=== PATIENT | female | born 1970 | race Caucasian/White ===

== ENCOUNTER 2016-04-18 13:09 | Inpatient (IN) ==
--- NOTE | 2016-04-18 13:27 | Emergency Department Note ---
Disposition Clinical Impression: Psychosis Qualifiers: Psychosis type: unspecified psychosis type Qualified Code(s): F29 - Unspecified psychosis not due to a substance or known physiological condition Disposition: Admitted As Inpatient Condition: Good Referrals: NO,PCP [Primary Care Provider] - Forms: ED Satisfaction Letter Time of Disposition: 14:14 Psych HPI - General Chief Complaint: ED Psychiatric Symptoms Stated Complaint: SI Time Seen by Provider: 04/18/16 13:15 Source: patient, family Mode of arrival: ambulatory Limitations: no limitations Nursing Notes Reviewed: Yes Vital Signs Reviewed: Yes - History of Present Illness HPI Narrative: Patient presents to the emergency department the care of her sister and daughter. She has a history of schizophrenia. Family concerned that she is not taking her Geodon. Patient has been acting bizarrely with hallucinations over the past several weeks progressively since her most recent psychiatric admission. No reports of drug or alcohol use. The patient complains of chronic neck, back, left-sided abdominal pain but otherwise denies symptoms. The family notes the patient has been having labile sleep patterns Pt complaint: altered mental status Onset (ago): week(s) Duration: constant History of similar episodes: Yes Alleged intoxication: No Associated symptoms: Reports: other Traumatic symptoms: denies traumatic injury Treatments prior to arrival: none - Related Data Home Medications Medication Instructions Recorded Confirmed Albuterol Sulfate [Proair 1 - 2 puff IH TID PRN 05/04/15 04/18/16 Respiclick] Fluticasone Propionate Nasal 50 mcg NS DAILY 05/04/15 04/18/16 [Flonase] Lansoprazole [Prevacid] 30 mg PO DAILY 05/04/15 04/18/16 Montelukast [Singulair] 10 mg PO DAILY 05/04/15 04/18/16 Atorvastatin Calcium [Lipitor] 20 mg PO DAILY 01/11/16 04/18/16 Estradiol 0.5 mg PO DAILY 01/11/16 04/18/16 Ranitidine HCl [Acid Special Education Case Manager] 150 mg PO BID 01/11/16 04/18/16 Umeclidinium [place] [Incruse 1 puff IH DAILY 01/11/16 04/18/16 Ellipta] Budesonide/Formoterol 80/4.5 1 puff IH BID 04/18/16 04/18/16 [Symbicort 80/4.5] Hydroxyzine HCl 25 mg PO BID 04/18/16 04/18/16 Loratadine [Allergy Relief] 10 mg PO DAILY 04/18/16 04/18/16 Trazodone HCl 100 mg PO HS 04/18/16 04/18/16 Previous Rx's Medication Instructions Recorded Buspirone HCl [Buspar] 15 mg PO BID #90 tablet 02/11/16 Clotrimazole 1% CRM [Lotrimin 1%] 1 appl TP BID #1 tube 02/11/16 Ziprasidone [Geodon] 80 mg PO BID #60 capsule 02/11/16 Allergies Allergy/AdvReac Type Severity Reaction Status Date / Time citalopram [From Celexa] AdvReac swelling Verified 01/28/16 18:11 lurasidone [From Latuda] AdvReac swelling Verified 01/28/16 18:11 All systems ED: reviewed and negative except as stated. Constitutional: Reports: as per HPI Eyes: Reports: as per HPI ENT ED: Reports: as per HPI Cardiovascular: Reports: as per HPI Respiratory: Reports: as per HPI Gastrointestinal: Reports: abdominal pain Genitourinary: Reports: as per HPI Musculoskeletal: Reports: back pain, neck pain Integumentary: Reports: as per HPI Neurological: Reports: other Psychiatric: Reports: as per HPI, auditory hallucinations Endocrine: Reports: as per HPI Hematological/Lymphatic: Reports: as per HPI Allergic/Immunologic: Reports: as per HPI Past Medical History - Past Medical History Source: patient Medical history: Reports: asthma, GERD Surgical history: Reports: herniorrhaphy, hysterectomy, orthopedic, other, other Psychiatric history: Reports: prior suicide attempt, previous psychiatric hospitalization HOUSEKEEPING LEAD history: Reports: bilateral tubal ligation - Social History Smoking Status: Current every day smoker Smokeless Tobacco Status: No Alcohol use: Reports: none Drug use: Reports: none Physical Exam Patient standing at bedside. Eyes closed. Arousable to verbal stimuli. Appears sleepy - General Limitations: no limitations General appearance: alert, in no apparent distress - Head Head exam: atraumatic - Eye Eye exam: Present: normal appearance, PERRL - ENT ENT exam: normal exam - Neck Neck exam: Present: normal inspection - Chest Chest inspection: Present: normal inspection - Respiratory Respiratory exam: Present: normal lung sounds bilaterally - Cardiovascular Cardiovascular exam: Present: regular rate, normal rhythm - Abdominal Exam Abdominal exam: Present: soft, Non-Tender - Rectal Exam Rectal exam: Present: deferred - Extremities Exam Extremities exam: Present: normal inspection - Back Exam Back exam: Present: normal inspection - Neurological Exam Neurological exam: Present: alert - Psychiatric Psychiatric exam: Present: flat affect - Skin Skin exam: Present: warm, dry, intact Course Course Narrative: Patient presents in the care of her family with concern for psychiatric related issues. She appears in no acute distress. I will attempt to clear this patient medically for behavioral evaluation - Reevaluation(s) Reevaluation #1: 1A contacted. medically cleared Vital Signs Temperature 97.5 F L 04/18/16 13:11 Pulse Rate 86 04/18/16 13:11 Respiratory Rate 16 04/18/16 13:11 Blood Pressure 133/82 04/18/16 13:11 O2 Sat by Pulse Oximetry 97 04/18/16 13:11 Temperature 97.5 F L 04/18/16 13:11 Pulse Rate 86 04/18/16 13:11 Respiratory Rate 16 04/18/16 13:11 Blood Pressure 133/82 04/18/16 13:11 O2 Sat by Pulse Oximetry 97 04/18/16 13:11 Oxygen Delivery Oxygen Delivery Room Air Psych - Lab Data Lab results reviewed: Yes I reviewed the patient's lab results. Result diagrams: 04/18/16 13:29 04/18/16 13:29 Lab Results 04/18/16 04/18/16 04/18/16 Range/Units 13:29 13:29 13:50 WBC 8.0 (4.3-11.1) K/mcL RBC 5.28 H (3.82-4.97) M/mcL Hgb 16.5 H (11.5-15.4) g/dL Hct 46.8 H (35.3-44.9) % MCV 88.6 (83.0-100.0) fL MCH 31.3 (28.0-33.3) pg MCHC 35.3 (31.6-35.5) g/dL RDW 12.2 (11.5-14.5) % Plt Count 349 (140-400) K/mcL MPV 9.1 L (9.4-12.4) fL Immature Gran % 0.3 (0-4) % Seg Neutrophils % 44.1 % Lymphocytes % 43.1 % Monocytes % 10.1 % Eosinophils % 1.3 % Basophils % 1.1 % Neutrophils # 3.5 (1.6-8.9) K/mcL Lymphocytes # 3.4 (0.6-4.6) K/mcL Monocytes # 0.8 (0.0-1.3) K/mcL Eosinophils # 0.1 (0.0-0.6) K/mcL Basophils # 0.1 (0.0-0.2) K/mcL Immature Plt Fraction 2.4 (1.1-6.1) % Sodium 139 (136-145) mEq/L Potassium 4.0 (3.5-4.5) mEq/L Chloride 104 (98-109) mEq/L Carbon Dioxide 24 (19-29) mEq/L BUN 14 (7-20) mg/dL Creatinine 1.04 (0.57-1.11) mg/dL Est GFR ( Amer) > 60 (> 60) Est GFR (Non-Af Amer) 57 L (> 60) BUN/Creatinine Ratio 13 (6-26) Glucose 100 H (70-99) mg/dL Calculated Osmolality 289 (280-300) Calcium 9.8 (8.6-10.8) mg/dL Total Bilirubin 0.5 (0.2-1.2) mg/dL Direct Bilirubin 0.2 (0.0-0.5) mg/dL Indirect Bilirubin 0.3 (0.0-1.2) mg/dL AST 12 (5-34) Units/L ALT 15 (0-55) Units/L Alkaline Phosphatase 78 (38-126) Units/L Serum Total Protein 7.6 (6.0-8.3) g/dL Albumin 4.2 (3.5-5.0) g/dL Globulin 3.4 (2.4-3.5) g/dL Albumin/Globulin Ratio 1.2 (1.1-2.2) Salicylates < 5.0 L (15-30) mg/dL Urine Opiates Screen Negative (Bicgvi=717) ng/mL Acetaminophen < 1.0 L (10-30) mcg/mL Ur Barbiturates Screen Negative (Njiovo=561) ng/mL Ur Phencyclidine Scrn Negative (Cutoff=25) ng/mL Ur Amphetamines Screen Positive H (Yohfew=3154) ng/mL U Benzodiazepines Scrn Negative (Knryji=184) ng/mL Urine Cocaine Screen Negative (Cutoff= 300) ng/mL U Marijuana (THC) Screen Negative (Cutoff = 50) ng/mL Ethyl Alcohol < 10 (0-10) mg/dL Psychiatric Medical Clearance - Medical Clearance Checklist Medical History: No Social History Section defined Current Vitals: Last Vital Signs Temp 97.5 F L 04/18/16 13:11 Pulse 86 04/18/16 13:11 Resp 16 04/18/16 13:11 BP 133/82 04/18/16 13:11 Pulse Ox 97 04/18/16 13:11 Psychiatric Lab Panel: Drug Levels and Toxicity 04/18/16 04/18/16 13:29 13:50 Urine Opiates Screen Negative Acetaminophen < 1.0 L Ur Barbiturates Screen Negative Ur Phencyclidine Scrn Negative Ur Amphetamines Screen Positive H U Benzodiazepines Scrn Negative Urine Cocaine Screen Negative U Marijuana (THC) Screen Negative Ethyl Alcohol < 10 Abnormal Labs: Abnormal lab results RBC 5.28 M/mcL (3.82-4.97) H 04/18/16 13:29 Hgb 16.5 g/dL (11.5-15.4) H 04/18/16 13:29 Hct 46.8 % (35.3-44.9) H 04/18/16 13:29 MPV 9.1 fL (9.4-12.4) L 04/18/16 13:29 Est GFR (Non-Af Amer) 57 (> 60) L 04/18/16 13:29 Glucose 100 mg/dL (70-99) H 04/18/16 13:29 Salicylates < 5.0 mg/dL (15-30) L 04/18/16 13:29 Acetaminophen < 1.0 mcg/mL (10-30) L 04/18/16 13:29 Ur Amphetamines Screen Positive ng/mL (Ifhsor=4834) H 04/18/16 13:50 Statement of Medical Clearance: I have evaluated the patient, reviewed diagnostic information, and certify that the patient's medical condition is sufficiently stable that transfer to the psychiatric unit does not pose a significant risk of deterioration.
[2016-04-18 13:36] LABS: Basophils # 0.1 K/mcL (0.0-0.2); Basophils % 1.1 %; Eosinophils # 0.1 K/mcL (0.0-0.6); Eosinophils % 1.3 %; Hematocrit 46.8 % (35.3-44.9); Hemoglobin 16.5 g/dL (11.5-15.4); Immature Granulocytes % 0.3 % (0-4); Immature Platelets 2.4 % (1.1-6.1); Lymphocytes # 3.4 K/mcL (0.6-4.6); Lymphocytes % 43.1 %; Mean Corpuscular HGB Conc 35.3 g/dL (31.6-35.5); Mean Corpuscular Hemoglobin 31.3 pg (28.0-33.3); Mean Corpuscular Volume 88.6 fL (83.0-100.0); Mean Platelet Volume 9.1 fL (9.4-12.4); Monocytes # 0.8 K/mcL (0.0-1.3); Monocytes % 10.1 %; Neutrophils # 3.5 K/mcL (1.6-8.9); Platelet Count 349 K/mcL (140-400); Red Blood Count 5.28 M/mcL (3.82-4.97); Red Cell Distribution Width 12.2 % (11.5-14.5); Segmented Neutrophils % 44.1 %
[2016-04-18 13:49] LABS: Alanine Aminotransferase 15 Units/L (0-55); Albumin 4.2 g/dL (3.5-5.0); Albumin/Globulin Ratio 1.2 (1.1-2.2); Alkaline Phosphatase 78 Units/L (38-126); Aspartate Amino Transferase 12 Units/L (5-34); BUN/Creatinine Ratio 13 (6-26); Bilirubin,Direct 0.2 mg/dL (0.0-0.5); Bilirubin,Indirect 0.3 mg/dL (0.0-1.2); Bilirubin,Total 0.5 mg/dL (0.2-1.2); Blood Urea Nitrogen 14 mg/dL (7-20); Calcium 9.8 mg/dL (8.6-10.8); Carbon Dioxide 24 mEq/L (19-29); Chloride 104 mEq/L (98-109); Globulin 3.4 g/dL (2.4-3.5); Glucose 100 mg/dL (70-99); Osmolality,Calculated 289 (280-300); Sodium 139 mEq/L (136-145); Total Protein 7.6 g/dL (6.0-8.3); eGFR For African Americans > 60 (> 60); eGFR For Non-African Americans 57 (> 60)
[2016-04-18 13:50] LABS: Acetaminophen < 1.0 mcg/mL (10-30); Ethanol < 10 mg/dL (0-10); Salicylate < 5.0 mg/dL (15-30)
[2016-04-18 14:10] LABS: Amphetamine Screen,Urine Positive ng/mL (Cutoff=1000); Barbiturate Screen,Urine Negative ng/mL (Cutoff=200); Benzodiazepines Screen,Urine Negative ng/mL (Cutoff=200); Cannabinoid Screen,Urine Negative ng/mL (Cutoff = 50); Cocaine Screen,Urine Negative ng/mL (Cutoff= 300); Opiate Screen,Urine Negative ng/mL (Cutoff=300); Phencyclidine Screen,Urine Negative ng/mL (Cutoff=25)
[2016-04-18] MEDS ORDERED: MOM Conc 10 ML UD.LIQ PO PRN (16:33)
[2016-04-18] MEDS ORDERED: Haloperidol Lactate 5 MG/ML VIAL IM PRN (16:33)
[2016-04-18] MEDS ORDERED: *HR* LORazepam 1 MG TABLET PO PRN (16:33)
[2016-04-18] MEDS ORDERED: *HR* LORazepam 2 MG/ML VIAL IM PRN (16:33)
[2016-04-18] MEDS: Acetaminophen 325 MG TABLET PO PRN (17:19)
[2016-04-18] MEDS: Nicotine 21 MG PATCH.TD24 TD SCH (17:19)
[2016-04-18] MEDS: Famotidine 20 MG TABLET PO SCH (20:15)
[2016-04-18] MEDS: traZODone 50 MG TABLET PO SCH (20:15)
[2016-04-18] MEDS: Clotrimazole 1% CRM 15 GM TUBE TP SCH (20:15)
[2016-04-18] MEDS: hydrOXYzine pamoate 25 MG CAPSULE PO SCH (20:15)
[2016-04-18] MEDS: Ziprasidone 80 MG CAPSULE PO SCH (20:15)
[2016-04-18] MEDS: Budesonide/Formoterol 80/4.5 MDI IH SCH (21:04)
[2016-04-19] MEDS: Acetaminophen 325 MG TABLET PO PRN (03:22)
[2016-04-19] MEDS: Mag Hydrox/Al Hydrox/Simeth 30 ML UDC PO PRN (05:42)
[2016-04-19] MEDS: INCRUSE ELLIPTA IH SCH (08:29)
[2016-04-19] MEDS: Nicotine 21 MG PATCH.TD24 TD SCH (08:29)
[2016-04-19] MEDS: Loratadine 10 MG TABLET PO SCH (08:30)
[2016-04-19] MEDS: hydrOXYzine pamoate 25 MG CAPSULE PO SCH ×2 (08:31→20:06)
[2016-04-19] MEDS: Ziprasidone 80 MG CAPSULE PO SCH ×2 (08:31→20:06)
[2016-04-19] MEDS: Famotidine 20 MG TABLET PO SCH ×2 (08:31→20:06)
[2016-04-19] MEDS: Fluticasone Propionate Nasal 50 MCG/SPRAY BOTTLE NS SCH (08:32)
[2016-04-19] MEDS: Budesonide/Formoterol 80/4.5 MDI IH SCH ×2 (08:32→17:00)
[2016-04-19] MEDS: Clotrimazole 1% CRM 15 GM TUBE TP SCH ×2 (08:33→20:08)
[2016-04-19] MEDS: Ibuprofen 400 MG TABLET PO PRN ×2 (10:04→17:00)
[2016-04-19] MEDS: traZODone 50 MG TABLET PO SCH (20:06)
--- NOTE | 2016-04-19 21:20 | Psychiatry History & Physical ---
Date of Encounter: 04/19/16 Time of Encounter: 15:10 History of Present Illness Patient Stated Chief Complaint: "I'm feeling better." Medicare Admission Attestation: For traditional Medicare patients the provided hospital inpatient services are reasonable and necessary and in the case of services not specified as inpatient -only under 42 CFR 419.22 (n), that they are appropriately provided as inpatient services in accordance 42 CFR 412.3. For Critical Access Hospital the patient may reasonably be expected to be discharged or transferred to a hospital within 96 hours after admission to the Critical Access Hospital. Admitted From: Emergency Dept Plans for Post Hospital Care: Home History of Present Illness: Ms. Anand is a 46 year old female who was admitted after being dropped off at the emergency room by her daughter stating that she was having delusional thoughts and was suicidal. The patient tells me, "I was having hallucinations and hearing voices". When I asked her what the voices were saying, she said "just stupid stuff". She denies command hallucinations to kill herself. She stated she was feeling suicidal prior to admission and that she did have a plan that she was going to overdose on her medications. She stated the voices were painful to hear saying mean things to her. She stated she was most upset by the fact that she was having visual hallucinations of her . She confides in me that she was not taking her Geodon for the last week prior to admission. She states that her daughter, who usually helps her with her medications, was out of town, and she had no one to help her. She explained to me that she had not slept, prior to last night, for 2 or 3 days. She was having bad problems with depression; feeling lonely, helpless and hopeless. She tells me today, after having 2 doses of her medication in the past 24 hours , "the voices are softer now". She tells me that she is no longer feeling suicidal having taken the medication and stated "now I am not going to do that" (overdose on her medications as a suicide plan). She denies any impulsivity, elevated mood, gambling or increased sexual desire or acting out sexually. She denies any mind reading, no paranoia that any federal government agencies or other people were out to get her. She denies any side effects of her medication and states that she feels better and will continue to take it. Note: She was positive for Amphetamine on her UDS. When I asked her about this , she had no idea how this occurred and was concerned that someone may have given it to her by mistake or tried to drug her. She was visibly upset by that information. Past Med Surg Social Fam HX - Past Medical History Medical history: asthma, GERD, other (Chronic low back, cervical and knee joint pain.) - Past Psychiatric History Psychiatric history: Reports: prior suicide attempt, previous psychiatric hospitalization, other (Schizoaffective D/O) Family psychiatric history: Unknown Family History of Suicide: Unknown - Past Surgical History Surgical History: herniorrhaphy, hysterectomy, orthopedic, other, other - Social History Smoking Status: Current every day smoker Smokeless Tobacco Status: No Alcohol use: none Drug use: none Occupational status: disabled Current living situation: Home, With Family (Lives with both her 23 y/o and 29 y /o daughters and their boyfriends) Activity Level: Independent ambulation Recent Out of Country Travel Within the Last 8 Weeks: No Exposure or Possible Exposure to Illness During Travel: No Medications & Allergies Albuterol Sulfate [Proair Respiclick] 1 - 2 puff IH TID PRN 05/04/15 [History] Fluticasone Propionate Nasal [Flonase] 50 mcg NS DAILY 05/04/15 [History] Lansoprazole [Prevacid] 30 mg PO DAILY 05/04/15 [History] Montelukast [Singulair] 10 mg PO DAILY 05/04/15 [History] Atorvastatin Calcium [Lipitor] 20 mg PO DAILY 01/11/16 [History] Estradiol 0.5 mg PO DAILY 01/11/16 [History] Ranitidine HCl [Acid Continuous Improvement Facilitator] 150 mg PO BID 01/11/16 [History] Umeclidinium [place] [Incruse Ellipta] 1 puff IH DAILY 01/11/16 [History] Buspirone HCl [Buspar] 15 mg PO BID #90 tablet 02/11/16 [Rx] Clotrimazole 1% CRM [Lotrimin 1%] 1 appl TP BID #1 tube 02/11/16 [Rx] Ziprasidone [Geodon] 80 mg PO BID #60 capsule 02/11/16 [Rx] Budesonide/Formoterol 80/4.5 [Symbicort 80/4.5] 1 puff IH BID 04/18/16 [History ] Hydroxyzine HCl 25 mg PO BID 04/18/16 [History] Loratadine [Allergy Relief] 10 mg PO DAILY 04/18/16 [History] Trazodone HCl 100 mg PO HS 04/18/16 [History] Allergies citalopram [From Celexa] Adverse Reaction (Verified 01/28/16 18:11) swelling lurasidone [From Latuda] Adverse Reaction (Verified 01/28/16 18:11) swelling Review of Systems Respiratory: Reports: wheezes Musculoskeletal: Reports: back pain, joint pain Psychiatric: Reports: depression, abnormal sleep pattern, suicidal ideation, auditory hallucinations, visual hallucinations, memory loss, difficulty concentrating, hopelessness Mental Status Exam Patient orientation: Yes Person, Yes Time, Yes Place, Yes Circumstance Level of alertness: Follows commands Patient appearance: Unkempt (mildly) Behavior: anxious, tearful (mildy tearful when talking about her and the visual hallucintaions) Psychomotor activity: Normal Eye contact: Maintains Eye Contact Mood description: Depressed Affect description: flat, anxious Speech pattern: Normal rate, Normal rhythm, Normal tone Speech volume: Normal Thought process: Linear, Goal Oriented Thought content: Yes Intact Perceptual disturbances: Yes Auditory hallucinations Attention span: Capable of Focused Attention Memory description: Immediate Intact, Recent Impaired, Remote Intact Patient reliability: Questionable Historian Intelligence estimate: Average Judgment: Limited Insight: Partial Results - Vital Signs Vital signs: Temp Pulse Resp BP Pulse Ox 98.6 F 76 16 118/74 97 04/19/16 20:50 04/19/16 20:50 04/19/16 20:50 04/19/16 20:50 04/18/16 13:11 - Labs Labs: Laboratory Last Values WBC 8.0 K/mcL (4.3-11.1) 04/18/16 13:29 RBC 5.28 M/mcL (3.82-4.97) H 04/18/16 13:29 Hgb 16.5 g/dL (11.5-15.4) H 04/18/16 13:29 Hct 46.8 % (35.3-44.9) H 04/18/16 13:29 MCV 88.6 fL (83.0-100.0) 04/18/16 13:29 MCH 31.3 pg (28.0-33.3) 04/18/16 13: MCHC 35.3 g/dL (31.6-35.5) 04/18/16 13: RDW 12.2 % (11.5-14.5) 04/18/16 13: Plt Count 349 K/mcL (140-400) 04/18/16 13: MPV 9.1 fL (9.4-12.4) L 04/18/16 13: Immature Gran % 0.3 % (0-4) 04/18/16 13: Seg Neutrophils % 44.1 % 04/18/16 13: Lymphocytes % 43.1 % 04/18/16 13: Monocytes % 10.1 % 04/18/16 13: Eosinophils % 1.3 % 04/18/16 13: Basophils % 1.1 % 04/18/16 13: Neutrophils # 3.5 K/mcL (1.6-8.9) 04/18/16 13: Lymphocytes # 3.4 K/mcL (0.6-4.6) 04/18/16 13: Monocytes # 0.8 K/mcL (0.0-1.3) 04/18/16 13: Eosinophils # 0.1 K/mcL (0.0-0.6) 04/18/16 13: Basophils # 0.1 K/mcL (0.0-0.2) 04/18/16 13: Immature Plt Fraction 2.4 % (1.1-6.1) 04/18/16 13:29 Sodium 139 mEq/L (136-145) 04/18/16 13:29 Potassium 4.0 mEq/L (3.5-4.5) 04/18/16 13: Chloride 104 mEq/L (98-109) 04/18/16 13: Carbon Dioxide 24 mEq/L (19-29) 04/18/16 13:29 BUN 14 mg/dL (7-20) 04/18/16 13:29 Creatinine 1.04 mg/dL (0.57-1.11) 04/18/16 13:29 Est GFR ( Amer) > 60 (> 60) 04/18/16 13:29 Est GFR (Non-Af Amer) 57 (> 60) L 04/18/16 13:29 BUN/Creatinine Ratio 13 (6-26) 04/18/16 13:29 Glucose 100 mg/dL (70-99) H 04/18/16 13:29 Calculated Osmolality 289 (280-300) 04/18/16 13:29 Calcium 9.8 mg/dL (8.6-10.8) 04/18/16 13:29 Total Bilirubin 0.5 mg/dL (0.2-1.2) 04/18/16 13:29 Direct Bilirubin 0.2 mg/dL (0.0-0.5) 04/18/16 13:29 Indirect Bilirubin 0.3 mg/dL (0.0-1.2) 04/18/16 13:29 AST 12 Units/L (5-34) 04/18/16 13:29 ALT 15 Units/L (0-55) 04/18/16 13:29 Alkaline Phosphatase 78 Units/L (38-126) 04/18/16 13:29 Serum Total Protein 7.6 g/dL (6.0-8.3) 04/18/16 13:29 Albumin 4.2 g/dL (3.5-5.0) 04/18/16 13:29 Globulin 3.4 g/dL (2.4-3.5) 04/18/16 13:29 Albumin/Globulin Ratio 1.2 (1.1-2.2) 04/18/16 13:29 Salicylates < 5.0 mg/dL (15-30) L 04/18/16 13:29 Urine Opiates Screen Negative ng/mL (Ihvujc=293) 04/18/16 13:50 Acetaminophen < 1.0 mcg/mL (10-30) L 04/18/16 13:29 Ur Barbiturates Screen Negative ng/mL (Atlmbg=070) 04/18/16 13:50 Ur Phencyclidine Scrn Negative ng/mL (Cutoff=25) 04/18/16 13:50 Ur Amphetamines Screen Positive ng/mL (Zbrcmh=9693) H 04/18/16 13:50 U Benzodiazepines Scrn Negative ng/mL (Dzfogb=373) 04/18/16 13:50 Urine Cocaine Screen Negative ng/mL (Cutoff= 300) 04/18/16 13:50 U Marijuana (THC) Screen Negative ng/mL (Cutoff = 50) 04/18/16 13:50 Ethyl Alcohol < 10 mg/dL (0-10) 04/18/16 13:29 Assessment and Plan (1) Schizoaffective disorder, bipolar type Current visit: Yes Status: Acute Plan: Admit inpatient for safety and stabilization, Close observation, Suicide Precautions per unit protocol, Encourage participation in unit milieu, Group Therapy, Monitor sleep, Family/Supportive other meeting Risks, benefits, side effects, alternatives discussed w/pt: Yes (Patient was restarted on her routine meds) Patient agreeable to treatment: Yes Plans for Post Hospital Care: Home Estimated Length of Stay (Days): 10
[2016-04-20] MEDS: Loratadine 10 MG TABLET PO SCH (08:38)
[2016-04-20] MEDS: Clotrimazole 1% CRM 15 GM TUBE TP SCH ×2 (08:38→20:45)
[2016-04-20] MEDS: Fluticasone Propionate Nasal 50 MCG/SPRAY BOTTLE NS SCH (08:38)
[2016-04-20] MEDS: hydrOXYzine pamoate 25 MG CAPSULE PO SCH ×2 (08:40→20:39)
[2016-04-20] MEDS: Famotidine 20 MG TABLET PO SCH ×2 (08:40→20:39)
[2016-04-20] MEDS: Nicotine 21 MG PATCH.TD24 TD SCH (08:40)
[2016-04-20] MEDS: Ziprasidone 80 MG CAPSULE PO SCH ×2 (08:40→20:39)
[2016-04-20] MEDS: INCRUSE ELLIPTA IH SCH (08:41)
[2016-04-20] MEDS: Budesonide/Formoterol 80/4.5 MDI IH SCH ×2 (08:43→20:45)
--- NOTE | 2016-04-20 11:33 | Psychiatry Progress Note ---
Date of Encounter: 04/20/16 Time of Encounter: 10:45 Subjective Interval history: Patient states that it she slept the previous night and that she is feeling better. She denies any auditory or visual hallucinations, she denies any suicidal or homicidal ideation, she denies any side effects of medications. She still unsure of how she had methamphetamine in our system. She is eating all her meals and cooperative on the unit. She states that she feels a little bit irritable currently which may be due to the fact that she cannot smoke cigarettes. She still at times appears visibly anxious, but tells me she wants to get stabilized to go home. We had a discussion about her potentially going to live with her sister upon discharge and not going back to the house where she lived with her daughters at this time, secondary to needing support and help with her medications. She stated that she was open to this. She denies any mind reading or any paranoia of the agencies are after her that anybody else 's after her. Review of Systems Psychiatric: Reports: depression, abnormal sleep pattern, memory loss, difficulty concentrating, hopelessness Objective: Exam Patient orientation: Yes Person, Yes Time, Yes Place, Yes Circumstance Level of alertness: Follows commands Patient appearance: Unkempt (mildly) Behavior: anxious Psychomotor activity: Normal Eye contact: Maintains Eye Contact Mood description: Depressed, Anxious Affect description: flat, anxious Speech pattern: Normal tone, Slowed, Delayed Speech volume: Normal Thought process: Linear, Goal Oriented, Thought Blocking (questionable. She still puases at times during conversation) Thought content: Yes Intact Judgment: Limited Insight: Partial Results - Vital Signs Vital Signs: Temp Pulse Resp BP Pulse Ox 98.4 F 67 16 118/77 97 04/20/16 08:36 04/20/16 08:36 04/20/16 08:36 04/20/16 08:36 04/18/16 13:11 Assessment and Plan (1) Schizoaffective disorder, bipolar type Current visit: Yes Status: Acute Risks, benefits, side effects, alternatives discussed w/pt: Yes (Patient was restarted on her routine meds) Patient agreeable to treatment: Yes Consult Discharge Plan - Plan Referrals: [facility] [Outside] - 04/30/16 3:00 pm (The above appointment is with Dr. Beard.)
[2016-04-20] MEDS: Ibuprofen 400 MG TABLET PO PRN ×2 (13:26→20:40)
[2016-04-20] MEDS: Mag Hydrox/Al Hydrox/Simeth 30 ML UDC PO PRN (17:12)
[2016-04-20] MEDS: traZODone 50 MG TABLET PO SCH (20:39)
[2016-04-21] MEDS: Ibuprofen 400 MG TABLET PO PRN ×3 (05:20→20:42)
[2016-04-21] MEDS: Nicotine 21 MG PATCH.TD24 TD SCH (08:57)
[2016-04-21] MEDS: Budesonide/Formoterol 80/4.5 MDI IH SCH ×2 (08:58→20:42)
[2016-04-21] MEDS: Clotrimazole 1% CRM 15 GM TUBE TP SCH ×2 (08:58→20:45)
[2016-04-21] MEDS: Famotidine 20 MG TABLET PO SCH ×2 (08:58→20:42)
[2016-04-21] MEDS: hydrOXYzine pamoate 25 MG CAPSULE PO SCH ×2 (08:58→20:42)
[2016-04-21] MEDS: Fluticasone Propionate Nasal 50 MCG/SPRAY BOTTLE NS SCH (08:58)
[2016-04-21] MEDS: Loratadine 10 MG TABLET PO SCH (08:59)
[2016-04-21] MEDS: Ziprasidone 80 MG CAPSULE PO SCH ×2 (08:59→20:42)
[2016-04-21] MEDS: INCRUSE ELLIPTA IH SCH (09:03)
--- NOTE | 2016-04-21 13:20 | Psychiatry Progress Note ---
Date of Encounter: 04/21/16 Time of Encounter: 12:00 Subjective Interval history: Patient tells me "I hope I am going home today". She denies being suicidal or homicidal, she denies auditory or visual hallucinations. She is nervous and anxious, questionably from not being able to smoke on the unit. I question if this might be the driving force for her desire to be discharged. She has not spoken to her daughters yet with who she lives with regarding how she may have possibly gotten methamphetamine in her system. Her sister has called and spoke with the social worker delinquency prevention. She stated last time she was discharged that she did not feel she was that stable yet are medications. That when she got home, she verbalized to her about wanting to hurt somebody and was still agitated and angry. Patient is still slightly distracted today. Not verbalizing any obvious psychotic thoughts, but still elevated in mood and anxious. I explained to her that her discharge plans are not finalized yet she needs to speak with her daughters and sister in regards to housing, which we had talked about previously. She said she would do this. She is aware that the social worker delinquency prevention in the unit would work with her discharge plans. Review of Systems Psychiatric: Reports: depression, anxiety, difficulty concentrating Objective: Exam Patient orientation: Yes Person, Yes Time, Yes Place, Yes Circumstance Level of alertness: Follows commands Patient appearance: Unkempt (improved today) Behavior: anxious Psychomotor activity: Normal Eye contact: Maintains Eye Contact Mood description: Anxious, Irritable Affect description: anxious Speech pattern: Normal rate, Normal rhythm, Normal tone Speech volume: Normal Thought process: Linear, Goal Oriented Thought content: Yes Intact Judgment: Limited Insight: Partial Results - Vital Signs Vital Signs: Temp Pulse Resp BP Pulse Ox 98.6 F 71 18 108/73 97 04/21/16 08:18 04/21/16 08:18 04/21/16 08:18 04/21/16 08:18 04/18/16 13:11 Assessment and Plan (1) Schizoaffective disorder, bipolar type Current visit: Yes Status: Acute Plan: Continue hospitalization, Close observation, Encourage participation in unit milieu, Group Therapy, Monitor sleep, Monitor appetite Risks, benefits, side effects, alternatives discussed w/pt: Yes Patient agreeable to treatment : Yes Consult Discharge Plan - Plan Referrals: [facility] [Outside] - 04/30/16 3:00 pm (The above appointment is with Dr. Beard.)
[2016-04-21] MEDS: traZODone 50 MG TABLET PO SCH (20:42)
[2016-04-22] MEDS: Ibuprofen 400 MG TABLET PO PRN ×3 (07:42→21:54)
[2016-04-22] MEDS: Fluticasone Propionate Nasal 50 MCG/SPRAY BOTTLE NS SCH (08:28)
[2016-04-22] MEDS: Ziprasidone 80 MG CAPSULE PO SCH ×2 (08:29→20:38)
[2016-04-22] MEDS: Famotidine 20 MG TABLET PO SCH ×2 (08:29→20:38)
[2016-04-22] MEDS: hydrOXYzine pamoate 25 MG CAPSULE PO SCH ×2 (08:29→20:38)
[2016-04-22] MEDS: Loratadine 10 MG TABLET PO SCH (08:29)
[2016-04-22] MEDS: Nicotine 21 MG PATCH.TD24 TD SCH (08:30)
[2016-04-22] MEDS: Clotrimazole 1% CRM 15 GM TUBE TP SCH ×2 (08:30→20:42)
[2016-04-22] MEDS: Budesonide/Formoterol 80/4.5 MDI IH SCH ×2 (08:30→20:40)
[2016-04-22] MEDS: INCRUSE ELLIPTA IH SCH (08:34)
--- NOTE | 2016-04-22 15:44 | Psychiatry Progress Note ---
Date of Encounter: 04/22/16 Time of Encounter: 15:30 Subjective Interval history: Patient states to me "I do not want to be sleeping all day on these medications ". I asked her what she was talking about specifically. She reported that she was sleeping al ot since taking this new medications, Benadryl. She an allergic reaction to her sensitive skin to do soap. Was given Benadryl as a PRN. I explained to her that the Benadryl was only PRN for her itchy skin and she replied that she understood. I explained to her that she would not have to be taken that as one of her routine medications. She states that she feels like she is greatly improved "I can concentrate on listening to the radio, even singing a little bit. Today I felt like him totally back". She denies any suicidal/homicidal ideation, she denies any auditory/visual hallucinations. She has spoken to her daughter. She might have been given some Ritalin from her daughter's boyfriend by mistake. "He takes it." She was very ambiguous about the whole situation which may explain why her UDS came up positive for Amphetamine. She also has contacted her sister and things are getting ready for her to be discharged tomorrow to go to her sister's home. Review of Systems Psychiatric: Reports: depression Objective: Exam Patient orientation: Yes Person, Yes Time, Yes Place, Yes Circumstance Level of alertness: Alert, Follows commands Patient appearance: Appropriate, Well Groomed Behavior: calm, cooperative Psychomotor activity: Normal Eye contact: Maintains Eye Contact Mood description: Euthymic/stable Affect description: congruent with mood Speech pattern: Normal rate, Normal rhythm, Normal tone Speech volume: Normal Thought process: Linear, Goal Oriented Thought content: Yes Intact Judgment: Fair Insight: Partial Results - Vital Signs Vital Signs: Temp Pulse Resp BP Pulse Ox 98.9 F 72 16 108/72 97 04/22/16 08:43 04/22/16 08:43 04/22/16 08:43 04/22/16 08:43 04/18/16 13:11 Assessment and Plan (1) Schizoaffective disorder, bipolar type Current visit: Yes Status: Acute Plan: Continue hospitalization, Close observation, Encourage participation in unit milieu, Monitor sleep Risks, benefits, side effects, alternatives discussed w/pt: Yes (Patient was restarted on her routine meds) Patient agreeable to treatment: Yes Consult Discharge Plan - Plan Referrals: [facility] [Outside] - 04/30/16 3:00 pm (The above appointment is with Dr. Beard.)
[2016-04-22] MEDS: traZODone 50 MG TABLET PO SCH (20:39)
[2016-04-23] MEDS: Nicotine 21 MG PATCH.TD24 TD SCH (08:12)
[2016-04-23] MEDS: Ziprasidone 80 MG CAPSULE PO SCH (08:12)
[2016-04-23] MEDS: Ibuprofen 400 MG TABLET PO PRN (08:13)
[2016-04-23] MEDS: Loratadine 10 MG TABLET PO SCH (08:13)
[2016-04-23] MEDS: hydrOXYzine pamoate 25 MG CAPSULE PO SCH (08:13)
[2016-04-23] MEDS: Fluticasone Propionate Nasal 50 MCG/SPRAY BOTTLE NS SCH (08:13)
[2016-04-23] MEDS: INCRUSE ELLIPTA IH SCH (08:14)
[2016-04-23] MEDS: Clotrimazole 1% CRM 15 GM TUBE TP SCH (08:14)
[2016-04-23] MEDS: Famotidine 20 MG TABLET PO SCH (08:14)
[2016-04-23] MEDS: Budesonide/Formoterol 80/4.5 MDI IH SCH (08:17)
[2016-04-23 08:56] VITALS: BP 115/67
--- NOTE | 2016-04-23 10:30 | Discharge Summary ---
Date of Encounter: 04/23/16 Time of Encounter: 10:15 Diagnosis - Discharge Diagnosis (1) Schizoaffective disorder, bipolar type Status: Acute Medications - Discharge Medications Prescriptions: Buspirone HCl [Buspar] 15 mg PO BID #20 tablet Hydroxyzine HCl 25 mg PO BID #20 tablet TraZODone 100 mg PO HS #10 tablet Ziprasidone [Geodon] 80 mg PO BID #20 capsule Albuterol Sulfate [Proair Respiclick] 1 - 2 puff IH TID PRN 05/04/15 [History] Fluticasone Propionate Nasal [Flonase] 50 mcg NS DAILY 05/04/15 [History] Lansoprazole [Prevacid] 30 mg PO DAILY 05/04/15 [History] Montelukast [Singulair] 10 mg PO DAILY 05/04/15 [History] Atorvastatin Calcium [Lipitor] 20 mg PO DAILY 01/11/16 [History] Estradiol 0.5 mg PO DAILY 01/11/16 [History] Umeclidinium [place] [Incruse Ellipta] 1 puff IH DAILY 01/11/16 [History] Clotrimazole 1% CRM [Lotrimin 1%] 1 appl TP BID #1 tube 02/11/16 [Rx] Budesonide/Formoterol 80/4.5 [Symbicort 80/4.5] 1 puff IH BID 04/18/16 [History ] Loratadine [Allergy Relief] 10 mg PO DAILY 04/18/16 [History] Buspirone HCl [Buspar] 15 mg PO BID #20 tablet 04/23/16 [Rx] Famotidine [Pepcid] 20 mg PO BID tablet 04/23/16 [Rx] Hydroxyzine HCl 25 mg PO BID #20 tablet 04/23/16 [Rx] TraZODone 100 mg PO HS #10 tablet 04/23/16 [Rx] Ziprasidone [Geodon] 80 mg PO BID #20 capsule 04/23/16 [Rx] Allergies citalopram [From Celexa] Adverse Reaction (Verified 01/28/16 18:11) swelling lurasidone [From Latuda] Adverse Reaction (Verified 01/28/16 18:11) swelling Provider Date of admission: 04/18/16 16:03 Primary care physician: PCP NO Discharging clinician: Hugh Olivia Assessment and Plan - Patient/Caregiver Discharge Instructions Activity: resume usual activities as tolerated Diet: regular diet - Follow up Plan Follow up with: [facility] [Outside] - 04/30/16 3:00 pm (The above appointment is with Dr. Beard.) [facility] (Your case assistant, Adeline, will call you directly to set up your next home visit.) Functional capacity at discharge: independent ambulation Overall status at discharge: Stable Disposition: Home, Self-Care Hospital Course Hospital course: Ms. Anand is a 46 year old female who tells me today "I am feeling good and ready to get out of here today". She is mostly looking forward to smoking, which is in large part what is driving her to be discharged. She denies any auditory or visual hallucinations, she denies any suicidal or homicidal ideation. She denies any side effects of medications. Her medications were not changed from her outpatient regimen. She was just restarted on them. She had missed doses as her medications are arranged for her by her daughter. But her daughter did not do it for a week and she did not end up taking them properly, causing her admission. She has made arrangements that she will be going to live with her sister. She believes she might live with her sister for a while but eventually move back in with her daughters. She states the trazodone 100 mg PRN tends to help her sleep at night, if she is having difficulty falling asleep. Her anxiety is greatly decreased, her thoughts are much more clear. She states "easier". She is not feeling depressed. She is future oriented and believes everything will be fine when she is discharged. She is going to work with her sister on her medications to try and learn what medication she has, what the pills look like. She still needs assistance in setting up her pillboxes, but is concerned that maybe someone put Ritalin in her pills by mistake and that is how she turned up positive for methamphetamine. She states that she is going to be more engaged in her own care and try to learn more about her pills to be more independent. Time spent discussing smoking cessation with patient: 3 to 10 minutes Does patient wish to continue nicotine replacement upon disc: No - Time Spent with Patient Total time spent providing and/or coordinating discharge services: 25 min Less than 30 minutes Quality - Multiple Antipsychotics Patient discharged on 2 or more antipsychotic medications: No Procedures - Procedures Procedures: Medication Management, Crisis Stabilization, Psychoeducational Therapy Mental Status Exam - Mental Status Exam Patient orientation: Yes Person, Yes Time, Yes Place, Yes Circumstance Level of alertness: Alert, Follows commands Patient appearance: Appropriate, Well Groomed Behavior: calm, cooperative Psychomotor activity: Normal (AIMS=0) Eye contact: Maintains Eye Contact Mood description: Euthymic/stable Affect description: congruent with mood Speech pattern: Normal rate, Normal rhythm, Normal tone Speech Volume: Normal Thought process: Linear, Goal Oriented Thought Content: Yes Intact Judgment: Fair Insight: Partial
[2016-04-23] MEDS ORDERED: FLU VACC QS2016-17 36MOS UP/PF 0.5 ML SYRINGE IM ONE (11:09)
== END 2016-04-23 14:25 | disposition home or self-care (01) | DRG 750 ==
LOC: EMEROO 13:09 → 1ANU 16:03
PROVIDERS: ADMIT Psychiatry & Neurology Psychiatry; ATTEND Psychiatry & Neurology Psychiatry

== ENCOUNTER 2016-09-26 19:39 | Inpatient (IN) ==
[2016-09-26] MEDS ORDERED: *HR* LORazepam 2 MG/ML VIAL IM PRN (20:59)
[2016-09-26] MEDS ORDERED: Haloperidol Lactate 5 MG/ML VIAL IM PRN (20:59)
[2016-09-26] MEDS ORDERED: MOM Conc 10 ML UD.LIQ PO PRN (20:59)
[2016-09-26] MEDS ORDERED: OLANZapine 10 MG TAB.RAPDIS PO ONE (21:08)
[2016-09-27] MEDS: Nicotine 21 MG PATCH.TD24 TD SCH (08:19)
--- NOTE | 2016-09-27 11:24 | Psychiatry History & Physical ---
Date of Encounter: 09/27/16 Time of Encounter: 10:45 History of Present Illness Patient Stated Chief Complaint: "I am so confused." Medicare Admission Attestation: For traditional Medicare patients the provided hospital inpatient services are reasonable and necessary and in the case of services not specified as inpatient -only under 42 CFR 419.22 (n), that they are appropriately provided as inpatient services in accordance 42 CFR 412.3. For Critical Access Hospital the patient may reasonably be expected to be discharged or transferred to a hospital within 96 hours after admission to the Critical Access Hospital. Admitted From: Direct Admit History of Present Illness: Ms. Anand is a 46 year old female with a history of vague psychiatric symptoms. Diagnosis of schizophrenia, personality disorder, anxiety symptoms. She presented to the hospital with increasing depression and auditory hallucinations. Patient reports that she has had a lot of increased stress and she has been off all of her psych meds because her sister threw them away. " She said I did not need those meds." Patient has had no significant psychiatric follow-up since her admission here in January 2016. She states that she has difficulty sleeping, both falling asleep and staying asleep. Patient refuses to leave her bed for the interview and answers flailing around on the bed and whipping her head back and forth and only intermittently answering questions. These movements do not appear to be uncontrollable. Patient refuses to make eye contact with this provider and refused to speak until after questions were asked multiple times. Patient states she hears 3-4 voices but cannot say what the voices say. She does report depressed mood and suicidal ideations without plan. She reports decreased sleep but mainly because she is having difficulty falling asleep and she has not been taking medications. Past Med Surg Social Fam HX - Past Medical History Medical history: asthma, GERD, other - Past Psychiatric History Psychiatric history: Reports: anxiety, prior suicide attempt, schizophrenia, previous psychiatric hospitalization Past psychiatric history details: Patient has past history of multiple psychiatric hospitalizations and previous suicide attempts the patient will not go into any details about this. Family psychiatric history: Yes Family Psychiatric History Details: Patient reports her daughter has bipolar disorder. Family History of Suicide: None - Past Surgical History Surgical History: herniorrhaphy, hysterectomy, orthopedic, other, other - Social History Smoking Status: Current every day smoker Smokeless Tobacco Status: No Alcohol use: none Drug use: none Current living situation: With Family Activity Level: Independent ambulation Medications & Allergies Budesonide/Formoterol 80/4.5 [Symbicort 80/4.5] 1 puff IH BID 04/18/16 [History ] hydrOXYzine HCl [Hydroxyzine HCl] 25 mg PO BID #20 tablet 04/23/16 [Rx] Buspirone HCl [Buspar] 15 mg PO TID 04/27/16 [History] Ranitidine HCl [Acid Design Technology Professor] 150 mg PO BID 04/27/16 [History] traZODone [TraZODone] 100 mg PO HS 04/27/16 [History] Atorvastatin Calcium [Lipitor] 20 mg PO DAILY 05/26/16 [History] Albuterol Sulfate [Proair Hfa] 2 aerosol PO Q46H 09/26/16 [History] Amitriptyline [Elavil] 10 mg PO BID 09/26/16 [History] Benztropine [Cogentin] 0.5 mg PO BID 09/26/16 [History] Estradiol [Estradiol] 0.5 mg PO DAILY 09/26/16 [History] Lansoprazole [Prevacid] 30 mg PO DAILY 09/26/16 [History] Loratadine [Claritin] 10 mg PO DAILY 09/26/16 [History] Montelukast [Singulair] 10 mg PO DAILY 09/26/16 [History] risperiDONE [RisperDAL] 1 mg PO BID 09/26/16 [History] Allergies citalopram [From Celexa] Adverse Reaction (Verified 04/27/16 19:48) swelling lurasidone [From Latuda] Adverse Reaction (Verified 04/27/16 19:48) swelling Review of Systems Constitutional: Denies: fever, chills, weakness, weight change Eyes: Denies: eye pain, vision change Ears, Nose, Throat: Denies: ear pain, throat pain, dental pain, hearing loss, congestion Cardiovascular: Denies: chest pain, palpitations, dyspnea on exertion Respiratory: Denies: cough, dyspnea, wheezes Gastrointestinal: Denies: abdominal pain, nausea, vomiting, diarrhea, constipation Genitourinary male: Denies: urgency, dysuria, frequency, genital lesions Genitourinary female: Denies: urgency, dysuria, frequency, abnormal menses, dyspareunia Musculoskeletal: Reports: joint pain, myalgia Integumentary: Denies: rash, lesions, pruritus Neurological: Denies: headache, weakness, numbness, memory loss Psychiatric: Reports: depression, abnormal sleep pattern, suicidal ideation, auditory hallucinations, visual hallucinations, hopelessness, irritability, mood swings, panic attacks Endocrine: Denies: fatigue, heat or cold intolerance Hematologic/Lymphatic: Denies: easy bruising, lymphadenopathy Allergic/Immunologic: Denies: urticaria, itchy eyes Mental Status Exam Patient orientation: Yes Person, No Time, No Place, Yes Circumstance Level of alertness: Alert Patient appearance: Disheveled Behavior: agitated, restless, uncooperative, distractible, dramatic Psychomotor activity: Agitated Eye contact: Avoids Eye Contact Mood description: Depressed, Anxious Affect description: labile Speech pattern: Normal rate, Normal rhythm, Normal tone Speech volume: Normal Thought process: Circumstantial Thought content: Yes Suicidal ideation Perceptual disturbances: No Reacting to internal stimuli, Yes Auditory hallucinations Attention span: Capable of Focused Attention Memory description: Grossly Intact Patient reliability: Questionable Historian Intelligence estimate: Average Judgment: Limited Insight: Minimal Exam - HEENT Head exam IM: Present: atraumatic - Neurological Neurological exam IM: Present: CN II-XII intact Results - Vital Signs Vital signs: Temp Pulse Resp BP 98.4 F 88 16 118/84 09/27/16 08:47 09/27/16 08:47 09/27/16 08:47 09/27/16 08:47 Assessment and Plan (1) Psychosis Current visit: No Status: Acute Plan: Admit inpatient for safety and stabilization, Close observation, Suicide Precautions per unit protocol, Encourage participation in unit milieu, Group Therapy, Monitor sleep, Monitor appetite Additional Plan: Patient is reporting bothersome psychotic symptoms although she does not appear to be responding to internal stimuli. We will review previous discharge summary and likely restart some of these medications as patient has not been taking them as prescribed. Monitor for side effects. Risks, benefits, side effects, alternatives discussed w/pt: Yes Patient agreeable to treatment: Yes Plans for Post Hospital Care: Home Estimated Length of Stay (Days): 3 Qualifiers: Psychosis type: schizophrenia Schizophrenia type: unspecified Qualified Code(s): F20.9 - Schizophrenia, unspecified (2) Depression Current visit: Yes Status: Acute Plan: Admit inpatient for safety and stabilization, Close observation, Suicide Precautions per unit protocol, Encourage participation in unit milieu, Group Therapy, Monitor sleep, Monitor appetite Additional Plan: We will restart mood stabilizer person consider antidepressant as needed for patient's mood symptoms. Risks, benefits, side effects, alternatives discussed w/pt: Yes Patient agreeable to treatment: Yes Plans for Post Hospital Care: Home Qualifiers: Depression Type: unspecified Qualified Code(s): F32.9 - Major depressive disorder, single episode, unspecified (3) Personality disorder Current visit: Yes Status: Acute Plan: Admit inpatient for safety and stabilization, Close observation, Suicide Precautions per unit protocol, Encourage participation in unit milieu, Group Therapy, Monitor sleep, Monitor appetite Additional Plan: Patient has long-standing relationship issues and difficulty coping. Encourage participation in therapeutic milieu. Encourage outpatient follow-up when patient is stable. Risks, benefits, side effects, alternatives discussed w/pt: Yes Patient agreeable to treatment: Yes
[2016-09-27] MEDS ORDERED: Ziprasidone 20 MG CAPSULE PO ONE (12:09)
[2016-09-27] MEDS: *HR* LORazepam 1 MG TABLET PO PRN (18:23)
[2016-09-27] MEDS: Ziprasidone 20 MG CAPSULE PO SCH (20:20)
[2016-09-27] MEDS: hydrOXYzine pamoate 25 MG CAPSULE PO PRN (20:20)
[2016-09-27] MEDS: traZODone 50 MG TABLET PO PRN (20:20)
[2016-09-28] MEDS: Ziprasidone 20 MG CAPSULE PO SCH ×2 (08:54→20:20)
[2016-09-28] MEDS: Nicotine 21 MG PATCH.TD24 TD SCH (08:54)
--- NOTE | 2016-09-28 11:14 | Psychiatry Progress Note ---
Date of Encounter: 09/28/16 Time of Encounter: 11:20 Subjective Interval history: Patient seen today for follow-up of her psychosis and depression. She continues to report low mood she is still hesitant to talk to this provider but did state "he only gave me 20 mg of Geodon and I am still hearing voices." She lays in bed with a blanket over her head during much of the interview. She continues to endorse vague suicidal ideations. "I am out of my head." Staff reports that patient remains in her room and has been laying in bed. She did have a "episode" while they were attempting to do her vitals but when I asked her to remain still and stop moving around so they could get her blood pressure she was able to control her movements. Patient does not verbalize what the voices are saying. "I am hearing 3 or 4 it is so confusing." Review of Systems Psychiatric: Reports: depression, abnormal sleep pattern, suicidal ideation, auditory hallucinations, visual hallucinations, hopelessness, irritability, mood swings, panic attacks Objective: Exam Patient orientation: Yes Person, Yes Circumstance Level of alertness: Follows commands Patient appearance: Unkempt Behavior: restless, uncooperative, dramatic Psychomotor activity: Slowed Eye contact: No Eye Contact Mood description: Depressed, Anxious Affect description: blunted Speech pattern: Slowed Speech volume: Normal Thought process: Circumstantial Thought content: Yes Suicidal ideation Perceptual disturbances: No Reacting to internal stimuli, Yes Auditory hallucinations Judgment: Limited Insight: Minimal Results - Vital Signs Vital Signs: Temp Pulse Resp BP 97.8 F 87 16 118/83 09/28/16 09:00 09/28/16 09:00 09/28/16 09:00 09/28/16 09:00 Assessment and Plan (1) Psychosis Current visit: No Status: Acute Plan: Continue hospitalization, Close observation, Suicide Precautions per unit protocol, Encourage participation in unit milieu, Group Therapy, Monitor sleep, Monitor appetite Additional Plan: We will increase Geodon. Staff did talk to family and states that patient started to worsen when she was started on amitriptyline for her fibromyalgia. This may be causing more confusion and we will not continue this medicine while she is in the hospital. Continue to monitor and encourage patient to attend groups and verbalizing issues rather than lie in bed. Risks, benefits, side effects, alternatives discussed w/pt: Yes Patient agreeable to treatment: Yes Qualifiers: Psychosis type: schizophrenia Schizophrenia type: unspecified Qualified Code(s): F20.9 - Schizophrenia, unspecified (2) Depression Current visit: Yes Status: Acute Additional Plan: Continue current medications for now. Risks, benefits, side effects, alternatives discussed w/pt: Yes Patient agreeable to treatment: Yes Qualifiers: Depression Type: unspecified Qualified Code(s): F32.9 - Major depressive disorder, single episode, unspecified (3) Personality disorder Current visit: Yes Status: Acute Plan: Continue hospitalization, Close observation, Suicide Precautions per unit protocol, Encourage participation in unit milieu, Group Therapy, Monitor sleep, Monitor appetite Additional Plan: Encouraged participation in unit activities. Encourage positive coping strategies. Encourage appropriate ADLs. Risks, benefits, side effects, alternatives discussed w/pt: Yes Patient agreeable to treatment: Yes Consult Discharge Plan - Plan Referrals: [facility] [Outside] - 10/19/16 1:20 pm (The above appointment is with Dr. Beard, psychiatrist. You have another appointment scheduled with Dr. Beard on 12/26/2016 at 2:20pm as well.)
[2016-09-28] MEDS: Mag Hydrox/Al Hydrox/Simeth 30 ML UDC PO PRN (15:08)
[2016-09-28] MEDS: *HR* LORazepam 1 MG TABLET PO PRN (18:38)
[2016-09-28] MEDS: Famotidine 20 MG TABLET PO SCH (20:19)
[2016-09-28] MEDS: traZODone 50 MG TABLET PO PRN (20:19)
[2016-09-28] MEDS: Ibuprofen 400 MG TABLET PO PRN (20:20)
[2016-09-28] MEDS: Budesonide/Formoterol 80/4.5 MDI IH SCH (21:14)
[2016-09-29] MEDS: Nicotine 21 MG PATCH.TD24 TD SCH (09:14)
[2016-09-29] MEDS: Famotidine 20 MG TABLET PO SCH ×2 (09:15→20:33)
[2016-09-29] MEDS: Ziprasidone 20 MG CAPSULE PO SCH ×2 (09:16→20:32)
[2016-09-29] MEDS: Loratadine 10 MG TABLET PO SCH (09:16)
[2016-09-29] MEDS: Budesonide/Formoterol 80/4.5 MDI IH SCH ×2 (09:18→20:32)
[2016-09-29] MEDS: (Umeclidinium Bromide [Incruse Ellipta] 1 PUFF) IH SCH (09:21)
--- NOTE | 2016-09-29 12:54 | Psychiatry Progress Note ---
Date of Encounter: 09/29/16 Time of Encounter: 12:55 Subjective Interval history: Patient seen and interviewed. History and physical examination reviewed. Patient reporting of not doing well. Endorsing auditory hallucinations depression and irritability mood swings and suicidal ideations. Patient is mostly isolated and withdrawn. She did report that when she was taking Geodon 80 mg twice a day she felt a lot better and her voices were under control and is requesting Geodon to be increased. I encouraged the patient will attend groups and participate in activities. Review of Systems Psychiatric: Reports: depression, abnormal sleep pattern, suicidal ideation, auditory hallucinations, visual hallucinations, hopelessness, irritability, mood swings, panic attacks Objective: Exam Patient orientation: Yes Person, Yes Time, Yes Place Level of alertness: Sedated Patient appearance: Unkempt, Disheveled Behavior: anxious, guarded, withdrawn Psychomotor activity: Normal Eye contact: Minimal Contact Mood description: Depressed, Anxious, Irritable Affect description: flat, dysphoric Speech pattern: Normal rate, Normal rhythm, Normal tone Speech volume: Normal Thought process: Linear, Goal Oriented Thought content: Yes Suicidal ideation Perceptual disturbances: Yes Auditory hallucinations Judgment: Limited Insight: Minimal Results - Vital Signs Vital Signs: Temp Pulse Resp BP 98.1 F 76 18 124/82 09/29/16 09:00 09/29/16 09:00 09/29/16 09:00 09/29/16 09:00 Assessment and Plan (1) Psychosis Current visit: No Status: Acute Plan: Continue hospitalization, Close observation, Suicide Precautions per unit protocol, Encourage participation in unit milieu, Group Therapy, Monitor sleep, Monitor appetite Additional Plan: We will increase Geodon to 80 mg twice a day for her psychosis Risks, benefits, side effects, alternatives discussed w/pt: Yes Patient agreeable to treatment: Yes Qualifiers: Psychosis type: schizophrenia Schizophrenia type: unspecified Qualified Code(s): F20.9 - Schizophrenia, unspecified (2) Personality disorder Current visit: Yes Status: Acute Plan: Continue hospitalization, Close observation, Suicide Precautions per unit protocol, Encourage participation in unit milieu, Group Therapy, Monitor sleep, Monitor appetite Additional Plan: Continue with her current medication Risks, benefits, side effects, alternatives discussed w/pt: Yes Patient agreeable to treatment: Yes Consult Discharge Plan - Plan Referrals: [facility] [Outside] - 10/19/16 1:20 pm (The above appointment is with Dr. Beard, psychiatrist. You have another appointment scheduled with Dr. Beard on 12/26/2016 at 2:20pm as well.)
[2016-09-29] MEDS: traZODone 50 MG TABLET PO PRN (20:33)
[2016-09-30] MEDS: hydrOXYzine pamoate 25 MG CAPSULE PO PRN (05:31)
[2016-09-30] MEDS: Nicotine 21 MG PATCH.TD24 TD SCH (08:05)
[2016-09-30] MEDS: Budesonide/Formoterol 80/4.5 MDI IH SCH ×2 (08:06→20:23)
[2016-09-30] MEDS: Ziprasidone 20 MG CAPSULE PO SCH ×2 (08:06→20:22)
[2016-09-30] MEDS: Loratadine 10 MG TABLET PO SCH (08:07)
[2016-09-30] MEDS: Famotidine 20 MG TABLET PO SCH ×2 (08:07→20:22)
[2016-09-30] MEDS: (Umeclidinium Bromide [Incruse Ellipta] 1 PUFF) IH SCH (08:14)
--- NOTE | 2016-09-30 11:16 | Psychiatry Progress Note ---
Date of Encounter: 09/30/16 Time of Encounter: 10:15 Subjective Interval history: Patient seen and interviewed. Not much difference from yesterday. Continued to endorse auditory hallucinations. Reporting that she feels people are talking and she can hear the voices from the roof and from the mena. She reported poor sleep. Patient is isolated and withdrawn and I had a long conversation with her about spending more time outside her room and she is willing to attend some groups and socializes with peers. Patient is tolerating increase in Geodon fairly well. I reassured the patient and advised her to give the medications a day or so. Patient is requesting an increase in trazodone she reported that she was taking 200 mg which was helping her to sleep better. Review of Systems Psychiatric: Reports: depression, abnormal sleep pattern, suicidal ideation, auditory hallucinations, visual hallucinations, hopelessness, irritability, mood swings, panic attacks Objective: Exam Patient orientation: Yes Person, Yes Time, Yes Place Level of alertness: Alert Patient appearance: Unkempt, Disheveled Behavior: anxious, tearful, fearful Psychomotor activity: Slowed Eye contact: Maintains Eye Contact Mood description: Depressed, Anxious Affect description: tearful, dysphoric Speech pattern: Normal rate, Normal rhythm, Normal tone Speech volume: Normal Thought process: Linear, Goal Oriented Thought content: Yes Suicidal ideation Perceptual disturbances: Yes Auditory hallucinations Judgment: Limited Insight: Minimal Results - Vital Signs Vital Signs: Temp Pulse Resp BP 98.0 F 72 16 130/85 09/30/16 08:26 09/30/16 08:26 09/30/16 08:26 09/30/16 08:26 Assessment and Plan (1) Psychosis Current visit: No Status: Acute Plan: Continue hospitalization, Close observation, Suicide Precautions per unit protocol, Encourage participation in unit milieu, Group Therapy, Monitor sleep, Monitor appetite Additional Plan: Continue with the current regime of medications will increase trazodone 200 mg at bedtime for insomnia. Risks, benefits, side effects, alternatives discussed w/pt: Yes Patient agreeable to treatment: Yes Qualifiers: Psychosis type: schizophrenia Schizophrenia type: unspecified Qualified Code(s): F20.9 - Schizophrenia, unspecified (2) Personality disorder Current visit: Yes Status: Acute Plan: Continue hospitalization, Close observation, Suicide Precautions per unit protocol, Encourage participation in unit milieu, Group Therapy, Monitor sleep, Monitor appetite Additional Plan: Continue with her current medication Risks, benefits, side effects, alternatives discussed w/pt: Yes Patient agreeable to treatment: Yes Consult Discharge Plan - Plan Referrals: [facility] [Outside] - 10/19/16 1:20 pm (The above appointment is with Dr. Beard, psychiatrist. You have another appointment scheduled with Dr. Beard on 12/26/2016 at 2:20pm as well.)
[2016-09-30] MEDS: traZODone 50 MG TABLET PO SCH (20:22)
[2016-10-01] MEDS: *HR* LORazepam 1 MG TABLET PO PRN (04:05)
[2016-10-01] MEDS: Famotidine 20 MG TABLET PO SCH ×2 (08:42→20:37)
[2016-10-01] MEDS: Ziprasidone 20 MG CAPSULE PO SCH (08:43)
[2016-10-01] MEDS: Loratadine 10 MG TABLET PO SCH (08:43)
[2016-10-01] MEDS: Budesonide/Formoterol 80/4.5 MDI IH SCH ×2 (08:45→20:38)
[2016-10-01] MEDS: Nicotine 21 MG PATCH.TD24 TD SCH (08:46)
[2016-10-01] MEDS: (Umeclidinium Bromide [Incruse Ellipta] 1 PUFF) IH SCH (08:56)
--- NOTE | 2016-10-01 12:55 | Psychiatry Progress Note ---
Date of Encounter: 10/01/16 Time of Encounter: 12:51 Subjective Interval history: Client remains psychotic. Responding to internal stimuli while speaking with this machine sign writer. Feels Geodon is not working for her. Staff agree. Prescribed 80mg BID which is an adequate dose provided it is taken with food. Received Haldol prn last night with positive results. Client asking to try it in place of Geodon. Had some benefit with Risperdal in the past which is similar to Haldol but client reports she mismanaged the dose. Staff report client is very paranoid. Jumps whenever anyone enters her room. Fearful of telephones and ipads. Staff report this is the worst they have ever seen her. 72 hour hold up today. Client may sign in but likely safer to probate her given her degree of psychosis. Review of Systems Constitutional: Denies: fever, chills, weakness, weight change Eyes: Denies: eye pain, vision change Ears, Nose, Throat: Denies: ear pain, throat pain, dental pain, hearing loss, congestion Cardiovascular: Denies: chest pain, palpitations, dyspnea on exertion Respiratory: Denies: cough, dyspnea, wheezes Gastrointestinal: Denies: abdominal pain, nausea, vomiting, diarrhea, constipation Musculoskeletal: Denies: joint swelling, joint pain Neurological: Denies: headache, weakness, numbness, memory loss Psychiatric: Reports: depression, abnormal sleep pattern, suicidal ideation, auditory hallucinations, visual hallucinations, hopelessness, irritability, mood swings, panic attacks Objective: Exam Patient orientation: Yes Person, Yes Time, Yes Place Level of alertness: Alert Patient appearance: Appropriate, Well Groomed Behavior: calm, cooperative Psychomotor activity: Slowed Eye contact: Maintains Eye Contact Mood description: Depressed Affect description: congruent with mood Speech pattern: Normal rate, Normal rhythm, Normal tone Speech volume: Soft/Quiet Thought process: Slowed Thinking Thought content: No Suicidal ideation, No Homicidal ideation, Yes Paranoid delusion Perceptual disturbances: Yes Reacting to internal stimuli Judgment: Limited Insight: Minimal Results - Vital Signs Vital Signs: Temp Pulse Resp BP 98.3 F 71 14 122/93 10/01/16 09:00 10/01/16 09:00 10/01/16 09:00 10/01/16 09:00 Assessment and Plan (1) Schizophrenia Current visit: No Status: Acute Plan: Continue hospitalization, Close observation, Suicide Precautions per unit protocol, Encourage participation in unit milieu, Group Therapy, Monitor sleep, Monitor appetite Risks, benefits, side effects, alternatives discussed w/pt: Yes Patient agreeable to treatment: Yes Qualifiers: Schizophrenia type: unspecified Qualified Code(s): F20.9 - Schizophrenia, unspecified Consult Discharge Plan - Plan Referrals: [facility] [Outside] - 10/19/16 1:20 pm (The above appointment is with Dr. Beard, psychiatrist. You have another appointment scheduled with Dr. Beard on 12/26/2016 at 2:20pm as well.)
[2016-10-01] MEDS: hydrOXYzine pamoate 25 MG CAPSULE PO PRN ×3 (14:19→23:15)
[2016-10-01] MEDS: Ibuprofen 400 MG TABLET PO PRN (16:31)
[2016-10-01] MEDS: traZODone 50 MG TABLET PO SCH (20:38)
[2016-10-02] MEDS: Loratadine 10 MG TABLET PO SCH (09:13)
[2016-10-02] MEDS: Famotidine 20 MG TABLET PO SCH ×2 (09:14→21:37)
[2016-10-02] MEDS: Nicotine 21 MG PATCH.TD24 TD SCH (09:17)
[2016-10-02] MEDS: (Umeclidinium Bromide [Incruse Ellipta] 1 PUFF) IH SCH (09:18)
[2016-10-02] MEDS: Budesonide/Formoterol 80/4.5 MDI IH SCH ×2 (09:18→21:54)
[2016-10-02] MEDS: hydrOXYzine pamoate 25 MG CAPSULE PO PRN (12:00)
--- NOTE | 2016-10-02 14:21 | Psychiatry Progress Note ---
Date of Encounter: 10/02/16 Time of Encounter: 14:14 Subjective Interval history: Doing a little better but still hearing command hallucinations. Reports she hears voices at her baseline but that this is extreme. Seems distressed. Last night she was convinced she had a rash from the Haldol. Nursing staff did not see anything on her arms where client endorsed redness. Denied any problems from Haldol to this ticket writer today. Indicated she would be willing to go up on dose. Also indicated she thought she had been on the Haldol Decano[place] shot in the past but had to stop it due to rocking behavior. May have been EPS. Will monitor her for this. Clearly having significant symptoms of psychosis but she is also improving. Started going to groups for the first time yesterday. Staff report she is less irritable. Also able to talk to family members on the phone-previously she was terrified of the phone and other technology. Her conversations are also becoming more relevant. Needs more time but showing promise. Social work attempting to get her linked with home health. Review of Systems Constitutional: Denies: fever, chills, weakness, weight change Eyes: Denies: eye pain, vision change Ears, Nose, Throat: Denies: ear pain, throat pain, dental pain, hearing loss, congestion Cardiovascular: Denies: chest pain, palpitations, dyspnea on exertion Respiratory: Denies: cough, dyspnea, wheezes Gastrointestinal: Denies: abdominal pain, nausea, vomiting, diarrhea, constipation Musculoskeletal: Denies: joint swelling, joint pain Neurological: Denies: headache, weakness, numbness, memory loss Psychiatric: Reports: depression, abnormal sleep pattern, suicidal ideation, auditory hallucinations, visual hallucinations, hopelessness, irritability, mood swings, panic attacks Objective: Exam Patient orientation: Yes Person, Yes Time, Yes Place Level of alertness: Alert Patient appearance: Appropriate, Well Groomed Behavior: calm, cooperative Psychomotor activity: Normal Eye contact: Maintains Eye Contact Mood description: Anxious Affect description: congruent with mood Speech pattern: Normal rate, Normal rhythm, Normal tone Speech volume: Soft/Quiet Thought process: Linear Thought content: No Suicidal ideation, No Homicidal ideation, Yes Paranoid delusion Perceptual disturbances: Yes Reacting to internal stimuli, Yes Auditory hallucinations Judgment: Fair Insight: Partial Results - Vital Signs Vital Signs: Temp Pulse Resp BP 98.1 F 74 14 124/80 10/02/16 09:00 07/11/17 09:00 10/02/16 09:00 10/02/16 09:00 Assessment and Plan (1) Schizophrenia Current visit: No Status: Acute Plan: Continue hospitalization, Close observation, Suicide Precautions per unit protocol, Encourage participation in unit milieu, Group Therapy, Monitor sleep, Monitor appetite Risks, benefits, side effects, alternatives discussed w/pt: Yes Patient agreeable to treatment: Yes Qualifiers: Schizophrenia type: unspecified Qualified Code(s): F20.9 - Schizophrenia, unspecified Consult Discharge Plan - Plan Referrals: [facility] [Outside] - 10/19/16 1:20 pm (The above appointment is with Dr. Beard, psychiatrist. You have another appointment scheduled with Dr. Beard on 12/26/2016 at 2:20pm as well.)
[2016-10-02] MEDS ORDERED: Acetaminophen 325 MG TABLET PO PRN (14:23)
[2016-10-02] MEDS: Mag Hydrox/Al Hydrox/Simeth 30 ML UDC PO PRN (15:03)
[2016-10-02] MEDS: traZODone 50 MG TABLET PO SCH (21:36)
[2016-10-03] MEDS: Loratadine 10 MG TABLET PO SCH (09:49)
[2016-10-03] MEDS: Famotidine 20 MG TABLET PO SCH ×2 (09:50→20:28)
[2016-10-03] MEDS: Budesonide/Formoterol 80/4.5 MDI IH SCH ×2 (09:52→20:27)
[2016-10-03] MEDS: Nicotine 21 MG PATCH.TD24 TD SCH (09:53)
--- NOTE | 2016-10-03 11:58 | Psychiatry Progress Note ---
Date of Encounter: 10/03/16 Time of Encounter: 11:54 Subjective Interval history: Every day she is looking a little better. Still experiencing command AH and intrusive thoughts but client reported today she is noticing some improvement. Denies HI today but would not reveal the content of her thoughts. She would only say that they remain very distressing to her and that on a normal day she would not have them. Does not yet feel safe but recognizes she is getting better. Staff have noticed as well. One staff member indicated client is even starting to initiate some conversations which is a good sign. Staff did report this admission is the most ill they have ever seen client. Review of Systems Constitutional: Denies: fever, chills, weakness, weight change Eyes: Denies: eye pain, vision change Ears, Nose, Throat: Denies: ear pain, throat pain, dental pain, hearing loss, congestion Cardiovascular: Denies: chest pain, palpitations, dyspnea on exertion Respiratory: Denies: cough, dyspnea, wheezes Gastrointestinal: Denies: abdominal pain, nausea, vomiting, diarrhea, constipation Musculoskeletal: Denies: joint swelling, joint pain Neurological: Denies: headache, weakness, numbness, memory loss Psychiatric: Reports: depression, abnormal sleep pattern, suicidal ideation, auditory hallucinations, visual hallucinations, hopelessness, irritability, mood swings, panic attacks Objective: Exam Patient orientation: Yes Person, Yes Time, Yes Place Level of alertness: Alert Patient appearance: Appropriate Behavior: calm, cooperative Psychomotor activity: Slowed Eye contact: Maintains Eye Contact Mood description: Anxious Affect description: congruent with mood Speech pattern: Delayed Speech volume: Soft/Quiet Thought process: Thought Blocking Thought content: No Suicidal ideation, No Homicidal ideation, Yes Paranoid delusion Perceptual disturbances: Yes Reacting to internal stimuli, Yes Auditory hallucinations Judgment: Fair Insight: Partial Results - Vital Signs Vital Signs: Temp Pulse Resp BP 98.7 F 81 18 102/66 10/03/16 09:00 10/03/16 09:00 10/03/16 09:00 10/03/16 09:00 Assessment and Plan (1) Schizophrenia Current visit: No Status: Acute Plan: Continue hospitalization, Close observation, Suicide Precautions per unit protocol, Encourage participation in unit milieu, Group Therapy, Monitor sleep, Monitor appetite Risks, benefits, side effects, alternatives discussed w/pt: Yes Patient agreeable to treatment: Yes Qualifiers: Schizophrenia type: unspecified Qualified Code(s): F20.9 - Schizophrenia, unspecified Consult Discharge Plan - Plan Referrals: [facility] [Outside] - 10/19/16 1:20 pm (The above appointment is with Dr. Beard, psychiatrist. You have another appointment scheduled with Dr. Beard on 12/26/2016 at 2:20pm as well.)
[2016-10-03] MEDS: hydrOXYzine pamoate 25 MG CAPSULE PO PRN (12:01)
[2016-10-03] MEDS: (Umeclidinium Bromide [Incruse Ellipta] 1 PUFF) IH SCH (12:11)
[2016-10-03] MEDS: Mag Hydrox/Al Hydrox/Simeth 30 ML UDC PO PRN (14:12)
[2016-10-03 18:53] LABS: Bilirubin,Urine Negative (Negative); Blood,Urine Small (Negative); Clarity,Urine Clear (Clear); Color,Urine Yellow (Yellow); Glucose,Urine (UA) Normal (Normal); Ketones,Urine Negative (Negative); Leukocyte Esterase,Urine Negative (Negative); Nitrite,Urine Negative (Negative); Protein,Urine Negative (Neg-Trace); Specific Gravity,Urine 1.005 (1.010-1.025); Urobilinogen,Urine Normal (Normal)
[2016-10-03 19:45] LABS: Bacteria,Urine Few per hpf (None-Few); RBC,Urine 0-3 per hpf (0-3)
[2016-10-03 19:46] LABS: Squamous Epithelial Cell,Urine Few per lpf (None-Few)
[2016-10-03] MEDS: traZODone 50 MG TABLET PO SCH (20:27)
[2016-10-04] MEDS: Nicotine 21 MG PATCH.TD24 TD SCH (09:13)
[2016-10-04] MEDS: Famotidine 20 MG TABLET PO SCH ×2 (09:15→21:56)
[2016-10-04] MEDS: (Umeclidinium Bromide [Incruse Ellipta] 1 PUFF) IH SCH (09:15)
[2016-10-04] MEDS: Budesonide/Formoterol 80/4.5 MDI IH SCH ×2 (09:15→22:10)
[2016-10-04] MEDS: Loratadine 10 MG TABLET PO SCH (09:15)
[2016-10-04] MEDS: hydrOXYzine pamoate 25 MG CAPSULE PO PRN (11:28)
--- NOTE | 2016-10-04 14:17 | Psychiatry Progress Note ---
Date of Encounter: 10/04/16 Time of Encounter: 14:12 Subjective Interval history: Looks even better today. The Haldol seems to be working. Client reports she has noticed improvement as well. For the first time today she asked about the possibility of going home. Still hearing voices but they are less distressing. This sheet writer noticed she is no longer flicking her forehead and waving her hand as if to [place] bad thoughts away. That has been a repetitive behavior this admission but seems to be decreasing. Distressing thoughts seem to be less intrusive. She is less visibly anxious. Will return to sister's house at time of discharge. Sister reported yesterday that she did not feel client was back to baseline yet. Will get her opinion again today. May be able to discharge before the weekend. Review of Systems Constitutional: Denies: fever, chills, weakness, weight change Eyes: Denies: eye pain, vision change Ears, Nose, Throat: Denies: ear pain, throat pain, dental pain, hearing loss, congestion Cardiovascular: Denies: chest pain, palpitations, dyspnea on exertion Respiratory: Denies: cough, dyspnea, wheezes Gastrointestinal: Denies: abdominal pain, nausea, vomiting, diarrhea, constipation Musculoskeletal: Denies: joint swelling, joint pain Neurological: Denies: headache, weakness, numbness, memory loss Psychiatric: Reports: depression, abnormal sleep pattern, suicidal ideation, auditory hallucinations, visual hallucinations, hopelessness, irritability, mood swings, panic attacks Objective: Exam Patient orientation: Yes Person, Yes Time, Yes Place Level of alertness: Alert Patient appearance: Appropriate, Well Groomed Behavior: calm, cooperative Psychomotor activity: Slowed Eye contact: Maintains Eye Contact Mood description: Anxious Affect description: congruent with mood Speech pattern: Normal rate, Normal rhythm, Normal tone Speech volume: Soft/Quiet Thought process: Intact Thought content: No Suicidal ideation, No Homicidal ideation Perceptual disturbances: Yes Auditory hallucinations Judgment: Fair Insight: Partial Results - Vital Signs Vital Signs: Temp Pulse Resp BP 97.8 F 63 14 109/65 10/04/16 09:00 10/04/16 09:00 10/04/16 09:00 10/04/16 09:00 - Labs Labs: Laboratory Results - last 24 hr 10/03/16 16:25 Urine Color Yellow Urine Clarity Clear Urine pH 6.0 Ur Specific [place] 1.005 L Urine Protein Negative Urine Glucose (UA) Normal Urine Ketones Negative Urine Blood Small H Urine Nitrite Negative Urine Bilirubin Negative Urine Urobilinogen Normal Ur Leukocyte Esterase Negative Urine Microscopic RBC 0-3 Urine Microscopic WBC Test Not Performed Ur Squamous Epith Cells Few Urine Bacteria Few Hyaline Casts Test Not Performed Ur Culture Indicated? NO Assessment and Plan (1) Schizophrenia Current visit: No Status: Acute Plan: Continue hospitalization, Close observation, Suicide Precautions per unit protocol, Encourage participation in unit milieu, Group Therapy, Monitor sleep, Monitor appetite Risks, benefits, side effects, alternatives discussed w/pt: Yes Patient agreeable to treatment: Yes Qualifiers: Schizophrenia type: unspecified Qualified Code(s): F20.9 - Schizophrenia, unspecified Consult Discharge Plan - Plan Referrals: [facility] [Outside] - 10/19/16 1:20 pm (The above appointment is with Dr. Beard, psychiatrist. You have another appointment scheduled with Dr. Beard on 12/26/2016 at 2:20pm as well.) [facility] [Outside] - 10/12/16 8:45 am (The above appointment is with Jason Grover. When you come to your first appointment, you will have an orientation to the agency and you will meet with a counselor. Please bring the following with you to your first visit to the clinic: 1) proof of household income (two consecutive pay stubs, social security award letter, bank statement, statement letter from [facility], child support statement, IRS 1040 or W2 form, or a statement from the person who financially supports you stating they help provide for your basic needs), 2) proof of residency (drivers license , a piece of mail showing your address, a statement from person you live with verifying you live at their address), 3) your social security card, 4) photo ID , 5) your insurance card (if you have commercial insurance you must call to obtain a prior authorization number before you arrive to your first appointment ) and 6) if you do not have insurance but have applied for Medicaid, please bring verification you have applied. This is the first available appointment. You may contact the office regularly to check for cancellations that may allow you to be seen sooner. )
[2016-10-04] MEDS: traZODone 50 MG TABLET PO SCH (21:55)
[2016-10-05] MEDS: Loratadine 10 MG TABLET PO SCH (09:17)
[2016-10-05] MEDS: Nicotine 21 MG PATCH.TD24 TD SCH (09:19)
[2016-10-05] MEDS: (Umeclidinium Bromide [Incruse Ellipta] 1 PUFF) IH SCH (09:19)
[2016-10-05] MEDS: Famotidine 20 MG TABLET PO SCH (09:19)
[2016-10-05] MEDS: Budesonide/Formoterol 80/4.5 MDI IH SCH (09:21)
--- NOTE | 2016-10-05 09:47 | Discharge Summary ---
Date of Encounter: 10/05/16 Time of Encounter: 09:45 Diagnosis - Discharge Diagnosis (1) Schizophrenia Status: Acute Qualifiers: Schizophrenia type: unspecified Qualified Code(s): F20.9 - Schizophrenia, unspecified Medications - Discharge Medications Prescriptions: Benztropine [Cogentin] 0.5 mg PO QAM #30 tab Benztropine [Cogentin] 1 mg PO HS #30 tab Famotidine [Pepcid] 20 mg PO BID #60 tab Haloperidol [Haldol] 10 mg PO HS #60 tab Haloperidol [Haldol] 5 mg PO QAM #30 tab hydrOXYzine HCl [Hydroxyzine HCl] 25 mg PO TID #180 Budesonide/Formoterol 80/4.5 [Symbicort 80/4.5] 2 puff IH BID 04/18/16 [History ] Buspirone HCl [Buspar] 15 mg PO TID 04/27/16 [History] traZODone [TraZODone] 100 mg PO HS 04/27/16 [History] Atorvastatin Calcium [Lipitor] 20 mg PO HS 05/26/16 [History] Albuterol Sulfate [Proair Hfa] 2 puff PO Q4-6H PRN 09/26/16 [History] Estradiol 0.5 mg PO DAILY 09/26/16 [History] Loratadine [Claritin] 10 mg PO DAILY 09/26/16 [History] Montelukast [Singulair] 10 mg PO DAILY 09/26/16 [History] Umeclidinium [place] [Incruse Ellipta] 1 puff IH DAILY 09/27/16 [History] Benztropine [Cogentin] 0.5 mg PO QAM #30 tab 10/05/16 [Rx] Benztropine [Cogentin] 1 mg PO HS #30 tab 10/05/16 [Rx] Dicyclomine [Bentyl] 20 mg PO Q6H PRN 10/05/16 [Rx] Docusate [Colace] 100 mg PO BID PRN 10/05/16 [Rx] Famotidine [Pepcid] 20 mg PO BID #60 tab 10/05/16 [Rx] Haloperidol [Haldol] 5 mg PO QAM #30 tab 10/05/16 [Rx] Haloperidol [Haldol] 10 mg PO HS #60 tab 10/05/16 [Rx] hydrOXYzine HCl [Hydroxyzine HCl] 25 mg PO TID #180 10/05/16 [Rx] Allergies citalopram [From Celexa] Adverse Reaction (Verified 04/27/16 19:48) swelling lurasidone [From Latuda] Adverse Reaction (Verified 04/27/16 19:48) swelling Results Procedures and tests throughout hospitalization: Completed Lab Orders Category Date Time Status UA w. reflex culture [Urinalysis Reflex Cult & Micro] [ Lab 10/03/16 16:25 Completed URIN] Routine Provider Date of admission: 09/26/16 19:39 Primary care physician: PCP NO Discharging clinician: Olivia Fontana Assessment and Plan - Patient/Caregiver Discharge Instructions Activity: resume usual activities as tolerated Diet: regular diet - Follow up Plan Follow up with: [facility] [Outside] - 10/19/16 1:20 pm (The above appointment is with Dr. Beard, psychiatrist. You have another appointment scheduled with Dr. Beard on 12/26/2016 at 2:20pm as well.) [facility] [Outside] - 10/12/16 8:45 am (The above appointment is with Jason Grover. When you come to your first appointment, you will have an orientation to the agency and you will meet with a counselor. Please bring the following with you to your first visit to the clinic: 1) proof of household income (two consecutive pay stubs, social security award letter, bank statement, statement letter from [facility], child support statement, IRS 1040 or W2 form, or a statement from the person who financially supports you stating they help provide for your basic needs), 2) proof of residency (drivers license , a piece of mail showing your address, a statement from person you live with verifying you live at their address), 3) your social security card, 4) photo ID , 5) your insurance card (if you have commercial insurance you must call to obtain a prior authorization number before you arrive to your first appointment ) and 6) if you do not have insurance but have applied for Medicaid, please bring verification you have applied. This is the first available appointment. You may contact the office regularly to check for cancellations that may allow you to be seen sooner. ) Functional capacity at discharge: independent ambulation Overall status at discharge: Stable Disposition: Home, Self-Care Hospital Course Hospital course: Ms. Anand is a 46 year old female who was admitted secondary to psychosis. She had a somewhat prolonged hospital stay given the severity of her symptoms. She was experiencing command AH and intrusive, distressing thoughts that she was reluctant to share the content of. She was paranoid of telephones and ipads and she was observed to be actively responding to internal stimuli. Her home meds were changed after she showed a positive response to prn Haldol. She was then placed on Haldol and Cogentin and these medications were titrated up for clinical effect. As she improved she started using the phone to call family members. She started attending groups and initiating conversations with staff and peers. At the time of discharge she was denying SI and HI. She was still experiencing AH but reports she hears voices at her baseline. She felt her AH were back to her baseline. She was no longer having intrusive thoughts and she appeared more relaxed. Her sister felt comfortable having her return home and Kira was set up with home health to help her manage her medications. Although Kira was complaining of UTI symptoms during the two days leading up to discharge a UA was negative. She was advised to see her PCP right away if symptoms did not alleviate since an infection could possibly bring on another decompensation. - Time Spent with Patient Total time spent providing and/or coordinating discharge services: Quality - Multiple Antipsychotics Patient discharged on 2 or more antipsychotic medications: No Procedures - Procedures Procedures: Medication Management, Crisis Stabilization, Supportive Therapy, Group Therapy Mental Status Exam - Mental Status Exam Patient orientation: Yes Person, Yes Time, Yes Place Level of alertness: Alert Patient appearance: Appropriate, Well Groomed Behavior: calm, cooperative Psychomotor activity: Normal Eye contact: Maintains Eye Contact Mood description: Euthymic/stable Affect description: congruent with mood Speech pattern: Normal rate, Normal rhythm, Normal tone Speech Volume: Normal Thought process: Goal Oriented Thought Content: No Suicidal ideation, No Homicidal ideation, No Overt delusions Perceptual Disturbances: Yes Auditory hallucinations Judgment: Fair Insight: Partial
[2016-10-05 09:49] VITALS: BP 121/64
--- NOTE | 2016-10-05 10:07 | Physician Discharge Referral ---
Home Health/Hosp Referral Info Transfer to: Home Health ([facility]) Attending Provider: leslie Provider in Charge Post Discharge: PCP ([facility]) - Diagnosis (1) Schizophrenia Priority: Primary Status: Acute - Respiratory Orders None Smoking Cessation: Smoking cessation has been advised. For more information, call the [place] Tobacco Quit Line at 1-150-VTCL-NOW. - Diet/Nutrition Diet/Nutrition Orders: Regular - Activity Activity Orders: Up ad sudeep - Services Needed Following services are medically necessary services: Nursing (Med education and reconciliation) - Transfer Medications Prescriptions: Benztropine [Cogentin] 0.5 mg PO QAM #30 tab Benztropine [Cogentin] 1 mg PO HS #30 tab Famotidine [Pepcid] 20 mg PO BID #60 tab Haloperidol [Haldol] 10 mg PO HS #60 tab Haloperidol [Haldol] 5 mg PO QAM #30 tab hydrOXYzine HCl [Hydroxyzine HCl] 25 mg PO TID #180 Home Medications: Budesonide/Formoterol 80/4.5 [Symbicort 80/4.5] 2 puff IH BID 04/18/16 [History ] Buspirone HCl [Buspar] 15 mg PO TID 04/27/16 [History] traZODone [TraZODone] 100 mg PO HS 04/27/16 [History] Atorvastatin Calcium [Lipitor] 20 mg PO HS 05/26/16 [History] Albuterol Sulfate [Proair Hfa] 2 puff PO Q4-6H PRN 09/26/16 [History] Estradiol 0.5 mg PO DAILY 09/26/16 [History] Loratadine [Claritin] 10 mg PO DAILY 09/26/16 [History] Montelukast [Singulair] 10 mg PO DAILY 09/26/16 [History] Umeclidinium [place] [Incruse Ellipta] 1 puff IH DAILY 09/27/16 [History] Benztropine [Cogentin] 0.5 mg PO QAM #30 tab 10/05/16 [Rx] Benztropine [Cogentin] 1 mg PO HS #30 tab 10/05/16 [Rx] Dicyclomine [Bentyl] 20 mg PO Q6H PRN 10/05/16 [Rx] Docusate [Colace] 100 mg PO BID PRN 10/05/16 [Rx] Famotidine [Pepcid] 20 mg PO BID #60 tab 10/05/16 [Rx] Haloperidol [Haldol] 5 mg PO QAM #30 tab 10/05/16 [Rx] Haloperidol [Haldol] 10 mg PO HS #60 tab 10/05/16 [Rx] hydrOXYzine HCl [Hydroxyzine HCl] 25 mg PO TID #180 10/05/16 [Rx] Allergies/Adverse Reactions: Allergies citalopram [From Celexa] Adverse Reaction (Verified 04/27/16 19:48) swelling lurasidone [From Latuda] Adverse Reaction (Verified 04/27/16 19:48) swelling Certification: Further, I certify that my clinical findings support that this patient is homebound (i.e. absences from home require considerable and taxing effort and are for medical reasons or gnosticism services or infrequently or short duration when for other reasons) because: Homebound Reason: Altered mental status requiring supervision when leaving home Attestation: My signature below is to certify that this patient is under my care and that I, or nurse practitioner, or a physician's metal forger's assistant working with me, has a face-to -face encounter with this patient.
[2016-10-05] MEDS: hydrOXYzine pamoate 25 MG CAPSULE PO PRN (12:10)
== END 2016-10-05 13:15 | disposition home or self-care (01) | DRG 750 ==
LOC: SUATTDRO 19:39 → 1ANU 19:39
PROVIDERS: ADMIT Student in an Organized Health Care Education/Training Program; ATTEND Psychiatry & Neurology Psychiatry

== ENCOUNTER 2017-12-06 14:06 | Observation (INO) ==
[2017-12-06 15:26] LABS: Basophils # 0.1 K/mcL (0.0-0.2); Basophils % 0.4 %; Eosinophils % 0.1 %; Hematocrit 45.1 % (35.3-44.9); Hemoglobin 16.4 g/dL (11.5-15.4); Immature Granulocytes % 0.5 % (0-4); Lymphocytes # 3.7 K/mcL (0.6-4.6); Lymphocytes % 18.5 %; Mean Corpuscular HGB Conc 36.4 g/dL (31.6-35.5); Mean Corpuscular Hemoglobin 30.7 pg (28.0-33.3); Mean Corpuscular Volume 84.5 fL (83.0-100.0); Mean Platelet Volume 9.4 fL (9.4-12.4); Monocytes # 1.7 K/mcL (0.0-1.3); Monocytes % 8.2 %; Neutrophils # 14.6 K/mcL (1.6-8.9); Platelet Count 341 K/mcL (140-400); Red Blood Count 5.34 M/mcL (3.82-4.97); Red Cell Distribution Width 13.3 % (11.5-14.5); Segmented Neutrophils % 72.3 %
--- NOTE | 2017-12-06 15:37 | Emergency Department Note ---
Disposition Clinical Impression: Psychosis Disposition: Admitted As Inpatient Condition: Fair Referrals: Carson Case, LINE SUPERVISOR [Primary Care Provider] - Forms: ED Satisfaction Letter Time of Disposition: 19:41 General Adult HPI - General Chief complaint: ED Psychiatric Symptoms Stated complaint: psych eval Time Seen by Provider: 12/06/17 14:33 Source: patient, family Limitations: no limitations - History of Present Illness Pain Scale: 0 - Related Data Home Medications Medication Instructions Recorded Confirmed Budesonide/Formoterol 80/4.5 2 puff IH BID 04/18/16 09/27/16 [Symbicort 80/4.5] Buspirone HCl [Buspar] 15 mg PO TID 04/27/16 09/27/16 traZODone [TraZODone] 100 mg PO HS 04/27/16 09/27/16 Atorvastatin Calcium [Lipitor] 20 mg PO HS 05/26/16 09/27/16 Albuterol Sulfate [Proair Hfa] 2 puff PO Q4-6H PRN 09/26/16 09/27/16 Estradiol 0.5 mg PO DAILY 09/26/16 09/27/16 Loratadine [Claritin] 10 mg PO DAILY 09/26/16 09/27/16 Montelukast [Singulair] 10 mg PO DAILY 09/26/16 09/27/16 Umeclidinium [place] [Incruse 1 puff IH DAILY 09/27/16 09/27/16 Ellipta] Previous Rx's Medication Instructions Recorded Benztropine [Cogentin] 0.5 mg PO QAM #30 tab 10/05/16 Benztropine [Cogentin] 1 mg PO HS #30 tab 10/05/16 Dicyclomine [Bentyl] 20 mg PO Q6H PRN 10/05/16 Docusate [Colace] 100 mg PO BID PRN 10/05/16 Famotidine [Pepcid] 20 mg PO BID #60 tab 10/05/16 Haloperidol [Haldol] 5 mg PO QAM #30 tab 10/05/16 Haloperidol [Haldol] 10 mg PO HS #60 tab 10/05/16 hydrOXYzine HCl [Hydroxyzine HCl] 25 mg PO TID #180 10/05/16 Allergies Allergy/AdvReac Type Severity Reaction Status Date / Time citalopram [From Celexa] AdvReac swelling Verified 04/27/16 19:48 lurasidone [From Latuda] AdvReac swelling Verified 04/27/16 19:48 Past Medical History - Past Medical History Medical history: Reports: asthma, GERD, other Surgical history: Reports: herniorrhaphy, hysterectomy, orthopedic, other, other Psychiatric history: Reports: anxiety, prior suicide attempt, schizophrenia, previous psychiatric hospitalization 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 ligation - Social History Smoking Status: Current every day smoker Smokeless Tobacco Status: No Alcohol use: Reports: none Drug use: Reports: none Physical Exam - General Limitations: no limitations General appearance: alert, in no apparent distress Course Vital Signs Temperature 99.5 F 12/06/17 14:29 Pulse Rate 125 12/06/17 14:29 Respiratory Rate 22 12/06/17 14:29 Blood Pressure 134/83 12/06/17 14:29 O2 Sat by Pulse Oximetry 96 12/06/17 14:29 Temperature 99.5 F 12/06/17 14:55 Pulse Rate 101 12/06/17 18:56 Respiratory Rate 20 12/06/17 18:56 Blood Pressure 129/62 12/06/17 18:56 O2 Sat by Pulse Oximetry 97 12/06/17 18:56 Oxygen Delivery Oxygen Delivery Room Air Medical Decision Making - Lab Data Result diagrams: 12/06/17 15:01 12/06/17 15:01 Lab Results 12/06/17 12/06/17 12/06/17 Range/Units 15:01 15:01 16:51 WBC 20.1 H (4.3-11.1) K/mcL RBC 5.34 H (3.82-4.97) M/mcL Hgb 16.4 H (11.5-15.4) g/dL Hct 45.1 H (35.3-44.9) % MCV 84.5 (83.0-100.0) fL MCH 30.7 (28.0-33.3) pg MCHC 36.4 H (31.6-35.5) g/dL RDW 13.3 (11.5-14.5) % Plt Count 341 (140-400) K/mcL MPV 9.4 (9.4-12.4) fL Immature Gran % 0.5 (0-4) % Seg Neutrophils % 72.3 % Lymphocytes % 18.5 % Monocytes % 8.2 % Eosinophils % 0.1 % Basophils % 0.4 % Neutrophils # 14.6 H (1.6-8.9) K/mcL Lymphocytes # 3.7 (0.6-4.6) K/mcL Monocytes # 1.7 H (0.0-1.3) K/mcL Eosinophils # 0.0 (0.0-0.6) K/mcL Basophils # 0.1 (0.0-0.2) K/mcL Sodium 135 L (136-145) mEq/L Potassium 3.5 (3.5-5.1) mEq/L Chloride 107 (98-107) mEq/L Carbon Dioxide 20 L (23-29) mEq/L BUN 9 (6-20) mg/dL Creatinine 1.12 (0.60-1.20) mg/dL Est GFR ( Amer) > 60 (> 60) Est GFR (Non-Af Amer) 52 L (> 60) BUN/Creatinine Ratio 8 (6-26) Glucose 116 H (70-105) mg/dL Calculated Osmolality 280 (280-300) Calcium 9.1 (8.6-10.3) mg/dL Creatine Kinase 508 H (30-223) Units/L Urine Color Yellow (Yellow) Urine Clarity Cloudy A (Clear) Urine pH 6.0 (5.0-8.0) pH Units Ur Specific [place] 1.027 H (1.010-1.025) Urine Protein Negative (Neg-Trace) mg/dL Urine Glucose (UA) Normal (Normal) mg/dL Urine Ketones Negative (Negative) mg/dL Urine Blood Small H (Negative) Urine Nitrite Negative (Negative) Urine Bilirubin Negative (Negative) Urine Urobilinogen Normal (Normal) mg/dL Ur Leukocyte Esterase Negative (Negative) Urine Microscopic RBC 5-15 H (0-3) per hpf Urine Microscopic WBC 3-5 H (0-3) per hpf Ur Squamous Epith Cells Many H (None-Few) per lpf Urine Bacteria Moderate H (None-Few) per hpf Hyaline Casts None Seen (None-Few) per lpf Urine Test (Negative) Salicylates < 2.5 L (15.0-30.0) mg/dL Urine Opiates Screen (Mkssxn=729) ng/mL Acetaminophen 10 (10-20) mcg/mL Ur Barbiturates Screen (Rsmuwn=544) ng/mL Ur Phencyclidine Scrn (Cutoff=25) ng/mL Ur Amphetamines Screen (Quzhfl=4121) ng/mL U Benzodiazepines Scrn (Lcafac=465) ng/mL Urine Cocaine Screen (Cutoff= 300) ng/mL U Marijuana (THC) Screen (Cutoff = 50) ng/mL Ur Drug Screen Interp Ethyl Alcohol 10 H (Less than 10) mg/dL 12/06/17 12/06/17 Range/Units 16:51 16:51 WBC (4.3-11.1) K/mcL RBC (3.82-4.97) M/mcL Hgb (11.5-15.4) g/dL Hct (35.3-44.9) % MCV (83.0-100.0) fL MCH (28.0-33.3) pg MCHC (31.6-35.5) g/dL RDW (11.5-14.5) % Plt Count (140-400) K/mcL MPV (9.4-12.4) fL Immature Gran % (0-4) % Seg Neutrophils % % Lymphocytes % % Monocytes % % Eosinophils % % Basophils % % Neutrophils # (1.6-8.9) K/mcL Lymphocytes # (0.6-4.6) K/mcL Monocytes # (0.0-1.3) K/mcL Eosinophils # (0.0-0.6) K/mcL Basophils # (0.0-0.2) K/mcL Sodium (136-145) mEq/L Potassium (3.5-5.1) mEq/L Chloride (98-107) mEq/L Carbon Dioxide (23-29) mEq/L BUN (6-20) mg/dL Creatinine (0.60-1.20) mg/dL Est GFR ( Amer) (> 60) Est GFR (Non-Af Amer) (> 60) BUN/Creatinine Ratio (6-26) Glucose (70-105) mg/dL Calculated Osmolality (280-300) Calcium (8.6-10.3) mg/dL Creatine Kinase (30-223) Units/L Urine Color (Yellow) Urine Clarity (Clear) Urine pH (5.0-8.0) pH Units Ur Specific [place] (1.010-1.025) Urine Protein (Neg-Trace) mg/dL Urine Glucose (UA) (Normal) mg/dL Urine Ketones (Negative) mg/dL Urine Blood (Negative) Urine Nitrite (Negative) Urine Bilirubin (Negative) Urine Urobilinogen (Normal) mg/dL Ur Leukocyte Esterase (Negative) Urine Microscopic RBC (0-3) per hpf Urine Microscopic WBC (0-3) per hpf Ur Squamous Epith Cells (None-Few) per lpf Urine Bacteria (None-Few) per hpf Hyaline Casts (None-Few) per lpf Urine Test Negative (Negative) Salicylates (15.0-30.0) mg/dL Urine Opiates Screen Negative (Cxojge=938) ng/mL Acetaminophen (10-20) mcg/mL Ur Barbiturates Screen Negative (Zpdlom=686) ng/mL Ur Phencyclidine Scrn Negative (Cutoff=25) ng/mL Ur Amphetamines Screen Negative (Gvdteh=3519) ng/mL U Benzodiazepines Scrn Negative (Pbzjvn=380) ng/mL Urine Cocaine Screen Negative (Cutoff= 300) ng/mL U Marijuana (THC) Screen Negative (Cutoff = 50) ng/mL Ur Drug Screen Interp See Below Ethyl Alcohol (Less than 10) mg/dL Attestation Statement - Attestation Attestation: I, Thaddeus Sinha DO, examined this patient [id number] and my medical decision-making was reviewed with Dr. Neida Acevedo, Resident Physician. I agree with the documented findings, disposition and treatment plan as described except to the extent set forth below. Please see my progress notes for details. 47-year-old female with known schizophrenia presents emergency room with an acute psychotic break at this time. She is not having issues being compliant with her medication. She is denying suicidal or homicidal ideation with family is concerned because she appears to be in acute psychosis. Patient has required admission in the past for these issues. Denies any chest pain shortness breath headache vision changes nausea vomiting or diarrhea. Denies any fevers or chills. Patient will have screening evaluation completed at this time. Physical exam is unremarkable. Metoprolol ordered. Psychiatric team will evaluate once the full workup and treatment course have been established. No new medical issues were noted during the initial conversations and evaluation. Physical exam, medical intervention, medical decision-making and disposition in the resident physician's note. 1943 Patient has lab abnormalities including an elevated white blood cell count with no acute infectious etiology noted at this point. The psychiatrist did not feel comfortable accepting him down to their facility for evaluation. Patient will be medically admitted for continued evaluation and psychiatric treatment. Patient will need screening for psychosis on the floor after the admission processes has been completed. Hospitalist was contacted no other recommendations or concerns at this point. Patient will be admitted for continuation of care.
[2017-12-06 15:45] LABS: Acetaminophen 10 mcg/mL (10-20); BUN/Creatinine Ratio 8 (6-26); Blood Urea Nitrogen 9 mg/dL (6-20); Calcium 9.1 mg/dL (8.6-10.3); Carbon Dioxide 20 mEq/L (23-29); Chloride 107 mEq/L (98-107); Ethanol 10 mg/dL (Less than 10); Glucose 116 mg/dL (70-105); Osmolality,Calculated 280 (280-300); Potassium 3.5 mEq/L (3.5-5.1); Salicylate < 2.5 mg/dL (15.0-30.0); Sodium 135 mEq/L (136-145); eGFR For Non-African Americans 52 (> 60)
--- NOTE | 2017-12-06 15:59 | Emergency Department Note ---
Disposition Clinical Impression: Psychosis Qualifiers: Psychosis type: other Qualified Code(s): F28 - Other psychotic disorder not due to a substance or known physiological condition Disposition: Admitted As Inpatient Condition: Fair Referrals: Carson Case CNP [Primary Care Provider] - Forms: ED Satisfaction Letter General Adult HPI - General Chief complaint: ED Psychiatric Symptoms Stated complaint: psych/SI Time Seen by Provider: 12/06/17 14:33 Source: patient, family Mode of arrival: ambulatory Limitations: no limitations Nursing Notes Reviewed: Yes Vital Signs Reviewed: Yes - History of Present Illness HPI Narrative: 47-year-old female with significant past medical history of schizophrenia presenting to the emergency department with chief complaint of manic episode. Daughter at bedside and provides majority of the history. According to the daughter for the past couple days patient has been in a manic episode. Her medications were recently switched her psychiatrist and they were concerned that they were making her symptoms worse. Patient has not eaten or drank anything in the past 2 days. She is dehydrated on exam. Daughter at bedside states there are no new medical concerns or questions. At this time the patient does not provide much medical history. To daughter patient did state that she had suicidal ideation. Denies homicidal ideation. Does disclose auditory and visual hallucinations. Pain Scale: 0 - Related Data Home Medications Medication Instructions Recorded Confirmed Budesonide/Formoterol 80/4.5 2 puff IH BID 04/18/16 09/27/16 [Symbicort 80/4.5] Buspirone HCl [Buspar] 15 mg PO TID 04/27/16 09/27/16 traZODone [TraZODone] 100 mg PO HS 04/27/16 09/27/16 Atorvastatin Calcium [Lipitor] 20 mg PO HS 05/26/16 09/27/16 Albuterol Sulfate [Proair Hfa] 2 puff PO Q4-6H PRN 09/26/16 09/27/16 Estradiol 0.5 mg PO DAILY 09/26/16 09/27/16 Loratadine [Claritin] 10 mg PO DAILY 09/26/16 09/27/16 Montelukast [Singulair] 10 mg PO DAILY 09/26/16 09/27/16 Umeclidinium [place] [Incruse 1 puff IH DAILY 09/27/16 09/27/16 Ellipta] Previous Rx's Medication Instructions Recorded Benztropine [Cogentin] 0.5 mg PO QAM #30 tab 10/05/16 Benztropine [Cogentin] 1 mg PO HS #30 tab 10/05/16 Dicyclomine [Bentyl] 20 mg PO Q6H PRN 10/05/16 Docusate [Colace] 100 mg PO BID PRN 10/05/16 Famotidine [Pepcid] 20 mg PO BID #60 tab 10/05/16 Haloperidol [Haldol] 5 mg PO QAM #30 tab 10/05/16 Haloperidol [Haldol] 10 mg PO HS #60 tab 10/05/16 hydrOXYzine HCl [Hydroxyzine HCl] 25 mg PO TID #180 10/05/16 Allergies Allergy/AdvReac Type Severity Reaction Status Date / Time citalopram [From Celexa] AdvReac swelling Verified 04/27/16 19:48 lurasidone [From Latuda] AdvReac swelling Verified 04/27/16 19:48 Limitations: ROS unobtainable due to patients medical condition Psychiatric: Reports: suicidal thoughts, auditory hallucinations, visual hallucinations Past Medical History - Past Medical History Attestation: Yes The following information was validated with the patient. 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 Absent: scleral icterus, conjunctival injection - ENT ENT exam: mucous membranes dry - Neck Neck exam: Present: normal inspection, full ROM. Absent: tenderness, meningismus - Chest Chest inspection: Present: normal inspection, symmetric chest wall rise. Absent : tenderness, rash - Respiratory Respiratory exam: Present: normal lung sounds bilaterally. Absent: respiratory distress, wheezes - Cardiovascular Cardiovascular exam: Present: normal rhythm, tachycardia, normal heart sounds - Abdominal Exam Abdominal exam: Present: soft, Non-Tender. Absent: distention, guarding, rebound - Extremities Exam Extremities exam: Present: normal inspection, full ROM - Neurological Exam Neurological exam: Present: alert - Psychiatric Psychiatric exam: Present: flat affect, suicidal ideation - Skin Skin exam: Present: warm Course Course Narrative: 47-year-old female presenting for manic episode. On exam patient is dry but otherwise benign physical exam. We will obtain basic medical clearance labs and urine. Patient is alert and hemodynamically stable in the room. Disposition pending laboratory analysis and one a evaluation. Daughter at bedside. [place] slipped obtained. - Reevaluation(s) Reevaluation #1: Patient's laboratory analysis shows hemoconcentration. There is leukocytosis along with elevated hemoglobin and increased specific gravity in her urine. Patient's urine analysis negative for any drug intoxication. Patient remains tachycardic but has lowered to approximately 100 bpm now that she has calmed down. I spoke at length with one a, our psychiatric evaluation unit, and their psychiatrist on-call Dr. Barajas who feels that patient is not medically clear at this time due to her laboratory analysis and vital signs. I excessive the patient is hemodynamically stable and has no overt sign of infection. I also expressed that the patient's family members are not concerned about any new medical concerns or complaints. Family members have stated multiple times that this is how she is when she is manic. Psychiatry requested IV fluid resuscitation and repeat labs 2 hours after IV resuscitation. Patient has already been in the emergency department for approximately 5 hours. At this time we will plan to defer the admission to medicine and so IV resuscitation can be completed for transfer to psychiatric services in the near future. Patient remains hemodynamically stable in the room. I spoke with the hospitalist on-call who would like us to add a chest x-ray. This will be completed and we will admit the patient to medicine service. Vital Signs Temperature 99.5 F 12/06/17 14:29 Pulse Rate 125 12/06/17 14:29 Respiratory Rate 22 12/06/17 14:29 Blood Pressure 134/83 12/06/17 14:29 O2 Sat by Pulse Oximetry 96 12/06/17 14:29 Temperature 99.5 F 12/06/17 14:55 Pulse Rate 101 12/06/17 18:56 Respiratory Rate 20 12/06/17 18:56 Blood Pressure 129/62 12/06/17 18:56 O2 Sat by Pulse Oximetry 97 12/06/17 18:56 Oxygen Delivery Oxygen Delivery Room Air Medical Decision Making - Lab Data Result diagrams: 12/06/17 15:01 12/06/17 15:01 Lab Results 12/06/17 12/06/17 12/06/17 Range/Units 15:01 15:01 16:51 WBC 20.1 H (4.3-11.1) K/mcL RBC 5.34 H (3.82-4.97) M/mcL Hgb 16.4 H (11.5-15.4) g/dL Hct 45.1 H (35.3-44.9) % MCV 84.5 (83.0-100.0) fL MCH 30.7 (28.0-33.3) pg MCHC 36.4 H (31.6-35.5) g/dL RDW 13.3 (11.5-14.5) % Plt Count 341 (140-400) K/mcL MPV 9.4 (9.4-12.4) fL Immature Gran % 0.5 (0-4) % Seg Neutrophils % 72.3 % Lymphocytes % 18.5 % Monocytes % 8.2 % Eosinophils % 0.1 % Basophils % 0.4 % Neutrophils # 14.6 H (1.6-8.9) K/mcL Lymphocytes # 3.7 (0.6-4.6) K/mcL Monocytes # 1.7 H (0.0-1.3) K/mcL Eosinophils # 0.0 (0.0-0.6) K/mcL Basophils # 0.1 (0.0-0.2) K/mcL Sodium 135 L (136-145) mEq/L Potassium 3.5 (3.5-5.1) mEq/L Chloride 107 (98-107) mEq/L Carbon Dioxide 20 L (23-29) mEq/L BUN 9 (6-20) mg/dL Creatinine 1.12 (0.60-1.20) mg/dL Est GFR ( Amer) > 60 (> 60) Est GFR (Non-Af Amer) 52 L (> 60) BUN/Creatinine Ratio 8 (6-26) Glucose 116 H (70-105) mg/dL Calculated Osmolality 280 (280-300) Calcium 9.1 (8.6-10.3) mg/dL Creatine Kinase 508 H (30-223) Units/L Urine Color Yellow (Yellow) Urine Clarity Cloudy A (Clear) Urine pH 6.0 (5.0-8.0) pH Units Ur Specific [place] 1.027 H (1.010-1.025) Urine Protein Negative (Neg-Trace) mg/dL Urine Glucose (UA) Normal (Normal) mg/dL Urine Ketones Negative (Negative) mg/dL Urine Blood Small H (Negative) Urine Nitrite Negative (Negative) Urine Bilirubin Negative (Negative) Urine Urobilinogen Normal (Normal) mg/dL Ur Leukocyte Esterase Negative (Negative) Urine Microscopic RBC 5-15 H (0-3) per hpf Urine Microscopic WBC 3-5 H (0-3) per hpf Ur Squamous Epith Cells Many H (None-Few) per lpf Urine Bacteria Moderate H (None-Few) per hpf Hyaline Casts None Seen (None-Few) per lpf Urine Test (Negative) Salicylates < 2.5 L (15.0-30.0) mg/dL Urine Opiates Screen (Akdamk=269) ng/mL Acetaminophen 10 (10-20) mcg/mL Ur Barbiturates Screen (Iahjsd=397) ng/mL Ur Phencyclidine Scrn (Cutoff=25) ng/mL Ur Amphetamines Screen (Ntmhej=8105) ng/mL U Benzodiazepines Scrn (Uqrohd=284) ng/mL Urine Cocaine Screen (Cutoff= 300) ng/mL U Marijuana (THC) Screen (Cutoff = 50) ng/mL Ur Drug Screen Interp Ethyl Alcohol 10 H (Less than 10) mg/dL 12/06/17 12/06/17 Range/Units 16:51 16:51 WBC (4.3-11.1) K/mcL RBC (3.82-4.97) M/mcL Hgb (11.5-15.4) g/dL Hct (35.3-44.9) % MCV (83.0-100.0) fL MCH (28.0-33.3) pg MCHC (31.6-35.5) g/dL RDW (11.5-14.5) % Plt Count (140-400) K/mcL MPV (9.4-12.4) fL Immature Gran % (0-4) % Seg Neutrophils % % Lymphocytes % % Monocytes % % Eosinophils % % Basophils % % Neutrophils # (1.6-8.9) K/mcL Lymphocytes # (0.6-4.6) K/mcL Monocytes # (0.0-1.3) K/mcL Eosinophils # (0.0-0.6) K/mcL Basophils # (0.0-0.2) K/mcL Sodium (136-145) mEq/L Potassium (3.5-5.1) mEq/L Chloride (98-107) mEq/L Carbon Dioxide (23-29) mEq/L BUN (6-20) mg/dL Creatinine (0.60-1.20) mg/dL Est GFR ( Amer) (> 60) Est GFR (Non-Af Amer) (> 60) BUN/Creatinine Ratio (6-26) Glucose (70-105) mg/dL Calculated Osmolality (280-300) Calcium (8.6-10.3) mg/dL Creatine Kinase (30-223) Units/L Urine Color (Yellow) Urine Clarity (Clear) Urine pH (5.0-8.0) pH Units Ur Specific [place] (1.010-1.025) Urine Protein (Neg-Trace) mg/dL Urine Glucose (UA) (Normal) mg/dL Urine Ketones (Negative) mg/dL Urine Blood (Negative) Urine Nitrite (Negative) Urine Bilirubin (Negative) Urine Urobilinogen (Normal) mg/dL Ur Leukocyte Esterase (Negative) Urine Microscopic RBC (0-3) per hpf Urine Microscopic WBC (0-3) per hpf Ur Squamous Epith Cells (None-Few) per lpf Urine Bacteria (None-Few) per hpf Hyaline Casts (None-Few) per lpf Urine Test Negative (Negative) Salicylates (15.0-30.0) mg/dL Urine Opiates Screen Negative (Gxtnbu=430) ng/mL Acetaminophen (10-20) mcg/mL Ur Barbiturates Screen Negative (Vohdsl=315) ng/mL Ur Phencyclidine Scrn Negative (Cutoff=25) ng/mL Ur Amphetamines Screen Negative (Uyvlgw=8513) ng/mL U Benzodiazepines Scrn Negative (Xuihge=537) ng/mL Urine Cocaine Screen Negative (Cutoff= 300) ng/mL U Marijuana (THC) Screen Negative (Cutoff = 50) ng/mL Ur Drug Screen Interp See Below Ethyl Alcohol (Less than 10) mg/dL Attestation Statement - Attestation Attestation: I, Thaddeus Sinha DO, examined this patient [id number] and my medical decision-making was reviewed with Dr. Neida Acevedo, Resident Physician. I agree with the documented findings, disposition and treatment plan as described except to the extent set forth below. Please see my progress notes for details.
[2017-12-06 17:18] LABS: Bilirubin,Urine Negative (Negative); Blood,Urine Small (Negative); Clarity,Urine Cloudy (Clear); Color,Urine Yellow (Yellow); Glucose,Urine (UA) Normal (Normal); Ketones,Urine Negative (Negative); Leukocyte Esterase,Urine Negative (Negative); Nitrite,Urine Negative (Negative); Protein,Urine Negative (Neg-Trace); Specific Gravity,Urine 1.027 (1.010-1.025); Urobilinogen,Urine Normal (Normal)
[2017-12-06 17:22] LABS: Bacteria,Urine Moderate per hpf (None-Few); Hyaline Casts,Urine None Seen per lpf (None-Few); Squamous Epithelial Cell,Urine Many per lpf (None-Few)
[2017-12-06 17:45] LABS: Amphetamine Screen,Urine Negative ng/mL (Cutoff=1000); Barbiturate Screen,Urine Negative ng/mL (Cutoff=200); Benzodiazepines Screen,Urine Negative ng/mL (Cutoff=200); Cannabinoid Screen,Urine Negative ng/mL (Cutoff = 50); Cocaine Screen,Urine Negative ng/mL (Cutoff= 300); Opiate Screen,Urine Negative ng/mL (Cutoff=300); Phencyclidine Screen,Urine Negative ng/mL (Cutoff=25)
[2017-12-06 18:05] LABS: Creatine Kinase 508 Units/L (30-223)
[2017-12-06] MEDS ORDERED: 0.9 % Sodium Chloride 1,000 ML IVC ONE (19:14)
[2017-12-06] MEDS ORDERED: Naloxone 0.4 MG/ML INJ IVP PRN (21:54)
[2017-12-07] MEDS: 0.9 % Sodium Chloride 1,000 ML IVC SCH ×2 (01:16→09:16)
[2017-12-07 01:36] LABS: Basophils # 0.1 K/mcL (0.0-0.2); Basophils % 0.8 %; Eosinophils # 0.1 K/mcL (0.0-0.6); Eosinophils % 0.9 %; Hematocrit 42.6 % (35.3-44.9); Hemoglobin 15.1 g/dL (11.5-15.4); Immature Granulocytes % 0.4 % (0-4); Lymphocytes # 4.1 K/mcL (0.6-4.6); Lymphocytes % 31.6 %; Mean Corpuscular HGB Conc 35.4 g/dL (31.6-35.5); Mean Corpuscular Hemoglobin 31.1 pg (28.0-33.3); Mean Corpuscular Volume 87.7 fL (83.0-100.0); Mean Platelet Volume 9.8 fL (9.4-12.4); Monocytes # 1.3 K/mcL (0.0-1.3); Neutrophils # 7.3 K/mcL (1.6-8.9); Platelet Count 294 K/mcL (140-400); Red Blood Count 4.86 M/mcL (3.82-4.97); Red Cell Distribution Width 13.4 % (11.5-14.5); Segmented Neutrophils % 56.3 %
[2017-12-07 01:50] LABS: Alanine Aminotransferase 16 Units/L (7-52); Albumin 3.7 g/dL (3.5-5.7); Albumin/Globulin Ratio 1.7 (1.1-2.2); Alkaline Phosphatase 57 Units/L (34-104); Aspartate Amino Transferase 18 Units/L (13-39); BUN/Creatinine Ratio 8 (6-26); Bilirubin,Total 0.3 mg/dL (0.3-1.0); Blood Urea Nitrogen 8 mg/dL (6-20); Calcium 8.1 mg/dL (8.6-10.3); Carbon Dioxide 24 mEq/L (23-29); Chloride 109 mEq/L (98-107); Globulin 2.2 g/dL (2.4-3.5); Glucose 88 mg/dL (70-105); Osmolality,Calculated 282 (280-300); Potassium 3.4 mEq/L (3.5-5.1); Sodium 137 mEq/L (136-145); Total Protein 5.9 g/dL (6.4-8.9); eGFR For Non-African Americans 59 (> 60)
--- NOTE | 2017-12-07 02:45 | Internal Med History&Physical ---
Date of Encounter: 12/10/17 Time of Encounter: 01:00 Internal Medicine - H&P: HPI Chief complaint: AMS History of present illness: Ms. Anand is a 47 year old female with a past medical history of schizophrenia, personality disorder, and asthma who presents to the emergency department with chief complaint of manic episode. Upon my initial assessment, no family members were present and patient was uncooperative and a very poor historian. Much of the history obtained from previous medical records and daughter who was at the bedside in the ED. According to the daughter, for the past couple days patient has been displaying symptoms of acute april. Her medications were recently changed by her psychiatrist and there has been concern that by the family that it may be contributing to her symptoms. Patient reportedly has not had much to eat or drink in the past 2 days. Daughter at bedside states there are no new medical concerns, however , daughter states that patient did express suicidal ideation. Denies homicidal ideation. Has been displaying auditory and visual hallucinations. Patient reportedly appeared to be dry clinically and was found to be mildly tachycardic. This is further supported by her laboratory analysis showing possible hemoconcentration with a leukocytosis, elevated hemoglobin and increased specific gravity in her urine. Psychiatry was consulted and Dr. Barajas felt that patient was not medically clear at this time due to her laboratory analysis and vital signs for direct admission to the psych unit. Psychiatry requested IV fluid resuscitation and repeat labs 2 hours after IV resuscitation. Patient has been afebrile and hemodynamically stable and has no overt sign of infection. During my examination she maintained good eye contact however, inconsistently followed commands. She was noted to occasionally have tonic-clonic like movement of her extremities. Chest x-ray was was performed which was unremarkable. Past Med Surg Social Fam HX - Past Medical History Medical history: asthma, GERD, other Additional medical history: Pt states "I dont remember" when asked about other medical issues Psychiatric history: anxiety, prior suicide attempt, schizophrenia, previous psychiatric hospitalization - Past Surgical History Surgical History: herniorrhaphy, hysterectomy, orthopedic, other, other Additional surgical history: Pt states "I dont know" when asked if she has had any sX other than ones previously listed in chart - Social History Smoking Status: Current every day smoker Smokeless Tobacco Status: No Alcohol use: none Drug use: none Internal Medicine - H&P: Meds Montelukast [Singulair] 10 mg PO HS 12/06/17 [History] Ziprasidone [Geodon] 80 mg PO BID 12/06/17 [History] raNITIdine HCl [Ranitidine HCl] 150 mg PO BID 12/06/17 [History] Albuterol Sulfate [Albuterol Inhaler] 2 puff IH Q6HR PRN 12/07/17 [History] Atorvastatin Calcium [Lipitor] 20 mg PO HS 12/07/17 [History] Estradiol 0.5 mg PO DAILY 12/07/17 [History] Lansoprazole [Prevacid] 30 mg PO DAILY 12/07/17 [History] Loratadine [Claritin] 10 mg PO DAILY 12/07/17 [History] Mometasone/Formoterol [Dulera 100 Mcg/5 Mcg Inhaler] 2 puff IH BID 12/07/17 [ History] Umeclidinium [place] [Incruse Ellipta] 1 puff IH DAILY 12/07/17 [History] clonazePAM [Clonazepam] 0.5 mg PO DAILY 12/07/17 [History] hydroCHLOROthiazide [Hydrochlorothiazide] 12.5 mg PO DAILY 12/07/17 [History] Benztropine [Cogentin] 0.5 mg PO QAM 12/09/17 [History] Benztropine [Cogentin] 1 mg PO HS 12/09/17 [History] Buspirone HCl [Buspar] 15 mg PO TID 12/09/17 [History] Haloperidol 10 mg PO HS 12/09/17 [History] Haloperidol [Haldol] 5 mg PO QAM 12/09/17 [History] Trazodone HCl 100 mg PO HS 12/09/17 [History] hydrOXYzine HCl [Hydroxyzine HCl] 25 mg PO Q8H 12/09/17 [History] 3 Allergy/AdvReac Type Severity Reaction Status Date / Time citalopram [From Celexa] AdvReac swelling Verified 04/27/16 19:48 lurasidone [From Latuda] AdvReac swelling Verified 04/27/16 19:48 All Systems PM: A 10-system review of systems was performed and is negative for pertinent findings except as documented above in the HPI. - Constitutional Constitutional: no chills, no fever(s), no night sweats - EENT Eyes: no change in vision, no discharge, no pain, no photophobia Ears: no ear discharge, no ear pain, no tinnitus Nose, mouth and throat: no dysphagia, no nasal discharge, no neck pain, no sore throat - Cardiovascular Cardiovascular ROS IM: no chest pain, no diaphoresis, no dyspnea, no lightheadedness, no palpitations, no syncope - Respiratory Respiratory: no cough, no dyspnea, no wheezing, no excessive phlegm production - Gastrointestinal Gastrointestinal: no abdominal pain, no diarrhea, no hematemesis, no hematochezia, no melena, no nausea, no vomiting - Genitourinary Genitourinary: no change in urinary stream, no dysuria, no flank pain, no hematuria - Musculoskeletal Musculoskeletal ROS IM: no numbness, no tingling - Integumentary Integumentary IM: no rash, no unusual bruising - Neurological Neurological ROS: no confusion, no convulsions, no focal weakness, no numbness, no tingling, no tremor(s) - Hematologic/Lymphatic Hematologic/Lymphatic: no easy bruising - Constitutional Vitals: Temp Pulse Resp BP Pulse Ox 99.1 F 79 20 124/80 96 12/06/17 23:37 12/06/17 23:37 12/06/17 23:37 12/06/17 23:37 12/06/17 23:37 Exam: General: Alert and oriented but nonverbal. Skin:Normal color, no rash, no lesions. HEENT:EOM, pupils equal, round and reactive. Cardiovascular:Normal S1 & S2, no rubs, murmurs or gallops. No JVD. Pulse regular. Lungs:Normal breath sounds, no wheezes or crackles. Abdomen:Soft, non-tender, no rigidity. Extremities:No deformity, no edema or tenderness, no joint swelling or clubbing ; no muscle rigidity in both the upper and lower extremities. Neurological: Patient maintains good eye contact but remains nonverbal and inconsistently follows commands therefore was unable to fully assess her neurologic status. Pulses:Carotid and radial pulses normal +2. Rest of the physical exam is non contributory Internal Med - H&P Results - Labs CBC & Chem 7: 12/08/17 06:21 12/08/17 06:21 Labs: Short CBC 12/07/17 Range/Units 00:28 WBC 12.9 H (4.3-11.1) K/mcL Hgb 15.1 (11.5-15.4) g/dL Hct 42.6 (35.3-44.9) % Plt Count 294 (140-400) K/mcL Neutrophils # 7.3 (1.6-8.9) K/mcL BMP 12/07/17 00:28 Sodium 137 Potassium 3.4 L Chloride 109 H Carbon Dioxide 24 BUN 8 Creatinine 1.01 Glucose 88 Calcium 8.1 L Liver Function 12/07/17 Range/Units 00:28 Total Bilirubin 0.3 (0.3-1.0) mg/dL AST 18 (13-39) Units/L ALT 16 (7-52) Units/L Alkaline Phosphatase 57 (34-104) Units/L Albumin 3.7 (3.5-5.7) g/dL - Assessment and plan (1) Acute psychosis Status: Acute Assessment and plan: Alteration in mental status with features of acute psychosis evidenced by visual hallucinations per medical records. Patient reportedly had a recent change in her psychiatric medications which may explain her current presentation. No evidence of an infectious process or metabolic derangement. Patient remains afebrile without any evidence of hyperthermia, rigidity or autonomic instability to suggest a NMS or serotonin syndrome. Patient does have a elevated white blood cell count, however, this is in the setting of history of poor by mouth intake and elevated hemoglobin and hematocrit likely reflecting dehydration with hemoconcentration on laboratory findings. (2) Schizophrenia Status: Acute Qualifiers: Schizophrenia type: unspecified Qualified Code(s): F20.9 - Schizophrenia, unspecified - Time Spent With Patient Total time spent is greater than 50% in coordination of care (as documented) at patient's floor/unit and/or counseling patient:
[2017-12-07 05:29] LABS: Basophils # 0.1 K/mcL (0.0-0.2); Basophils % 0.8 %; Eosinophils # 0.1 K/mcL (0.0-0.6); Hematocrit 40.1 % (35.3-44.9); Hemoglobin 14.3 g/dL (11.5-15.4); Immature Granulocytes % 0.5 % (0-4); Lymphocytes # 4.4 K/mcL (0.6-4.6); Lymphocytes % 37.9 %; Mean Corpuscular HGB Conc 35.7 g/dL (31.6-35.5); Mean Corpuscular Hemoglobin 31.2 pg (28.0-33.3); Mean Corpuscular Volume 87.4 fL (83.0-100.0); Mean Platelet Volume 9.9 fL (9.4-12.4); Monocytes # 1.1 K/mcL (0.0-1.3); Monocytes % 9.6 %; Neutrophils # 5.8 K/mcL (1.6-8.9); Platelet Count 277 K/mcL (140-400); Red Blood Count 4.59 M/mcL (3.82-4.97); Red Cell Distribution Width 13.3 % (11.5-14.5); Segmented Neutrophils % 50.2 %
[2017-12-07 05:43] LABS: Alanine Aminotransferase 15 Units/L (7-52); Albumin 3.6 g/dL (3.5-5.7); Albumin/Globulin Ratio 1.7 (1.1-2.2); Alkaline Phosphatase 54 Units/L (34-104); Aspartate Amino Transferase 18 Units/L (13-39); BUN/Creatinine Ratio 7 (6-26); Bilirubin,Total 0.4 mg/dL (0.3-1.0); Blood Urea Nitrogen 7 mg/dL (6-20); Calcium 8.2 mg/dL (8.6-10.3); Carbon Dioxide 23 mEq/L (23-29); Chloride 110 mEq/L (98-107); Globulin 2.1 g/dL (2.4-3.5); Glucose 96 mg/dL (70-105); Osmolality,Calculated 286 (280-300); Potassium 3.5 mEq/L (3.5-5.1); Sodium 139 mEq/L (136-145); Total Protein 5.7 g/dL (6.4-8.9); eGFR For Non-African Americans > 60 (> 60)
--- NOTE | 2017-12-07 11:41 | Event Note ---
Date of Encounter: 12/07/17 Time of Encounter: 11:41 Patient with history of schizophrenia personality disorder who presented to the emergency department with complaint of manic episode. According to records patient had recent adjustments in medications at that time she has not been eating or drinking very much for the past 2 days patient has expressed suicidal ideations and has been displaying auditory and visual hallucinations. She was given IV fluid overnight today patient appears to be anxious voicing concerns are her daughter has been kidnapped. I do notice some tonic-clonic like movements to her extremities. I will resume patient's home medications continue with IV fluids since patient was not taking and any orals at this time. Awaiting psychiatry's recommendations. We will continue to monitor electrolytes and replace as needed
--- NOTE | 2017-12-07 14:09 | Psychiatry Progress Note ---
Date of Encounter: 12/07/17 Time of Encounter: 13:30 Subjective Interval history: Psychiatric consultation note: 47 years old female with history of psychosis and depression presented to the emergency room with her daughter who reported 2 days history of manic symptoms with agitation and hallucinations and not eating or drinking. Patient was admitted to medical service for stabilization and has been receiving IV fluids and encouraged to improve her oral intake. From the records patient reported medication change however apparently medication change was done by pain management not the psychiatrist. Patient also reported suicidal ideation and intention to overdose on medication.. Patient was seen in her room, she was awake but sedated, she was guarded and suspicious, she answer a few questions, she was a poor historian and unable to remember medication names or dates or her doctor's name. She admitted to having suicidal thoughts. But did not specify or plan. Review of Systems Psychiatric: Reports: depression, suicidal ideation, change in appetite, auditory hallucinations, confusion Results - Vital Signs Vital Signs: Temp Pulse Resp BP Pulse Ox 99.1 F 71 16 116/65 92 12/07/17 11:00 12/07/17 11:00 12/07/17 11:00 12/07/17 11:00 12/07/17 11:00 - Labs Labs: Laboratory Results - last 24 hr 12/07/17 12/07/17 12/07/17 00:28 00:28 00:28 WBC 12.9 H RBC 4.86 Hgb 15.1 Hct 42.6 MCV 87.7 MCH 31.1 MCHC 35.4 RDW 13.4 Plt Count 294 MPV 9.8 Immature Gran % 0.4 Seg Neutrophils % 56.3 Lymphocytes % 31.6 Monocytes % 10.0 Eosinophils % 0.9 Basophils % 0.8 Neutrophils # 7.3 Lymphocytes # 4.1 Monocytes # 1.3 Eosinophils # 0.1 Basophils # 0.1 Sodium 137 Potassium 3.4 L Chloride 109 H Carbon Dioxide 24 BUN 8 Creatinine 1.01 Est GFR ( Amer) > 60 Est GFR (Non-Af Amer) 59 L BUN/Creatinine Ratio 8 Glucose 88 Calculated Osmolality 282 Calcium 8.1 L Phosphorus Total Bilirubin 0.3 AST 18 ALT 16 Alkaline Phosphatase 57 Creatine Kinase 457 H Serum Total Protein 5.9 L Albumin 3.7 Globulin 2.2 L Albumin/Globulin Ratio 1.7 12/07/17 12/07/17 12/07/17 00:28 04:03 04:03 WBC 11.6 H RBC 4.59 Hgb 14.3 Hct 40.1 MCV 87.4 MCH 31.2 MCHC 35.7 H RDW 13.3 Plt Count 277 MPV 9.9 Immature Gran % 0.5 Seg Neutrophils % 50.2 Lymphocytes % 37.9 Monocytes % 9.6 Eosinophils % 1.0 Basophils % 0.8 Neutrophils # 5.8 Lymphocytes # 4.4 Monocytes # 1.1 Eosinophils # 0.1 Basophils # 0.1 Sodium 139 Potassium 3.5 Chloride 110 H Carbon Dioxide 23 BUN 7 Creatinine 0.96 Est GFR ( Amer) > 60 Est GFR (Non-Af Amer) > 60 BUN/Creatinine Ratio 7 Glucose 96 Calculated Osmolality 286 Calcium 8.2 L Phosphorus 1.9 L Total Bilirubin 0.4 AST 18 ALT 15 Alkaline Phosphatase 54 Creatine Kinase Serum Total Protein 5.7 L Albumin 3.6 Globulin 2.1 L Albumin/Globulin Ratio 1.7 Assessment and Plan (1) Schizoaffective disorder, bipolar type Current visit: No Status: Acute Additional Plan: 1. Continue medical stabilization 2. When medically stable admits to behavioral health. Thank you for consultation Consult Discharge Plan - Plan Referrals: Carson Case, STATISTICAL CLERK [employer]VERTISING [Primary Care Provider] - Psychiatry Exam - Constitutional Vitals: Temp Pulse Resp BP Pulse Ox 99.1 F 71 16 116/65 92 12/07/17 11:00 12/07/17 11:00 12/07/17 11:00 12/07/17 11:00 12/07/17 11:00 General appearance: age & developmentally appropriate, well-groomed, well- nourished, obese - Musculoskeletal Gait: normal Station: relaxed Strength & Tone: normal for patient - Psychiatric Patient Orientation: Yes Person, Yes Time, Yes Place Level of alertness: Alert, Sedated Behavior: calm, anxious, guarded, suspicious, withdrawn Psychomotor activity: Slowed Eye Contact: Fleeting Contact Mood Description: Depressed, Irritable Affect description: congruent with mood, labile Speech Volume: Normal Speech pattern: normal rate, normal rhythm, normal tone, fluent, spontaneous, limited Language & Vocabulary: consistent with education Thought Process: Linear, Goal Oriented, Thought Blocking, Slowed Thinking Thought Content: Yes Suicidal ideation, No Homicidal ideation, No Overt delusions, Yes Poverty of Content Perceptual Disturbances: Yes Auditory hallucinations, No Visual hallucinations Attention Span Ability: Unable to Focus Memory Description: Grossly Intact Patient Reliability: Not Reliable Historian Fund of knowledge: Yes abstraction ability, Yes aware of current events Intelligence Estimate: Average Judgment: Limited Insight: Partial
[2017-12-07] MEDS: hydrOXYzine pamoate 25 MG CAPSULE PO SCH ×2 (15:22→20:06)
[2017-12-07] MEDS: Budesonide/Formoterol 80/4.5 MDI IH SCH (19:36)
[2017-12-07] MEDS: Ziprasidone 80 MG CAPSULE PO SCH (20:06)
[2017-12-07] MEDS: Famotidine 20 MG TABLET PO SCH (20:06)
[2017-12-07] MEDS ORDERED: traZODone 50 MG TABLET PO SCH (21:00)
[2017-12-08 06:25] VITALS: BP 128/88
[2017-12-08 06:39] LABS: Basophils # 0.1 K/mcL (0.0-0.2); Basophils % 0.9 %; Eosinophils # 0.2 K/mcL (0.0-0.6); Eosinophils % 1.9 %; Hemoglobin 13.9 g/dL (11.5-15.4); Immature Granulocytes % 0.5 % (0-4); Lymphocytes % 44.2 %; Mean Corpuscular HGB Conc 35.6 g/dL (31.6-35.5); Mean Corpuscular Hemoglobin 31.2 pg (28.0-33.3); Mean Corpuscular Volume 87.6 fL (83.0-100.0); Mean Platelet Volume 9.6 fL (9.4-12.4); Monocytes # 0.8 K/mcL (0.0-1.3); Monocytes % 9.2 %; Platelet Count 262 K/mcL (140-400); Red Blood Count 4.45 M/mcL (3.82-4.97); Red Cell Distribution Width 13.6 % (11.5-14.5); Segmented Neutrophils % 43.3 %
[2017-12-08 07:02] LABS: BUN/Creatinine Ratio 8 (6-26); Blood Urea Nitrogen 7 mg/dL (6-20); Calcium 8.3 mg/dL (8.6-10.3); Carbon Dioxide 20 mEq/L (23-29); Chloride 111 mEq/L (98-107); Glucose 152 mg/dL (70-105); Osmolality,Calculated 287 (280-300); Potassium 3.5 mEq/L (3.5-5.1); Sodium 138 mEq/L (136-145); eGFR For Non-African Americans > 60 (> 60)
[2017-12-08] MEDS: Famotidine 20 MG TABLET PO SCH (08:23)
[2017-12-08] MEDS: hydrOXYzine pamoate 25 MG CAPSULE PO SCH (08:24)
[2017-12-08] MEDS: Ziprasidone 80 MG CAPSULE PO SCH (08:24)
[2017-12-08] MEDS ORDERED: (Umeclidinium Bromide [Incruse Ellipta] 1 PUFF) IH SCH (09:00)
[2017-12-08] MEDS ORDERED: clonazePAM 0.5 MG TABLET PO SCH (09:00)
[2017-12-08] MEDS ORDERED: hydroCHLOROthiazide 25 MG TABLET PO SCH (09:00)
--- NOTE | 2017-12-08 09:56 | Discharge Summary ---
- NOTES TO OUTPATIENT PROVIDER Notes to Outpatient Provider: History of psychoses and depression presents emergency room with reported 2 day history of manic symptoms and agitation hallucinations will be transferred to one A for further psychiatric management Orders not resulted at time of discharge: Pending orders 12/09/17 04:00 CBC [Complete Blood Count] [HEME] AM 0400 12/10/17 04:00 CBC [Complete Blood Count] [HEME] AM 0400 Date of Encounter: 12/08/17 Time of Encounter: 09:45 - Discharge Diagnosis (1) Acute psychosis Priority: Primary Status: Acute (2) Schizophrenia Priority: Secondary Status: Acute Qualifiers: Schizophrenia type: unspecified Qualified Code(s): F20.9 - Schizophrenia, unspecified Hospital course: Ms. Anand is a 47 year old female past medical history of psychoses of depression presented to [facility] EGD with daughter after experiencing 2 days of manic behavior-she had not eaten for approximately 2 days she was admitted for medical stabilization received IV fluids patient was encouraged to age and she was able to consume her meals without difficulty at this time. Electrolytes were replaced. Overnight patient was agitated and at times aggressive towards staff. Currently she is calm she is hemodynamically stable and she is ready for discharge to psychiatric unit - Time Spent with Patient Total time spent providing and/or coordinating discharge services: - Discharge Medications Home Medications: Benztropine Mesylate 0.5 mg PO QAM 12/06/17 [History] Benztropine [Cogentin] 1 mg PO HS 12/06/17 [History] Buspirone HCl [Buspar] 15 mg PO TID 12/06/17 [History] Montelukast [Singulair] 10 mg PO HS 12/06/17 [History] Trazodone HCl 100 mg PO HS 12/06/17 [History] Ziprasidone [Geodon] 80 mg PO BID 12/06/17 [History] raNITIdine HCl [Ranitidine HCl] 150 mg PO BID 12/06/17 [History] Albuterol Sulfate [Albuterol Inhaler] 2 puff IH Q6HR PRN 12/07/17 [History] Atorvastatin Calcium [Lipitor] 20 mg PO HS 12/07/17 [History] Estradiol 0.5 mg PO DAILY 12/07/17 [History] Lansoprazole [Prevacid] 30 mg PO DAILY 12/07/17 [History] Loratadine [Claritin] 10 mg PO DAILY 12/07/17 [History] Mometasone/Formoterol [Dulera 100 Mcg/5 Mcg Inhaler] 2 puff IH BID 12/07/17 [ History] Umeclidinium [place] [Incruse Ellipta] 1 puff IH DAILY 12/07/17 [History] clonazePAM [Clonazepam] 0.5 mg PO DAILY 12/07/17 [History] hydrOXYzine HCl [Hydroxyzine HCl] 25 mg PO TID 12/07/17 [History] hydroCHLOROthiazide [Hydrochlorothiazide] 12.5 mg PO DAILY 12/07/17 [History] Allergies/Adverse Reactions: 3 Allergy/AdvReac Type Severity Reaction Status Date / Time citalopram [From Celexa] AdvReac swelling Verified 04/27/16 19:48 lurasidone [From Latuda] AdvReac swelling Verified 04/27/16 19:48 Date of admission: 12/06/17 21:03 Primary care physician: Carson Case CNP Consults: 12/07/17 06:34 Consult to Psychiatry [CONS] Routine Consulting Provider: Psychiatry [place] Reason consult: Psychosis Discharging clinician: Maria Teresa Cbaallero Anticipated date of discharge: 12/08/17 - Constitutional Vitals: Temp Pulse Resp BP Pulse Ox 98.0 F 69 16 128/88 94 12/08/17 06:24 12/08/17 06:24 12/08/17 06:24 12/08/17 06:24 12/08/17 06:24 General appearance: Present: A&O X 1 Exam: see above - Head Head exam: Present: atraumatic, normocephalic - Eye Eye exam: Present: PERRL, conjuntiva pink, sclera anicteric Pupils: Present: PERRL - Neck Neck exam general surgery: Present: supple, trachea midline. Absent: lymphadenopathy - Respiratory Respiratory exam: Present: CTAB. Absent: accessory muscle use, rales, rhonchi, wheezes - Cardiovascular Cardiovascular exam: Present: RRR, +S1, +S2. Absent: diastolic murmur, gallop, rubs, systolic murmur - GI/Abdominal GI/Abdominal exam: Present: normal bowel sounds, soft, no peritoneal signs. Absent: distended, tenderness - Extremities Exam Extremities exam: Present: warm, radial pulses palpable and symmetrical. Absent : calf tenderness, cyanotic, pedal edema - Neurological Exam Neurological exam: Present: CN II-XII intact, oriented X3, no focal deficits. Absent: pronater drift, facial droop, speech deficit - Skin Skin exam: Present: dry, intact - Patient Status Disposition: Transfer Psychiatric Hosp Condition: Fair Functional capacity at discharge: independent ambulation Overall status at discharge: patient is not back to baseline - Discharge Instructions Follow Up With: Carson Case, OPTICAL COATING TECHNICIAN [Primary Care Provider] - - Diet and Activity Activity: increase activity as tolerated Diet: advance to your usual diet
[2017-12-08] MEDS: Budesonide/Formoterol 80/4.5 MDI IH SCH (10:48)
== END 2017-12-08 10:54 ==
LOC: 3BNU 14:06 → EMEROOARM 14:06 → SUATTDRO 21:03 → 3BNU 23:18
PROVIDERS: ADMIT Internal Medicine; ATTEND Internal Medicine

== ENCOUNTER 2017-12-08 10:49 | Inpatient (IN) ==
[2017-12-08] MEDS ORDERED: MOM Conc 10 ML UD.LIQ PO PRN (11:05)
[2017-12-08] MEDS ORDERED: *HR* LORazepam 1 MG TABLET PO PRN (11:05)
[2017-12-08] MEDS ORDERED: *HR* LORazepam 2 MG/ML VIAL IM PRN (11:05)
[2017-12-08] MEDS ORDERED: hydrOXYzine pamoate 25 MG CAPSULE PO PRN (11:05)
[2017-12-08] MEDS ORDERED: traZODone 50 MG TABLET PO PRN (11:05)
[2017-12-08] MEDS ORDERED: Haloperidol Lactate 5 MG/ML VIAL IM PRN (11:05)
[2017-12-08] MEDS: Nicotine 21 MG PATCH.TD24 TD SCH (12:04)
[2017-12-09] MEDS: Nicotine 21 MG PATCH.TD24 TD SCH (11:20)
--- NOTE | 2017-12-09 14:09 | Psychiatry History & Physical ---
Date of Encounter: 12/09/17 Time of Encounter: 14:06 History of Present Illness Patient Stated Chief Complaint: Manic episode, psychosis Medicare Admission Attestation: For traditional Medicare patients the provided hospital inpatient services are reasonable and necessary and in the case of services not specified as inpatient -only under 42 CFR 419.22 (n), that they are appropriately provided as inpatient services in accordance 42 CFR 412.3. For Critical Access Hospital the patient may reasonably be expected to be discharged or transferred to a hospital within 96 hours after admission to the Critical Access Hospital. Admitted From: Intrahospital Transfer (3B) History of Present Illness: Ms. Anand is a 47 year old female admitted to [facility] from the medical service after medical stabilization. Patient has a long history of psychiatric treatment for schizoaffective disorder bipolar type and has been admitted to this unit several times in the past. She presented initially with manic episode including delusion or hallucination paranoia also she was not eating or drinking and dehydrated. Patient was admitted to medical service for stabilization and IV fluids. She was seen in consultation and recommended to be admitted after medical stabilization. Patient was guarded and suspicious, uncooperative with evaluation and assessment avoided eye contact and would not answer questions. Past Med Surg Social Fam HX - Past Medical History Medical history: asthma, GERD, other - Past Psychiatric History Psychiatric history: Reports: bipolar, prior suicide attempt, schizophrenia, previous psychiatric hospitalization Past psychiatric history details: Most recent hospitalization at [place] September 2016 - Past Surgical History Surgical History: herniorrhaphy, hysterectomy, orthopedic, other, other - Social History Smoking Status: Current every day smoker Smokeless Tobacco Status: No Alcohol use: none Drug use: none Medications & Allergies Benztropine Mesylate 0.5 mg PO QAM 12/06/17 [History] Benztropine [Cogentin] 1 mg PO HS 12/06/17 [History] Buspirone HCl [Buspar] 15 mg PO TID 12/06/17 [History] Montelukast [Singulair] 10 mg PO HS 12/06/17 [History] Trazodone HCl 100 mg PO HS 12/06/17 [History] Ziprasidone [Geodon] 80 mg PO BID 12/06/17 [History] raNITIdine HCl [Ranitidine HCl] 150 mg PO BID 12/06/17 [History] Albuterol Sulfate [Albuterol Inhaler] 2 puff IH Q6HR PRN 12/07/17 [History] Atorvastatin Calcium [Lipitor] 20 mg PO HS 12/07/17 [History] Estradiol 0.5 mg PO DAILY 12/07/17 [History] Lansoprazole [Prevacid] 30 mg PO DAILY 12/07/17 [History] Loratadine [Claritin] 10 mg PO DAILY 12/07/17 [History] Mometasone/Formoterol [Dulera 100 Mcg/5 Mcg Inhaler] 2 puff IH BID 12/07/17 [ History] Umeclidinium [place] [Incruse Ellipta] 1 puff IH DAILY 12/07/17 [History] clonazePAM [Clonazepam] 0.5 mg PO DAILY 12/07/17 [History] hydrOXYzine HCl [Hydroxyzine HCl] 25 mg PO TID 12/07/17 [History] hydroCHLOROthiazide [Hydrochlorothiazide] 12.5 mg PO DAILY 12/07/17 [History] 3 Allergy/AdvReac Type Severity Reaction Status Date / Time citalopram [From Celexa] AdvReac swelling Verified 04/27/16 19:48 lurasidone [From Latuda] AdvReac swelling Verified 04/27/16 19:48 Exam - HEENT Head exam IM: Present: atraumatic Eye exam IM: Present: EOMI, normal appearance, PERRL ENT exam IM: Present: normal exam - Neurological Neurological exam: Present: CN II-XII intact - Respiratory Respiratory exam IM: Present: CTAB - GI/Abdominal GI/Abdominal exam IM: Present: normal bowel sounds, soft. Absent: tenderness - Extremities Extremities exam IM: Present: full ROM - Skin Skin exam IM: Present: dry, warm - Constitutional Vitals: Temp Pulse Resp BP 98.6 F 72 18 116/72 12/08/17 20:26 12/08/17 20:26 12/08/17 20:26 12/08/17 20:26 General appearance: age & developmentally appropriate, well-nourished, unkempt, disheveled, bizarre, obese - Musculoskeletal Gait: normal Station: relaxed, posturing Strength & Tone: normal for patient - Psychiatric Patient Orientation: Yes Person, Yes Time, Yes Place Level of alertness: Alert Behavior: calm, uncooperative, guarded, suspicious, fearful Psychomotor activity: Slowed Eye Contact: No Eye Contact Mood Description: Euthymic/stable, Anxious, Other (Covering her face with a towel) Affect description: constricted, dysphoric, other (Fearful) Speech Volume: Normal Speech pattern: non-verbal Language & Vocabulary: aphasia Thought Process: Thought Blocking, Disorganized Thought Content: Yes Suicidal ideation, No Homicidal ideation, No Overt delusions, Yes Paranoid delusion Perceptual Disturbances: Yes Reacting to internal stimuli, No Auditory hallucinations, No Visual hallucinations Attention Span Ability: Capable of Focused Attention Memory Description: Grossly Intact Patient Reliability: Not Reliable Historian Fund of knowledge: Yes abstraction ability, Yes average, Yes aware of current events Intelligence Estimate: Average Judgment: Limited Insight: Partial Assessment and Plan (1) Schizoaffective disorder, bipolar type Current visit: No Status: Acute Plan: Admit inpatient for safety and stabilization, Close observation, Suicide Precautions per unit protocol, Encourage participation in unit milieu, Group Therapy, Monitor sleep, Monitor appetite Additional Plan: We will verify medication and restart. Risks, benefits, side effects, alternatives discussed w/pt: No (Patient is paranoid would not answer questions) Patient agreeable to treatment: No ( Patient paranoid would not answer questions) Estimated Length of Stay (Days): 10
[2017-12-09] MEDS: Loratadine 10 MG TABLET PO SCH (16:30)
[2017-12-09] MEDS: hydroCHLOROthiazide 25 MG TABLET PO SCH (16:31)
[2017-12-09] MEDS: clonazePAM 0.5 MG TABLET PO SCH (16:31)
[2017-12-09] MEDS: hydrOXYzine pamoate 25 MG CAPSULE PO SCH ×2 (16:31→20:45)
[2017-12-09] MEDS: Ziprasidone 80 MG CAPSULE PO SCH ×2 (17:12→20:44)
[2017-12-09] MEDS: (Umeclidinium Bromide [Incruse Ellipta] 1 PUFF) IH SCH (17:25)
[2017-12-09] MEDS: Famotidine 20 MG TABLET PO SCH (20:43)
[2017-12-09] MEDS: traZODone 50 MG TABLET PO SCH (20:45)
[2017-12-09] MEDS: Budesonide/Formoterol 80/4.5 MDI IH SCH (23:22)
[2017-12-10] MEDS: hydroCHLOROthiazide 25 MG TABLET PO SCH (08:37)
[2017-12-10] MEDS: Nicotine 21 MG PATCH.TD24 TD SCH (08:37)
[2017-12-10] MEDS: Ziprasidone 80 MG CAPSULE PO SCH ×2 (08:38→20:37)
[2017-12-10] MEDS: Loratadine 10 MG TABLET PO SCH (08:38)
[2017-12-10] MEDS: hydrOXYzine pamoate 25 MG CAPSULE PO SCH ×3 (08:39→20:37)
[2017-12-10] MEDS: Famotidine 20 MG TABLET PO SCH ×2 (08:39→20:36)
[2017-12-10] MEDS: clonazePAM 0.5 MG TABLET PO SCH (08:39)
[2017-12-10] MEDS: (Umeclidinium Bromide [Incruse Ellipta] 1 PUFF) IH SCH (08:40)
[2017-12-10] MEDS: Budesonide/Formoterol 80/4.5 MDI IH SCH ×2 (09:40→22:25)
--- NOTE | 2017-12-10 15:50 | Psychiatry Progress Note ---
Date of Encounter: 12/10/17 Time of Encounter: 14:00 Subjective Interval history: Patient seen for follow-up. Case discussed with treatment team. Patient was seen in her room with the nursing staff. Staff reports she is self isolating in her room not interacting with peers or staff except to make her needs known. Sleep and appetite are improving and ADLs are improving. Patient is more cooperative she made eye contact she answer a few questions verbally she was not agitated or paranoid. Results - Vital Signs Vital Signs: Temp Pulse Resp BP 99.1 F 85 20 130/82 12/10/17 09:00 12/10/17 09:00 12/10/17 09:00 12/10/17 09:00 Assessment and Plan (1) Schizoaffective disorder, bipolar type Current visit: No Status: Acute Plan: Continue hospitalization, Close observation, Suicide Precautions per unit protocol, Encourage participation in unit milieu, Group Therapy, Monitor sleep, Monitor appetite Risks, benefits, side effects, alternatives discussed w/pt: No (Patient is paranoid would not answer questions) Patient agreeable to treatment: No (Patient paranoid would not answer questions) Consult Discharge Plan - Plan Referrals: [facility] & Psychiatry [Outside] - 01/03/18 1:00 pm (The above appointment is with Dr. Beard for outpatient psychiatric assessment and medication management services. The above appointment reflux first availability. You may contact the office regularly to check for cancellations on mammography to be seen sooner.) Psychiatry Exam - Constitutional Vitals: Temp Pulse Resp BP 99.1 F 85 20 130/82 12/10/17 09:00 12/10/17 09:00 12/10/17 09:00 12/10/17 09:00 General appearance: obese - Musculoskeletal Gait: normal Station: relaxed Strength & Tone: normal for patient - Psychiatric Patient Orientation: Yes Person, Yes Time, Yes Place Level of alertness: Alert, Sedated Behavior: calm, cooperative, suspicious, fearful Psychomotor activity: Slowed Eye Contact: Minimal Contact Mood Description: Euthymic/stable, Depressed, Anxious Affect description: congruent with mood, constricted Speech Volume: Normal Speech pattern: disorganized, non-verbal Language & Vocabulary: consistent with education Thought Process: Thought Blocking, Disorganized, Slowed Thinking Thought Content: No Suicidal ideation, No Homicidal ideation, No Overt delusions Perceptual Disturbances: Yes Reacting to internal stimuli, No Auditory hallucinations, No Visual hallucinations Attention Span Ability: Capable of Focused Attention Memory Description: Grossly Intact Patient Reliability: Reliable Historian Fund of knowledge: Yes abstraction ability, Yes aware of current events Intelligence Estimate: Average Judgment: Limited Insight: Partial
[2017-12-10] MEDS: traZODone 50 MG TABLET PO SCH (20:35)
[2017-12-11] MEDS: (Umeclidinium Bromide [Incruse Ellipta] 1 PUFF) IH SCH (09:00)
[2017-12-11] MEDS: Budesonide/Formoterol 80/4.5 MDI IH SCH ×2 (09:03→21:57)
[2017-12-11] MEDS: clonazePAM 0.5 MG TABLET PO SCH (09:04)
[2017-12-11] MEDS: Loratadine 10 MG TABLET PO SCH (09:04)
[2017-12-11] MEDS: Ziprasidone 80 MG CAPSULE PO SCH ×2 (09:04→21:43)
[2017-12-11] MEDS: Famotidine 20 MG TABLET PO SCH ×2 (09:04→21:43)
[2017-12-11] MEDS: hydrOXYzine pamoate 25 MG CAPSULE PO SCH ×3 (09:04→21:43)
[2017-12-11] MEDS: hydroCHLOROthiazide 25 MG TABLET PO SCH (09:04)
[2017-12-11] MEDS: Nicotine 21 MG PATCH.TD24 TD SCH (12:06)
--- NOTE | 2017-12-11 14:41 | Psychiatry Progress Note ---
Date of Encounter: 12/11/17 Time of Encounter: 14:38 Subjective Interval history: Patient seen for follow-up. Case discussed with treatment team. Staff report patient is medication compliant but she self isolated in her room she does not attend groups. Sleep and appetite are improving. Continued to be apprehensive and not interacting with staff or peers. Seen today she is well dressed and groomed good hygiene, pleasant and friendly. Answered questions appropriately. Long response delay. Seem to be internally stimulated, admitted to hearing voices but she could not identify. I had to repeat the questions. Results - Vital Signs Vital Signs: Temp Pulse Resp BP 98.9 F 105 16 112/70 12/11/17 09:00 12/11/17 09:00 12/11/17 09:00 12/11/17 09:00 Assessment and Plan (1) Schizoaffective disorder, bipolar type Current visit: No Status: Acute Plan: Continue hospitalization, Close observation, Suicide Precautions per unit protocol, Encourage participation in unit milieu, Group Therapy, Monitor sleep, Monitor appetite Risks, benefits, side effects, alternatives discussed w/pt: No (Patient is paranoid would not answer questions) Patient agreeable to treatment: No (Patient paranoid would not answer questions) Consult Discharge Plan - Plan Referrals: [facility] & Psychiatry [Outside] - 01/03/18 1:00 pm (The above appointment is with Dr. Beard for outpatient psychiatric assessment and medication management services. The above appointment reflux first availability. You may contact the office regularly to check for cancellations on mammography to be seen sooner.) Psychiatry Exam - Constitutional Vitals: Temp Pulse Resp BP 98.9 F 105 16 112/70 12/11/17 09:00 12/11/17 09:00 12/11/17 09:00 12/11/17 09:00 General appearance: obese - Musculoskeletal Gait: normal Station: relaxed Strength & Tone: normal for patient - Psychiatric Patient Orientation: Yes Person, Yes Time, Yes Place Level of alertness: Alert Behavior: calm, cooperative, guarded, distractible Psychomotor activity: Normal Eye Contact: Maintains Eye Contact Mood Description: Euthymic/stable, Anxious Affect description: congruent with mood, full range Speech Volume: Normal, Soft/Quiet Speech pattern: normal rate, normal rhythm, normal tone, fluent, spontaneous, clear, slowed, limited Language & Vocabulary: consistent with education Thought Process: Linear, Goal Oriented Thought Content: No Suicidal ideation, No Homicidal ideation, No Overt delusions Perceptual Disturbances: Yes Auditory hallucinations, No Visual hallucinations Attention Span Ability: Unable to Focus Memory Description: Immediate Impaired, Recent Impaired, Remote Impaired Patient Reliability: Not Reliable Historian Fund of knowledge: Yes abstraction ability, Yes aware of current events Intelligence Estimate: Average Judgment: Limited Insight: Partial
[2017-12-11] MEDS: traZODone 50 MG TABLET PO SCH (21:42)
[2017-12-12] MEDS: clonazePAM 0.5 MG TABLET PO SCH (09:04)
[2017-12-12] MEDS: Loratadine 10 MG TABLET PO SCH (09:04)
[2017-12-12] MEDS: hydrOXYzine pamoate 25 MG CAPSULE PO SCH ×3 (09:04→20:38)
[2017-12-12] MEDS: Famotidine 20 MG TABLET PO SCH ×2 (09:04→20:37)
[2017-12-12] MEDS: Ziprasidone 80 MG CAPSULE PO SCH ×2 (09:05→20:38)
[2017-12-12] MEDS: Nicotine 21 MG PATCH.TD24 TD SCH (09:09)
[2017-12-12] MEDS: (Umeclidinium Bromide [Incruse Ellipta] 1 PUFF) IH SCH (09:11)
[2017-12-12] MEDS: hydroCHLOROthiazide 25 MG TABLET PO SCH (09:12)
[2017-12-12] MEDS: Budesonide/Formoterol 80/4.5 MDI IH SCH ×2 (10:44→20:34)
[2017-12-12] MEDS: Tiotropium 18 MCG inhalation IH SCH (10:45)
--- NOTE | 2017-12-12 15:41 | Psychiatry Progress Note ---
Date of Encounter: 12/12/17 Time of Encounter: 15:38 Subjective Interval history: Patient seen for follow-up. Case discussed with nursing staff. She is more alert, cooperative and more expressive. Speech is organized and logical. She continued to report auditory hallucination and voices that command her to do bad things. She would not elaborate. Denies any problem with sleep she is not suicidal but continued to be paranoid. She tell me that she is afraid to use the phone so people can track her. Results - Vital Signs Vital Signs: Temp Pulse Resp BP 98.7 F 107 16 116/81 12/12/17 09:00 12/12/17 09:00 12/12/17 09:00 12/12/17 09:00 Assessment and Plan (1) Schizoaffective disorder, bipolar type Current visit: No Status: Acute Plan: Continue hospitalization, Close observation, Suicide Precautions per unit protocol, Encourage participation in unit milieu, Group Therapy, Monitor sleep, Monitor appetite Risks, benefits, side effects, alternatives discussed w/pt: No (Patient is paranoid would not answer questions) Patient agreeable to treatment: No (Patient paranoid would not answer questions) Consult Discharge Plan - Plan Referrals: [facility] & Psychiatry [Outside] - 01/03/18 1:00 pm (The above appointment is with Dr. Beard for outpatient psychiatric assessment and medication management services. The above appointment reflux first availability. You may contact the office regularly to check for cancellations on mammography to be seen sooner.) Psychiatry Exam - Constitutional Vitals: Temp Pulse Resp BP 98.7 F 107 16 116/81 12/12/17 09:00 12/12/17 09:00 12/12/17 09:00 12/12/17 09:00 General appearance: age & developmentally appropriate, well-groomed, well- nourished, obese - Musculoskeletal Gait: normal Station: relaxed Strength & Tone: normal for patient - Psychiatric Patient Orientation: Yes Person, Yes Time, Yes Place Level of alertness: Alert Behavior: calm, cooperative Psychomotor activity: Slowed Eye Contact: Maintains Eye Contact Mood Description: Euthymic/stable Affect description: congruent with mood, euthymic Speech Volume: Normal, Soft/Quiet Speech pattern: normal rate, normal rhythm, normal tone, fluent, spontaneous, clear, coherent Language & Vocabulary: consistent with education Thought Process: Tangential, Thought Blocking Thought Content: No Suicidal ideation, No Homicidal ideation, No Overt delusions Perceptual Disturbances: Yes Auditory hallucinations, No Visual hallucinations Attention Span Ability: Capable of Focused Attention Memory Description: Grossly Intact Patient Reliability: Reliable Historian Fund of knowledge: Yes abstraction ability, Yes aware of current events Intelligence Estimate: Average Judgment: Limited Insight: Partial
[2017-12-12] MEDS: traZODone 50 MG TABLET PO SCH (20:35)
[2017-12-12] MEDS: Acetaminophen 325 MG TABLET PO PRN (20:36)
[2017-12-13] MEDS: Loratadine 10 MG TABLET PO SCH (09:24)
[2017-12-13] MEDS: Famotidine 20 MG TABLET PO SCH ×2 (09:24→20:26)
[2017-12-13] MEDS: hydrOXYzine pamoate 25 MG CAPSULE PO SCH ×3 (09:25→20:26)
[2017-12-13] MEDS: clonazePAM 0.5 MG TABLET PO SCH (09:25)
[2017-12-13] MEDS: Ziprasidone 80 MG CAPSULE PO SCH ×2 (09:26→20:26)
[2017-12-13] MEDS: hydroCHLOROthiazide 25 MG TABLET PO SCH (09:26)
[2017-12-13] MEDS: Nicotine 21 MG PATCH.TD24 TD SCH (09:31)
[2017-12-13] MEDS: Tiotropium 18 MCG inhalation IH SCH (09:39)
[2017-12-13] MEDS: (Umeclidinium Bromide [Incruse Ellipta] 1 PUFF) IH SCH (09:39)
[2017-12-13] MEDS: Budesonide/Formoterol 80/4.5 MDI IH SCH ×2 (09:39→20:26)
--- NOTE | 2017-12-13 14:23 | Psychiatry Progress Note ---
Date of Encounter: 12/13/17 Time of Encounter: 14:21 Subjective Interval history: Patient seen for follow-up. Case discussed with treatment team. Staff report patient continued to be self isolating in her room and refusing to speak to nursing staff or answer questions. She reports to me that she is hearing voices constantly and once some help with it. She is willing to take Haldol and Cogentin and nursing staff will give her the medication. Otherwise she is cooperative more interactive and attentive but still internally stimulated. Results - Vital Signs Vital Signs: Temp Pulse Resp BP 98.1 F 87 18 141/85 12/13/17 09:00 12/13/17 09:00 12/13/17 09:00 12/13/17 09:00 Assessment and Plan (1) Schizoaffective disorder, bipolar type Current visit: No Status: Acute Plan: Continue hospitalization, Close observation, Suicide Precautions per unit protocol, Encourage participation in unit milieu, Group Therapy, Monitor sleep, Monitor appetite Risks, benefits, side effects, alternatives discussed w/pt: No (Patient is paranoid would not answer questions) Patient agreeable to treatment: No (Patient paranoid would not answer questions) Consult Discharge Plan - Plan Referrals: [facility] & Psychiatry [Outside] - 01/03/18 1:00 pm (The above appointment is with Dr. Beard for outpatient psychiatric assessment and medication management services. The above appointment reflux first availability. You may contact the office regularly to check for cancellations on mammography to be seen sooner.) Psychiatry Exam - Constitutional Vitals: Temp Pulse Resp BP 98.1 F 87 18 141/85 12/13/17 09:00 12/13/17 09:00 12/13/17 09:00 12/13/17 09:00 General appearance: age & developmentally appropriate, well-nourished, unkempt, obese - Musculoskeletal Gait: normal Station: relaxed Strength & Tone: normal for patient - Psychiatric Patient Orientation: Yes Person, Yes Time, Yes Place Level of alertness: Alert Behavior: calm, cooperative, suspicious, distractible Psychomotor activity: Normal Eye Contact: Fleeting Contact Mood Description: Euthymic/stable, Anxious Affect description: congruent with mood, flat Speech Volume: Normal, Soft/Quiet Speech pattern: normal rate, normal rhythm, normal tone, fluent, disorganized, impoverished Language & Vocabulary: consistent with education Thought Process: Thought Blocking, Disorganized, Perseveration Thought Content: No Suicidal ideation, No Homicidal ideation, No Overt delusions Perceptual Disturbances: Yes Auditory hallucinations, No Visual hallucinations Attention Span Ability: Unable to Focus Memory Description: Grossly Intact Patient Reliability: Reliable Historian Fund of knowledge: Yes abstraction ability, Yes aware of current events Intelligence Estimate: Average Judgment: Limited Insight: Partial
[2017-12-13] MEDS: Acetaminophen 325 MG TABLET PO PRN (15:37)
[2017-12-13] MEDS: traZODone 50 MG TABLET PO SCH (20:27)
--- NOTE | 2017-12-14 09:11 | Psychiatry Progress Note ---
Date of Encounter: 12/14/17 Time of Encounter: 09:07 Subjective Interval history: Client irritable today. States she needs to be in a "assisted facility where I won't be a danger to anyone or myself." Endorses suicidal thoughts. No eating or drinking at home and treated for dehydration when first admitted. Endorses AH and appears to be attending to IS. Per staff she spends most of her time in her room. Interacts little but able to get needs met. Asks for prns when she needs them. Will need support in the community. Not currently prescribed an antidepressant but client states she would like one. Will start Zoloft today. Review of Systems Constitutional: Denies: fever, chills, weakness, weight change Eyes: Denies: eye pain, vision change Ears, Nose, Throat: Denies: ear pain, throat pain, dental pain, hearing loss, congestion Cardiovascular: Denies: chest pain, palpitations, dyspnea on exertion Respiratory: Denies: cough, dyspnea, wheezes Gastrointestinal: Denies: abdominal pain, nausea, vomiting, diarrhea, constipation Musculoskeletal: Denies: joint swelling, joint pain Neurological: Denies: headache, weakness, numbness, memory loss Results - Vital Signs Vital Signs: Temp Pulse Resp BP 97.6 F 84 14 115/87 12/13/17 21:00 12/13/17 21:12/13/17 21:00 12/13/17 21:00 Assessment and Plan (1) Schizophrenia Current visit: No Status: Acute Plan: Continue hospitalization, Close observation, Suicide Precautions per unit protocol, Encourage participation in unit milieu, Group Therapy, Monitor sleep, Monitor appetite Risks, benefits, side effects, alternatives discussed w/pt: Yes Patient agreeable to treatment: Yes Qualifiers: Schizophrenia type: unspecified Qualified Code(s): F20.9 - Schizophrenia, unspecified Consult Discharge Plan - Plan Referrals: [facility] & Psychiatry [Outside] - 01/03/18 1:00 pm (The above appointment is with Dr. Beard for outpatient psychiatric assessment and medication management services. The above appointment reflux first availability. You may contact the office regularly to check for cancellations on mammography to be seen sooner.) Psychiatry Exam - Constitutional Vitals: Temp Pulse Resp BP 97.6 F 84 14 115/87 12/13/17 21:00 12/13/17 21:00 12/13/17 21:00 12/13/17 21:00 General appearance: age & developmentally appropriate - Musculoskeletal Gait: normal Station: relaxed Strength & Tone: normal for patient - Psychiatric Patient Orientation: Yes Person, Yes Time, Yes Place Level of alertness: Alert Behavior: restless Psychomotor activity: Normal Eye Contact: Minimal Contact Mood Description: Depressed, Irritable Affect description: congruent with mood Speech Volume: Normal Speech pattern: normal rate, normal rhythm, normal tone, fluent, spontaneous Language & Vocabulary: consistent with education Thought Process: Linear Thought Content: Yes Suicidal ideation, No Homicidal ideation, No Overt delusions Perceptual Disturbances: Yes Reacting to internal stimuli, Yes Auditory hallucinations Attention Span Ability: Capable of Focused Attention Memory Description: Grossly Intact Patient Reliability: Reliable Historian Fund of knowledge: Yes abstraction ability, Yes aware of current events Intelligence Estimate: Average Judgment: Fair Insight: Partial
[2017-12-14] MEDS: hydrOXYzine pamoate 25 MG CAPSULE PO SCH ×3 (09:39→19:58)
[2017-12-14] MEDS: Loratadine 10 MG TABLET PO SCH (09:39)
[2017-12-14] MEDS: Ziprasidone 80 MG CAPSULE PO SCH ×2 (09:39→19:58)
[2017-12-14] MEDS: hydroCHLOROthiazide 25 MG TABLET PO SCH (09:40)
[2017-12-14] MEDS: Famotidine 20 MG TABLET PO SCH ×2 (09:41→19:58)
[2017-12-14] MEDS: clonazePAM 0.5 MG TABLET PO SCH (09:41)
[2017-12-14] MEDS: Nicotine 21 MG PATCH.TD24 TD SCH (09:43)
[2017-12-14] MEDS: (Umeclidinium Bromide [Incruse Ellipta] 1 PUFF) IH SCH (09:45)
[2017-12-14] MEDS: Tiotropium 18 MCG inhalation IH SCH (10:32)
[2017-12-14] MEDS: Budesonide/Formoterol 80/4.5 MDI IH SCH ×2 (10:32→22:22)
[2017-12-14] MEDS: traZODone 50 MG TABLET PO SCH (19:58)
[2017-12-14] MEDS: Acetaminophen 325 MG TABLET PO PRN (19:58)
[2017-12-14] MEDS: Mag Hydrox/Al Hydrox/Simeth 30 ML UDC PO PRN (19:59)
[2017-12-15] MEDS: Mag Hydrox/Al Hydrox/Simeth 30 ML UDC PO PRN (06:56)
[2017-12-15] MEDS: Acetaminophen 325 MG TABLET PO PRN ×2 (06:56→20:37)
--- NOTE | 2017-12-15 08:19 | Psychiatry Progress Note ---
Date of Encounter: 12/15/17 Time of Encounter: 08:17 Subjective Interval history: Client continues to endorse SI with depressed mood. "I want to kill myself." However, she reports her AH are improving. Had first dose of Zoloft with no side effects. Will give it time to work. Continues to have a very odd presentation. 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 She covered her mouth with her hands and spoke the entire time with her hands covering her mouth so her voice was mumbled. Review of Systems Constitutional: Denies: fever, chills, weakness, weight change Eyes: Denies: eye pain, vision change Ears, Nose, Throat: Denies: ear pain, throat pain, dental pain, hearing loss, congestion Cardiovascular: Denies: chest pain, palpitations, dyspnea on exertion Respiratory: Denies: cough, dyspnea, wheezes Gastrointestinal: Denies: abdominal pain, nausea, vomiting, diarrhea, constipation Musculoskeletal: Denies: joint swelling, joint pain Neurological: Denies: headache, weakness, numbness, memory loss Results - Vital Signs Vital Signs: Temp Pulse Resp BP 98.7 F 101 16 141/86 12/14/17 19:29 12/14/17 19:29 12/14/17 19:29 12/14/17 19:29 Assessment and Plan (1) Schizophrenia Current visit: No Status: Acute Plan: Continue hospitalization, Close observation, Suicide Precautions per unit protocol, Encourage participation in unit milieu, Group Therapy, Monitor sleep, Monitor appetite Risks, benefits, side effects, alternatives discussed w/pt: Yes Patient agreeable to treatment: Yes Qualifiers: Schizophrenia type: unspecified Qualified Code(s): F20.9 - Schizophrenia, unspecified Consult Discharge Plan - Plan Referrals: [facility] & Psychiatry [Outside] - 01/03/18 1:00 pm (The above appointment is with Dr. Beard for outpatient psychiatric assessment and medication management services. The above appointment reflux first availability. You may contact the office regularly to check for cancellations on mammography to be seen sooner.) Psychiatry Exam - Constitutional Vitals: Temp Pulse Resp BP 98.7 F 101 16 141/86 12/14/17 19:29 12/14/17 19:29 12/14/17 19:29 12/14/17 19:29 General appearance: age & developmentally appropriate - Musculoskeletal Gait: normal Station: relaxed Strength & Tone: normal for patient - Psychiatric Patient Orientation: Yes Person, Yes Time, Yes Place Level of alertness: Alert Behavior: calm Psychomotor activity: Normal Eye Contact: Minimal Contact Mood Description: Depressed, Irritable Affect description: congruent with mood Speech Volume: Normal Speech pattern: normal rate, normal rhythm, normal tone, fluent, spontaneous Language & Vocabulary: consistent with education Thought Process: Linear Thought Content: Yes Suicidal ideation, No Homicidal ideation, No Overt delusions Perceptual Disturbances: Yes Auditory hallucinations, No Visual hallucinations Attention Span Ability: Capable of Focused Attention Memory Description: Grossly Intact Patient Reliability: Reliable Historian Fund of knowledge: Yes abstraction ability, Yes aware of current events Intelligence Estimate: Average Judgment: Limited Insight: Partial
[2017-12-15] MEDS: hydrOXYzine pamoate 25 MG CAPSULE PO SCH ×3 (08:46→20:34)
[2017-12-15] MEDS: Ziprasidone 80 MG CAPSULE PO SCH ×2 (08:47→20:31)
[2017-12-15] MEDS: Famotidine 20 MG TABLET PO SCH ×2 (08:47→20:34)
[2017-12-15] MEDS: Loratadine 10 MG TABLET PO SCH (08:47)
[2017-12-15] MEDS: clonazePAM 0.5 MG TABLET PO SCH (08:47)
[2017-12-15] MEDS: hydroCHLOROthiazide 25 MG TABLET PO SCH (08:49)
[2017-12-15] MEDS: Nicotine 21 MG PATCH.TD24 TD SCH (08:51)
[2017-12-15] MEDS: (Umeclidinium Bromide [Incruse Ellipta] 1 PUFF) IH SCH (08:53)
[2017-12-15] MEDS: Tiotropium 18 MCG inhalation IH SCH (11:35)
[2017-12-15] MEDS: Budesonide/Formoterol 80/4.5 MDI IH SCH (11:35)
[2017-12-15] MEDS: traZODone 50 MG TABLET PO SCH (20:33)
[2017-12-16] MEDS: Budesonide/Formoterol 80/4.5 MDI IH SCH ×2 (00:13→09:27)
[2017-12-16] MEDS: Ziprasidone 80 MG CAPSULE PO SCH ×2 (09:13→20:52)
[2017-12-16] MEDS: clonazePAM 0.5 MG TABLET PO SCH (09:13)
[2017-12-16] MEDS: Famotidine 20 MG TABLET PO SCH ×2 (09:13→20:52)
[2017-12-16] MEDS: hydroCHLOROthiazide 25 MG TABLET PO SCH (09:13)
[2017-12-16] MEDS: Loratadine 10 MG TABLET PO SCH (09:14)
[2017-12-16] MEDS: hydrOXYzine pamoate 25 MG CAPSULE PO SCH ×3 (09:14→20:52)
[2017-12-16] MEDS: Nicotine 21 MG PATCH.TD24 TD SCH (09:15)
[2017-12-16] MEDS: (Umeclidinium Bromide [Incruse Ellipta] 1 PUFF) IH SCH (09:25)
[2017-12-16] MEDS: Tiotropium 18 MCG inhalation IH SCH (09:34)
--- NOTE | 2017-12-16 12:42 | Psychiatry Progress Note ---
Date of Encounter: 12/16/17 Time of Encounter: 12:05 Subjective Interval history: Patient seen today , case d/w treatment team , chart reviewed , she has been psychotic and depress. she is on geodon 80 mg bid and sertraline was started on 12/15/17 50 mg , she has tolerated medication and denies side effects. she was transferred from medical floor . STATES I DONOT KNOW HOW I AM FEELING, she has been eating now and her sleep is better. I see black gobs , hearing voices , states i can not make out right now as they are muffled but they are here now, poor eye contact and internally preoccupied. remains suicidal , i still want to hurt my self by drinking toilet bowl high pressure cleaner and gasoline because i want to lay down next to my . she admits being depress and talking with her eyes closed. she is isolative and not attending groups , i do not like them , i dont want to talk to any one . she at present remains psychotic even with 120 mg of geodon and antidepressant added . will add depakote 250 mg bid for moods and not much improvement with antipsychotics alone. contine stabilization. Review of Systems Psychiatric: Reports: depression, suicidal ideation, auditory hallucinations, visual hallucinations, difficulty concentrating, hopelessness Results - Vital Signs Vital Signs: Temp Pulse Resp BP 97.3 F L 88 18 144/96 12/15/17 20:57 12/15/17 20:57 12/15/17 20:57 12/15/17 20:57 Assessment and Plan (1) Schizoaffective disorder, depressive type Current visit: Yes Status: Acute Plan: Continue hospitalization, Close observation, Suicide Precautions per unit protocol, Encourage participation in unit milieu, Group Therapy, Monitor sleep, Monitor appetite, Secure weapons, Family/Supportive other meeting Additional Plan: continue medications and stabilization , patient is danger to self at present. Risks, benefits, side effects, alternatives discussed w/pt: Yes Patient agreeable to treatment: Yes Consult Discharge Plan - Plan Referrals: [place] [facility] & Psychiatry [Outside] - 01/03/18 1:00 pm (The above appointment is with Dr. Beard for outpatient psychiatric assessment and medication management services. The above appointment reflux first availability. You may contact the office regularly to check for cancellations on mammography to be seen sooner.) Psychiatry Exam - Constitutional Vitals: Temp Pulse Resp BP 97.3 F L 88 18 144/96 12/15/17 20:57 12/15/17 20:57 12/15/17 20:57 12/15/17 20:57 General appearance: age & developmentally appropriate, well-groomed, well- nourished - Musculoskeletal Gait: slow Station: stooped Strength & Tone: normal for patient - Psychiatric Patient Orientation: Yes Person, Yes Time, Yes Place Level of alertness: Alert Behavior: uncooperative, guarded Psychomotor activity: Slowed Eye Contact: No Eye Contact Mood Description: Depressed Affect description: constricted Speech Volume: Soft/Quiet Speech pattern: slowed Language & Vocabulary: consistent with education Thought Process: Slowed Thinking Thought Content: Yes Suicidal ideation, Yes Preoccupation, Yes Paranoid delusion Perceptual Disturbances: Yes Auditory hallucinations, Yes Visual hallucinations Attention Span Ability: Unable to Sustain Attention Memory Description: Grossly Intact Patient Reliability: Reliable Historian Fund of knowledge: Yes average Intelligence Estimate: Average Judgment: Poor Insight: Minimal
[2017-12-16] MEDS: traZODone 50 MG TABLET PO SCH (20:52)
[2017-12-16] MEDS: Divalproex (12 HR) 250 MG TABLET PO SCH (20:52)
[2017-12-17] MEDS: Budesonide/Formoterol 80/4.5 MDI IH SCH ×3 (01:03→21:01)
[2017-12-17] MEDS: Ziprasidone 80 MG CAPSULE PO SCH (08:58)
[2017-12-17] MEDS: hydrOXYzine pamoate 25 MG CAPSULE PO SCH ×3 (08:58→20:56)
[2017-12-17] MEDS: Loratadine 10 MG TABLET PO SCH (08:59)
[2017-12-17] MEDS: Divalproex (12 HR) 250 MG TABLET PO SCH ×2 (08:59→20:56)
[2017-12-17] MEDS: Acetaminophen 325 MG TABLET PO PRN ×2 (09:00→20:55)
[2017-12-17] MEDS: clonazePAM 0.5 MG TABLET PO SCH (09:00)
[2017-12-17] MEDS: hydroCHLOROthiazide 25 MG TABLET PO SCH (09:00)
[2017-12-17] MEDS: Famotidine 20 MG TABLET PO SCH ×2 (09:02→20:55)
[2017-12-17] MEDS: Nicotine 21 MG PATCH.TD24 TD SCH (09:02)
[2017-12-17] MEDS: (Umeclidinium Bromide [Incruse Ellipta] 1 PUFF) IH SCH (09:10)
[2017-12-17] MEDS: Tiotropium 18 MCG inhalation IH SCH (09:10)
--- NOTE | 2017-12-17 12:07 | Psychiatry Progress Note ---
Date of Encounter: 12/17/17 Time of Encounter: 11:09 Subjective Interval history: Patient seen today , case d/w team remains psychotic and suicidal. I do not know how i am doing , paulette is rocking , at time will put her hand on her mouth , stating phone freaks me out , does not know why. slept good, appetite is better, still in her room and isolative , no eye contact and internally preoccupied ,remains paranoid and having aud./visual granados , she is suicidal and has plan. she is denying any side effects , she is not responding well to geodon , she has been in past on risperdal , haldol , abilify . will start invega and slowly taper geodon.as it can be given in injection secondary to her non compliance. she agrees with the plan. she has probate hearing today. Review of Systems Psychiatric: Reports: depression, suicidal ideation, auditory hallucinations, visual hallucinations, difficulty concentrating, hopelessness Results - Vital Signs Vital Signs: Temp Pulse Resp BP 97.7 F 75 16 122/77 12/17/17 09:00 12/17/17 09:00 12/17/17 09:00 12/17/17 09:00 Assessment and Plan (1) Schizoaffective disorder, depressive type Current visit: Yes Status: Acute Risks, benefits, side effects, alternatives discussed w/pt: Yes Patient agreeable to treatment: Yes Consult Discharge Plan - Plan Referrals: [facility] & Psychiatry [Outside] - 01/03/18 1:00 pm (The above appointment is with Dr. Beard for outpatient psychiatric assessment and medication management services. The above appointment reflux first availability. You may contact the office regularly to check for cancellations on mammography to be seen sooner.) Psychiatry Exam - Constitutional Vitals: Temp Pulse Resp BP 97.7 F 75 16 122/77 12/17/17 09:00 12/17/17 09:00 12/17/17 09:00 12/17/17 09:00 General appearance: obese - Musculoskeletal Gait: normal Station: other Strength & Tone: normal for patient - Psychiatric Patient Orientation: Yes Person, Yes Time, Yes Place Level of alertness: Alert Behavior: guarded Psychomotor activity: Slowed Eye Contact: Avoids Eye Contact Mood Description: Depressed, Irritable Affect description: constricted Speech Volume: Soft/Quiet Speech pattern: slowed Thought Process: Slowed Thinking Thought Content: Yes Suicidal ideation, Yes Paranoid delusion Perceptual Disturbances: Yes Auditory hallucinations, Yes Visual hallucinations Attention Span Ability: Unable to Sustain Attention Patient Reliability: Reliable Historian Fund of knowledge: Yes average Intelligence Estimate: Average Judgment: Poor Insight: Partial
[2017-12-17] MEDS: traZODone 50 MG TABLET PO SCH (20:55)
[2017-12-17] MEDS: Ziprasidone 20 MG CAPSULE PO SCH (20:55)
[2017-12-18] MEDS: Famotidine 20 MG TABLET PO SCH ×2 (08:31→20:39)
[2017-12-18] MEDS: hydrOXYzine pamoate 25 MG CAPSULE PO SCH ×3 (08:31→20:40)
[2017-12-18] MEDS: clonazePAM 0.5 MG TABLET PO SCH ×2 (08:31→20:39)
[2017-12-18] MEDS: Divalproex (12 HR) 250 MG TABLET PO SCH ×2 (08:31→20:39)
[2017-12-18] MEDS: Loratadine 10 MG TABLET PO SCH (08:32)
[2017-12-18] MEDS: Ziprasidone 20 MG CAPSULE PO SCH (08:32)
[2017-12-18] MEDS: hydroCHLOROthiazide 25 MG TABLET PO SCH (08:32)
[2017-12-18] MEDS: Nicotine 21 MG PATCH.TD24 TD SCH (08:34)
[2017-12-18] MEDS: (Umeclidinium Bromide [Incruse Ellipta] 1 PUFF) IH SCH (08:35)
[2017-12-18] MEDS: Tiotropium 18 MCG inhalation IH SCH ×2 (10:28→20:48)
[2017-12-18] MEDS: Budesonide/Formoterol 80/4.5 MDI IH SCH ×2 (10:29→23:07)
--- NOTE | 2017-12-18 12:39 | Psychiatry Progress Note ---
Date of Encounter: 12/18/17 Time of Encounter: 12:10 Subjective Interval history: Patient seen today case d./w treatment team , remains isolative and depress. She had probate hearing yesterday , she states today i am not good, i just donot want to talk to anyone i am fearful of people, paranoid about people will harm , has been hearing voices they keep repeating graham, and i donot understand sometimes what they are saying , visual hallucination seeing black gobs. no family has visited her. she is still depress and suicidal with plan to suffocate herself with the trash bag in the room. she is still not showing improvement. medication changes in progress decreasing geodon and tapering up invega, also mood stabilizer added. denies side effects at present . eating ok , sleep off and on. Review of Systems Psychiatric: Reports: depression, suicidal ideation, auditory hallucinations, visual hallucinations, difficulty concentrating, hopelessness Results - Vital Signs Vital Signs: Temp Pulse Resp BP 97.8 F 84 16 107/77 12/18/17 09:00 12/18/17 09:00 12/18/17 09:00 12/18/17 09:00 Assessment and Plan (1) Schizoaffective disorder, depressive type Current visit: Yes Status: Acute Risks, benefits, side effects, alternatives discussed w/pt: Yes Patient agreeable to treatment: Yes Consult Discharge Plan - Plan Referrals: [facility] [Outside] - 01/03/18 1:00 pm (The above appointment is with Dr. Beard for outpatient psychiatric assessment and medication management services. The above appointment reflux first availability. You may contact the office regularly to check for cancellations on mammography to be seen sooner.) Psychiatry Exam - Constitutional Vitals: Temp Pulse Resp BP 97.8 F 84 16 107/77 12/18/17 09:00 12/18/17 09:00 12/18/17 09:00 12/18/17 09:00 General appearance: age & developmentally appropriate - Musculoskeletal Gait: slow Station: stooped Strength & Tone: normal for patient - Psychiatric Patient Orientation: Yes Person, Yes Time, Yes Place Level of alertness: Alert Behavior: guarded, withdrawn Psychomotor activity: Slowed Eye Contact: No Eye Contact Mood Description: Depressed, Anxious Affect description: congruent with mood, dysphoric Speech Volume: Soft/Quiet Speech pattern: slowed Language & Vocabulary: consistent with education Thought Process: Slowed Thinking Thought Content: Yes Suicidal ideation, Yes Paranoid delusion Perceptual Disturbances: Yes Reacting to internal stimuli, Yes Auditory hallucinations, Yes Visual hallucinations Attention Span Ability: Unable to Sustain Attention Memory Description: Grossly Intact Patient Reliability: Reliable Historian Fund of knowledge: Yes average Intelligence Estimate: Average Judgment: Poor Insight: Minimal
[2017-12-18] MEDS: traZODone 50 MG TABLET PO SCH (20:39)
[2017-12-18] MEDS ORDERED: Ziprasidone 20 MG CAPSULE PO SCH (21:00)
[2017-12-19] MEDS: Nicotine 21 MG PATCH.TD24 TD SCH (08:29)
[2017-12-19] MEDS: Loratadine 10 MG TABLET PO SCH (08:30)
[2017-12-19] MEDS: hydrOXYzine pamoate 25 MG CAPSULE PO SCH ×3 (08:30→21:00)
[2017-12-19] MEDS: Famotidine 20 MG TABLET PO SCH ×2 (08:30→21:06)
[2017-12-19] MEDS: hydroCHLOROthiazide 25 MG TABLET PO SCH (08:31)
[2017-12-19] MEDS: Divalproex (12 HR) 250 MG TABLET PO SCH ×2 (08:31→21:04)
[2017-12-19] MEDS: clonazePAM 0.5 MG TABLET PO SCH ×2 (08:32→21:04)
[2017-12-19] MEDS: (Umeclidinium Bromide [Incruse Ellipta] 1 PUFF) IH SCH (08:33)
[2017-12-19] MEDS: Budesonide/Formoterol 80/4.5 MDI IH SCH ×2 (09:17→23:16)
[2017-12-19] MEDS: Tiotropium 18 MCG inhalation IH SCH (09:17)
--- NOTE | 2017-12-19 10:49 | Psychiatry Progress Note ---
Date of Encounter: 12/19/17 Time of Encounter: 10:19 Subjective Interval history: Patient seen today , case d/w treatment team slow improvement like little more verbal , some eye contact and only comes out of room to eat and get medication. she remains unkempt , sad , blunt affect and increase latency of speech. she remains internally preoccupied and keeps hand on her mouth and closed her nose in session , states i do not want any one to hear me on phone . she feels phone is tapped and bugged . my security alarm is bugged and my pillow talks, i can hear my fan talking at home hear i am hearing voices i honestly donot know what they are talking about. suicidal thoughts are not as bad but then said i just want to drink one cup of toilet lowl room cleaner. will dc garima increase invega , continue depakote and continue monitoring. she mentioned she has vomitted after breakfast , has nausea, will not increase depakote and will monitor her n/v will give prn medicine for n/v. Review of Systems Psychiatric: Reports: depression, suicidal ideation, auditory hallucinations, visual hallucinations, difficulty concentrating, hopelessness Results - Vital Signs Vital Signs: Temp Pulse Resp BP 98.8 F 82 16 131/83 12/19/17 08:49 12/19/17 08:49 12/19/17 08:49 12/19/17 08:49 Assessment and Plan (1) Schizoaffective disorder, depressive type Current visit: Yes Status: Acute Risks, benefits, side effects, alternatives discussed w/pt: Yes Patient agreeable to treatment: Yes Consult Discharge Plan - Plan Referrals: [facility] [Outside] - 01/03/18 1:00 pm (The above appointment is with Dr. Beard for outpatient psychiatric assessment and medication management services. The above appointment reflux first availability. You may contact the office regularly to check for cancellations on mammography to be seen sooner.) Psychiatry Exam - Constitutional Vitals: Temp Pulse Resp BP 98.8 F 82 16 131/83 12/19/17 08:49 12/19/17 08:49 12/19/17 08:49 12/19/17 08:49 General appearance: age & developmentally appropriate - Musculoskeletal Gait: slow Station: stooped Strength & Tone: normal for patient - Psychiatric Patient Orientation: Yes Person, Yes Time, Yes Place Level of alertness: Alert Behavior: guarded, withdrawn Psychomotor activity: Slowed Eye Contact: Minimal Contact Mood Description: Depressed Affect description: blunted Speech Volume: Soft/Quiet Speech pattern: slowed Language & Vocabulary: consistent with education Thought Process: Slowed Thinking Thought Content: Yes Suicidal ideation, Yes Overt delusions, Yes Preoccupation, Yes Paranoid delusion Perceptual Disturbances: Yes Auditory hallucinations Attention Span Ability: Unable to Sustain Attention Memory Description: Grossly Intact Patient Reliability: Reliable Historian Fund of knowledge: Yes average Intelligence Estimate: Average Judgment: Poor Insight: Minimal
[2017-12-19] MEDS ORDERED: Ondansetron ODT 4 MG TAB.RAPDIS SL ONE (11:10)
[2017-12-19 12:29] LABS: Hematocrit 40.3 % (35.3-44.9); Mean Corpuscular HGB Conc 34.7 g/dL (31.6-35.5); Mean Corpuscular Hemoglobin 30.7 pg (28.0-33.3); Mean Corpuscular Volume 88.4 fL (83.0-100.0); Mean Platelet Volume 9.6 fL (9.4-12.4); Platelet Count 296 K/mcL (140-400); Red Blood Count 4.56 M/mcL (3.82-4.97); Red Cell Distribution Width 12.7 % (11.5-14.5)
[2017-12-19] MEDS: Mag Hydrox/Al Hydrox/Simeth 30 ML UDC PO PRN (16:04)
[2017-12-19] MEDS: traZODone 50 MG TABLET PO SCH (21:04)
[2017-12-20] MEDS: Nicotine 21 MG PATCH.TD24 TD SCH (08:51)
[2017-12-20] MEDS: hydroCHLOROthiazide 25 MG TABLET PO SCH (08:52)
[2017-12-20] MEDS: Divalproex (12 HR) 250 MG TABLET PO SCH (08:52)
[2017-12-20] MEDS: Famotidine 20 MG TABLET PO SCH ×2 (08:52→20:45)
[2017-12-20] MEDS: clonazePAM 0.5 MG TABLET PO SCH ×2 (08:53→20:45)
[2017-12-20] MEDS: hydrOXYzine pamoate 25 MG CAPSULE PO SCH ×3 (08:53→20:45)
[2017-12-20] MEDS: Loratadine 10 MG TABLET PO SCH (08:54)
[2017-12-20] MEDS: Tiotropium 18 MCG inhalation IH SCH (08:55)
[2017-12-20] MEDS: (Umeclidinium Bromide [Incruse Ellipta] 1 PUFF) IH SCH (08:55)
[2017-12-20] MEDS: Budesonide/Formoterol 80/4.5 MDI IH SCH ×2 (08:56→21:25)
--- NOTE | 2017-12-20 11:08 | Psychiatry Progress Note ---
Date of Encounter: 12/20/17 Time of Encounter: 10:35 Subjective Interval history: Patient seen today , case d/w treatment team , she is still significantly depress, suicidal and isolative. yesterday came out and took shower and combed her hair , which has been unkempt. she is slowly improving but still suicidal , dysphoric , anhedonia, paranoid and feels bugged and will be harmed , wants toilet bowl boiler cleaner to drink and . she had her room checked for safety as stated will get trash bag and suffocate. Patient is danger to self and psychotic. meds increased nausea better after zofran . she is tara invega so we can give injectable for comliance and zolft increased to 150 mg will start wellbutrin 150 mg depakote now 1000mg . continue inpatient for safety. Review of Systems Psychiatric: Reports: depression, suicidal ideation, auditory hallucinations, visual hallucinations, difficulty concentrating, hopelessness Results - Vital Signs Vital Signs: Temp Pulse Resp BP 97.6 F 92 18 135/81 12/20/17 09:00 12/20/17 09:00 12/20/17 09:00 12/20/17 09:00 - Labs Labs: Laboratory Results - last 24 hr 12/19/17 12/19/17 11:59 11:59 WBC 9.4 RBC 4.56 Hgb 14.0 Hct 40.3 MCV 88.4 MCH 30.7 MCHC 34.7 RDW 12.7 Plt Count 296 MPV 9.6 Creatine Kinase 62 Assessment and Plan (1) Schizoaffective disorder, depressive type Current visit: Yes Status: Acute Risks, benefits, side effects, alternatives discussed w/pt: Yes Patient agreeable to treatment: Yes Consult Discharge Plan - Plan Referrals: [facility] [Outside] - 01/03/18 1:00 pm (The above appointment is with Dr. Beard for outpatient psychiatric assessment and medication management services. The above appointment reflux first availability. You may contact the office regularly to check for cancellations on mammography to be seen sooner.) Psychiatry Exam - Constitutional Vitals: Temp Pulse Resp BP 97.6 F 92 18 135/81 12/20/17 09:00 12/20/17 09:00 12/20/17 09:00 12/20/17 09:00 General appearance: age & developmentally appropriate - Musculoskeletal Gait: slow Station: stooped Strength & Tone: normal for patient - Psychiatric Patient Orientation: Yes Person, Yes Time, Yes Place Level of alertness: Alert Behavior: guarded, withdrawn Psychomotor activity: Slowed Eye Contact: Minimal Contact Mood Description: Depressed, Anxious Affect description: blunted, dysphoric Speech Volume: Soft/Quiet Speech pattern: slowed Language & Vocabulary: consistent with education Thought Process: Thought Blocking, Slowed Thinking Thought Content: Yes Suicidal ideation, Yes Preoccupation, Yes Paranoid delusion Perceptual Disturbances: Yes Auditory hallucinations, Yes Visual hallucinations Attention Span Ability: Unable to Sustain Attention Patient Reliability: Reliable Historian Fund of knowledge: Yes average Intelligence Estimate: Average Judgment: Poor Insight: Minimal
[2017-12-20] MEDS: Mag Hydrox/Al Hydrox/Simeth 30 ML UDC PO PRN ×2 (14:10→19:35)
[2017-12-20] MEDS: Divalproex (12 HR) 500 MG TABLET PO SCH (20:46)
[2017-12-21] MEDS: Nicotine 21 MG PATCH.TD24 TD SCH (08:20)
[2017-12-21] MEDS: Famotidine 20 MG TABLET PO SCH ×2 (08:21→21:01)
[2017-12-21] MEDS: clonazePAM 0.5 MG TABLET PO SCH ×2 (08:21→21:01)
[2017-12-21] MEDS: Mag Hydrox/Al Hydrox/Simeth 30 ML UDC PO PRN (08:21)
[2017-12-21] MEDS: Loratadine 10 MG TABLET PO SCH (08:22)
[2017-12-21] MEDS: hydrOXYzine pamoate 25 MG CAPSULE PO SCH ×3 (08:22→21:02)
[2017-12-21] MEDS: Divalproex (12 HR) 500 MG TABLET PO SCH (08:22)
[2017-12-21] MEDS: Budesonide/Formoterol 80/4.5 MDI IH SCH ×2 (08:23→23:40)
[2017-12-21] MEDS: hydroCHLOROthiazide 25 MG TABLET PO SCH (08:23)
[2017-12-21] MEDS: Tiotropium 18 MCG inhalation IH SCH (08:25)
[2017-12-21] MEDS: (Umeclidinium Bromide [Incruse Ellipta] 1 PUFF) IH SCH (08:29)
[2017-12-21] MEDS: BuPROPion XL (24 HR) 150 MG TABLET PO SCH (08:41)
--- NOTE | 2017-12-21 11:58 | Psychiatry Progress Note ---
Date of Encounter: 12/21/17 Time of Encounter: 11:38 Subjective Interval history: Patient seen today , case d/w staff She is still suicidal with plan , but has been out of her room more , has been taking care of her hygeine , wellbutrin was added to her treatment plan. Her family came first time to visit her yesterday. she is compliant with medications but had not been attending groups because of paranoia , will continue monitoring . she has mild tremors will get depakote level and feeling dry and constipation , buspar decreased to 10 mg tid and cogentin decreased to 1 mg /day as dryness and constipation. she is today wearing her glasses and has Tshirt instead of hospital gown. state voices were telling her that her daughter in wreck so i was afraid to see her but i did. Review of Systems Psychiatric: Reports: depression, suicidal ideation, auditory hallucinations, visual hallucinations, difficulty concentrating, hopelessness Results - Vital Signs Vital Signs: Temp Pulse Resp BP 97.5 F L 99 18 113/80 12/21/17 09:00 12/21/17 09:00 12/21/17 09:00 12/21/17 09:00 Assessment and Plan (1) Schizoaffective disorder, depressive type Current visit: Yes Status: Acute Risks, benefits, side effects, alternatives discussed w/pt: Yes Patient agreeable to treatment: Yes Consult Discharge Plan - Plan Referrals: [facility] [Outside] - 01/03/18 1:00 pm (The above appointment is with Dr. Beard for outpatient psychiatric assessment and medication management services. The above appointment reflux first availability. You may contact the office regularly to check for cancellations on mammography to be seen sooner.) Psychiatry Exam - Constitutional Vitals: Temp Pulse Resp BP 97.5 F L 99 18 113/80 12/21/17 09:00 12/21/17 09:00 12/21/17 09:00 12/21/17 09:00 General appearance: age & developmentally appropriate - Musculoskeletal Gait: slow Station: other Strength & Tone: normal for patient - Psychiatric Patient Orientation: Yes Person, Yes Time, Yes Place Level of alertness: Alert Behavior: cooperative, withdrawn Psychomotor activity: Slowed Eye Contact: Minimal Contact Mood Description: Depressed, Anxious Affect description: congruent with mood Speech Volume: Soft/Quiet Speech pattern: slowed Language & Vocabulary: consistent with education Thought Process: Slowed Thinking Thought Content: Yes Suicidal ideation, Yes Preoccupation, Yes Paranoid delusion Perceptual Disturbances: Yes Reacting to internal stimuli, Yes Auditory hallucinations Attention Span Ability: Unable to Sustain Attention Memory Description: Grossly Intact Patient Reliability: Reliable Historian Fund of knowledge: Yes average Intelligence Estimate: Average Judgment: Limited Insight: Minimal
[2017-12-21] MEDS ORDERED: *HR* Promethazine 25 MG/ML VIAL IM ONE (14:26)
[2017-12-21] MEDS: Acetaminophen 325 MG TABLET PO PRN (18:37)
[2017-12-21] MEDS ORDERED: Divalproex (12 HR) 500 MG TABLET PO SCH (21:00)
[2017-12-21] MEDS: Divalproex (12 HR) 250 MG TABLET PO SCH (21:01)
[2017-12-22] MEDS: hydroCHLOROthiazide 25 MG TABLET PO SCH (08:38)
[2017-12-22] MEDS: hydrOXYzine pamoate 25 MG CAPSULE PO SCH ×3 (08:39→21:16)
[2017-12-22] MEDS: Loratadine 10 MG TABLET PO SCH (08:39)
[2017-12-22] MEDS: clonazePAM 0.5 MG TABLET PO SCH ×2 (08:39→21:16)
[2017-12-22] MEDS: BuPROPion XL (24 HR) 150 MG TABLET PO SCH (08:39)
[2017-12-22] MEDS: Divalproex (12 HR) 250 MG TABLET PO SCH (08:39)
[2017-12-22] MEDS: Famotidine 20 MG TABLET PO SCH ×2 (08:39→21:17)
[2017-12-22] MEDS: Nicotine 21 MG PATCH.TD24 TD SCH (08:41)
[2017-12-22] MEDS: Budesonide/Formoterol 80/4.5 MDI IH SCH (08:41)
[2017-12-22] MEDS ORDERED: Divalproex (12 HR) 250 MG TABLET PO SCH (09:00)
[2017-12-22] MEDS: Tiotropium 18 MCG inhalation IH SCH (10:06)
[2017-12-22] MEDS: (Umeclidinium Bromide [Incruse Ellipta] 1 PUFF) IH SCH (10:07)
--- NOTE | 2017-12-22 13:23 | Psychiatry Progress Note ---
Date of Encounter: 12/22/17 Time of Encounter: 12:55 Subjective Interval history: Patient seen today , case d/w staff, she has been suicidal and asking for kerosine oil and other stuff to drink and kill herself. She has been paranoid , hallucinating and suicidal. not much improvement , multiple medication given , she is here since 12/09/17 she wants to get tested for AIDS , states i drank after Aids patient and i think i need to be tested. may need penitentiary treatment/ect will dc depakote as made her nausea and vomiting. will start low dose lithium , get tsh . Review of Systems Psychiatric: Reports: depression, suicidal ideation, auditory hallucinations, visual hallucinations, difficulty concentrating, hopelessness Results - Vital Signs Vital Signs: Temp Pulse Resp BP 98.4 F 98 20 119/84 12/22/17 09:00 12/22/17 09:00 12/22/17 09:00 12/22/17 09:00 - Labs Labs: Laboratory Results - last 24 hr 12/21/17 13:23 Valproic Acid 107 H* Assessment and Plan (1) Schizoaffective disorder, depressive type Current visit: Yes Status: Acute Risks, benefits, side effects, alternatives discussed w/pt: Yes Patient agreeable to treatment: Yes Consult Discharge Plan - Plan Referrals: [facility] [Outside] - 01/03/18 1:00 pm (The above appointment is with Dr. Beard for outpatient psychiatric assessment and medication management services. The above appointment reflux first availability. You may contact the office regularly to check for cancellations on mammography to be seen sooner.) Psychiatry Exam - Constitutional Vitals: Temp Pulse Resp BP 98.4 F 98 20 119/84 12/22/17 09:00 12/22/17 09:00 12/22/17 09:00 12/22/17 09:00 General appearance: unkempt - Musculoskeletal Gait: slow Station: other Strength & Tone: normal for patient - Psychiatric Patient Orientation: Yes Person, Yes Time, Yes Place Level of alertness: Alert Behavior: withdrawn Psychomotor activity: Slowed Eye Contact: Maintains Eye Contact Mood Description: Depressed, Anxious Affect description: blunted Speech Volume: Soft/Quiet Speech pattern: slowed Language & Vocabulary: consistent with education Thought Process: Thought Blocking Thought Content: Yes Suicidal ideation, Yes Preoccupation, Yes Paranoid delusion Perceptual Disturbances: Yes Auditory hallucinations, Yes Visual hallucinations Attention Span Ability: Unable to Sustain Attention Patient Reliability: Reliable Historian Fund of knowledge: Yes average Intelligence Estimate: Average Judgment: Poor Insight: Minimal
[2017-12-22 14:42] LABS: Thyroid Stimulating Hormone 2.066 mcIU/mL (0.340-5.600)
[2017-12-23] MEDS: Budesonide/Formoterol 80/4.5 MDI IH SCH ×3 (02:56→20:51)
[2017-12-23] MEDS: Nicotine 21 MG PATCH.TD24 TD SCH (09:24)
[2017-12-23] MEDS: hydroCHLOROthiazide 25 MG TABLET PO SCH (09:26)
[2017-12-23] MEDS: hydrOXYzine pamoate 25 MG CAPSULE PO SCH ×3 (09:26→20:36)
[2017-12-23] MEDS: clonazePAM 0.5 MG TABLET PO SCH ×2 (09:26→20:37)
[2017-12-23] MEDS: Famotidine 20 MG TABLET PO SCH ×2 (09:27→20:37)
[2017-12-23] MEDS: BuPROPion XL (24 HR) 150 MG TABLET PO SCH (09:27)
[2017-12-23] MEDS: Loratadine 10 MG TABLET PO SCH (09:27)
[2017-12-23] MEDS: (Umeclidinium Bromide [Incruse Ellipta] 1 PUFF) IH SCH (09:28)
[2017-12-23] MEDS: Tiotropium 18 MCG inhalation IH SCH (09:28)
--- NOTE | 2017-12-23 12:19 | Psychiatry Progress Note ---
Date of Encounter: 12/23/17 Time of Encounter: 11:35 Subjective Interval history: Patient seen today , case d/w treatment team , remains suicidal with plan , today states i dont know how i am , still hearing her name being called , has been paranoid and suicidal with plan to drink kerosine. she is still c/o nausea although depakote has been discontinued and will give prn phenargn as zofran can prolong QT and on multiple psych meds. lithium not started yesterday as n/v. will start low dose from tonight. She is unkempt , and minimal eye contact . she is coming out more and less isolative but remains preoccupied and suicidal with plan. d/w team about longterm placement. Review of Systems Psychiatric: Reports: depression, suicidal ideation, auditory hallucinations, visual hallucinations, difficulty concentrating, hopelessness Results - Vital Signs Vital Signs: Temp Pulse Resp BP 98.8 F 92 18 124/86 12/23/17 09:00 12/23/17 09:00 12/23/17 09:00 12/23/17 09:00 - Labs Labs: Laboratory Results - last 24 hr 12/21/17 12/22/17 13:23 16:21 TSH 2.066 Valproic Acid 107 H* HIV Ag/Ab Combo Qual Nonreactive Assessment and Plan (1) Suicidal ideation Current visit: Yes Status: Acute Plan: Continue hospitalization, Close observation, Suicide Precautions per unit protocol, Encourage participation in unit milieu, Group Therapy, Monitor sleep, Monitor appetite, Secure weapons, Family/Supportive other meeting Additional Plan: Patient remains suicidal with plan. Risks, benefits, side effects, alternatives discussed w/pt: Yes Patient agreeable to treatment: Yes (2) Schizoaffective disorder, depressive type Current visit: Yes Status: Acute Risks, benefits, side effects, alternatives discussed w/pt: Yes Patient agreeable to treatment: Yes Consult Discharge Plan - Plan Referrals: [facility] [Outside] - 01/03/18 1:00 pm (The above appointment is with Dr. Beard for outpatient psychiatric assessment and medication management services. The above appointment reflux first availability. You may contact the office regularly to check for cancellations on mammography to be seen sooner.) Psychiatry Exam - Constitutional Vitals: Temp Pulse Resp BP 98.8 F 92 18 124/86 12/23/17 09:00 12/23/17 09:00 12/23/17 09:00 12/23/17 09:00 General appearance: age & developmentally appropriate, well-groomed, well- nourished - Musculoskeletal Gait: normal Station: other Strength & Tone: normal for patient - Psychiatric Patient Orientation: Yes Person, Yes Time, Yes Place Level of alertness: Alert Behavior: cooperative, guarded, withdrawn Psychomotor activity: Normal Eye Contact: Minimal Contact Mood Description: Depressed, Anxious Affect description: blunted Speech Volume: Normal Speech pattern: slowed Language & Vocabulary: consistent with education Thought Process: Slowed Thinking Thought Content: Yes Suicidal ideation, Yes Preoccupation, Yes Paranoid delusion Perceptual Disturbances: Yes Auditory hallucinations, Yes Visual hallucinations Attention Span Ability: Unable to Sustain Attention Patient Reliability: Reliable Historian Fund of knowledge: Yes average Intelligence Estimate: Average Judgment: Poor Insight: Minimal
[2017-12-23] MEDS: Mag Hydrox/Al Hydrox/Simeth 30 ML UDC PO PRN (17:37)
[2017-12-23] MEDS ORDERED: Lithium Oral Soln 300 MG/5 ML UDC PO SCH (21:00)
[2017-12-24] MEDS: Tiotropium 18 MCG inhalation IH SCH (09:16)
[2017-12-24] MEDS: Famotidine 20 MG TABLET PO SCH ×2 (09:17→20:26)
[2017-12-24] MEDS: Loratadine 10 MG TABLET PO SCH (09:18)
[2017-12-24] MEDS: hydrOXYzine pamoate 25 MG CAPSULE PO SCH ×3 (09:18→20:26)
[2017-12-24] MEDS: clonazePAM 0.5 MG TABLET PO SCH ×2 (09:18→20:26)
[2017-12-24] MEDS: hydroCHLOROthiazide 25 MG TABLET PO SCH (09:18)
[2017-12-24] MEDS: Budesonide/Formoterol 80/4.5 MDI IH SCH ×2 (09:19→23:02)
[2017-12-24] MEDS: BuPROPion XL (24 HR) 150 MG TABLET PO SCH (09:19)
[2017-12-24] MEDS: (Umeclidinium Bromide [Incruse Ellipta] 1 PUFF) IH SCH (09:20)
[2017-12-24] MEDS: Nicotine 21 MG PATCH.TD24 TD SCH (09:20)
--- NOTE | 2017-12-24 11:46 | Psychiatry Progress Note ---
Date of Encounter: 12/24/17 Time of Encounter: 11:27 Subjective Interval history: Patient seen today , case d/w treatment team . she remains isolative , i slept all day yesterday , i have no desire to get out. suicidal thoughts are still there , patient has regressed again , will increase lithium and continue monitoring. remains suicidal with plan , a/v granados. , paranoia.and danger to self/ Review of Systems Psychiatric: Reports: depression, suicidal ideation, auditory hallucinations, visual hallucinations, difficulty concentrating, hopelessness Results - Vital Signs Vital Signs: Temp Pulse Resp BP 97.9 F 101 18 114/74 12/24/17 09:00 12/24/17 09:00 12/24/17 09:00 12/24/17 09:00 Assessment and Plan (1) Suicidal ideation Current visit: Yes Status: Acute Risks, benefits, side effects, alternatives discussed w/pt: Yes Patient agreeable to treatment: Yes (2) Schizoaffective disorder, depressive type Current visit: Yes Status: Acute Risks, benefits, side effects, alternatives discussed w/pt: Yes Patient agreeable to treatment: Yes Consult Discharge Plan - Plan Referrals: [facility] [Outside] - 01/03/18 1:00 pm (The above appointment is with Dr. Beard for outpatient psychiatric assessment and medication management services. The above appointment reflux first availability. You may contact the office regularly to check for cancellations on mammography to be seen sooner.) Psychiatry Exam - Constitutional Vitals: Temp Pulse Resp BP 97.9 F 101 18 114/74 12/24/17 09:00 12/24/17 09:00 12/24/17 09:00 12/24/17 09:00 General appearance: unkempt, average - Musculoskeletal Gait: slow Station: other Strength & Tone: normal for patient - Psychiatric Patient Orientation: Yes Person, Yes Time, Yes Place Level of alertness: Alert Behavior: cooperative, withdrawn Eye Contact: Maintains Eye Contact Mood Description: Depressed, Anxious Affect description: blunted Speech Volume: Soft/Quiet Speech pattern: slowed Language & Vocabulary: consistent with education Thought Process: Thought Blocking, Slowed Thinking Thought Content: Yes Suicidal ideation, Yes Preoccupation, Yes Paranoid delusion Perceptual Disturbances: Yes Auditory hallucinations, Yes Visual hallucinations Attention Span Ability: Unable to Sustain Attention Memory Description: Grossly Intact Patient Reliability: Reliable Historian Fund of knowledge: Yes average Intelligence Estimate: Average Judgment: Poor Insight: None
[2017-12-24] MEDS: Lithium Carbonate 300 MG CAPSULE PO SCH (20:26)
[2017-12-25] MEDS: Tiotropium 18 MCG inhalation IH SCH (08:55)
[2017-12-25] MEDS: BuPROPion XL (24 HR) 150 MG TABLET PO SCH (08:56)
[2017-12-25] MEDS: Loratadine 10 MG TABLET PO SCH (08:57)
[2017-12-25] MEDS: clonazePAM 0.5 MG TABLET PO SCH ×2 (08:57→20:47)
[2017-12-25] MEDS: Famotidine 20 MG TABLET PO SCH ×2 (08:58→20:49)
[2017-12-25] MEDS: hydrOXYzine pamoate 25 MG CAPSULE PO SCH ×3 (08:58→20:48)
[2017-12-25] MEDS: hydroCHLOROthiazide 25 MG TABLET PO SCH (08:58)
[2017-12-25] MEDS: Budesonide/Formoterol 80/4.5 MDI IH SCH ×2 (08:59→20:49)
[2017-12-25] MEDS: Nicotine 21 MG PATCH.TD24 TD SCH (08:59)
[2017-12-25] MEDS: (Umeclidinium Bromide [Incruse Ellipta] 1 PUFF) IH SCH (09:00)
--- NOTE | 2017-12-25 12:40 | Psychiatry Progress Note ---
Date of Encounter: 12/25/17 Time of Encounter: 12:00 Subjective Interval history: patient seen today case d/w treatment team. she is still paranoid about phone , when i took call she closed her nose and started breathing from her mouth states i feel like people are listening to me and i hate phone. she denied suicidal plan but stil vague thoughts , this is improvement,she is coming out more , is showering and asked her daughter to come and visit her. she is tired and sleepy in am , will change invega to pm , and will slowly increase lithium. she denies any side effefcts psychosis still present, suicidal thoughts but no plan. Review of Systems Psychiatric: Reports: depression, suicidal ideation, auditory hallucinations, visual hallucinations, difficulty concentrating, hopelessness Results - Vital Signs Vital Signs: Temp Pulse Resp BP 97.8 F 92 16 115/75 12/25/17 09:00 12/25/17 09:00 12/25/17 09:00 12/25/17 09:00 Assessment and Plan (1) Suicidal ideation Current visit: Yes Status: Acute Risks, benefits, side effects, alternatives discussed w/pt: Yes Patient agreeable to treatment: Yes (2) Schizoaffective disorder, depressive type Current visit: Yes Status: Acute Risks, benefits, side effects, alternatives discussed w/pt: Yes Patient agreeable to treatment: Yes Consult Discharge Plan - Plan Referrals: [facility] [Outside] - 01/03/18 1:00 pm (The above appointment is with Dr. Beard for outpatient psychiatric assessment and medication management services. The above appointment reflux first availability. You may contact the office regularly to check for cancellations on mammography to be seen sooner.) Psychiatry Exam - Constitutional Vitals: Temp Pulse Resp BP 97.8 F 92 16 115/75 12/25/17 09:00 12/25/17 09:00 12/25/17 09:00 12/25/17 09:00 General appearance: age & developmentally appropriate - Musculoskeletal Gait: slow Station: other Strength & Tone: normal for patient - Psychiatric Patient Orientation: Yes Person, Yes Time, Yes Place Level of alertness: Alert Behavior: guarded Psychomotor activity: Slowed Eye Contact: Maintains Eye Contact Mood Description: Depressed, Anxious Affect description: blunted Speech Volume: Soft/Quiet Speech pattern: slowed Language & Vocabulary: consistent with education Thought Process: Slowed Thinking Thought Content: Yes Suicidal ideation, Yes Preoccupation, Yes Paranoid delusion Perceptual Disturbances: Yes Reacting to internal stimuli Attention Span Ability: Unable to Sustain Attention Patient Reliability: Reliable Historian Fund of knowledge: Yes average Intelligence Estimate: Average Judgment: Limited Insight: Partial
[2017-12-25] MEDS: Acetaminophen 325 MG TABLET PO PRN (16:17)
[2017-12-25] MEDS: Lithium Carbonate 300 MG CAPSULE PO SCH (20:49)
[2017-12-26] MEDS: Acetaminophen 325 MG TABLET PO PRN ×3 (02:09→21:06)
[2017-12-26] MEDS: BuPROPion XL (24 HR) 150 MG TABLET PO SCH (08:57)
[2017-12-26] MEDS: hydrOXYzine pamoate 25 MG CAPSULE PO SCH ×3 (08:57→21:06)
[2017-12-26] MEDS: clonazePAM 0.5 MG TABLET PO SCH ×2 (08:58→21:07)
[2017-12-26] MEDS: Loratadine 10 MG TABLET PO SCH (08:59)
[2017-12-26] MEDS: hydroCHLOROthiazide 25 MG TABLET PO SCH (09:00)
[2017-12-26] MEDS: Famotidine 20 MG TABLET PO SCH ×2 (09:01→21:06)
[2017-12-26] MEDS: Nicotine 21 MG PATCH.TD24 TD SCH (09:02)
[2017-12-26] MEDS: (Umeclidinium Bromide [Incruse Ellipta] 1 PUFF) IH SCH (09:03)
[2017-12-26] MEDS: Budesonide/Formoterol 80/4.5 MDI IH SCH ×2 (10:43→22:00)
[2017-12-26] MEDS: Tiotropium 18 MCG inhalation IH SCH (11:19)
--- NOTE | 2017-12-26 11:25 | Psychiatry Progress Note ---
Date of Encounter: 12/26/17 Time of Encounter: 10:56 Subjective Interval history: Patient seen today , case d/w treatment team , first time today she has not endorsed any suicidal thoughts , she remains paranoid about phone and people listening to her , lithium has helped with suicidal thoughts. she is now more verbal and getiing out more. we had talked about her care and medication , she denies side effects. likes her medication. lithium increased to 600 mg and will get lithium level tomorrow and continue monitoring. Review of Systems Psychiatric: Reports: depression, suicidal ideation, auditory hallucinations, visual hallucinations, difficulty concentrating, hopelessness Results - Vital Signs Vital Signs: Temp Pulse Resp BP 97.1 F L 92 18 130/83 12/26/17 09:00 12/26/17 09:00 12/26/17 09:00 12/26/17 09:00 Assessment and Plan (1) Suicidal ideation Current visit: Yes Status: Acute Risks, benefits, side effects, alternatives discussed w/pt: Yes Patient agreeable to treatment: Yes (2) Schizoaffective disorder, depressive type Current visit: Yes Status: Acute Risks, benefits, side effects, alternatives discussed w/pt: Yes Patient agreeable to treatment: Yes Consult Discharge Plan - Plan Referrals: [facility] [Outside] - 01/03/18 1:00 pm (The above appointment is with Dr. Beard for outpatient psychiatric assessment and medication management services. The above appointment reflux first availability. You may contact the office regularly to check for cancellations on mammography to be seen sooner.) Psychiatry Exam - Constitutional Vitals: Temp Pulse Resp BP 97.1 F L 92 18 130/83 12/26/17 09:00 12/26/17 09:00 12/26/17 09:00 12/26/17 09:00 General appearance: age & developmentally appropriate - Musculoskeletal Gait: slow Station: relaxed Strength & Tone: normal for patient - Psychiatric Patient Orientation: Yes Person, Yes Time, Yes Place Level of alertness: Alert Behavior: anxious, withdrawn Psychomotor activity: Slowed Eye Contact: Minimal Contact Mood Description: Depressed, Anxious, Irritable Affect description: blunted Speech Volume: Soft/Quiet Speech pattern: slowed Language & Vocabulary: consistent with education Thought Process: Slowed Thinking Thought Content: Yes Preoccupation, Yes Paranoid delusion Perceptual Disturbances: Yes Auditory hallucinations Attention Span Ability: Unable to Sustain Attention Memory Description: Grossly Intact Patient Reliability: Reliable Historian Fund of knowledge: Yes average Intelligence Estimate: Average Judgment: Limited Insight: Partial
[2017-12-26] MEDS: Lithium Carbonate 300 MG CAPSULE PO SCH (21:08)
[2017-12-27] MEDS: Acetaminophen 325 MG TABLET PO PRN (05:01)
[2017-12-27] MEDS: Tiotropium 18 MCG inhalation IH SCH (08:27)
[2017-12-27] MEDS: Nicotine 21 MG PATCH.TD24 TD SCH (08:28)
[2017-12-27] MEDS: Budesonide/Formoterol 80/4.5 MDI IH SCH (08:28)
[2017-12-27] MEDS: hydroCHLOROthiazide 25 MG TABLET PO SCH (08:30)
[2017-12-27] MEDS: clonazePAM 0.5 MG TABLET PO SCH ×2 (08:31→21:21)
[2017-12-27] MEDS: hydrOXYzine pamoate 25 MG CAPSULE PO SCH ×3 (08:31→21:21)
[2017-12-27] MEDS: Loratadine 10 MG TABLET PO SCH (08:31)
[2017-12-27] MEDS: Famotidine 20 MG TABLET PO SCH ×2 (08:31→21:21)
[2017-12-27] MEDS: Lithium Carbonate 300 MG CAPSULE PO SCH ×2 (08:31→21:20)
[2017-12-27] MEDS: BuPROPion XL (24 HR) 150 MG TABLET PO SCH (08:31)
[2017-12-27] MEDS: (Umeclidinium Bromide [Incruse Ellipta] 1 PUFF) IH SCH (08:33)
--- NOTE | 2017-12-27 11:07 | Psychiatry Progress Note ---
Date of Encounter: 12/27/17 Time of Encounter: 10:40 Subjective Interval history: Patient seen today ,case d/w treatment team , she is showing improvement in her hygiene, taking showers , more verbal , coming out of room and attending groups , she denies suicidal thoughts today but remains paranoid, voices still there but frequency and intensity is less, she still has visual hallucinations. she was started on lithium , wellbutrin was added , geodon dc and invega was tapered up to 6 mg , she has tiffanie denying any side effects [id number] will get lithium level and start dc planning. Review of Systems Psychiatric: Reports: depression, auditory hallucinations, visual hallucinations , difficulty concentrating Results - Vital Signs Vital Signs: Temp Pulse Resp BP 98.9 F 92 18 114/82 12/27/17 09:57 12/27/17 09:57 12/27/17 09:57 12/27/17 09:57 Assessment and Plan (1) Suicidal ideation Current visit: Yes Status: Resolved Plan: Continue hospitalization, Close observation, Suicide Precautions per unit protocol, Encourage participation in unit milieu, Group Therapy, Monitor sleep, Monitor appetite, Family/Supportive other meeting Risks, benefits, side effects, alternatives discussed w/pt: Yes Patient agreeable to treatment: Yes (2) Schizoaffective disorder, depressive type Current visit: Yes Status: Acute Risks, benefits, side effects, alternatives discussed w/pt: Yes Patient agreeable to treatment: Yes Consult Discharge Plan - Plan Referrals: [facility] [Outside] - 01/03/18 1:00 pm (The above appointment is with Dr. Beard for outpatient psychiatric assessment and medication management services. The above appointment reflux first availability. You may contact the office regularly to check for cancellations on mammography to be seen sooner.) Psychiatry Exam - Constitutional Vitals: Temp Pulse Resp BP 98.9 F 92 18 114/82 12/27/17 09:57 12/27/17 09:57 12/27/17 09:57 12/27/17 09:57 General appearance: unkempt - Musculoskeletal Gait: normal Station: other Strength & Tone: normal for patient - Psychiatric Patient Orientation: Yes Person, Yes Time, Yes Place Level of alertness: Alert Behavior: calm, cooperative, guarded Psychomotor activity: Normal Eye Contact: Maintains Eye Contact Mood Description: Depressed, Anxious Affect description: constricted Speech Volume: Normal Speech pattern: slowed Language & Vocabulary: consistent with education Thought Process: Intact Thought Content: No Suicidal ideation, No Homicidal ideation, No Overt delusions , Yes Paranoid delusion Perceptual Disturbances: Yes Auditory hallucinations, Yes Visual hallucinations Attention Span Ability: Unable to Sustain Attention Memory Description: Grossly Intact Patient Reliability: Reliable Historian Fund of knowledge: Yes average Intelligence Estimate: Average Judgment: Limited Insight: Partial
[2017-12-28] MEDS: Acetaminophen 325 MG TABLET PO PRN (01:33)
[2017-12-28] MEDS: Budesonide/Formoterol 80/4.5 MDI IH SCH ×2 (04:04→10:20)
[2017-12-28] MEDS: Nicotine 21 MG PATCH.TD24 TD SCH (09:48)
[2017-12-28] MEDS: Lithium Carbonate 300 MG CAPSULE PO SCH (09:51)
[2017-12-28] MEDS: clonazePAM 0.5 MG TABLET PO SCH (09:51)
[2017-12-28] MEDS: hydrOXYzine pamoate 25 MG CAPSULE PO SCH (09:52)
[2017-12-28] MEDS: Famotidine 20 MG TABLET PO SCH (09:52)
[2017-12-28] MEDS: BuPROPion XL (24 HR) 150 MG TABLET PO SCH (09:52)
[2017-12-28] MEDS: Loratadine 10 MG TABLET PO SCH (09:54)
[2017-12-28] MEDS: hydroCHLOROthiazide 25 MG TABLET PO SCH (09:55)
[2017-12-28] MEDS: Tiotropium 18 MCG inhalation IH SCH (09:56)
[2017-12-28] MEDS: (Umeclidinium Bromide [Incruse Ellipta] 1 PUFF) IH SCH (09:58)
--- NOTE | 2017-12-28 10:10 | Discharge Summary ---
Date of Encounter: 12/28/17 Time of Encounter: 10:00 Diagnosis - Discharge Diagnosis (1) Schizophrenia Status: Acute Qualifiers: Schizophrenia type: unspecified Qualified Code(s): F20.9 - Schizophrenia, unspecified Medications - Discharge Medications Prescriptions: Benztropine [Cogentin] 1 mg PO HS #30 tablet BuPROPion XL (24 HR) [Wellbutrin Xl] 300 mg PO DAILY #60 tab.er.24h Buspirone HCl [Buspar] 10 mg PO TID #180 tablet [place] Carbonate 300 mg PO BID #60 capsule Paliperidone [Invega] 6 mg PO HS #30 tab.er.24 Sertraline [Zoloft] 150 mg PO DAILY #45 tablet Montelukast [Singulair] 10 mg PO HS 12/06/17 [History] raNITIdine HCl [Ranitidine HCl] 150 mg PO BID 12/06/17 [History] Albuterol Sulfate [Albuterol Inhaler] 2 puff IH Q6HR PRN 12/07/17 [History] Atorvastatin Calcium [Lipitor] 20 mg PO HS 12/07/17 [History] Estradiol 0.5 mg PO DAILY 12/07/17 [History] Lansoprazole [Prevacid] 30 mg PO DAILY 12/07/17 [History] Loratadine [Claritin] 10 mg PO DAILY 12/07/17 [History] Mometasone/Formoterol [Dulera 100 Mcg/5 Mcg Inhaler] 2 puff IH BID 12/07/17 [ History] Umeclidinium [place] [Incruse Ellipta] 1 puff IH DAILY 12/07/17 [History] hydroCHLOROthiazide [Hydrochlorothiazide] 12.5 mg PO DAILY 12/07/17 [History] Trazodone HCl 100 mg PO HS 12/09/17 [History] Benztropine [Cogentin] 1 mg PO HS #30 tablet 12/28/17 [Rx] BuPROPion XL (24 HR) [Wellbutrin Xl] 300 mg PO DAILY #60 tab.er.24h 12/28/17 [Rx ] Buspirone HCl [Buspar] 10 mg PO TID #180 tablet 12/28/17 [Rx] Docusate [Colace] 100 mg PO BID capsule 12/28/17 [Rx] [place] Carbonate 300 mg PO BID #60 capsule 12/28/17 [Rx] Paliperidone [Invega] 6 mg PO HS #30 tab.er.24 12/28/17 [Rx] Sertraline [Zoloft] 150 mg PO DAILY #45 tablet 12/28/17 [Rx] 3 Allergy/AdvReac Type Severity Reaction Status Date / Time citalopram [From Celexa] AdvReac swelling Verified 04/27/16 19:48 lurasidone [From Latuda] AdvReac swelling Verified 04/27/16 19:48 Results Procedures and tests throughout hospitalization: Completed Lab Orders Category Date Time Status CBC no Diff [Complete Blood Count w/o Diff] [HEME] Lab 12/19/17 11:59 Completed Routine HIV-1&2 Antibody & p24 Ag Routine Lab 12/22/17 16:21 Completed [place] Routine Lab 12/27/17 13:23 Completed Thyroid Stimulating Hormone Routine Lab 12/21/17 13:23 Completed Valproate Routine Lab 12/21/17 13:23 Completed cpk [Creatine Kinase] Routine Lab 12/19/17 11:59 Completed Provider Date of admission: 12/09/17 10:32 Primary care physician: PCP NONE Discharging clinician: Olivia [facility]ana Psychiatry Exam - Constitutional Vitals: Temp Pulse Resp BP 98.6 F 98 16 130/86 12/27/17 21:00 12/27/17 21:00 12/27/17 21:00 12/27/17 21:00 General appearance: age & developmentally appropriate, well-groomed, well- nourished - Musculoskeletal Gait: normal Station: relaxed Strength & Tone: normal for patient - Psychiatric Patient Orientation: Yes Person, Yes Time, Yes Place Level of alertness: Alert Behavior: calm, cooperative Psychomotor activity: Normal Eye Contact: Maintains Eye Contact Mood Description: Euthymic/stable Affect description: congruent with mood, full range Speech Volume: Normal Speech pattern: normal rate, normal rhythm, normal tone, fluent, spontaneous Language & Vocabulary: consistent with education Thought Process: Linear, Goal Oriented Thought Content: No Suicidal ideation, No Homicidal ideation, No Overt delusions Perceptual Disturbances: Yes Auditory hallucinations Attention Span Ability: Capable of Focused Attention Memory Description: Grossly Intact Patient Reliability: Reliable Historian Fund of knowledge: Yes abstraction ability, Yes aware of current events Intelligence Estimate: Average Judgment: Fair Insight: Partial Hospital Course Hospital course: Ms. Anand is a 47 year old female who was admitted secondary to psychosis and catatonia. Looks much better. This typewriter mechanic saw her two weeks ago and she is almost a different person now. Relaxed. Making eye contact. Laughing about delusions she previously had. Still experiences AH but she reports they are much improved. Denies SI/HI. According to staff she is interacting well and going to groups. Will be living with daughter and she has agreed to dispense meds. [place] level 0.4. - Time Spent with Patient Total time spent providing and/or coordinating discharge services: Assessment and Plan - Patient/Caregiver Discharge Instructions Activity: resume usual activities as tolerated Diet: regular diet - Follow up Plan Follow up with: [facility] [Outside] - 01/03/18 1:00 pm (The above appointment is with Dr. Beard for outpatient psychiatric assessment and medication management services. The above appointment reflux first availability. You may contact the office regularly to check for cancellations on mammography to be seen sooner.) Functional capacity at discharge: independent ambulation Overall status at discharge: Stable Disposition: Home, Self-Care Quality - Multiple Antipsychotics Patient discharged on 2 or more antipsychotic medications: No Procedures - Procedures Procedures: Medication Management, Crisis Stabilization, Supportive Therapy, Group Therapy
[2017-12-28 11:11] VITALS: BP 126/86
== END 2017-12-28 13:30 | disposition home or self-care (01) | DRG 750 ==
LOC: INTOOBSV 10:49 → 1ANU 10:49 → SUATTDRO 12-09 10:32
PROVIDERS: ADMIT Psychiatry & Neurology Psychiatry; ATTEND Psychiatry & Neurology Psychiatry

== ENCOUNTER 2018-10-20 15:26 | Inpatient (IN) ==
--- NOTE | 2018-10-20 15:42 | Emergency Department Note ---
Disposition Clinical Impression: Chronic schizophrenia, Hallucination, Visual hallucinations Disposition: Still a Patient Condition: Fair Referrals: NONE,PCP [Primary Care Provider] - Forms: ED Satisfaction Letter Time of Disposition: 20:22 Psych HPI - General Chief Complaint: ED Psychiatric Symptoms Stated Complaint: SI Time Seen by Provider: 10/20/18 15:36 Source: EMS Limitations: other Nursing Notes Reviewed: Yes Vital Signs Reviewed: Yes - History of Present Illness HPI Narrative: Kira is a 48 y/o female who presented to the ED from [place] ED for evaluation from psychiatry as patient is having hallucinations. Currently patient has been uncooperative and not speaking therefore all history was obtained from [place] ED's note. Patient presented to their emergency department by the police for hallucinations. The police called as she was going out the window and saying that she is connecting with a psychics and that there is a child next her. Police scanned the house and it was empty. Her daughter stated that she has not been taking medications for several days. Upon initial evaluation, patient was sitting up in bed and then when I tried to ask her questions she proceeded to lay down and close her eyes. She refused to follow commands or answer any questions. - Related Data Home Medications Medication Instructions Recorded Confirmed Montelukast [Singulair] 10 mg PO HS 12/06/17 12/09/17 raNITIdine HCl [Ranitidine HCl] 150 mg PO BID 12/06/17 12/09/17 Albuterol Sulfate [Proventil 2 puff IH Q6HR PRN 12/07/17 12/09/17 Inhaler] Atorvastatin Calcium [Lipitor] 20 mg PO HS 12/07/17 12/09/17 Estradiol 0.5 mg PO DAILY 12/07/17 12/09/17 Lansoprazole [Prevacid] 30 mg PO DAILY 12/07/17 12/09/17 Loratadine [Claritin] 10 mg PO DAILY 12/07/17 12/09/17 Mometasone/Formoterol [Dulera 100 2 puff IH BID 12/07/17 12/09/17 Mcg/5 Mcg Inhaler] Umeclidinium [place] [Incruse 1 puff IH DAILY 12/07/17 12/09/17 Ellipta] hydroCHLOROthiazide 12.5 mg PO DAILY 12/07/17 12/09/17 [Hydrochlorothiazide] Trazodone HCl 100 mg PO HS 12/09/17 12/09/17 Previous Rx's Medication Instructions Recorded Benztropine [Cogentin] 1 mg PO HS #30 tablet 12/28/17 BuPROPion XL (24 HR) [Wellbutrin 300 mg PO DAILY #60 tab.er.24h 12/28/17 Xl] Buspirone HCl [Buspar] 10 mg PO TID #180 tablet 12/28/17 Docusate [Colace] 100 mg PO BID capsule 12/28/17 [place] Carbonate 300 mg PO BID #60 capsule 12/28/17 Paliperidone [Invega] 6 mg PO HS #30 tab.er.24 12/28/17 Sertraline [Zoloft] 150 mg PO DAILY #45 tablet 12/28/17 Allergies Allergy/AdvReac Type Severity Reaction Status Date / Time citalopram [From Celexa] AdvReac swelling Verified 10/20/18 15:31 lurasidone [From Latuda] AdvReac swelling Verified 10/20/18 15:31 Limitations: ROS unobtainable due to patients medical condition Past Medical History - Past Medical History Medical history: Reports: asthma, GERD, other Surgical history: Reports: herniorrhaphy, hysterectomy, orthopedic, other, other Psychiatric history: Reports: bipolar, prior suicide attempt, schizophrenia, previous psychiatric hospitalization PHARMACIST 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 Extremities: No edema, No clubbing, radial pulse +2/4, capillary refill <2sec. Skin: Skin warm and dry, no lesions, no rashes, no jaundice Neurologic: strength 5/5 in all extremities Psych: patient refusing to answer questions or speak, she made eye contact initially but has not said anything except laughing once, affect is flat - General Limitations: altered mental status General appearance: alert, in no apparent distress Course Course Narrative: Patient's labs from [place] showed no significant abnormalities. Urine drug screen was obtained here and was negative. Patient was medically cleared for psychiatric evaluation. - Reevaluation(s) Reevaluation #1: Patient became combative, throwing her socks and starting kicking and punching. Patient was restrained and Ativan, Benadryl, and Haldol given. Patient calmed down. Time: 17:00 Reevaluation #2: Patient signed out to overnight cashier team. Pending A1 evaluation. Patient has been calm and cooperative since medications were given. Time: 20:16 Vital Signs Temperature 98.3 F 10/20/18 15:33 Pulse Rate 83 10/20/18 15:33 Respiratory Rate 15 10/20/18 15:33 Blood Pressure 127/79 10/20/18 15:33 O2 Sat by Pulse Oximetry 97 10/20/18 15:33 Temperature 97.4 F L 10/20/18 17:47 Pulse Rate 93 10/20/18 17:47 Respiratory Rate 17 10/20/18 17:47 Blood Pressure 109/71 10/20/18 17:47 O2 Sat by Pulse Oximetry 77 10/20/18 17:47 Oxygen Delivery Oxygen Delivery Room Air Psych - Lab Data Lab Results 10/20/18 10/20/18 Range/Units 16:58 18:32 Urine Opiates Screen Negative (Ovuojn=446) ng/mL Ur Buprenorphine Scrn Negative (Cutoff=5) ng/mL Ur Barbiturates Screen Negative (Zuvhzg=071) ng/mL Valproic Acid < 4 L (50-100) mcg/mL Ur Phencyclidine Scrn Negative (Cutoff=25) ng/mL Ur Amphetamines Screen Negative (Lctxyb=4030) ng/mL U Benzodiazepines Scrn Negative (Xyszij=376) ng/mL Urine Cocaine Screen Negative (Cutoff= 300) ng/mL U Marijuana (THC) Screen Negative (Cutoff = 50) ng/mL Ur Drug Screen Interp See Below Psychiatric Medical Clearance - Medical Clearance Checklist Medical History: No Social History Section defined Current Vitals: Last Vital Signs Temp 97.4 F L 10/20/18 17:47 Pulse 93 10/20/18 17:47 Resp 17 10/20/18 17:47 BP 109/71 10/20/18 17:47 Pulse Ox 77 10/20/18 17:47 Psychiatric Lab Panel: Drug Levels and Toxicity 10/20/18 16:58 Urine Opiates Screen Negative Ur Barbiturates Screen Negative Ur Phencyclidine Scrn Negative Ur Amphetamines Screen Negative U Benzodiazepines Scrn Negative Urine Cocaine Screen Negative U Marijuana (THC) Screen Negative Abnormal Labs: Abnormal lab results Valproic Acid < 4 mcg/mL (50-100) L 10/20/18 18:32 Statement of Medical Clearance: I have evaluated the patient, reviewed diagnostic information, and certify that the patient's medical condition is sufficiently stable that transfer to the psychiatric unit does not pose a significant risk of deterioration.
--- NOTE | 2018-10-20 15:52 | Emergency Department Note ---
Disposition Clinical Impression: Chronic schizophrenia, Hallucination, Visual hallucinations Disposition: Still a Patient Condition: Fair Referrals: NONE,PCP [Primary Care Provider] - Forms: ED Satisfaction Letter Time of Disposition: 19:34 General Adult HPI - General Chief complaint: ED Psychiatric Symptoms Stated complaint: SI Time Seen by Provider: 10/20/18 15:36 Source: EMS Limitations: altered mental status - History of Present Illness Pain Scale: 0 - Related Data Home Medications Medication Instructions Recorded Confirmed Montelukast [Singulair] 10 mg PO HS 12/06/17 12/09/17 raNITIdine HCl [Ranitidine HCl] 150 mg PO BID 12/06/17 12/09/17 Albuterol Sulfate [Proventil 2 puff IH Q6HR PRN 12/07/17 12/09/17 Inhaler] Atorvastatin Calcium [Lipitor] 20 mg PO HS 12/07/17 12/09/17 Estradiol 0.5 mg PO DAILY 12/07/17 12/09/17 Lansoprazole [Prevacid] 30 mg PO DAILY 12/07/17 12/09/17 Loratadine [Claritin] 10 mg PO DAILY 12/07/17 12/09/17 Mometasone/Formoterol [Dulera 100 2 puff IH BID 12/07/17 12/09/17 Mcg/5 Mcg Inhaler] Umeclidinium [place] [Incruse 1 puff IH DAILY 12/07/17 12/09/17 Ellipta] hydroCHLOROthiazide 12.5 mg PO DAILY 12/07/17 12/09/17 [Hydrochlorothiazide] Trazodone HCl 100 mg PO HS 12/09/17 12/09/17 Previous Rx's Medication Instructions Recorded Benztropine [Cogentin] 1 mg PO HS #30 tablet 12/28/17 BuPROPion XL (24 HR) [Wellbutrin 300 mg PO DAILY #60 tab.er.24h 12/28/17 Xl] Buspirone HCl [Buspar] 10 mg PO TID #180 tablet 12/28/17 Docusate [Colace] 100 mg PO BID capsule 12/28/17 [place] Carbonate 300 mg PO BID #60 capsule 12/28/17 Paliperidone [Invega] 6 mg PO HS #30 tab.er.24 12/28/17 Sertraline [Zoloft] 150 mg PO DAILY #45 tablet 12/28/17 Allergies Allergy/AdvReac Type Severity Reaction Status Date / Time citalopram [From Celexa] AdvReac swelling Verified 10/20/18 15:31 lurasidone [From Latuda] AdvReac swelling Verified 10/20/18 15:31 Past Medical History - Past Medical History Medical history: Reports: asthma, GERD, other Surgical history: Reports: herniorrhaphy, hysterectomy, orthopedic, other, other Psychiatric history: Reports: bipolar, prior suicide attempt, schizophrenia, previous psychiatric hospitalization 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: bilateral tubal ligation - Social History Smoking Status: Current every day smoker Smokeless Tobacco Status: No Alcohol use: Reports: none Drug use: Reports: none Physical Exam - General Limitations: altered mental status General appearance: alert, in no apparent distress Course Vital Signs Temperature 98.3 F 10/20/18 15:33 Pulse Rate 83 10/20/18 15:33 Respiratory Rate 15 10/20/18 15:33 Blood Pressure 127/79 10/20/18 15:33 O2 Sat by Pulse Oximetry 97 10/20/18 15:33 Temperature 97.4 F L 10/20/18 17:47 Pulse Rate 93 10/20/18 17:47 Respiratory Rate 17 10/20/18 17:47 Blood Pressure 109/71 10/20/18 17:47 O2 Sat by Pulse Oximetry 77 10/20/18 17:47 Oxygen Delivery Oxygen Delivery Room Air Medical Decision Making - MDM Narrative Medical decision making narrative: Patient had been given some IM medication for sedation and agitation purposes. Await psychiatric evaluation. - Medical Records Medical records reviewed: Yes I reviewed the patient's medical records. - Lab Data Lab results reviewed: Yes I reviewed the patient's lab results. Lab Results 10/20/18 10/20/18 Range/Units 16:58 18:32 Urine Opiates Screen Negative (Mgvfsr=810) ng/mL Ur Buprenorphine Scrn Negative (Cutoff=5) ng/mL Ur Barbiturates Screen Negative ([place]=281) ng/mL Valproic Acid < 4 L (50-100) mcg/mL Ur Phencyclidine Scrn Negative (Cutoff=25) ng/mL Ur Amphetamines Screen Negative (Jizvcn=9628) ng/mL U Benzodiazepines Scrn Negative (Wuppxy=123) ng/mL Urine Cocaine Screen Negative (Cutoff= 300) ng/mL U Marijuana (THC) Screen Negative (Cutoff = 50) ng/mL Ur Drug Screen Interp See Below Attestation Statement - Attestation Attestation: I examined this patient and my medical decision-making was reviewed with the Resident Physician. I agree with the documented findings, disposition and treatment plan as described except to the extent set forth below. 48-year-old female Transferred from another [facility] location for psychiatric evaluation. Patient will not speak to me to therefore I cannot obtain any personal history from her. Patient apparently does have a history of psychiatric disease. She had a medical workup with screening labs done at the outlying facility. We will attempt to see if the psych nurse can evaluate her. Patient apparently was having some hallucinations and april in which she was time people her whole family was murdered in which they were not. The had notified local police who took her into their local ER facility.
[2018-10-20] MEDS ORDERED: *HR* LORazepam 2 MG/ML VIAL IM STA (16:35)
[2018-10-20] MEDS ORDERED: Haloperidol Lactate 5 MG/ML VIAL IM ONE (16:43)
[2018-10-20 18:08] LABS: Amphetamine Screen,Urine Negative ng/mL (Cutoff=1000); Barbiturate Screen,Urine Negative ng/mL (Cutoff=200); Benzodiazepines Screen,Urine Negative ng/mL (Cutoff=200); Cannabinoid Screen,Urine Negative ng/mL (Cutoff = 50); Cocaine Screen,Urine Negative ng/mL (Cutoff= 300); Opiate Screen,Urine Negative ng/mL (Cutoff=300); Phencyclidine Screen,Urine Negative ng/mL (Cutoff=25)
--- NOTE | 2018-10-20 21:00 | Emergency Department Note ---
Disposition Clinical Impression: Chronic schizophrenia, Hallucination, Visual hallucinations Disposition: Admitted As Inpatient Condition: Fair Referrals: NONE,PCP [Primary Care Provider] - Forms: ED Satisfaction Letter Time of Disposition: 00:53 General Adult HPI - General Chief complaint: ED Psychiatric Symptoms Stated complaint: SI Time Seen by Provider: 10/20/18 15:36 Source: EMS Limitations: other - History of Present Illness Pain Scale: 0 - Related Data Home Medications Medication Instructions Recorded Confirmed Montelukast [Singulair] 10 mg PO HS 12/06/17 12/09/17 raNITIdine HCl [Ranitidine HCl] 150 mg PO BID 12/06/17 12/09/17 Albuterol Sulfate [Proventil 2 puff IH Q6HR PRN 12/07/17 12/09/17 Inhaler] Atorvastatin Calcium [Lipitor] 20 mg PO HS 12/07/17 12/09/17 Estradiol 0.5 mg PO DAILY 12/07/17 12/09/17 Lansoprazole [Prevacid] 30 mg PO DAILY 12/07/17 12/09/17 Loratadine [Claritin] 10 mg PO DAILY 12/07/17 12/09/17 Mometasone/Formoterol [Dulera 100 2 puff IH BID 12/07/17 12/09/17 Mcg/5 Mcg Inhaler] Umeclidinium [place] [Incruse 1 puff IH DAILY 12/07/17 12/09/17 Ellipta] hydroCHLOROthiazide 12.5 mg PO DAILY 12/07/17 12/09/17 [Hydrochlorothiazide] Trazodone HCl 100 mg PO HS 12/09/17 12/09/17 Previous Rx's Medication Instructions Recorded Benztropine [Cogentin] 1 mg PO HS #30 tablet 12/28/17 BuPROPion XL (24 HR) [Wellbutrin 300 mg PO DAILY #60 tab.er.24h 12/28/17 Xl] Buspirone HCl [Buspar] 10 mg PO TID #180 tablet 12/28/17 Docusate [Colace] 100 mg PO BID capsule 12/28/17 [place] Carbonate 300 mg PO BID #60 capsule 12/28/17 Paliperidone [Invega] 6 mg PO HS #30 tab.er.24 12/28/17 Sertraline [Zoloft] 150 mg PO DAILY #45 tablet 12/28/17 Allergies Allergy/AdvReac Type Severity Reaction Status Date / Time citalopram [From Celexa] AdvReac swelling Verified 10/20/18 15:31 lurasidone [From Latuda] AdvReac swelling Verified 10/20/18 15:31 Past Medical History - Past Medical History Medical history: Reports: asthma, GERD, other Surgical history: Reports: herniorrhaphy, hysterectomy, orthopedic, other, other Psychiatric history: Reports: bipolar, prior suicide attempt, schizophrenia, previous psychiatric hospitalization [employer] OFF[employer] history: Reports: bilateral tubal ligation - Social History Smoking Status: Current every day smoker Smokeless Tobacco Status: No Alcohol use: Reports: none Drug use: Reports: none Physical Exam - General Limitations: other General appearance: alert, in no apparent distress Course Vital Signs Temperature 98.3 F 10/20/18 15:33 Pulse Rate 83 10/20/18 15:33 Respiratory Rate 15 10/20/18 15:33 Blood Pressure 127/79 10/20/18 15:33 O2 Sat by Pulse Oximetry 97 10/20/18 15:33 Temperature 97.4 F L 10/20/18 17:47 Pulse Rate 82 10/20/18 21:44 Respiratory Rate 16 10/20/18 21:44 Blood Pressure 116/72 10/20/18 21:44 O2 Sat by Pulse Oximetry 98 10/20/18 21:44 Oxygen Delivery Oxygen Delivery Room Air Medical Decision Making - Lab Data Lab Results 10/20/18 10/20/18 Range/Units 16:58 18:32 Urine Opiates Screen Negative (Nlydzn=292) ng/mL Ur Buprenorphine Scrn Negative (Cutoff=5) ng/mL Ur Barbiturates Screen Negative (Jxcfcq=119) ng/mL Valproic Acid < 4 L (50-100) mcg/mL Ur Phencyclidine Scrn Negative (Cutoff=25) ng/mL Ur Amphetamines Screen Negative (Jukkxj=4601) ng/mL U Benzodiazepines Scrn Negative (Hvdlkp=922) ng/mL Urine Cocaine Screen Negative (Cutoff= 300) ng/mL U Marijuana (THC) Screen Negative (Cutoff = 50) ng/mL Ur Drug Screen Interp See Below Attestation Statement - Attestation Attestation: Care of patient assumed from Dr. Sultana at 21:00 pending completion of mental health consultation. The patient required calming agents and was placed in 4 point restraints prior to my evaluation. She is sleeping. This patient was already out of the restraints at the time of care being endorsed to me. I did place an order for restraints and provided [id number] evaluation but the patient currently doesn't need restraints
[2018-10-21] MEDS ORDERED: *HR* LORazepam 1 MG TABLET PO PRN (03:00)
[2018-10-21] MEDS ORDERED: MOM Conc 10 ML UD.LIQ PO PRN (03:00)
[2018-10-21] MEDS ORDERED: traZODone 50 MG TABLET PO PRN (03:00)
[2018-10-21] MEDS ORDERED: Haloperidol Lactate 5 MG/ML VIAL IM PRN (03:00)
[2018-10-21] MEDS ORDERED: *HR* LORazepam 2 MG/ML VIAL IM PRN (03:00)
[2018-10-21] MEDS: Nicotine 21 MG PATCH.TD24 TD SCH (09:56)
--- NOTE | 2018-10-21 14:06 | Psychiatry History & Physical ---
Date of Encounter: 10/21/18 Time of Encounter: 14:03 History of Present Illness Patient Stated Chief Complaint: psychosis Medicare Admission Attestation: For traditional Medicare patients the provided hospital inpatient services are reasonable and necessary and in the case of services not specified as inpatient-only under 42 CFR 419.22 (n), that they are appropriately provided as inpatient services in accordance 42 CFR 412.3. For Critical Access Hospital the patient may reasonably be expected to be discharged or transferred to a hospital within 96 hours after admission to the Critical Access Hospital. Admitted From: Home Plans for Post Hospital Care: Home History of Present Illness: Ms. Anand is a 48 year old female who was admitted secondary to psychosis. Client apparently ran into a police station and told the officers her entire family had been murdered which is not true. Endorsing and responding to hallucinations in the ER. Tox screen negative. Has a known mental health history and has been on 1A in the past. This morning client was agitated on the unit and received emergency medications. 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 Given her clinical presentation it is best to let her sleep at this time. Will attempt to verify her regular home meds and speak with her more in depth tomorrow. Past Med Surg Social Fam HX - Past Medical History Medical history: asthma, GERD, other - Past Psychiatric History Psychiatric history: Reports: previous psychiatric hospitalization Family psychiatric history: Unknown Family History of Suicide: Unknown - Past Surgical History Surgical History: herniorrhaphy, hysterectomy, orthopedic, other, other - Social History Smoking Status: Current every day smoker Smokeless Tobacco Status: No Alcohol use: none Drug use: none Medications & Allergies Montelukast [Singulair] 10 mg PO HS 12/06/17 [History] raNITIdine HCl [Ranitidine HCl] 150 mg PO BID 12/06/17 [History] Albuterol Sulfate [Proventil Inhaler] 2 puff IH Q6HR PRN 12/07/17 [History] Atorvastatin Calcium [Lipitor] 20 mg PO HS 12/07/17 [History] Estradiol 0.5 mg PO DAILY 12/07/17 [History] Lansoprazole [Prevacid] 30 mg PO DAILY 12/07/17 [History] Loratadine [Claritin] 10 mg PO DAILY 12/07/17 [History] Mometasone/Formoterol [Dulera 100 Mcg/5 Mcg Inhaler] 2 puff IH BID 12/07/17 [History] Umeclidinium [place] [Incruse Ellipta] 1 puff IH DAILY 12/07/17 [History] hydroCHLOROthiazide [Hydrochlorothiazide] 12.5 mg PO DAILY 12/07/17 [History] Trazodone HCl 100 mg PO HS 12/09/17 [History] Benztropine [Cogentin] 1 mg PO HS #30 tablet 12/28/17 [Rx] BuPROPion XL (24 HR) [Wellbutrin Xl] 300 mg PO DAILY #60 tab.er.24h 12/28/17 [Rx] Buspirone HCl [Buspar] 10 mg PO TID #180 tablet 12/28/17 [Rx] Docusate [Colace] 100 mg PO BID capsule 12/28/17 [Rx] [place] Carbonate 300 mg PO BID #60 capsule 12/28/17 [Rx] Paliperidone [Invega] 6 mg PO HS #30 tab.er.24 12/28/17 [Rx] Sertraline [Zoloft] 150 mg PO DAILY #45 tablet 12/28/17 [Rx] Allergy/AdvReac Type Severity Reaction Status Date / Time citalopram [From Celexa] AdvReac swelling Verified 10/20/18 15:31 lurasidone [From Latuda] AdvReac swelling Verified 10/20/18 15:31 Review of Systems Constitutional: Denies: fever, chills, weakness, weight change Eyes: Denies: eye pain, vision change Ears, Nose, Throat: Denies: ear pain, throat pain, dental pain, hearing loss, congestion Cardiovascular: Denies: chest pain, palpitations, dyspnea on exertion Respiratory: Denies: cough, dyspnea, wheezes Gastrointestinal: Denies: abdominal pain, nausea, vomiting, diarrhea, constipation Genitourinary female: Denies: urgency, dysuria, frequency, abnormal menses, dyspareunia Musculoskeletal: Denies: joint swelling, joint pain Integumentary: Denies: rash, lesions, pruritus Neurological: Denies: headache, weakness, numbness, memory loss Endocrine: Denies: fatigue, heat or cold intolerance Hematologic/Lymphatic: Denies: easy bruising, lymphadenopathy Allergic/Immunologic: Denies: urticaria, itchy eyes Exam - HEENT Head exam IM: Present: atraumatic Eye exam IM: Present: EOMI, normal appearance, PERRL ENT exam IM: Present: normal exam - Neurological Neurological exam: Present: CN II-XII intact - Respiratory Respiratory exam IM: Present: CTAB - GI/Abdominal GI/Abdominal exam IM: Present: normal bowel sounds, soft. Absent: tenderness - Extremities Extremities exam IM: Present: full ROM - Skin Skin exam IM: Present: dry, warm - Constitutional Vitals: Temp Pulse Resp BP Pulse Ox 97.9 F 86 18 100/53 98 10/21/18 09:00 10/21/18 09:00 10/21/18 09:00 10/21/18 09:00 10/21/18 09:00 General appearance: disheveled - Musculoskeletal Gait: other Station: relaxed Strength & Tone: normal for patient - Psychiatric Level of alertness: Sedated Mood Description: Labile Perceptual Disturbances: Yes Reacting to internal stimuli Attention Span Ability: Unable to Focus, Unable to Sustain Attention Patient Reliability: Not Reliable Historian Judgment: Poor Insight: Minimal Results - Drug Levels and Toxicology Drug Levels and Toxicology: Drug Levels and Toxicity 10/20/18 16:58 Urine Opiates Screen Negative Ur Barbiturates Screen Negative Ur Phencyclidine Scrn Negative Ur Amphetamines Screen Negative U Benzodiazepines Scrn Negative Urine Cocaine Screen Negative U Marijuana (THC) Screen Negative - Labs Labs: Laboratory Last Values Urine Opiates Screen Negative ng/mL (Zzbove=449) 10/20/18 16:58 Ur Buprenorphine Scrn Negative ng/mL (Cutoff=5) 10/20/18 16:58 Ur Barbiturates Screen Negative ng/mL (Wxzobb=204) 10/20/18 16:58 Valproic Acid < 4 mcg/mL (50-100) L 10/20/18 18:32 Ur Phencyclidine Scrn Negative ng/mL (Cutoff=25) 10/20/18 16:58 Ur Amphetamines Screen Negative ng/mL (Rkwzdy=2387) 10/20/18 16:58 U Benzodiazepines Scrn Negative ng/mL (Fmtqve=084) 10/20/18 16:58 Urine Cocaine Screen Negative ng/mL (Cutoff= 300) 10/20/18 16:58 U Marijuana (THC) Screen Negative ng/mL (Cutoff = 50) 10/20/18 16:58 Ur Drug Screen Interp See Below 10/20/18 16:58 Assessment and Plan (1) Schizoaffective disorder, bipolar type Current visit: No Status: Acute Plan: Admit inpatient for safety and stabilization, Close observation, Suicide Precautions per unit protocol, Encourage participation in unit milieu, Group Therapy, Monitor sleep, Monitor appetite Risks, benefits, side effects, alternatives discussed w/pt: Yes Patient agreeable to treatment: Yes Plans for Post Hospital Care: Home Estimated Length of Stay (Days): 5
[2018-10-22] MEDS: Nicotine 21 MG PATCH.TD24 TD SCH (09:40)
--- NOTE | 2018-10-22 11:32 | Psychiatry Progress Note ---
Date of Encounter: 10/22/18 Time of Encounter: 11:24 Subjective Interval history: Continues to be psychotic. Responding to internal stimuli. Bizarre gesturing. Malodorous. Thoughts disorganized. Could not provide reliable answers to questions. When asked if she was client stated "I'm a by his choosing." When asked about symptoms client responded with "you heard them" and waved a hand over her head. Despite her psychosis she is also rather manipulative. Client was able to make it clear today that she likes Ativan. Also sat peacefully through dinner last night but then immediately went to her room and starting amping up. Staff suspect she was trying to get injectable medications. Has received emergency meds a couple of times already. Home med list includes low dose Sabattus and Abilify but the rest of her meds are for anxiety and depression. If anything her home meds will likely activate her even more at this point. Client also states she has not taken her home meds in "months." Will plan to restart Sabattus with a stronger antipsychotic for now. Review of Systems Constitutional: Denies: fever, chills, weakness, weight change Eyes: Denies: eye pain, vision change Ears, Nose, Throat: Denies: ear pain, throat pain, dental pain, hearing loss, congestion Cardiovascular: Denies: chest pain, palpitations, dyspnea on exertion Respiratory: Denies: cough, dyspnea, wheezes Gastrointestinal: Denies: abdominal pain, nausea, vomiting, diarrhea, constipation Musculoskeletal: Denies: joint swelling, joint pain Neurological: Denies: headache, weakness, numbness, memory loss Results - Vital Signs Vital Signs: Temp Pulse Resp BP Pulse Ox 97.7 F 101 18 117/77 98 10/22/18 09:00 10/22/18 09:00 10/22/18 09:00 10/22/18 09:00 10/22/18 09:00 Assessment and Plan (1) Schizoaffective disorder, bipolar type Current visit: No Status: Acute Plan: Continue hospitalization, Close observation, Suicide Precautions per unit protocol, Encourage participation in unit milieu, Group Therapy, Monitor sleep, Monitor appetite Risks, benefits, side effects, alternatives discussed w/pt: Yes Patient agreeable to treatment: Yes Consult Discharge Plan - Plan Referrals: NONE,PCP [Primary Care Provider] - Psychiatry Exam - Constitutional Vitals: Temp Pulse Resp BP Pulse Ox 97.7 F 101 18 117/77 98 10/22/18 09:00 10/22/18 09:00 10/22/18 09:00 10/22/18 09:00 10/22/18 09:00 General appearance: malodorous - Musculoskeletal Gait: normal Station: relaxed Strength & Tone: normal for patient - Psychiatric Patient Orientation: Yes Person, Yes Time, Yes Place Level of alertness: Alert Behavior: agitated Psychomotor activity: Increased Eye Contact: Intense Contact Mood Description: Labile Affect description: congruent with mood Speech Volume: Normal Speech pattern: normal rate, normal rhythm, normal tone, fluent, spontaneous Language & Vocabulary: consistent with education Thought Process: Disorganized Thought Content: No Suicidal ideation, No Homicidal ideation Perceptual Disturbances: Yes Reacting to internal stimuli Attention Span Ability: Unable to Focus, Unable to Sustain Attention Memory Description: Immediate Intact, Recent Impaired, Remote Intact Patient Reliability: Not Reliable Historian Fund of knowledge: Yes abstraction ability Intelligence Estimate: Average Judgment: Poor Insight: Minimal
[2018-10-22] MEDS: hydrOXYzine pamoate 25 MG CAPSULE PO PRN ×2 (12:26→21:07)
[2018-10-22] MEDS: OLANZapine 5 MG TAB.RAPDIS PO SCH (21:08)
[2018-10-22] MEDS: Lithium Carbonate 300 MG CAPSULE PO SCH (21:08)
[2018-10-23] MEDS: hydrOXYzine pamoate 25 MG CAPSULE PO PRN (11:21)
[2018-10-23] MEDS: Lithium Carbonate 300 MG CAPSULE PO SCH ×2 (11:22→21:07)
[2018-10-23] MEDS: Nicotine 21 MG PATCH.TD24 TD SCH (11:26)
--- NOTE | 2018-10-23 12:24 | Psychiatry Progress Note ---
Date of Encounter: 10/23/18 Time of Encounter: 12:20 Subjective Interval history: Client extremely behavioral today. A very ill peer removed all of the drinking cups from the patient area. Client decided this was done deliberately to provoke her. She started screaming and ripped the empty cup dispenser off the wall. Yesterday she ripped down the curtain in her room and urinated on it. Still has some psychosis/bizarre gesturing but far less than yesterday. Today she is answering questions in more complete sentences. Her thoughts are showing more organization. Adamantly denies SI, intent, or plan. She claims she lives with her adult children but doesn't know how to get a hold of them. Will need to track them down and see if client can return to live with them. Compliant with the Zyprexa and Rose ordered yesterday. Suspect meds are starting to take effect as she is evidencing less thought disorder symptoms and more personality symptoms. Review of Systems Constitutional: Denies: fever, chills, weakness, weight change Eyes: Denies: eye pain, vision change Ears, Nose, Throat: Denies: ear pain, throat pain, dental pain, hearing loss, congestion Cardiovascular: Denies: chest pain, palpitations, dyspnea on exertion Respiratory: Denies: cough, dyspnea, wheezes Gastrointestinal: Denies: abdominal pain, nausea, vomiting, diarrhea, constipation Musculoskeletal: Denies: joint swelling, joint pain Neurological: Denies: headache, weakness, numbness, memory loss Results - Vital Signs Vital Signs: Temp Pulse Resp BP Pulse Ox 97.7 F 101 18 117/77 98 10/22/18 09:00 10/22/18 09:00 10/22/18 09:00 10/22/18 09:00 10/22/18 09:00 Assessment and Plan (1) Schizoaffective disorder, bipolar type Current visit: No Status: Acute Plan: Continue hospitalization, Close observation, Suicide Precautions per unit protocol, Encourage participation in unit milieu, Group Therapy, Monitor sleep, Monitor appetite Risks, benefits, side effects, alternatives discussed w/pt: Yes Patient agreeable to treatment: Yes Consult Discharge Plan - Plan Referrals: NONE,PCP [Primary Care Provider] - Psychiatry Exam - Constitutional Vitals: Temp Pulse Resp BP Pulse Ox 97.7 F 101 18 117/77 98 10/22/18 09:00 10/22/18 09:00 10/22/18 09:00 10/22/18 09:00 10/22/18 09:00 General appearance: unkempt, disheveled - Musculoskeletal Gait: normal Station: relaxed Strength & Tone: normal for patient - Psychiatric Patient Orientation: Yes Person, Yes Time, Yes Place Level of alertness: Alert Behavior: agitated Psychomotor activity: Normal Eye Contact: Minimal Contact Mood Description: Labile Affect description: congruent with mood Speech Volume: Normal Speech pattern: pressured Language & Vocabulary: consistent with education Thought Process: Evasive Thought Content: No Suicidal ideation, No Homicidal ideation Perceptual Disturbances: Yes Reacting to internal stimuli Attention Span Ability: Capable of Focused Attention Memory Description: Grossly Intact Patient Reliability: Not Reliable Historian Fund of knowledge: Yes abstraction ability Intelligence Estimate: Average Judgment: Poor Insight: Minimal
[2018-10-23] MEDS: OLANZapine 5 MG TAB.RAPDIS PO SCH (21:07)
[2018-10-24] MEDS: Lithium Carbonate 300 MG CAPSULE PO SCH ×2 (09:12→21:11)
[2018-10-24] MEDS: Nicotine 21 MG PATCH.TD24 TD SCH (09:13)
--- NOTE | 2018-10-24 09:50 | Psychiatry Progress Note ---
Date of Encounter: 10/24/18 Time of Encounter: 09:44 Subjective Interval history: Last night client refused to speak with staff but could be heard screaming and cussing in her room. Brought a pillow out to the nursing station yesterday and tore it up in front of staff saying there was a camera in it. Behaviors seem very deliberate at this point. Psychotic when she came in but at this point her clinical presentation seems to be 90% behavioral 10% psychotic. Although she acts wild she exhibits a lot more control than someone who is actively ill from their mental illness. Client continues to deny SI/HI. Med compliant. Staff are trying to locate her family to arrange a safe discharge plan. Client was reportedly living with her children but does not know addresses/phone numbers and no one has tried to contact her here. Review of Systems Constitutional: Denies: fever, chills, weakness, weight change Eyes: Denies: eye pain, vision change Ears, Nose, Throat: Denies: ear pain, throat pain, dental pain, hearing loss, congestion Cardiovascular: Denies: chest pain, palpitations, dyspnea on exertion Respiratory: Denies: cough, dyspnea, wheezes Gastrointestinal: Denies: abdominal pain, nausea, vomiting, diarrhea, constipation Musculoskeletal: Denies: joint swelling, joint pain Neurological: Denies: headache, weakness, numbness, memory loss Results - Vital Signs Vital Signs: Temp Pulse Resp BP Pulse Ox 96.8 F L 70 18 125/78 100 10/24/18 09:00 10/24/18 09:00 10/24/18 09:00 10/24/18 09:00 10/24/18 09:00 Assessment and Plan (1) Schizoaffective disorder, bipolar type Current visit: No Status: Acute Plan: Continue hospitalization, Close observation, Suicide Precautions per unit protocol, Encourage participation in unit milieu, Group Therapy, Monitor sleep, Monitor appetite Risks, benefits, side effects, alternatives discussed w/pt: Yes Patient agreeable to treatment: Yes Consult Discharge Plan - Plan Referrals: NONE,PCP [Primary Care Provider] - Psychiatry Exam - Constitutional Vitals: Temp Pulse Resp BP Pulse Ox 96.8 F L 70 18 125/78 100 10/24/18 09:00 10/24/18 09:00 10/24/18 09:00 10/24/18 09:00 10/24/18 09:00 General appearance: disheveled - Musculoskeletal Gait: normal Station: relaxed Strength & Tone: normal for patient - Psychiatric Patient Orientation: Yes Person, Yes Time, Yes Place Level of alertness: Alert Behavior: calm, cooperative Psychomotor activity: Normal Eye Contact: Maintains Eye Contact Mood Description: Irritable Affect description: congruent with mood Speech Volume: Normal Speech pattern: normal rate, normal rhythm, normal tone, fluent, spontaneous Language & Vocabulary: consistent with education Thought Process: Evasive Thought Content: No Suicidal ideation, No Homicidal ideation, Yes Overt delusions Perceptual Disturbances: Yes Reacting to internal stimuli Attention Span Ability: Capable of Focused Attention Memory Description: Grossly Intact Patient Reliability: Questionable Historian Fund of knowledge: Yes abstraction ability, Yes aware of current events Intelligence Estimate: Average Judgment: Limited Insight: Minimal
[2018-10-24] MEDS: Mag Hydrox/Al Hydrox/Simeth 30 ML UDC PO PRN (20:20)
[2018-10-24] MEDS: OLANZapine 5 MG TAB.RAPDIS PO SCH (21:11)
[2018-10-25] MEDS: Nicotine 21 MG PATCH.TD24 TD SCH (09:58)
[2018-10-25] MEDS: Lithium Carbonate 300 MG CAPSULE PO SCH ×2 (09:58→21:22)
--- NOTE | 2018-10-25 10:08 | Psychiatry Progress Note ---
Date of Encounter: 10/25/18 Time of Encounter: 09:59 Subjective Interval history: Seems to be doing better. Less screaming. Behaviors have improved. No urinating on self or ripping up hospital property. Staff are still attempting to locate family to work on a discharge plan. Staff thought we had a good contact number for her sister but it turned out to be the wrong number. Client is probably not quite at baseline yet but can likely be discharged once stable housing found. Tolerating meds. Denies SI/HI. Some responding but some of it seems like an act. Review of Systems Constitutional: Denies: fever, chills, weakness, weight change Eyes: Denies: eye pain, vision change Ears, Nose, Throat: Denies: ear pain, throat pain, dental pain, hearing loss, congestion Cardiovascular: Denies: chest pain, palpitations, dyspnea on exertion Respiratory: Denies: cough, dyspnea, wheezes Gastrointestinal: Denies: abdominal pain, nausea, vomiting, diarrhea, constipation Musculoskeletal: Denies: joint swelling, joint pain Neurological: Denies: headache, weakness, numbness, memory loss Results - Vital Signs Vital Signs: Temp Pulse Resp BP Pulse Ox 97.4 F L 96 16 117/71 97 10/24/18 20:24 10/24/18 20:24 10/24/18 20:24 10/24/18 20:24 10/24/18 20:24 Assessment and Plan (1) Schizoaffective disorder, bipolar type Current visit: No Status: Acute Plan: Continue hospitalization, Close observation, Suicide Precautions per unit protocol, Encourage participation in unit milieu, Group Therapy, Monitor sleep, Monitor appetite Risks, benefits, side effects, alternatives discussed w/pt: Yes Patient agreeable to treatment: Yes Consult Discharge Plan - Plan Referrals: NONE,PCP [Primary Care Provider] - Psychiatry Exam - Constitutional Vitals: Temp Pulse Resp BP Pulse Ox 97.4 F L 96 16 117/71 97 10/24/18 20:24 10/24/18 20:24 10/24/18 20:24 10/24/18 20:24 10/24/18 20:24 General appearance: disheveled - Musculoskeletal Gait: normal Station: relaxed Strength & Tone: normal for patient - Psychiatric Patient Orientation: Yes Person, Yes Time, Yes Place Level of alertness: Alert Behavior: calm, cooperative Psychomotor activity: Increased Eye Contact: Maintains Eye Contact Mood Description: Irritable Affect description: congruent with mood Speech Volume: Normal Speech pattern: normal rate, normal rhythm, normal tone, fluent, spontaneous Language & Vocabulary: consistent with education Thought Process: Tangential Thought Content: No Suicidal ideation, No Homicidal ideation Perceptual Disturbances: Yes Reacting to internal stimuli Attention Span Ability: Capable of Focused Attention Memory Description: Immediate Intact, Recent Impaired, Remote Intact Patient Reliability: Questionable Historian Fund of knowledge: Yes abstraction ability Intelligence Estimate: Average Judgment: Limited Insight: Partial
[2018-10-25] MEDS: OLANZapine 5 MG TAB.RAPDIS PO SCH (21:22)
[2018-10-25] MEDS: hydrOXYzine pamoate 25 MG CAPSULE PO PRN (21:22)
[2018-10-26] MEDS: Lithium Carbonate 300 MG CAPSULE PO SCH ×3 (10:58→20:34)
[2018-10-26] MEDS: Nicotine 21 MG PATCH.TD24 TD SCH ×2 (10:58→11:54)
--- NOTE | 2018-10-26 12:05 | Psychiatry Progress Note ---
Date of Encounter: 10/26/18 Time of Encounter: 12:02 Subjective Interval history: Doing much better. Thoughts organized today. Able to make needs known. Likes Trazodone but states 50mg is too much for her. Used to take 300mg but now feels like she is sleeping too much with just 50mg. Will halve dose for tonight. No behavioral issues overnight. Showered on her own, unprompted. Actually smiled at this editorial writer today. More affect. Likely stable to leave tomorrow if staff can located family. Review of Systems Constitutional: Denies: fever, chills, weakness, weight change Eyes: Denies: eye pain, vision change Ears, Nose, Throat: Denies: ear pain, throat pain, dental pain, hearing loss, congestion Cardiovascular: Denies: chest pain, palpitations, dyspnea on exertion Respiratory: Denies: cough, dyspnea, wheezes Gastrointestinal: Denies: abdominal pain, nausea, vomiting, diarrhea, constipation Musculoskeletal: Denies: joint swelling, joint pain Neurological: Denies: headache, weakness, numbness, memory loss Results - Vital Signs Vital Signs: Temp Pulse Resp BP Pulse Ox 98.1 F 73 18 130/91 98 10/26/18 09:00 10/26/18 09:00 10/26/18 09:00 10/26/18 09:00 10/26/18 09:00 Assessment and Plan (1) Schizoaffective disorder, bipolar type Current visit: No Status: Acute Plan: Continue hospitalization, Close observation, Suicide Precautions per unit protocol, Encourage participation in unit milieu, Group Therapy, Monitor sleep, Monitor appetite Risks, benefits, side effects, alternatives discussed w/pt: Yes Patient agreeable to treatment: Yes Consult Discharge Plan - Plan Referrals: NONE,PCP [Primary Care Provider] - Psychiatry Exam - Constitutional Vitals: Temp Pulse Resp BP Pulse Ox 98.1 F 73 18 130/91 98 10/26/18 09:00 10/26/18 09:00 10/26/18 09:00 10/26/18 09:00 10/26/18 09:00 General appearance: age & developmentally appropriate, well-groomed, well- nourished - Musculoskeletal Gait: normal Station: relaxed Strength & Tone: normal for patient - Psychiatric Patient Orientation: Yes Person, Yes Time, Yes Place Level of alertness: Alert Behavior: calm, cooperative Psychomotor activity: Normal Eye Contact: Maintains Eye Contact Mood Description: Euthymic/stable Affect description: congruent with mood, full range Speech Volume: Normal Speech pattern: normal rate, normal rhythm, normal tone, fluent, spontaneous Language & Vocabulary: consistent with education Thought Process: Linear, Goal Oriented Thought Content: No Suicidal ideation, No Homicidal ideation, No Overt delusions Perceptual Disturbances: No Auditory hallucinations, No Visual hallucinations Attention Span Ability: Capable of Focused Attention Memory Description: Grossly Intact Patient Reliability: Questionable Historian Fund of knowledge: Yes abstraction ability, Yes aware of current events Intelligence Estimate: Average Judgment: Limited Insight: Partial
[2018-10-26] MEDS: hydrOXYzine pamoate 25 MG CAPSULE PO PRN (20:33)
[2018-10-26] MEDS: OLANZapine 5 MG TAB.RAPDIS PO SCH (20:33)
[2018-10-26] MEDS: traZODone 50 MG TABLET PO PRN (21:04)
[2018-10-27] MEDS: hydrOXYzine pamoate 25 MG CAPSULE PO PRN ×3 (00:06→23:35)
[2018-10-27] MEDS: traZODone 50 MG TABLET PO PRN ×2 (00:06→21:09)
[2018-10-27] MEDS: Mag Hydrox/Al Hydrox/Simeth 30 ML UDC PO PRN ×2 (10:48→21:12)
[2018-10-27] MEDS: Lithium Carbonate 300 MG CAPSULE PO SCH ×3 (10:48→21:09)
[2018-10-27] MEDS: Nicotine 21 MG PATCH.TD24 TD SCH (10:49)
--- NOTE | 2018-10-27 14:16 | Psychiatry Progress Note ---
Date of Encounter: 10/27/18 Time of Encounter: 10:15 Subjective Interval history: Client seen at bedside. She appeared in emotional distress, tearful, anxious, agitated, nervous. She endorsed thoughts of paranoia towards other in unit. She vocalized distrust about using bathroom and showering without justification. She showed some insight about paranoia in association with stopping her home medications prior to being admitted. Affect is congruent with mood. Her medication was adjusted. [place] level was below therapeutic level at 0.4. She currently is on 300 mg BID [place] and 5 mg Zyprexa. Increased [place] to 300 mg TID and Zyprexa to 10 mg PO HS. Review of Systems Constitutional: Denies: fever, chills, weakness, weight change Eyes: Denies: vision change Ears, Nose, Throat: Denies: hearing loss, congestion Cardiovascular: Denies: chest pain, palpitations, dyspnea on exertion Respiratory: Denies: cough, dyspnea, wheezes Gastrointestinal: Denies: abdominal pain, vomiting, diarrhea, constipation Musculoskeletal: Denies: joint pain Neurological: Denies: headache, weakness, numbness, confusion Psychiatric: Denies: depression, anxiety, abnormal sleep pattern, suicidal ideation, homicidal ideation, auditory hallucinations Results - Vital Signs Vital Signs: Temp Pulse Resp BP Pulse Ox 97.8 F 75 16 116/67 95 10/26/18 20:23 10/26/18 20:23 10/26/18 20:23 10/26/18 20:23 10/26/18 20:23 - Drug Levels and Toxicology Drug Levels and Toxicology: Drug Levels and Toxicity 10/27/18 09:06 [place] 0.4 L - Labs Labs: Laboratory Results - last 24 hr 10/27/18 09:06 [place] 0.4 L Assessment and Plan (1) Chronic schizophrenia Current visit: Yes Status: Acute Plan: Continue hospitalization, Close observation, Suicide Precautions per unit protocol, Encourage participation in unit milieu, Group Therapy Additional Plan: Discussed with client on affective communication when she is feeling anxious and nervous. She voiced concern about medications not helping. She agreed to have Zyprexa increased to 10 mg and [place] up to TID 300 mg based on [place] level below therapeutic level. Consult Discharge Plan - Plan Referrals: NONE,PCP [Primary Care Provider] - - Attending Attestation I examined this patient and my medical decision-making was reviewed with the Resident Physician. I agree with the documented findings, disposition and treatment plan as described except to the extent set forth below. Agree with mental status and plan. Psychiatry Exam - Constitutional Vitals: Temp Pulse Resp BP Pulse Ox 97.8 F 75 16 116/67 95 10/26/18 20:23 10/26/18 20:23 10/26/18 20:23 10/26/18 20:23 10/26/18 20:23 General appearance: age & developmentally appropriate, unkempt, malodorous - Musculoskeletal Gait: normal Station: relaxed Strength & Tone: normal for patient - Psychiatric Patient Orientation: Yes Person, Yes Time, Yes Place, Yes Circumstance Level of alertness: Alert, Follows commands Behavior: cooperative, tearful, agitated, guarded, withdrawn Psychomotor activity: Normal Eye Contact: Maintains Eye Contact Mood Description: Depressed, Anxious Affect description: congruent with mood Speech Volume: Normal Speech pattern: normal rate, normal rhythm, normal tone, fluent Language & Vocabulary: consistent with education Thought Process: Intact, Logical, Linear Thought Content: Yes Intact, No Suicidal ideation, No Homicidal ideation, Yes Paranoid delusion, No Scientology delusion Perceptual Disturbances: No Reacting to internal stimuli, No Auditory hallucinations, No Visual hallucinations, No Tactile hallucinations Attention Span Ability: Capable of Focused Attention Memory Description: Grossly Intact, Immediate Intact Patient Reliability: Reliable Historian Fund of knowledge: Yes abstraction ability Intelligence Estimate: Average Judgment: Fair Insight: Partial
[2018-10-27] MEDS: OLANZapine 5 MG TAB.RAPDIS PO SCH (21:08)
[2018-10-28] MEDS: Lithium Carbonate 300 MG CAPSULE PO SCH ×3 (09:13→21:30)
[2018-10-28] MEDS: Nicotine 21 MG PATCH.TD24 TD SCH (09:14)
[2018-10-28] MEDS: Acetaminophen 325 MG TABLET PO PRN ×3 (09:15→21:29)
--- NOTE | 2018-10-28 11:04 | Psychiatry Progress Note ---
Date of Encounter: 10/29/18 Time of Encounter: 09:20 Subjective Interval history: Patient seen at bedside appears to have blunted affect with no particular complaints. Admits that she is worried about her family. Patient also states that she would like to have her urine tested since she woke up in the night urinating, she thinks this could be a UTI or it could be the trazadone. Patient also admitted to being "confused about things she cannot understand but she does not know what she is confused about". She does not endorse paranoia toward others. Still endorses "fear of restroom". She states "improvement in confusion and overall mentality. Review of Systems Constitutional: Denies: fever, chills, weakness, weight change, night sweats Eyes: Denies: eye pain, vision change Ears, Nose, Throat: Denies: ear pain, throat pain, dental pain, hearing loss, epistaxis, congestion, dysphagia Cardiovascular: Denies: chest pain, palpitations, dyspnea on exertion, edema, syncope Respiratory: Reports: stridor. Denies: cough, dyspnea, wheezes, sputum production Gastrointestinal: Reports: abdominal pain (Patient admits to some LLQ pain and LBP associated with a possible UTI. She thinks it is a bladder infection but the pain has been present for ~6 months.). Denies: nausea, vomiting, diarrhea, constipation Genitourinary female: Reports: frequency. Denies: dysuria, hematuria, discharge, abnormal menses, dyspareunia, genital Lesions Musculoskeletal: Reports: back pain (Complains of bilateral lower lumbar achy posetior back pain. Also complains of bilateral anterior suprapubic tenderness.), other (LBP ~6mos. Patient believes the pain is associated with a UTI. A). Denies: joint swelling, joint pain, myalgia Integumentary: Denies: rash, lesions, change in hair/nails, pruritus Neurological: Denies: headache, weakness, numbness, paresthesias, memory loss, abnormal gait, vertigo Psychiatric: Reports: anxiety. Denies: depression, abnormal sleep pattern, suicidal ideation, change in appetite, homicidal ideation, auditory hallucinations, visual hallucinations, anhedonia, change in libido, memory loss, difficulty concentrating, hopelessness, irritability, mood swings, panic attacks, other Endocrine: Denies: fatigue, heat or cold intolerance, polydipsia, polyuria Hematologic/Lymphatic: Reports: easy bleeding Results - Vital Signs Vital Signs: Temp Pulse Resp BP Pulse Ox 96 F L 60 14 101/70 98 10/28/18 09:00 10/28/18 09:00 10/28/18 09:00 10/28/18 09:00 10/28/18 09:00 Assessment and Plan (1) Chronic schizophrenia Current visit: Yes Status: Acute Plan: Continue hospitalization, Close observation, Suicide Precautions per unit protocol, Encourage participation in unit milieu, Group Therapy, Monitor sleep Additional Plan: Based on client endorsing lower abdominal pain suprapubic region and increase frequency in urination will order urine analysis to rule out urinary tract infection. Client has improved in paranoia since yesterday and is reporting less confusion. Will continue medication changes from yesterday and advise to have [place] levels rechecked during follow-up outpatient to see if in therapeutic range of 0.6 to 1.2. Consult Discharge Plan - Plan Referrals: NONE,PCP [Primary Care Provider] - - Attending Attestation I examined this patient and my medical decision-making was reviewed with the Resident Physician. I agree with the documented findings, disposition and treatment plan as described except to the extent set forth below. Agree with mental status, assessment, and plan. Encourage groups, therapist to work on linkage. Back to baseline. Luiz discharge tomorrow if therapist can get her a way home. Psychiatry Exam - Constitutional Vitals: Temp Pulse Resp BP Pulse Ox 96 F L 60 14 101/70 98 10/28/18 09:00 10/28/18 09:00 10/28/18 09:00 10/28/18 09:00 10/28/18 09:00 General appearance: age & developmentally appropriate, well-nourished, unkempt - Musculoskeletal Gait: normal Station: relaxed Strength & Tone: normal for patient - Psychiatric Patient Orientation: Yes Person, Yes Time, Yes Place, Yes Circumstance Level of alertness: Alert Behavior: cooperative, nervous, anxious, agitated, guarded Psychomotor activity: Agitated Eye Contact: Minimal Contact Mood Description: Anxious Affect description: congruent with mood Speech Volume: Normal Speech pattern: normal rate, normal rhythm, normal tone, fluent Language & Vocabulary: consistent with education Thought Process: Intact Thought Content: Yes Intact, No Suicidal ideation, No Homicidal ideation, Yes Paranoid delusion (Fearful of bathroom and using shower. "family is out to get me", "ask the police". Was out in unit and socializing. Is am improvement from yesterday.) Perceptual Disturbances: No Reacting to internal stimuli, No Auditory hallucinations, No Visual hallucinations Attention Span Ability: Capable of Focused Attention, Capable of Sustained Attention Memory Description: Grossly Intact, Immediate Intact, Recent Intact Patient Reliability: Questionable Historian Fund of knowledge: Yes average Intelligence Estimate: Average Judgment: Fair Insight: Partial
[2018-10-28] MEDS: hydrOXYzine pamoate 25 MG CAPSULE PO PRN ×3 (11:35→21:32)
[2018-10-28] MEDS: OLANZapine 5 MG TAB.RAPDIS PO SCH (21:30)
[2018-10-28] MEDS: traZODone 50 MG TABLET PO PRN (21:31)
[2018-10-29] MEDS: Lithium Carbonate 300 MG CAPSULE PO SCH (08:44)
[2018-10-29] MEDS: Nicotine 21 MG PATCH.TD24 TD SCH (08:44)
[2018-10-29 09:22] VITALS: BP 108/54
[2018-10-29] MEDS: Mag Hydrox/Al Hydrox/Simeth 30 ML UDC PO PRN (10:19)
[2018-10-29] MEDS: Acetaminophen 325 MG TABLET PO PRN (10:19)
[2018-10-29] MEDS: hydrOXYzine pamoate 25 MG CAPSULE PO PRN (10:19)
--- NOTE | 2018-10-29 10:31 | Discharge Summary ---
Date of Encounter: 10/29/18 Time of Encounter: 09:10 Diagnosis - Discharge Diagnosis (1) Chronic schizophrenia Status: Acute Medications - Discharge Medications Prescriptions: [place] Carbonate 300 mg PO TID #45 capsule traZODone [TraZODone] 25 mg PO HS PRN #15 tablet PRN Reason: Insomnia hydrOXYzine pamoate [Vistaril] 25 mg PO TID PRN #45 capsule PRN Reason: Anxiety OLANZapine [Zyprexa Zydis] 10 mg PO HS #15 tab.rapdis Albuterol Sulfate [Proventil Inhaler] 2 puff IH Q6HR PRN 12/07/17 [History] [place] Carbonate 300 mg PO TID #45 capsule 10/29/18 [Rx] OLANZapine [Zyprexa Zydis] 10 mg PO HS #15 tab.rapdis 10/29/18 [Rx] hydrOXYzine pamoate [Vistaril] 25 mg PO TID PRN #45 capsule 10/29/18 [Rx] traZODone [TraZODone] 25 mg PO HS PRN #15 tablet 10/29/18 [Rx] Allergy/AdvReac Type Severity Reaction Status Date / Time citalopram [From Celexa] AdvReac swelling Verified 10/20/18 15:31 lurasidone [From Latuda] AdvReac swelling Verified 10/20/18 15:31 Results Procedures and tests throughout hospitalization: Completed Lab Orders Category Date Time Status Drug Screen, Urine [UCHEM] Stat Lab 10/20/18 16:58 Completed [place] Routine Lab 10/27/18 09:06 Completed Valproate Stat Lab 10/20/18 18:32 Completed Provider Date of admission: 10/21/18 01:46 Primary care physician: PCP NONE Discharging clinician: Mary Sultana Psychiatry Exam - Constitutional Vitals: Temp Pulse Resp BP Pulse Ox 96.4 F L 67 16 108/54 97 10/29/18 09:00 10/29/18 09:00 10/29/18 09:00 10/29/18 09:00 10/29/18 09:00 General appearance: age & developmentally appropriate, well-groomed, well- nourished - Musculoskeletal Gait: normal Station: relaxed Strength & Tone: normal for patient - Psychiatric Patient Orientation: Yes Person, Yes Time, Yes Place, Yes Circumstance Level of alertness: Alert Behavior: calm, cooperative Psychomotor activity: Normal Eye Contact: Maintains Eye Contact Mood Description: Euthymic/stable Patient description of mood: good Affect description: congruent with mood, full range Speech Volume: Normal Speech pattern: normal rate, normal rhythm, normal tone, fluent, spontaneous Language & Vocabulary: consistent with education Thought Process: Linear, Goal Oriented Thought Content: No Suicidal ideation, No Homicidal ideation, No Overt delusions Perceptual Disturbances: No Auditory hallucinations, No Visual hallucinations Attention Span Ability: Capable of Focused Attention Memory Description: Grossly Intact Patient Reliability: Reliable Historian Fund of knowledge: Yes abstraction ability, Yes aware of current events Intelligence Estimate: Average Judgment: Good Insight: Full Hospital Course Hospital course: Ms. Anand is a 48 year old female who was admitted for psychosis. She was also having behavioral disturbances including urinating on herself tearing down the curtains ripping up pillows and required emergency medications. She been off her home medications as she was started on Zyprexa and lithium. Dosages were adjusted as needed.Patient was educated of diagnosis and the risk-benefit side effects of this alternative treatment options and was monitored for responsiveness and side effects. Mood anxiety sleep and appetite interest improved as did future orientation. Self-harm thoughts subsided, thinking cleared, psychosis resolved, and mood stabilized. Patient was able to attend both individual and group therapy sessions as well as meet with the psychiatrist daily and urged to discuss any medication or treatment issues or other concerns. The patient was educated primarily by verbal means about their diag nosis and manifestations in their life. The option for treatment including group and individual therapy programming was offered to the patient in addition to the use of medications with all their potential risks, benefits, and side effects as well as the risks of not taking medication and non-adhereance were discussed with the patient at length. The patient was given the opportunity to ask questions and was noted to participate in the treatment in the planning process. The patient felt ready and eager to be discharged from the inpatient psychiatric unit to continue on with treatment as an outpatient. The patient agreed that is they were safe for this disposition. The patient was considered to be able to participate in informed consent and decision making with respect to medical, legal, and financial issues of the time of discharge. At the time of discharge the patient adamantly denied any concerns for lethality including suicidal or homicidal thoughts ideations or plans and was future oriented toward ongoing mental health care, medical follow-up and sobriety. Time spent discussing smoking cessation with patient: 3 to 10 minutes Does patient wish to continue nicotine replacement upon disc: No - Time Spent with Patient Total time spent providing and/or coordinating discharge services: 25 Less than 30 minutes Specific discharge activities: Interval history reviewed. Available labs reviewed . Psychotherapy provided. Patient had an opportunity to ask questions and address concerns. Patient was in agreement with the treatment plan. The risks benefits and side effects of medications were discussed with the patient, including alternatives and treatment. The patient was educated on the abstaining from any alcohol or illicit substances, following up with all scheduled appointments, and taking all medications as prescribed. . Assessment and Plan - Patient/Caregiver Discharge Instructions Activity: resume usual activities as tolerated Diet: regular diet Additional Instructions: Continue current medications. Follow up with outpatient mental health. Encourage continued therapy in a group or individual setting. The patient was discharged to home. - Follow up Plan Follow up with: NONE,PCP [Primary Care Provider] - Functional capacity at discharge: independent ambulation Overall status at discharge: Stable Disposition: Home, Self-Care Quality - Multiple Antipsychotics Patient discharged on 2 or more antipsychotic medications: No Procedures - Procedures Procedures: Medication Management, Crisis Stabilization, Supportive Therapy, Group Therapy, Psychoeducational Therapy
[2018-10-29 11:32] LABS: Bilirubin,Urine Negative (Negative); Blood,Urine Negative (Negative); Clarity,Urine Clear (Clear); Color,Urine Yellow (Yellow); Glucose,Urine (UA) Normal (Normal); Ketones,Urine Negative (Negative); Leukocyte Esterase,Urine Negative (Negative); Nitrite,Urine Negative (Negative); PH,Urine 6.5 pH Units (5.0-8.0); Protein,Urine Negative (Neg-Trace); Specific Gravity,Urine 1.005 (1.010-1.025); Urobilinogen,Urine Normal (Normal)
== END 2018-10-29 13:35 | disposition home or self-care (01) | DRG 750 ==
LOC: EMEROOARM 15:26 → 1ANU 10-21 01:46
PROVIDERS: ADMIT Psychiatry & Neurology Psychiatry; ATTEND Psychiatry & Neurology Psychiatry

== ENCOUNTER 2019-08-14 15:25 | Inpatient (IN) ==
[2019-08-14] MEDS ORDERED: Ibuprofen 600 MG TABLET PO ONE (15:36)
[2019-08-14] MEDS ORDERED: MOM Conc 10 ML UD.LIQ PO PRN (17:30)
[2019-08-14] MEDS ORDERED: Haloperidol Lactate 5 MG/ML VIAL IM PRN (17:30)
[2019-08-14] MEDS ORDERED: *HR* LORazepam 1 MG TABLET PO PRN (17:30)
[2019-08-14] MEDS ORDERED: haloperidoL 5 MG TABLET PO PRN (17:30)
[2019-08-14] MEDS ORDERED: traZODone 50 MG TABLET PO PRN (17:30)
[2019-08-14] MEDS ORDERED: *HR* LORazepam 2 MG/ML VIAL IM PRN (17:30)
[2019-08-14] MEDS: risperiDONE 1 MG TABLET PO SCH (20:15)
[2019-08-14] MEDS: Ibuprofen 400 MG TABLET PO PRN (20:16)
[2019-08-15] MEDS: hydrOXYzine pamoate 25 MG CAPSULE PO PRN ×3 (01:00→20:29)
[2019-08-15] MEDS: risperiDONE 1 MG TABLET PO SCH ×2 (08:27→20:29)
[2019-08-15] MEDS: Ibuprofen 400 MG TABLET PO PRN ×2 (08:28→19:55)
[2019-08-15] MEDS: Mag Hydrox/Al Hydrox/Simeth 30 ML UDC PO PRN ×2 (16:16→20:28)
[2019-08-15] MEDS ORDERED: traZODone 50 MG TABLET PO SCH (21:00)
[2019-08-16] MEDS: Ibuprofen 400 MG TABLET PO PRN (08:55)
[2019-08-16] MEDS: risperiDONE 1 MG TABLET PO SCH (08:55)
[2019-08-16 10:04] VITALS: BP 137/83
== END 2019-08-16 14:15 | disposition home or self-care (01) | DRG 750 ==
LOC: EMEROOARM 15:25 → 1ANU 17:05
PROVIDERS: ADMIT Psychiatry & Neurology Psychiatry; ATTEND Psychiatry & Neurology Psychiatry

== ENCOUNTER 2020-05-08 18:37 | Inpatient (IN) ==
[2020-05-08 19:44] LABS: Amphetamine Screen,Urine Negative ng/mL (Cutoff=1000); Barbiturate Screen,Urine Negative ng/mL (Cutoff=200); Benzodiazepines Screen,Urine Negative ng/mL (Cutoff=200); Cannabinoid Screen,Urine Negative ng/mL (Cutoff = 50); Cocaine Screen,Urine Negative ng/mL (Cutoff= 300); Opiate Screen,Urine Negative ng/mL (Cutoff=300); Phencyclidine Screen,Urine Negative ng/mL (Cutoff=25)
[2020-05-08 19:57] LABS: Bacteria,Urine Few per hpf (None-Few); Bilirubin,Urine Small (Negative); Blood,Urine Moderate (Negative); Clarity,Urine Turbid (Clear); Color,Urine Yellow (Yellow); Glucose,Urine (UA) 50 mg/dL (Normal); Hyaline Casts,Urine Many per lpf (None Seen); Ketones,Urine 40 mg/dL (Negative); Leukocyte Esterase,Urine Moderate (Negative); Mucus,Urine Many per lpf (None-Few); Nitrite,Urine Negative (Negative); Protein,Urine 50 mg/dL (Neg-Trace); RBC,Urine 15-30 per hpf (0-3); Specific Gravity,Urine > 1.030 (1.010-1.025); Squamous Epithelial Cell,Urine Few per hpf (None-Few); WBC,Urine 50-100 per hpf (0-3)
[2020-05-08] MEDS ORDERED: cephALEXin 500 MG CAPSULE PO STA (20:20)
[2020-05-08 20:21] LABS: Adenovirus Not Detected (Not Detect); Bordetella Pertussis Not Detected (Not Detect); Chlamydophila pneumoniae Not Detected (Not Detect); Coronavirus 229E Not Detected (Not Detect); Coronavirus HKU1 Not Detected (Not Detect); Coronavirus NL63 Not Detected (Not Detect); Coronavirus OC43 Not Detected (Not Detect); Human Metapneumovirus Not Detected (Not Detect); Human Rhinovirus/Enterovirus Not Detected (Not Detect); Influenza A Subtype 2009 H1 Not Detected (Not Detect); Influenza B Not Detected (Not Detect); Mycoplasma pneumoniae Not Detected (Not Detect); Parainfluenza Virus 1 Not Detected (Not Detect); Parainfluenza Virus 2 Not Detected (Not Detect); Parainfluenza Virus 3 Not Detected (Not Detect); Parainfluenza Virus 4 Not Detected (Not Detect); Respiratory Syncytial Virus Not Detected (Not Detect); SARS-CoV-2 Not Detected (Not Detect)
[2020-05-08] MEDS ORDERED: *HR* LORazepam 1 MG TABLET PO ONE (23:06)
[2020-05-08] MEDS ORDERED: haloperidoL 5 MG TABLET PO ONE (23:15)
[2020-05-09] MEDS ORDERED: *HR* LORazepam 2 MG/ML VIAL IM PRN (00:33)
[2020-05-09] MEDS ORDERED: Haloperidol Lactate 5 MG/ML VIAL IM PRN (00:33)
[2020-05-09] MEDS: haloperidoL 5 MG TABLET PO PRN ×3 (06:10→21:57)
[2020-05-09] MEDS: *HR* LORazepam 1 MG TABLET PO PRN ×3 (06:10→21:57)
[2020-05-09] MEDS: cephALEXin 500 MG CAPSULE PO SCH ×2 (15:04→21:30)
[2020-05-09] MEDS: traZODone 50 MG TABLET PO PRN (21:30)
[2020-05-09] MEDS: hydrOXYzine pamoate 25 MG CAPSULE PO PRN (21:30)
[2020-05-09] MEDS: risperiDONE 1 MG TABLET PO SCH (21:30)
[2020-05-10] MEDS: *HR* LORazepam 1 MG TABLET PO PRN ×3 (06:35→22:53)
[2020-05-10] MEDS: haloperidoL 5 MG TABLET PO PRN ×3 (06:35→22:53)
[2020-05-10] MEDS: cephALEXin 500 MG CAPSULE PO SCH ×2 (08:43→20:17)
[2020-05-10] MEDS: hydrOXYzine pamoate 25 MG CAPSULE PO PRN ×2 (08:43→20:18)
[2020-05-10] MEDS: risperiDONE 1 MG TABLET PO SCH ×2 (08:43→20:18)
[2020-05-10] MEDS: Nicotine 21 MG PATCH.TD24 TD SCH (08:44)
[2020-05-10] MEDS: Mag Hydrox/Al Hydrox/Simeth 30 ML UDC PO PRN (17:05)
[2020-05-10] MEDS: Acetaminophen 325 MG TABLET PO PRN (20:18)
[2020-05-10] MEDS: traZODone 50 MG TABLET PO PRN (20:18)
[2020-05-11] MEDS: cephALEXin 500 MG CAPSULE PO SCH ×2 (09:36→20:50)
[2020-05-11] MEDS: risperiDONE 1 MG TABLET PO SCH ×2 (09:36→20:50)
[2020-05-11] MEDS: Nicotine 21 MG PATCH.TD24 TD SCH (09:37)
[2020-05-11] MEDS: traZODone 50 MG TABLET PO PRN ×2 (20:50→23:50)
[2020-05-11] MEDS: hydrOXYzine pamoate 25 MG CAPSULE PO PRN (20:50)
[2020-05-11] MEDS: Acetaminophen 325 MG TABLET PO PRN (20:50)
[2020-05-12] MEDS: *HR* LORazepam 1 MG TABLET PO PRN ×2 (02:24→16:56)
[2020-05-12] MEDS: haloperidoL 5 MG TABLET PO PRN ×2 (02:24→16:56)
[2020-05-12] MEDS: Nicotine 21 MG PATCH.TD24 TD SCH (10:01)
[2020-05-12] MEDS: risperiDONE 1 MG TABLET PO SCH (10:02)
[2020-05-12] MEDS: cephALEXin 500 MG CAPSULE PO SCH ×2 (10:02→21:02)
[2020-05-12] MEDS: Acetaminophen 325 MG TABLET PO PRN (12:49)
[2020-05-12] MEDS: Mag Hydrox/Al Hydrox/Simeth 30 ML UDC PO PRN (17:00)
[2020-05-12] MEDS: traZODone 50 MG TABLET PO PRN (21:02)
[2020-05-12] MEDS: RisperiDAL 3 MG TABLET PO SCH (21:02)
[2020-05-13] MEDS: RisperiDAL 3 MG TABLET PO SCH (09:37)
[2020-05-13] MEDS: cephALEXin 500 MG CAPSULE PO SCH ×2 (09:37→20:01)
[2020-05-13] MEDS: Acetaminophen 325 MG TABLET PO PRN (09:37)
[2020-05-13] MEDS: Nicotine 21 MG PATCH.TD24 TD SCH (09:37)
[2020-05-13] MEDS: Mag Hydrox/Al Hydrox/Simeth 30 ML UDC PO PRN ×2 (11:36→19:12)
[2020-05-13] MEDS: *HR* LORazepam 1 MG TABLET PO PRN (19:13)
[2020-05-13] MEDS: haloperidoL 5 MG TABLET PO PRN (19:15)
[2020-05-14] MEDS: cephALEXin 500 MG CAPSULE PO SCH ×2 (09:53→20:31)
[2020-05-14] MEDS: Nicotine 21 MG PATCH.TD24 TD SCH (09:55)
[2020-05-14] MEDS: Mag Hydrox/Al Hydrox/Simeth 30 ML UDC PO PRN (10:38)
[2020-05-14] MEDS: haloperidoL 5 MG TABLET PO PRN (13:44)
[2020-05-14] MEDS: *HR* LORazepam 1 MG TABLET PO PRN (13:44)
[2020-05-14] MEDS: traZODone 50 MG TABLET PO PRN (22:37)
[2020-05-14] MEDS: hydrOXYzine pamoate 25 MG CAPSULE PO PRN (22:37)
[2020-05-15] MEDS: traZODone 50 MG TABLET PO PRN ×2 (01:21→20:34)
[2020-05-15] MEDS: hydrOXYzine pamoate 25 MG CAPSULE PO PRN (01:21)
[2020-05-15] MEDS: Nicotine 21 MG PATCH.TD24 TD SCH (09:35)
[2020-05-15] MEDS: cephALEXin 500 MG CAPSULE PO SCH ×2 (09:36→20:34)
[2020-05-15] MEDS ORDERED: *HR* Promethazine 25 MG/ML VIAL IM PRN (19:59)
[2020-05-16] MEDS: Nicotine 21 MG PATCH.TD24 TD SCH (09:01)
[2020-05-16] MEDS: cephALEXin 500 MG CAPSULE PO SCH ×2 (09:03→20:27)
[2020-05-16] MEDS ORDERED: PALIPERIDONE PALMITATE 234 MG/1.5 ML SYRINGE IM ONE (13:00)
[2020-05-16] MEDS: Ondansetron ODT 4 MG TAB.RAPDIS SL PRN ×2 (15:03→21:04)
[2020-05-16] MEDS: traZODone 50 MG TABLET PO PRN (20:27)
[2020-05-17] MEDS: hydrOXYzine pamoate 25 MG CAPSULE PO PRN ×2 (08:51→20:50)
[2020-05-17] MEDS: Nicotine 21 MG PATCH.TD24 TD SCH (08:52)
[2020-05-17] MEDS: cephALEXin 500 MG CAPSULE PO SCH ×2 (08:52→20:51)
[2020-05-17 09:50] LABS: BUN/Creatinine Ratio 22 (6-26); Blood Urea Nitrogen 20 mg/dL (6-20); Calcium 9.3 mg/dL (8.6-10.3); Carbon Dioxide 23 mEq/L (23-29); Chloride 104 mEq/L (98-107); Glucose 173 mg/dL (70-105); Osmolality,Calculated 287 (280-300); Potassium 4.1 mEq/L (3.5-5.1); Sodium 135 mEq/L (136-145); eGFR For African Americans > 60 (> 60); eGFR For Non-African Americans > 60 (> 60)
[2020-05-17] MEDS: haloperidoL 5 MG TABLET PO PRN ×2 (16:50→23:16)
[2020-05-17] MEDS: *HR* LORazepam 1 MG TABLET PO PRN ×2 (16:50→23:17)
[2020-05-17] MEDS: traZODone 50 MG TABLET PO PRN (20:50)
[2020-05-18] MEDS: cephALEXin 500 MG CAPSULE PO SCH ×2 (09:44→20:35)
[2020-05-18] MEDS: Nicotine 21 MG PATCH.TD24 TD SCH (09:45)
[2020-05-18] MEDS: hydrOXYzine pamoate 25 MG CAPSULE PO PRN (16:27)
[2020-05-18] MEDS: Acetaminophen 325 MG TABLET PO PRN (16:27)
[2020-05-18] MEDS: Ondansetron ODT 4 MG TAB.RAPDIS SL PRN (16:28)
[2020-05-18] MEDS: haloperidoL 5 MG TABLET PO PRN (18:07)
[2020-05-18] MEDS: *HR* LORazepam 1 MG TABLET PO PRN (18:07)
[2020-05-18] MEDS: Mag Hydrox/Al Hydrox/Simeth 30 ML UDC PO PRN (19:00)
[2020-05-18] MEDS: traZODone 50 MG TABLET PO PRN (20:35)
[2020-05-19] MEDS: cephALEXin 500 MG CAPSULE PO SCH ×2 (08:57→20:03)
[2020-05-19] MEDS: Nicotine 21 MG PATCH.TD24 TD SCH (08:58)
[2020-05-19] MEDS: hydrOXYzine pamoate 25 MG CAPSULE PO PRN ×2 (15:35→20:03)
[2020-05-19] MEDS: traZODone 50 MG TABLET PO PRN (20:03)
[2020-05-20] MEDS: hydrOXYzine pamoate 25 MG CAPSULE PO PRN ×2 (03:41→20:33)
[2020-05-20] MEDS: cephALEXin 500 MG CAPSULE PO SCH ×2 (09:08→20:32)
[2020-05-20] MEDS: Nicotine 21 MG PATCH.TD24 TD SCH (09:09)
[2020-05-20] MEDS: traZODone 50 MG TABLET PO PRN (20:33)
[2020-05-21] MEDS: haloperidoL 5 MG TABLET PO PRN (00:53)
[2020-05-21] MEDS: *HR* LORazepam 1 MG TABLET PO PRN (00:53)
[2020-05-21] MEDS: cephALEXin 500 MG CAPSULE PO SCH ×2 (09:58→21:01)
[2020-05-21] MEDS: Nicotine 21 MG PATCH.TD24 TD SCH (09:59)
[2020-05-21] MEDS: MOM Conc 10 ML UD.LIQ PO PRN (11:33)
[2020-05-21] MEDS: Perphenazine 2 MG TABLET PO SCH (21:00)
[2020-05-21] MEDS: QUEtiapine Fumarate 100 MG TABLET PO SCH (21:00)
[2020-05-21] MEDS: Ondansetron ODT 4 MG TAB.RAPDIS SL PRN (21:19)
[2020-05-22] MEDS: Perphenazine 2 MG TABLET PO SCH ×2 (10:05→20:53)
[2020-05-22] MEDS: cephALEXin 500 MG CAPSULE PO SCH ×2 (10:05→20:51)
[2020-05-22] MEDS: polyethylene glycoL 3350 17 GM POWD.PACK PO SCH (10:08)
[2020-05-22] MEDS: Nicotine 21 MG PATCH.TD24 TD SCH (10:08)
[2020-05-22] MEDS: hydrOXYzine pamoate 25 MG CAPSULE PO PRN (15:12)
[2020-05-22] MEDS: Ondansetron ODT 4 MG TAB.RAPDIS SL PRN (19:01)
[2020-05-22] MEDS: QUEtiapine Fumarate 100 MG TABLET PO SCH (20:51)
[2020-05-22] MEDS: haloperidoL 5 MG TABLET PO PRN (23:37)
[2020-05-22] MEDS: *HR* LORazepam 1 MG TABLET PO PRN (23:38)
[2020-05-23] MEDS: Perphenazine 2 MG TABLET PO SCH ×2 (09:32→20:58)
[2020-05-23] MEDS: polyethylene glycoL 3350 17 GM POWD.PACK PO SCH (09:32)
[2020-05-23] MEDS: cephALEXin 500 MG CAPSULE PO SCH (09:33)
[2020-05-23] MEDS: Nicotine 21 MG PATCH.TD24 TD SCH (09:33)
[2020-05-23] MEDS: hydrOXYzine pamoate 25 MG CAPSULE PO PRN ×3 (09:35→23:56)
[2020-05-23] MEDS: QUEtiapine Fumarate 100 MG TABLET PO SCH (20:59)
[2020-05-23] MEDS: QUEtiapine Fumarate 100 MG TABLET PO PRN (23:56)
[2020-05-24] MEDS: Nicotine 21 MG PATCH.TD24 TD SCH (08:53)
[2020-05-24] MEDS: Perphenazine 2 MG TABLET PO SCH ×2 (08:53→20:09)
[2020-05-24] MEDS: polyethylene glycoL 3350 17 GM POWD.PACK PO SCH (08:53)
[2020-05-24] MEDS ORDERED: PALIPERIDONE PALMITATE 156 MG/ML SYRINGE IM ONE (09:00)
[2020-05-24] MEDS: hydrOXYzine pamoate 25 MG CAPSULE PO PRN ×2 (09:45→18:52)
[2020-05-24] MEDS: QUEtiapine Fumarate 100 MG TABLET PO SCH (20:11)
[2020-05-24] MEDS: Neosporin OINT 15 GM TUBE TP SCH (20:12)
[2020-05-24] MEDS: QUEtiapine Fumarate 100 MG TABLET PO PRN (23:52)
[2020-05-25] MEDS: Perphenazine 2 MG TABLET PO SCH ×2 (08:47→20:07)
[2020-05-25] MEDS: polyethylene glycoL 3350 17 GM POWD.PACK PO SCH (08:48)
[2020-05-25] MEDS: Nicotine 21 MG PATCH.TD24 TD SCH (08:49)
[2020-05-25] MEDS: Neosporin OINT 15 GM TUBE TP SCH (14:17)
[2020-05-25] MEDS: QUEtiapine Fumarate 100 MG TABLET PO SCH (20:06)
[2020-05-25] MEDS: MOM Conc 10 ML UD.LIQ PO PRN (20:08)
[2020-05-25] MEDS: hydrOXYzine pamoate 25 MG CAPSULE PO PRN (23:24)
[2020-05-25] MEDS: QUEtiapine Fumarate 100 MG TABLET PO PRN (23:24)
[2020-05-26] MEDS: Neosporin OINT 15 GM TUBE TP SCH ×3 (02:12→12:22)
[2020-05-26] MEDS: Nicotine 21 MG PATCH.TD24 TD SCH (09:53)
[2020-05-26] MEDS: Perphenazine 2 MG TABLET PO SCH (09:55)
[2020-05-26] MEDS: polyethylene glycoL 3350 17 GM POWD.PACK PO SCH (09:55)
[2020-05-26 10:18] VITALS: BP 115/60
[2020-05-26] MEDS ORDERED: FLU Vac QV 20-21 (6Month+)/PF 0.5 ML SYRINGE IM ONE (11:53)
== END 2020-05-26 14:35 | disposition home or self-care (01) | DRG 750 ==
LOC: EMEROOARM 18:37 → 1ANU 05-09 00:29 → SUATTDRO 05-09 00:29 → 1ANU 05-09 00:49
PROVIDERS: ADMIT Psychiatry & Neurology Psychiatry; ATTEND Psychiatry & Neurology Psychiatry

== ENCOUNTER 2020-09-03 15:24 | Inpatient (IN) ==
[2020-09-03 18:19] LABS: Adenovirus Not Detected (Not Detect); Bordetella Pertussis Not Detected (Not Detect); Chlamydophila pneumoniae Not Detected (Not Detect); Coronavirus 229E Not Detected (Not Detect); Coronavirus HKU1 Not Detected (Not Detect); Coronavirus NL63 Not Detected (Not Detect); Coronavirus OC43 Not Detected (Not Detect); Human Metapneumovirus Not Detected (Not Detect); Human Rhinovirus/Enterovirus Not Detected (Not Detect); Influenza A Subtype 2009 H1 Not Detected (Not Detect); Influenza B Not Detected (Not Detect); Mycoplasma pneumoniae Not Detected (Not Detect); Parainfluenza Virus 1 Not Detected (Not Detect); Parainfluenza Virus 2 Not Detected (Not Detect); Parainfluenza Virus 3 Not Detected (Not Detect); Parainfluenza Virus 4 Not Detected (Not Detect); Respiratory Syncytial Virus Not Detected (Not Detect); SARS-CoV-2 Not Detected (Not Detect)
[2020-09-03] MEDS ORDERED: Haloperidol Lactate 5 MG/ML VIAL IM PRN (18:27)
[2020-09-03] MEDS ORDERED: *HR* LORazepam 2 MG/ML VIAL IM PRN (18:27)
[2020-09-03] MEDS ORDERED: haloperidoL 5 MG TABLET PO PRN (18:27)
[2020-09-03] MEDS ORDERED: *HR* LORazepam 1 MG TABLET PO PRN (18:27)
[2020-09-03] MEDS ORDERED: traZODone 50 MG TABLET PO PRN (18:27)
[2020-09-04] MEDS ORDERED: MOM Conc 10 ML UD.LIQ PO PRN (09:12)
[2020-09-04] MEDS ORDERED: QUEtiapine Fumarate 100 MG TABLET PO PRN (14:02)
[2020-09-04] MEDS: Mag Hydrox/Al Hydrox/Simeth 30 ML UDC PO PRN (15:16)
[2020-09-04] MEDS: hydrOXYzine pamoate 25 MG CAPSULE PO PRN (21:31)
[2020-09-04] MEDS: QUEtiapine Fumarate 100 MG TABLET PO SCH (21:31)
[2020-09-04] MEDS: Perphenazine 2 MG TABLET PO SCH (21:31)
[2020-09-05] MEDS: Mag Hydrox/Al Hydrox/Simeth 30 ML UDC PO PRN ×4 (03:08→23:45)
[2020-09-05] MEDS: Perphenazine 2 MG TABLET PO SCH ×2 (08:51→20:30)
[2020-09-05] MEDS: Aspirin Enteric Coated 81 MG Tablet PO SCH (11:59)
[2020-09-05] MEDS: QUEtiapine Fumarate 100 MG TABLET PO SCH (20:30)
[2020-09-05] MEDS: hydrOXYzine pamoate 25 MG CAPSULE PO PRN (20:30)
[2020-09-06] MEDS: Aspirin Enteric Coated 81 MG Tablet PO SCH (09:38)
[2020-09-06] MEDS: Perphenazine 2 MG TABLET PO SCH ×2 (09:38→20:13)
[2020-09-06] MEDS ORDERED: Neosporin OINT 15 GM TUBE TP PRN (10:27)
[2020-09-06] MEDS: polyethylene glycoL 3350 17 GM POWD.PACK PO SCH (12:13)
[2020-09-06] MEDS: Neosporin OINT 15 GM TUBE TP SCH ×2 (12:14→20:15)
[2020-09-06] MEDS ORDERED: Paliperidone Palmitate 234 MG/1.5 ML SYRINGE IM SCH (14:00)
[2020-09-06] MEDS: Ibuprofen 400 MG TABLET PO PRN (18:25)
[2020-09-06] MEDS: QUEtiapine Fumarate 100 MG TABLET PO SCH (20:14)
[2020-09-07] MEDS: hydrOXYzine pamoate 25 MG CAPSULE PO PRN (03:01)
[2020-09-07] MEDS: Ibuprofen 400 MG TABLET PO PRN ×2 (06:07→15:45)
[2020-09-07] MEDS: Perphenazine 2 MG TABLET PO SCH (09:01)
[2020-09-07] MEDS: Aspirin Enteric Coated 81 MG Tablet PO SCH (09:01)
[2020-09-07] MEDS: polyethylene glycoL 3350 17 GM POWD.PACK PO SCH (09:06)
[2020-09-07] MEDS: Neosporin OINT 15 GM TUBE TP SCH ×2 (09:52→20:18)
[2020-09-07] MEDS: QUEtiapine Fumarate 100 MG TABLET PO SCH (20:16)
[2020-09-07] MEDS: Perphenazine 8 MG TABLET PO SCH (20:17)
[2020-09-07] MEDS ORDERED: traZODone 50 MG TABLET PO ONE (21:37)
[2020-09-08] MEDS: Aspirin Enteric Coated 81 MG Tablet PO SCH (09:05)
[2020-09-08] MEDS: polyethylene glycoL 3350 17 GM POWD.PACK PO SCH (09:05)
[2020-09-08] MEDS: Perphenazine 2 MG TABLET PO SCH (09:06)
[2020-09-08] MEDS: Neosporin OINT 15 GM TUBE TP SCH ×2 (11:21→20:29)
[2020-09-08] MEDS: traZODone 50 MG TABLET PO SCH (20:28)
[2020-09-08] MEDS: QUEtiapine Fumarate 100 MG TABLET PO SCH (20:28)
[2020-09-08] MEDS: hydrOXYzine pamoate 25 MG CAPSULE PO PRN (20:28)
[2020-09-08] MEDS: Perphenazine 8 MG TABLET PO SCH (20:28)
[2020-09-08] MEDS ORDERED: traZODone 50 MG TABLET PO SCH (21:00)
[2020-09-09] MEDS: polyethylene glycoL 3350 17 GM POWD.PACK PO SCH (09:01)
[2020-09-09] MEDS: Perphenazine 2 MG TABLET PO SCH (09:01)
[2020-09-09] MEDS: Aspirin Enteric Coated 81 MG Tablet PO SCH (09:02)
[2020-09-09] MEDS: Neosporin OINT 15 GM TUBE TP SCH ×2 (11:06→20:12)
[2020-09-09] MEDS: QUEtiapine Fumarate 100 MG TABLET PO SCH (20:11)
[2020-09-09] MEDS: hydrOXYzine pamoate 25 MG CAPSULE PO PRN (20:11)
[2020-09-09] MEDS: Perphenazine 8 MG TABLET PO SCH (20:11)
[2020-09-09] MEDS: traZODone 50 MG TABLET PO SCH (20:11)
[2020-09-10] MEDS: hydrOXYzine pamoate 25 MG CAPSULE PO PRN (02:03)
[2020-09-10] MEDS: Perphenazine 2 MG TABLET PO SCH (08:30)
[2020-09-10] MEDS: Aspirin Enteric Coated 81 MG Tablet PO SCH (08:31)
[2020-09-10 08:38] VITALS: BP 117/82
[2020-09-10] MEDS ORDERED: Paliperidone Palmitate 156 MG/ML SYRINGE IM SCH (09:00)
[2020-09-10] MEDS ORDERED: polyethylene glycoL 3350 17 GM POWD.PACK PO PRN (09:09)
[2020-09-10] MEDS: polyethylene glycoL 3350 17 GM POWD.PACK PO SCH (09:47)
[2020-09-10] MEDS: Neosporin OINT 15 GM TUBE TP SCH (10:37)
[2020-09-10] MEDS: Ibuprofen 400 MG TABLET PO PRN (10:44)
[2020-09-10] MEDS ORDERED: traZODone 50 MG TABLET PO SCH ×2 (21:00)
== END 2020-09-10 11:30 | disposition home or self-care (01) | DRG 750 ==
LOC: EMEROOARM 15:24 → 1ANU 18:23
PROVIDERS: ADMIT Psychiatry & Neurology Psychiatry; ATTEND Psychiatry & Neurology Psychiatry

== ENCOUNTER 2020-12-20 03:29 | Inpatient (IN) ==
[2020-12-20 05:24] LABS: Basophils # 0.1 K/mcL (0.0-0.2); Basophils % 0.7 %; Eosinophils # 0.1 K/mcL (0.0-0.6); Eosinophils % 0.5 %; Hematocrit 41.6 % (35.3-44.9); Hemoglobin 14.2 g/dL (11.5-15.4); Immature Granulocytes % 0.8 % (0-4); Lymphocytes # 4.1 K/mcL (0.6-4.6); Lymphocytes % 27.5 %; Mean Corpuscular HGB Conc 34.1 g/dL (31.6-35.5); Mean Corpuscular Hemoglobin 30.8 pg (28.0-33.3); Mean Corpuscular Volume 90.2 fL (83.0-100.0); Mean Platelet Volume 9.5 fL (9.4-12.4); Monocytes # 1.3 K/mcL (0.0-1.3); Monocytes % 8.6 %; Neutrophils # 9.2 K/mcL (1.6-8.9); Platelet Count 271 K/mcL (140-400); Red Blood Count 4.61 M/mcL (3.82-4.97); Red Cell Distribution Width 12.9 % (11.5-14.5); Segmented Neutrophils % 61.9 %; White Blood Count 14.9 K/mcL (4.3-11.1)
[2020-12-20 05:39] LABS: Estimated Average Glucose 114 mg/dl; Hemoglobin A1C 5.6 %
[2020-12-20 05:44] LABS: Acetaminophen < 10 mcg/mL (10-20); BUN/Creatinine Ratio 14 (6-26); Blood Urea Nitrogen 12 mg/dL (6-20); Calcium 9.1 mg/dL (8.6-10.3); Carbon Dioxide 24 mEq/L (23-29); Chloride 104 mEq/L (98-107); Cholesterol 170 mg/dL (< 200); Ethanol < 10 mg/dL (Less than 10); Glucose 161 mg/dL (70-105); HDL Cholesterol 42 mg/dL (40-59); LDL Cholesterol,Calculated 106 mg/dL (< 100); Osmolality,Calculated 285 (280-300); Potassium 3.6 mEq/L (3.5-5.1); Salicylate < 2.5 mg/dL (15.0-30.0); Sodium 136 mEq/L (136-145); Triglycerides 112 mg/dL (< 150); eGFR For African Americans > 60 (> 60); eGFR For Non-African Americans > 60 (> 60)
[2020-12-20 06:15] LABS: Amphetamine Screen,Urine Negative ng/mL (Cutoff=1000); Barbiturate Screen,Urine Negative ng/mL (Cutoff=200)
[2020-12-20 06:16] LABS: Benzodiazepines Screen,Urine Negative ng/mL (Cutoff=300); Cannabinoid Screen,Urine Negative ng/mL (Cutoff = 50); Cocaine Screen,Urine Negative ng/mL (Cutoff= 300); Opiate Screen,Urine Negative ng/mL (Cutoff=300); Phencyclidine Screen,Urine Negative ng/mL (Cutoff=25)
[2020-12-20] MEDS ORDERED: Haloperidol Lactate 5 MG/ML VIAL IM ONE ×3 (13:45→23:30)
[2020-12-20 20:19] LABS: Influenza A PCR Negative (Negative); Influenza B PCR Negative (Negative); Resp. Syncytial Virus PCR Negative (Negative)
[2020-12-20 20:21] LABS: SARS-CoV-2 by PCR (In House) Negative (Negative)
[2020-12-20] MEDS ORDERED: *HR* LORazepam 2 MG/ML VIAL IM ONE (23:11)
[2020-12-21] MEDS ORDERED: *HR* LORazepam 1 MG TABLET PO PRN (00:11)
[2020-12-21] MEDS ORDERED: Haloperidol Lactate 5 MG/ML VIAL IM PRN (00:11)
[2020-12-21] MEDS ORDERED: *HR* LORazepam 2 MG/ML VIAL IM PRN (00:11)
[2020-12-21] MEDS ORDERED: haloperidoL 5 MG TABLET PO PRN (00:11)
[2020-12-21] MEDS ORDERED: MOM Conc 10 ML UD.LIQ PO PRN (08:49)
[2020-12-21] MEDS: Mag Hydrox/Al Hydrox/Simeth 30 ML UDC PO PRN (20:22)
[2020-12-21] MEDS: Perphenazine 8 MG TABLET PO SCH (20:22)
[2020-12-21] MEDS: Neosporin OINT 15 GM TUBE TP SCH (20:26)
[2020-12-21] MEDS: hydrOXYzine pamoate 25 MG CAPSULE PO PRN (21:48)
[2020-12-21] MEDS: QUEtiapine Fumarate 25 MG TABLET PO PRN (21:48)
[2020-12-22] MEDS: Perphenazine 8 MG TABLET PO SCH ×2 (08:40→20:37)
[2020-12-22] MEDS: Mag Hydrox/Al Hydrox/Simeth 30 ML UDC PO PRN ×2 (08:41→15:28)
[2020-12-22] MEDS: Neosporin OINT 15 GM TUBE TP SCH ×2 (10:09→20:40)
[2020-12-22] MEDS: Famotidine 20 MG TABLET PO PRN (17:22)
[2020-12-22] MEDS: QUEtiapine Fumarate 25 MG TABLET PO PRN ×2 (20:37→22:26)
[2020-12-22] MEDS: hydrOXYzine pamoate 25 MG CAPSULE PO PRN (20:37)
[2020-12-22] MEDS: Acetaminophen 325 MG TABLET PO PRN (20:37)
[2020-12-22] MEDS: Ibuprofen 400 MG TABLET PO PRN (22:27)
[2020-12-23] MEDS: Acetaminophen 325 MG TABLET PO PRN ×2 (07:50→20:53)
[2020-12-23] MEDS: Perphenazine 8 MG TABLET PO SCH ×2 (09:17→20:53)
[2020-12-23] MEDS: Neosporin OINT 15 GM TUBE TP SCH ×2 (09:18→20:53)
[2020-12-23] MEDS ORDERED: Paliperidone Palmitate 234 MG/1.5 ML SYRINGE IM SCH (09:30)
[2020-12-23] MEDS: Nicotine 2 MG GUM BC PRN (11:37)
[2020-12-23] MEDS: hydrOXYzine pamoate 25 MG CAPSULE PO PRN ×2 (11:56→20:53)
[2020-12-23] MEDS: Mag Hydrox/Al Hydrox/Simeth 30 ML UDC PO PRN (12:08)
[2020-12-23] MEDS ORDERED: polyethylene glycoL 3350 17 GM POWD.PACK PO PRN (13:17)
[2020-12-23] MEDS: Famotidine 20 MG TABLET PO PRN (14:32)
[2020-12-23] MEDS: Divalproex (12 HR) 250 MG TABLET PO SCH (20:53)
[2020-12-23] MEDS: QUEtiapine Fumarate 25 MG TABLET PO PRN (20:53)
[2020-12-24] MEDS: QUEtiapine Fumarate 25 MG TABLET PO PRN ×2 (00:39→20:52)
[2020-12-24] MEDS: Acetaminophen 325 MG TABLET PO PRN (03:32)
[2020-12-24] MEDS: Neosporin OINT 15 GM TUBE TP SCH ×2 (09:30→20:52)
[2020-12-24] MEDS: Perphenazine 8 MG TABLET PO SCH ×2 (09:30→20:51)
[2020-12-24] MEDS: Divalproex (12 HR) 250 MG TABLET PO SCH ×2 (09:30→20:52)
[2020-12-24] MEDS: Mag Hydrox/Al Hydrox/Simeth 30 ML UDC PO PRN (13:36)
[2020-12-24] MEDS: hydrOXYzine pamoate 25 MG CAPSULE PO PRN ×2 (14:00→20:51)
[2020-12-24] MEDS: Nicotine 2 MG GUM BC PRN ×2 (15:01→17:31)
[2020-12-25] MEDS: Divalproex (12 HR) 250 MG TABLET PO SCH ×2 (08:22→21:04)
[2020-12-25] MEDS: Neosporin OINT 15 GM TUBE TP SCH ×2 (08:22→21:04)
[2020-12-25] MEDS: Perphenazine 8 MG TABLET PO SCH ×2 (08:22→21:04)
[2020-12-25] MEDS: Acetaminophen 325 MG TABLET PO PRN (14:01)
[2020-12-25] MEDS: Nicotine 2 MG GUM BC PRN ×3 (15:51→21:04)
[2020-12-25] MEDS: Mag Hydrox/Al Hydrox/Simeth 30 ML UDC PO PRN (18:11)
[2020-12-25] MEDS: traZODone 50 MG TABLET PO PRN (21:04)
[2020-12-25] MEDS: hydrOXYzine pamoate 25 MG CAPSULE PO PRN (21:05)
[2020-12-26] MEDS: Nicotine 2 MG GUM BC PRN ×2 (06:33→20:40)
[2020-12-26] MEDS: hydrOXYzine pamoate 25 MG CAPSULE PO PRN ×3 (08:49→22:07)
[2020-12-26] MEDS: Divalproex (12 HR) 250 MG TABLET PO SCH ×2 (08:49→20:40)
[2020-12-26] MEDS: Perphenazine 8 MG TABLET PO SCH ×2 (08:49→20:40)
[2020-12-26] MEDS: Neosporin OINT 15 GM TUBE TP SCH ×2 (08:49→20:42)
[2020-12-26] MEDS: Acetaminophen 325 MG TABLET PO PRN ×3 (10:21→20:39)
[2020-12-26] MEDS: Ibuprofen 400 MG TABLET PO PRN (17:30)
[2020-12-26] MEDS: traZODone 50 MG TABLET PO PRN ×2 (20:40→22:02)
[2020-12-27] MEDS ORDERED: Paliperidone Palmitate 156 MG/ML SYRINGE IM SCH (09:00)
[2020-12-27] MEDS: Perphenazine 8 MG TABLET PO SCH ×2 (09:34→20:36)
[2020-12-27] MEDS: Divalproex (12 HR) 250 MG TABLET PO SCH ×2 (09:34→20:36)
[2020-12-27] MEDS: Ibuprofen 400 MG TABLET PO PRN ×2 (09:38→20:36)
[2020-12-27] MEDS: Neosporin OINT 15 GM TUBE TP SCH ×2 (13:14→20:36)
[2020-12-27] MEDS: Mag Hydrox/Al Hydrox/Simeth 30 ML UDC PO PRN (13:15)
[2020-12-27] MEDS: Acetaminophen 325 MG TABLET PO PRN (14:51)
[2020-12-27] MEDS: hydrOXYzine pamoate 25 MG CAPSULE PO PRN ×2 (14:51→20:56)
[2020-12-27] MEDS: traZODone 50 MG TABLET PO PRN (20:37)
[2020-12-28] MEDS: Ibuprofen 400 MG TABLET PO PRN ×3 (07:12→20:33)
[2020-12-28] MEDS: hydrOXYzine pamoate 25 MG CAPSULE PO PRN (07:13)
[2020-12-28] MEDS: Perphenazine 8 MG TABLET PO SCH ×2 (09:46→20:33)
[2020-12-28] MEDS: Divalproex (12 HR) 250 MG TABLET PO SCH ×2 (09:46→20:33)
[2020-12-28] MEDS: Neosporin OINT 15 GM TUBE TP SCH ×2 (09:47→19:38)
[2020-12-28] MEDS: Fluticasone Propionate Nasal 50 MCG/SPRAY BOTTLE NS SCH (10:32)
[2020-12-28] MEDS: Tiotropium 10 INH DOSE IH SCH (10:32)
[2020-12-28] MEDS: Acetaminophen 325 MG TABLET PO PRN (11:11)
[2020-12-28 11:12] LABS: Bacteria,Urine Few per hpf (None-Few); Bilirubin,Urine Negative (Negative); Blood,Urine Small (Negative); Clarity,Urine Clear (Clear); Color,Urine Colorless (Yellow); Glucose,Urine (UA) Normal (Normal); Ketones,Urine Negative (Negative); Leukocyte Esterase,Urine Negative (Negative); Nitrite,Urine Negative (Negative); Protein,Urine Negative (Neg-Trace); RBC,Urine 0-3 per hpf (0-3); Specific Gravity,Urine 1.006 (1.010-1.025); Squamous Epithelial Cell,Urine Few per hpf (None-Few); Urobilinogen,Urine Normal (Normal); WBC,Urine 0-3 per hpf (0-3)
[2020-12-28] MEDS: Nicotine 2 MG GUM BC PRN (13:02)
[2020-12-28] MEDS: traZODone 50 MG TABLET PO PRN (20:34)
[2020-12-29] MEDS: Acetaminophen 325 MG TABLET PO PRN ×2 (08:47→20:17)
[2020-12-29] MEDS: Fluticasone Propionate Nasal 50 MCG/SPRAY BOTTLE NS SCH (08:49)
[2020-12-29] MEDS: Divalproex (12 HR) 250 MG TABLET PO SCH ×2 (08:49→20:17)
[2020-12-29] MEDS: Perphenazine 8 MG TABLET PO SCH ×2 (08:49→20:17)
[2020-12-29] MEDS: Tiotropium 10 INH DOSE IH SCH (08:50)
[2020-12-29] MEDS: Neosporin OINT 15 GM TUBE TP SCH ×2 (08:50→20:19)
[2020-12-29] MEDS: Ibuprofen 400 MG TABLET PO PRN (13:10)
[2020-12-29] MEDS: Famotidine 20 MG TABLET PO PRN (13:29)
[2020-12-29] MEDS: hydrOXYzine pamoate 25 MG CAPSULE PO PRN ×2 (14:10→20:17)
[2020-12-29] MEDS: traZODone 50 MG TABLET PO PRN (20:16)
[2020-12-29] MEDS: Nicotine 2 MG GUM BC PRN (20:16)
[2020-12-30] MEDS: Ibuprofen 400 MG TABLET PO PRN ×2 (01:12→15:41)
[2020-12-30] MEDS: Nicotine 2 MG GUM BC PRN ×3 (05:32→19:22)
[2020-12-30] MEDS: Acetaminophen 325 MG TABLET PO PRN (05:32)
[2020-12-30] MEDS: Fluticasone Propionate Nasal 50 MCG/SPRAY BOTTLE NS SCH (08:15)
[2020-12-30] MEDS: Perphenazine 8 MG TABLET PO SCH ×2 (08:16→20:58)
[2020-12-30] MEDS: Tiotropium 10 INH DOSE IH SCH (08:16)
[2020-12-30] MEDS: Divalproex (12 HR) 250 MG TABLET PO SCH ×2 (08:16→20:58)
[2020-12-30] MEDS: Neosporin OINT 15 GM TUBE TP SCH ×2 (08:18→21:02)
[2020-12-30] MEDS: Clotrimazole/Betameth Dip CRM 45 APPL/45 GM TUBE TP PRN ×2 (15:13→21:03)
[2020-12-30] MEDS: hydrOXYzine pamoate 25 MG CAPSULE PO PRN (20:58)
[2020-12-30] MEDS: traZODone 50 MG TABLET PO PRN (20:58)
[2020-12-31] MEDS: Ibuprofen 400 MG TABLET PO PRN ×2 (06:47→21:27)
[2020-12-31] MEDS: Fluticasone Propionate Nasal 50 MCG/SPRAY BOTTLE NS SCH (09:00)
[2020-12-31] MEDS: Neosporin OINT 15 GM TUBE TP SCH ×2 (09:00→21:27)
[2020-12-31] MEDS: Mag Hydrox/Al Hydrox/Simeth 30 ML UDC PO PRN (09:00)
[2020-12-31] MEDS: Divalproex (12 HR) 250 MG TABLET PO SCH ×2 (09:01→21:26)
[2020-12-31] MEDS: Perphenazine 8 MG TABLET PO SCH ×2 (09:02→21:27)
[2020-12-31] MEDS: Clotrimazole/Betameth Dip CRM 45 APPL/45 GM TUBE TP PRN ×2 (09:03→21:29)
[2020-12-31] MEDS: Tiotropium 10 INH DOSE IH SCH (11:10)
[2020-12-31] MEDS: Famotidine 20 MG TABLET PO PRN (11:37)
[2020-12-31] MEDS: Nicotine 2 MG GUM BC PRN ×2 (12:53→17:07)
[2020-12-31] MEDS: hydrOXYzine pamoate 25 MG CAPSULE PO PRN ×2 (13:37→21:26)
[2020-12-31] MEDS: traZODone 50 MG TABLET PO PRN (21:27)
[2021-01-01] MEDS: Fluticasone Propionate Nasal 50 MCG/SPRAY BOTTLE NS SCH (08:26)
[2021-01-01] MEDS: Divalproex (12 HR) 250 MG TABLET PO SCH ×2 (08:27→20:26)
[2021-01-01] MEDS: Perphenazine 8 MG TABLET PO SCH ×2 (08:27→20:26)
[2021-01-01] MEDS: Neosporin OINT 15 GM TUBE TP SCH ×3 (10:23→20:52)
[2021-01-01] MEDS: Tiotropium 10 INH DOSE IH SCH (11:09)
[2021-01-01] MEDS: Clotrimazole/Betameth Dip CRM 45 APPL/45 GM TUBE TP PRN (11:11)
[2021-01-01] MEDS: Nicotine 2 MG GUM BC PRN ×3 (12:28→20:26)
[2021-01-01] MEDS: hydrOXYzine pamoate 25 MG CAPSULE PO PRN (20:24)
[2021-01-01] MEDS: traZODone 50 MG TABLET PO PRN (20:26)
[2021-01-01] MEDS: Mag Hydrox/Al Hydrox/Simeth 30 ML UDC PO PRN (20:30)
[2021-01-01] MEDS: Famotidine 20 MG TABLET PO PRN (21:47)
[2021-01-02] MEDS: Divalproex (12 HR) 250 MG TABLET PO SCH ×2 (08:50→21:33)
[2021-01-02] MEDS: Perphenazine 8 MG TABLET PO SCH ×2 (08:51→21:33)
[2021-01-02] MEDS: Neosporin OINT 15 GM TUBE TP SCH ×2 (11:20→21:33)
[2021-01-02] MEDS: Fluticasone Propionate Nasal 50 MCG/SPRAY BOTTLE NS SCH (11:20)
[2021-01-02] MEDS: Tiotropium 10 INH DOSE IH SCH (11:21)
[2021-01-02] MEDS: Clotrimazole/Betameth Dip CRM 45 APPL/45 GM TUBE TP PRN ×2 (11:26→21:33)
[2021-01-02] MEDS: hydrOXYzine pamoate 25 MG CAPSULE PO PRN ×2 (13:08→21:33)
[2021-01-02] MEDS: Nicotine 2 MG GUM BC PRN ×2 (13:08→17:15)
[2021-01-02] MEDS: Acetaminophen 325 MG TABLET PO PRN (15:09)
[2021-01-02] MEDS: traZODone 50 MG TABLET PO PRN (21:33)
[2021-01-03] MEDS: Fluticasone Propionate Nasal 50 MCG/SPRAY BOTTLE NS SCH (08:48)
[2021-01-03] MEDS: Perphenazine 8 MG TABLET PO SCH ×2 (08:49→21:02)
[2021-01-03] MEDS: Tiotropium 10 INH DOSE IH SCH (08:49)
[2021-01-03] MEDS: Divalproex (12 HR) 250 MG TABLET PO SCH ×2 (08:49→21:03)
[2021-01-03] MEDS: hydrOXYzine pamoate 25 MG CAPSULE PO PRN ×2 (08:54→21:03)
[2021-01-03] MEDS: Nicotine 2 MG GUM BC PRN ×3 (12:43→22:05)
[2021-01-03] MEDS: Neosporin OINT 15 GM TUBE TP SCH ×2 (12:45→21:42)
[2021-01-03] MEDS: Acetaminophen 325 MG TABLET PO PRN (21:03)
[2021-01-03] MEDS: Clotrimazole/Betameth Dip CRM 45 APPL/45 GM TUBE TP PRN (21:42)
[2021-01-03] MEDS: Mag Hydrox/Al Hydrox/Simeth 30 ML UDC PO PRN (22:06)
[2021-01-03] MEDS: Ibuprofen 400 MG TABLET PO PRN (23:22)
[2021-01-04] MEDS: Ibuprofen 400 MG TABLET PO PRN (04:18)
[2021-01-04] MEDS: Nicotine 2 MG GUM BC PRN ×4 (04:18→22:21)
[2021-01-04] MEDS: Mag Hydrox/Al Hydrox/Simeth 30 ML UDC PO PRN (05:38)
[2021-01-04] MEDS: Divalproex (12 HR) 250 MG TABLET PO SCH ×2 (11:16→21:48)
[2021-01-04] MEDS: Perphenazine 8 MG TABLET PO SCH ×2 (11:16→21:49)
[2021-01-04] MEDS: hydrOXYzine pamoate 25 MG CAPSULE PO PRN ×2 (11:19→21:49)
[2021-01-04] MEDS: Fluticasone Propionate Nasal 50 MCG/SPRAY BOTTLE NS SCH (11:52)
[2021-01-04] MEDS: Tiotropium 10 INH DOSE IH SCH ×2 (11:52→12:36)
[2021-01-04] MEDS: Neosporin OINT 15 GM TUBE TP SCH ×2 (11:52→21:48)
[2021-01-04] MEDS: traZODone 50 MG TABLET PO PRN (21:49)
[2021-01-04] MEDS: Gabapentin 300 MG CAPSULE PO SCH (21:53)
[2021-01-05] MEDS: Fluticasone Propionate Nasal 50 MCG/SPRAY BOTTLE NS SCH (09:03)
[2021-01-05] MEDS: Perphenazine 8 MG TABLET PO SCH ×2 (09:04→20:29)
[2021-01-05] MEDS: Tiotropium 10 INH DOSE IH SCH (09:04)
[2021-01-05] MEDS: Neosporin OINT 15 GM TUBE TP SCH ×2 (09:04→21:01)
[2021-01-05] MEDS: Divalproex (12 HR) 250 MG TABLET PO SCH ×2 (09:04→20:29)
[2021-01-05] MEDS: Nicotine 2 MG GUM BC PRN (15:04)
[2021-01-05] MEDS: hydrOXYzine pamoate 25 MG CAPSULE PO PRN ×2 (16:30→20:28)
[2021-01-05] MEDS: Gabapentin 300 MG CAPSULE PO SCH (20:29)
[2021-01-05] MEDS: Acetaminophen 325 MG TABLET PO PRN (20:29)
[2021-01-06] MEDS: Divalproex (12 HR) 250 MG TABLET PO SCH ×2 (09:04→20:49)
[2021-01-06] MEDS: Perphenazine 8 MG TABLET PO SCH ×2 (09:04→20:49)
[2021-01-06] MEDS: Tiotropium 10 INH DOSE IH SCH (09:05)
[2021-01-06] MEDS: Neosporin OINT 15 GM TUBE TP SCH ×2 (09:06→20:48)
[2021-01-06] MEDS: Fluticasone Propionate Nasal 50 MCG/SPRAY BOTTLE NS SCH (09:06)
[2021-01-06] MEDS: Gabapentin 300 MG CAPSULE PO SCH ×2 (09:53→20:49)
[2021-01-06] MEDS: Acetaminophen 325 MG TABLET PO PRN (13:54)
[2021-01-06] MEDS: hydrOXYzine pamoate 25 MG CAPSULE PO PRN ×2 (15:27→20:49)
[2021-01-06] MEDS: Nicotine 2 MG GUM BC PRN ×2 (17:46→20:54)
[2021-01-07] MEDS: Acetaminophen 325 MG TABLET PO PRN (02:02)
[2021-01-07] MEDS: Gabapentin 300 MG CAPSULE PO SCH ×2 (09:02→21:07)
[2021-01-07] MEDS: Perphenazine 8 MG TABLET PO SCH ×2 (09:03→21:07)
[2021-01-07] MEDS: Divalproex (12 HR) 250 MG TABLET PO SCH ×2 (09:03→21:07)
[2021-01-07] MEDS: Fluticasone Propionate Nasal 50 MCG/SPRAY BOTTLE NS SCH (09:04)
[2021-01-07] MEDS: Tiotropium 10 INH DOSE IH SCH (09:05)
[2021-01-07] MEDS: Neosporin OINT 15 GM TUBE TP SCH ×2 (09:05→22:05)
[2021-01-07] MEDS: Nicotine 2 MG GUM BC PRN ×2 (15:02→17:37)
[2021-01-07] MEDS: hydrOXYzine pamoate 25 MG CAPSULE PO PRN ×2 (17:37→21:07)
[2021-01-07] MEDS: traZODone 50 MG TABLET PO PRN (21:07)
[2021-01-07] MEDS: Saline Nasal Spray 44 ML BOTTLE NS PRN (21:09)
[2021-01-08] MEDS: Gabapentin 300 MG CAPSULE PO SCH ×2 (09:46→20:23)
[2021-01-08] MEDS: Perphenazine 8 MG TABLET PO SCH ×2 (09:46→20:22)
[2021-01-08] MEDS: Neosporin OINT 15 GM TUBE TP SCH ×2 (09:47→20:31)
[2021-01-08] MEDS: Tiotropium 10 INH DOSE IH SCH (09:47)
[2021-01-08] MEDS: Fluticasone Propionate Nasal 50 MCG/SPRAY BOTTLE NS SCH (09:47)
[2021-01-08] MEDS: Divalproex (12 HR) 250 MG TABLET PO SCH ×2 (09:47→20:23)
[2021-01-08] MEDS: hydrOXYzine pamoate 25 MG CAPSULE PO PRN ×2 (12:59→22:19)
[2021-01-08] MEDS: Nicotine 2 MG GUM BC PRN ×3 (12:59→20:27)
[2021-01-08] MEDS: Saline Nasal Spray 44 ML BOTTLE NS PRN ×2 (13:24→20:22)
[2021-01-08] MEDS: Acetaminophen 325 MG TABLET PO PRN (15:15)
[2021-01-08] MEDS: traZODone 50 MG TABLET PO PRN (20:23)
[2021-01-09] MEDS: Divalproex (12 HR) 250 MG TABLET PO SCH (08:54)
[2021-01-09] MEDS: Perphenazine 8 MG TABLET PO SCH (08:54)
[2021-01-09] MEDS: hydrOXYzine pamoate 25 MG CAPSULE PO PRN ×2 (08:55→12:38)
[2021-01-09] MEDS: Gabapentin 300 MG CAPSULE PO SCH (08:55)
[2021-01-09] MEDS: Neosporin OINT 15 GM TUBE TP SCH (08:56)
[2021-01-09] MEDS: Nicotine 2 MG GUM BC PRN ×2 (09:00→13:16)
[2021-01-09] MEDS: Fluticasone Propionate Nasal 50 MCG/SPRAY BOTTLE NS SCH (09:03)
[2021-01-09] MEDS: Tiotropium 10 INH DOSE IH SCH (09:26)
[2021-01-09 09:47] VITALS: BP 93/64; PULSE 72; TEMP 98.1; O2SAT 97
[2021-01-09] MEDS: Saline Nasal Spray 44 ML BOTTLE NS PRN (12:39)
== END 2021-01-09 14:05 | disposition home or self-care (01) | DRG 750 ==
LOC: EMEROOARM 03:29 → 1ANU 12-21 08:41
PROVIDERS: ADMIT Psychiatry & Neurology Psychiatry; ATTEND Psychiatry & Neurology Psychiatry

== ENCOUNTER 2021-01-25 13:55 | Inpatient (IN) ==
[2021-01-25] MEDS ORDERED: *HR* LORazepam 2 MG/ML VIAL IM PRN (14:13)
[2021-01-25] MEDS ORDERED: Ziprasidone 10 MG, Closed System Device IM Kit 1 EACH in Water for inj. (sterile) 0.5 ML IM PRN (14:20)
[2021-01-25 14:37] LABS: Basophils # 0.1 K/mcL (0.0-0.2); Basophils % 0.6 %; Eosinophils # 0.1 K/mcL (0.0-0.6); Eosinophils % 1.6 %; Hematocrit 41.5 % (35.3-44.9); Hemoglobin 14.4 g/dL (11.5-15.4); Immature Granulocytes % 0.6 % (0-4); Lymphocytes # 2.2 K/mcL (0.6-4.6); Lymphocytes % 24.3 %; Mean Corpuscular HGB Conc 34.7 g/dL (31.6-35.5); Mean Corpuscular Hemoglobin 30.6 pg (28.0-33.3); Mean Corpuscular Volume 88.1 fL (83.0-100.0); Mean Platelet Volume 9.7 fL (9.4-12.4); Monocytes # 0.8 K/mcL (0.0-1.3); Monocytes % 8.9 %; Neutrophils # 5.8 K/mcL (1.6-8.9); Platelet Count 339 K/mcL (140-400); Red Blood Count 4.71 M/mcL (3.82-4.97); Red Cell Distribution Width 12.8 % (11.5-14.5)
[2021-01-25 15:00] LABS: Acetaminophen < 10 mcg/mL (10-20); BUN/Creatinine Ratio 17 (6-26); Blood Urea Nitrogen 16 mg/dL (6-20); Calcium 9.6 mg/dL (8.6-10.3); Carbon Dioxide 24 mEq/L (23-29); Chloride 105 mEq/L (98-107); Chol/HDL Ratio 4.8 (0-4.9); Cholesterol 234 mg/dL (< 200); Ethanol < 10 mg/dL (Less than 10); Glucose 117 mg/dL (70-105); HDL Cholesterol 49 mg/dL (40-59); LDL Cholesterol,Calculated 152 mg/dL (< 100); Osmolality,Calculated 288 (280-300); Potassium 4.1 mEq/L (3.5-5.1); Salicylate < 2.5 mg/dL (15.0-30.0); Sodium 138 mEq/L (136-145); Triglycerides 164 mg/dL (< 150); eGFR For African Americans > 60 (> 60); eGFR For Non-African Americans > 60 (> 60)
[2021-01-25 16:06] LABS: Influenza A PCR Negative (Negative); Influenza B PCR Negative (Negative); Resp. Syncytial Virus PCR Negative (Negative); SARS-CoV-2 by PCR (In House) Negative (Negative)
[2021-01-25 16:20] LABS: Bilirubin,Urine Negative (Negative); Blood,Urine Small (Negative); Clarity,Urine Clear (Clear); Color,Urine Light-Yellow (Yellow); Glucose,Urine (UA) Normal (Normal); Ketones,Urine Negative (Negative); Leukocyte Esterase,Urine Negative (Negative); Nitrite,Urine Negative (Negative); PH,Urine 6.5 pH Units (5.0-8.0); Protein,Urine Negative (Neg-Trace); Specific Gravity,Urine 1.012 (1.010-1.025); Squamous Epithelial Cell,Urine Few per hpf (None-Few); Urobilinogen,Urine Normal (Normal); WBC,Urine 0-3 per hpf (0-3)
[2021-01-25 16:36] LABS: Amphetamine Screen,Urine Negative ng/mL (Cutoff=1000); Barbiturate Screen,Urine Negative ng/mL (Cutoff=200); Benzodiazepines Screen,Urine Negative ng/mL (Cutoff=200); Cannabinoid Screen,Urine Negative ng/mL (Cutoff = 50); Cocaine Screen,Urine Negative ng/mL (Cutoff= 300); Opiate Screen,Urine Negative ng/mL (Cutoff=300); Phencyclidine Screen,Urine Negative ng/mL (Cutoff=25)
[2021-01-25 19:04] LABS: Estimated Average Glucose 123 mg/dl; Hemoglobin A1C 5.9 %
[2021-01-25] MEDS: QUEtiapine Fumarate 25 MG TABLET PO PRN (21:01)
[2021-01-25] MEDS: hydrOXYzine pamoate 25 MG CAPSULE PO PRN (21:01)
[2021-01-25] MEDS: OLANZapine 10 MG TAB.RAPDIS PO SCH (21:27)
[2021-01-25] MEDS: Gabapentin 300 MG CAPSULE PO SCH (21:27)
[2021-01-25] MEDS ORDERED: Divalproex (12 HR) 250 MG TABLET PO ONE (21:30)
[2021-01-26] MEDS: MOM Conc 10 ML UD.LIQ PO PRN (09:38)
[2021-01-26] MEDS: Gabapentin 300 MG CAPSULE PO SCH ×2 (09:38→20:02)
[2021-01-26] MEDS: Aspirin Enteric Coated 81 MG Tablet PO SCH (09:38)
[2021-01-26] MEDS: OLANZapine 10 MG TAB.RAPDIS PO SCH ×2 (09:39→20:01)
[2021-01-26] MEDS: Mag Hydrox/Al Hydrox/Simeth 30 ML UDC PO PRN (10:43)
[2021-01-26] MEDS: Divalproex (12 HR) 250 MG TABLET PO SCH ×2 (12:08→12:09)
[2021-01-26] MEDS: Divalproex (12 HR) 500 MG TABLET PO SCH ×2 (12:22→20:01)
[2021-01-26] MEDS ORDERED: Nicotine 2 MG GUM BC PRN (12:31)
[2021-01-26 13:20] LABS: Basophils # 0.1 K/mcL (0.0-0.2); Basophils % 0.6 %; Eosinophils # 0.3 K/mcL (0.0-0.6); Eosinophils % 2.6 %; Hematocrit 40.3 % (35.3-44.9); Hemoglobin 13.8 g/dL (11.5-15.4); Immature Granulocytes % 0.5 % (0-4); Lymphocytes # 2.9 K/mcL (0.6-4.6); Lymphocytes % 24.1 %; Mean Corpuscular HGB Conc 34.2 g/dL (31.6-35.5); Mean Corpuscular Hemoglobin 30.8 pg (28.0-33.3); Mean Platelet Volume 9.5 fL (9.4-12.4); Monocytes # 0.9 K/mcL (0.0-1.3); Monocytes % 7.8 %; Neutrophils # 7.7 K/mcL (1.6-8.9); Platelet Count 285 K/mcL (140-400); Red Blood Count 4.48 M/mcL (3.82-4.97); Red Cell Distribution Width 12.7 % (11.5-14.5); Segmented Neutrophils % 64.4 %; White Blood Count 11.9 K/mcL (4.3-11.1)
[2021-01-26] MEDS: Acetaminophen 325 MG TABLET PO PRN ×2 (13:29→20:02)
[2021-01-26 13:39] LABS: BUN/Creatinine Ratio 19 (6-26); Blood Urea Nitrogen 21 mg/dL (6-20); Calcium 9.6 mg/dL (8.6-10.3); Carbon Dioxide 26 mEq/L (23-29); Chloride 106 mEq/L (98-107); Cholesterol 198 mg/dL (< 200); Glucose 119 mg/dL (70-105); HDL Cholesterol 40 mg/dL (40-59); LDL Cholesterol,Calculated 93 mg/dL (< 100); Osmolality,Calculated 292 (280-300); Potassium 4.1 mEq/L (3.5-5.1); Sodium 139 mEq/L (136-145); Triglycerides 323 mg/dL (< 150); eGFR For African Americans > 60 (> 60); eGFR For Non-African Americans 53 (> 60)
[2021-01-26 14:34] LABS: Estimated Average Glucose 120 mg/dl; Hemoglobin A1C 5.8 %
[2021-01-26] MEDS: Ondansetron ODT 4 MG TAB.RAPDIS SL PRN ×2 (15:02→23:25)
[2021-01-26] MEDS: hydrOXYzine pamoate 25 MG CAPSULE PO PRN (18:34)
[2021-01-26] MEDS: Nicotine 2 MG GUM BC PRN (18:58)
[2021-01-26] MEDS: QUEtiapine Fumarate 25 MG TABLET PO PRN (20:02)
[2021-01-27] MEDS: hydrOXYzine pamoate 25 MG CAPSULE PO PRN ×3 (03:25→21:22)
[2021-01-27] MEDS ORDERED: *HR* LORazepam 2 MG/ML VIAL IM PRN (08:39)
[2021-01-27] MEDS: Aspirin Enteric Coated 81 MG Tablet PO SCH (08:41)
[2021-01-27] MEDS: OLANZapine 10 MG TAB.RAPDIS PO SCH ×2 (08:41→21:23)
[2021-01-27] MEDS: haloperidoL 5 MG TABLET PO PRN ×2 (08:41→08:44)
[2021-01-27] MEDS: Divalproex (12 HR) 500 MG TABLET PO SCH ×2 (08:41→21:22)
[2021-01-27] MEDS: Gabapentin 300 MG CAPSULE PO SCH ×2 (08:41→21:23)
[2021-01-27] MEDS: *HR* LORazepam 1 MG TABLET PO PRN ×2 (08:47→12:56)
[2021-01-27] MEDS: Sennosides/Docusate Sodium TABLET PO SCH (12:56)
[2021-01-27] MEDS: Acetaminophen 325 MG TABLET PO PRN (13:09)
[2021-01-27] MEDS: Nicotine 2 MG GUM BC PRN ×2 (13:12→17:16)
[2021-01-27] MEDS: QUEtiapine Fumarate 25 MG TABLET PO PRN (21:22)
[2021-01-28] MEDS: Divalproex (12 HR) 500 MG TABLET PO SCH ×2 (09:32→21:00)
[2021-01-28] MEDS: Gabapentin 300 MG CAPSULE PO SCH ×2 (09:32→21:00)
[2021-01-28] MEDS: OLANZapine 10 MG TAB.RAPDIS PO SCH ×2 (09:32→21:00)
[2021-01-28] MEDS: Aspirin Enteric Coated 81 MG Tablet PO SCH (09:32)
[2021-01-28] MEDS: Sennosides/Docusate Sodium TABLET PO SCH (09:32)
[2021-01-28] MEDS: hydrOXYzine pamoate 25 MG CAPSULE PO PRN (15:24)
[2021-01-28] MEDS: Nicotine 2 MG GUM BC PRN (20:45)
[2021-01-28] MEDS: Haloperidol Lactate 5 MG/ML VIAL IM PRN (21:35)
[2021-01-29] MEDS: Gabapentin 300 MG CAPSULE PO SCH ×2 (08:01→20:04)
[2021-01-29] MEDS: Sennosides/Docusate Sodium TABLET PO SCH (08:01)
[2021-01-29] MEDS: hydrOXYzine pamoate 25 MG CAPSULE PO PRN ×2 (08:01→20:05)
[2021-01-29] MEDS: Aspirin Enteric Coated 81 MG Tablet PO SCH (08:02)
[2021-01-29] MEDS: OLANZapine 10 MG TAB.RAPDIS PO SCH ×2 (08:02→20:04)
[2021-01-29] MEDS: Divalproex (12 HR) 500 MG TABLET PO SCH ×2 (08:02→20:04)
[2021-01-29] MEDS: haloperidoL 5 MG TABLET PO PRN (13:34)
[2021-01-29] MEDS: *HR* LORazepam 1 MG TABLET PO PRN (13:34)
[2021-01-29] MEDS: MOM Conc 10 ML UD.LIQ PO PRN (18:47)
[2021-01-29] MEDS: QUEtiapine Fumarate 25 MG TABLET PO PRN (20:04)
[2021-01-29] MEDS: Nicotine 2 MG GUM BC PRN (21:36)
[2021-01-30] MEDS: Gabapentin 300 MG CAPSULE PO SCH ×2 (08:06→20:15)
[2021-01-30] MEDS: Aspirin Enteric Coated 81 MG Tablet PO SCH (08:06)
[2021-01-30] MEDS: OLANZapine 10 MG TAB.RAPDIS PO SCH ×2 (08:06→20:15)
[2021-01-30] MEDS: Sennosides/Docusate Sodium TABLET PO SCH (08:06)
[2021-01-30] MEDS: Divalproex (12 HR) 500 MG TABLET PO SCH ×2 (08:06→20:15)
[2021-01-30] MEDS: Nicotine 2 MG GUM BC PRN ×2 (17:53→20:15)
[2021-01-30] MEDS: Mag Hydrox/Al Hydrox/Simeth 30 ML UDC PO PRN (18:22)
[2021-01-30 18:30] LABS: Bilirubin,Urine Negative (Negative); Blood,Urine Moderate (Negative); Clarity,Urine Clear (Clear); Color,Urine Colorless (Yellow); Glucose,Urine (UA) Normal (Normal); Ketones,Urine Negative (Negative); Leukocyte Esterase,Urine Negative (Negative); Mucus,Urine Few per lpf (None-Few); Nitrite,Urine Negative (Negative); PH,Urine 6.5 pH Units (5.0-8.0); Protein,Urine Negative (Neg-Trace); RBC,Urine 0-3 per hpf (0-3); Specific Gravity,Urine 1.008 (1.010-1.025); Squamous Epithelial Cell,Urine Few per hpf (None-Few); Urobilinogen,Urine Normal (Normal); WBC,Urine 0-3 per hpf (0-3)
[2021-01-30] MEDS: QUEtiapine Fumarate 25 MG TABLET PO PRN (20:15)
[2021-01-30] MEDS: hydrOXYzine pamoate 25 MG CAPSULE PO PRN (20:15)
[2021-01-31] MEDS: Nicotine 2 MG GUM BC PRN ×3 (00:13→20:38)
[2021-01-31] MEDS: haloperidoL 5 MG TABLET PO PRN ×2 (00:40→15:41)
[2021-01-31] MEDS: *HR* LORazepam 1 MG TABLET PO PRN ×2 (00:41→15:41)
[2021-01-31] MEDS: Acetaminophen 325 MG TABLET PO PRN ×2 (01:33→18:21)
[2021-01-31] MEDS: Sennosides/Docusate Sodium TABLET PO SCH (09:14)
[2021-01-31] MEDS: OLANZapine 10 MG TAB.RAPDIS PO SCH ×2 (09:14→21:09)
[2021-01-31] MEDS: Gabapentin 300 MG CAPSULE PO SCH ×2 (09:15→21:09)
[2021-01-31] MEDS: Aspirin Enteric Coated 81 MG Tablet PO SCH (09:15)
[2021-01-31] MEDS: Divalproex (12 HR) 500 MG TABLET PO SCH ×2 (09:15→21:09)
[2021-01-31] MEDS: Ondansetron ODT 4 MG TAB.RAPDIS SL PRN (13:10)
[2021-01-31] MEDS: hydrOXYzine pamoate 25 MG CAPSULE PO PRN ×2 (14:26→21:10)
[2021-01-31] MEDS: Mag Hydrox/Al Hydrox/Simeth 30 ML UDC PO PRN ×2 (19:08→23:59)
[2021-02-01] MEDS: Nicotine 2 MG GUM BC PRN ×2 (00:04→15:28)
[2021-02-01] MEDS: Sennosides/Docusate Sodium TABLET PO SCH ×3 (07:47→20:16)
[2021-02-01] MEDS: Divalproex (12 HR) 500 MG TABLET PO SCH ×2 (07:47→20:15)
[2021-02-01] MEDS: OLANZapine 10 MG TAB.RAPDIS PO SCH ×2 (07:47→20:16)
[2021-02-01] MEDS: Gabapentin 300 MG CAPSULE PO SCH ×2 (07:47→20:15)
[2021-02-01] MEDS: Aspirin Enteric Coated 81 MG Tablet PO SCH (07:47)
[2021-02-01] MEDS: hydrOXYzine pamoate 25 MG CAPSULE PO PRN ×2 (15:44→21:18)
[2021-02-01] MEDS: Mag Hydrox/Al Hydrox/Simeth 30 ML UDC PO PRN (20:06)
[2021-02-01] MEDS: QUEtiapine Fumarate 25 MG TABLET PO PRN (21:18)
[2021-02-02] MEDS: Aspirin Enteric Coated 81 MG Tablet PO SCH (08:50)
[2021-02-02] MEDS: OLANZapine 10 MG TAB.RAPDIS PO SCH ×2 (08:50→20:16)
[2021-02-02] MEDS: Gabapentin 300 MG CAPSULE PO SCH ×2 (08:50→20:17)
[2021-02-02] MEDS: Sennosides/Docusate Sodium TABLET PO SCH ×2 (08:51→20:17)
[2021-02-02] MEDS: Divalproex (12 HR) 500 MG TABLET PO SCH ×2 (09:32→20:16)
[2021-02-02] MEDS ORDERED: polyethylene glycoL 3350 17 GM POWD.PACK PO SCH (09:45)
[2021-02-02] MEDS: hydrOXYzine pamoate 25 MG CAPSULE PO PRN ×2 (13:52→22:56)
[2021-02-02] MEDS: QUEtiapine Fumarate 25 MG TABLET PO PRN (20:16)
[2021-02-02] MEDS: Nicotine 2 MG GUM BC PRN ×2 (20:17→22:13)
[2021-02-02] MEDS: Mag Hydrox/Al Hydrox/Simeth 30 ML UDC PO PRN (22:56)
[2021-02-02] MEDS: Acetaminophen 325 MG TABLET PO PRN (23:53)
[2021-02-03] MEDS: Nicotine 2 MG GUM BC PRN ×3 (06:35→22:55)
[2021-02-03] MEDS: Divalproex (12 HR) 500 MG TABLET PO SCH ×2 (08:05→20:54)
[2021-02-03] MEDS: Gabapentin 300 MG CAPSULE PO SCH ×2 (08:05→20:54)
[2021-02-03] MEDS: OLANZapine 10 MG TAB.RAPDIS PO SCH (08:05)
[2021-02-03] MEDS: Sennosides/Docusate Sodium TABLET PO SCH ×2 (08:05→20:54)
[2021-02-03] MEDS: Aspirin Enteric Coated 81 MG Tablet PO SCH (08:05)
[2021-02-03] MEDS: Acetaminophen 325 MG TABLET PO PRN (15:28)
[2021-02-03] MEDS: Mag Hydrox/Al Hydrox/Simeth 30 ML UDC PO PRN (20:11)
[2021-02-03] MEDS: hydrOXYzine pamoate 25 MG CAPSULE PO PRN (20:11)
[2021-02-03] MEDS: QUEtiapine Fumarate 25 MG TABLET PO PRN (20:54)
[2021-02-03] MEDS: risperiDONE 1 MG TABLET PO SCH (20:54)
[2021-02-03] MEDS: haloperidoL 5 MG TABLET PO PRN (21:59)
[2021-02-03] MEDS: *HR* LORazepam 1 MG TABLET PO PRN (21:59)
[2021-02-04] MEDS: Gabapentin 300 MG CAPSULE PO SCH ×2 (09:25→20:20)
[2021-02-04] MEDS: Aspirin Enteric Coated 81 MG Tablet PO SCH (09:25)
[2021-02-04] MEDS: risperiDONE 1 MG TABLET PO SCH ×2 (09:25→20:20)
[2021-02-04] MEDS: Sennosides/Docusate Sodium TABLET PO SCH ×2 (09:25→20:20)
[2021-02-04] MEDS: Divalproex (12 HR) 500 MG TABLET PO SCH ×2 (09:25→20:20)
[2021-02-04] MEDS: Nicotine 2 MG GUM BC PRN ×3 (11:12→20:20)
[2021-02-04] MEDS: hydrOXYzine pamoate 25 MG CAPSULE PO PRN ×2 (14:44→23:01)
[2021-02-04 15:30] LABS: Valproate Free <7 ug/mL (7-23); Valproate Total 47 ug/mL (50-125)
[2021-02-04] MEDS: Mag Hydrox/Al Hydrox/Simeth 30 ML UDC PO PRN (18:41)
[2021-02-04] MEDS: QUEtiapine Fumarate 25 MG TABLET PO PRN (23:01)
[2021-02-05] MEDS: Acetaminophen 325 MG TABLET PO PRN ×2 (07:24→16:46)
[2021-02-05] MEDS: Gabapentin 300 MG CAPSULE PO SCH ×2 (08:50→20:07)
[2021-02-05] MEDS: Sennosides/Docusate Sodium TABLET PO SCH ×2 (08:50→20:06)
[2021-02-05] MEDS: risperiDONE 1 MG TABLET PO SCH ×2 (08:50→20:07)
[2021-02-05] MEDS: Divalproex (12 HR) 500 MG TABLET PO SCH ×2 (08:50→20:07)
[2021-02-05] MEDS: Aspirin Enteric Coated 81 MG Tablet PO SCH (08:50)
[2021-02-05] MEDS: hydrOXYzine pamoate 25 MG CAPSULE PO PRN ×3 (08:51→20:07)
[2021-02-05] MEDS: Nicotine 2 MG GUM BC PRN (15:40)
[2021-02-05] MEDS: QUEtiapine Fumarate 25 MG TABLET PO PRN (20:07)
[2021-02-05] MEDS: *HR* LORazepam 1 MG TABLET PO PRN (21:31)
[2021-02-05] MEDS: haloperidoL 5 MG TABLET PO PRN (21:31)
[2021-02-06] MEDS: Divalproex (12 HR) 500 MG TABLET PO SCH ×2 (08:34→20:17)
[2021-02-06] MEDS: Sennosides/Docusate Sodium TABLET PO SCH ×2 (08:34→20:16)
[2021-02-06] MEDS: Aspirin Enteric Coated 81 MG Tablet PO SCH (08:35)
[2021-02-06] MEDS: risperiDONE 1 MG TABLET PO SCH ×2 (08:35→20:16)
[2021-02-06] MEDS: Gabapentin 300 MG CAPSULE PO SCH ×2 (08:35→20:17)
[2021-02-06] MEDS: Nicotine 2 MG GUM BC PRN ×4 (08:37→22:22)
[2021-02-06] MEDS ORDERED: Pfizer Covid-19 Vaccine 30MCG/0.3ML IM ONE (10:16)
[2021-02-06] MEDS ORDERED: Moderna Covid-19 Vaccine 100MCG/0.5mL IM ONE (11:29)
[2021-02-06] MEDS: Fluticasone Propionate Nasal 50 MCG/SPRAY BOTTLE NS SCH (12:35)
[2021-02-06] MEDS: hydrOXYzine pamoate 25 MG CAPSULE PO PRN ×2 (14:49→20:16)
[2021-02-06] MEDS: QUEtiapine Fumarate 25 MG TABLET PO PRN (20:16)
[2021-02-06] MEDS: Saline Nasal Spray 44 ML BOTTLE NS SCH (20:19)
[2021-02-06] MEDS: Mag Hydrox/Al Hydrox/Simeth 30 ML UDC PO PRN (21:11)
[2021-02-06] MEDS: Acetaminophen 325 MG TABLET PO PRN (21:11)
[2021-02-06] MEDS: haloperidoL 5 MG TABLET PO PRN (22:32)
[2021-02-06] MEDS: *HR* LORazepam 1 MG TABLET PO PRN (22:32)
[2021-02-07] MEDS: Gabapentin 300 MG CAPSULE PO SCH ×2 (09:06→20:34)
[2021-02-07] MEDS: Fluticasone Propionate Nasal 50 MCG/SPRAY BOTTLE NS SCH (09:06)
[2021-02-07] MEDS: Divalproex (12 HR) 500 MG TABLET PO SCH ×2 (09:06→20:34)
[2021-02-07] MEDS: risperiDONE 1 MG TABLET PO SCH (09:07)
[2021-02-07] MEDS: Aspirin Enteric Coated 81 MG Tablet PO SCH (09:07)
[2021-02-07] MEDS: Sennosides/Docusate Sodium TABLET PO SCH ×2 (09:07→20:34)
[2021-02-07] MEDS: haloperidoL 5 MG TABLET PO PRN (09:08)
[2021-02-07] MEDS: *HR* LORazepam 1 MG TABLET PO PRN (09:08)
[2021-02-07] MEDS: hydrOXYzine pamoate 25 MG CAPSULE PO PRN ×2 (09:08→20:34)
[2021-02-07] MEDS: Nicotine 2 MG GUM BC PRN (19:27)
[2021-02-07] MEDS: Perphenazine 2 MG TABLET PO SCH (20:33)
[2021-02-07] MEDS: Saline Nasal Spray 44 ML BOTTLE NS SCH (20:33)
[2021-02-07] MEDS: Mag Hydrox/Al Hydrox/Simeth 30 ML UDC PO PRN (20:33)
[2021-02-07] MEDS: QUEtiapine Fumarate 25 MG TABLET PO PRN (20:34)
[2021-02-08] MEDS: Acetaminophen 325 MG TABLET PO PRN ×2 (05:25→17:35)
[2021-02-08] MEDS: Gabapentin 300 MG CAPSULE PO SCH ×2 (08:50→20:22)
[2021-02-08] MEDS: Divalproex (12 HR) 250 MG TABLET PO SCH (08:50)
[2021-02-08] MEDS: Sennosides/Docusate Sodium TABLET PO SCH ×2 (08:50→20:23)
[2021-02-08] MEDS: Aspirin Enteric Coated 81 MG Tablet PO SCH (08:51)
[2021-02-08] MEDS: Perphenazine 2 MG TABLET PO SCH ×2 (08:51→20:22)
[2021-02-08] MEDS: Fluticasone Propionate Nasal 50 MCG/SPRAY BOTTLE NS SCH (08:51)
[2021-02-08] MEDS: Nicotine 2 MG GUM BC PRN ×2 (10:09→20:55)
[2021-02-08] MEDS: hydrOXYzine pamoate 25 MG CAPSULE PO PRN (18:04)
[2021-02-08] MEDS: Divalproex (12 HR) 500 MG TABLET PO SCH (20:23)
[2021-02-08] MEDS: QUEtiapine Fumarate 25 MG TABLET PO PRN (20:23)
[2021-02-08] MEDS: Saline Nasal Spray 44 ML BOTTLE NS SCH (20:25)
[2021-02-08] MEDS ORDERED: Perphenazine 2 MG TABLET PO SCH (21:00)
[2021-02-09] MEDS: Nicotine 2 MG GUM BC PRN ×4 (00:43→23:08)
[2021-02-09] MEDS: Sennosides/Docusate Sodium TABLET PO SCH ×2 (08:42→20:46)
[2021-02-09] MEDS: Divalproex (12 HR) 250 MG TABLET PO SCH (08:42)
[2021-02-09] MEDS: Aspirin Enteric Coated 81 MG Tablet PO SCH (08:42)
[2021-02-09] MEDS: Gabapentin 300 MG CAPSULE PO SCH ×2 (08:42→20:45)
[2021-02-09] MEDS: Perphenazine 2 MG TABLET PO SCH ×2 (08:43→20:45)
[2021-02-09] MEDS: Fluticasone Propionate Nasal 50 MCG/SPRAY BOTTLE NS SCH (09:11)
[2021-02-09] MEDS: hydrOXYzine pamoate 25 MG CAPSULE PO PRN ×2 (16:00→21:55)
[2021-02-09] MEDS: Saline Nasal Spray 44 ML BOTTLE NS SCH (20:45)
[2021-02-09] MEDS: Divalproex (12 HR) 500 MG TABLET PO SCH (20:46)
[2021-02-10] MEDS: QUEtiapine Fumarate 25 MG TABLET PO PRN ×2 (00:14→21:00)
[2021-02-10] MEDS: hydrOXYzine pamoate 25 MG CAPSULE PO PRN ×2 (07:02→16:38)
[2021-02-10] MEDS: Sennosides/Docusate Sodium TABLET PO SCH ×2 (08:31→21:00)
[2021-02-10] MEDS: Gabapentin 300 MG CAPSULE PO SCH ×2 (08:31→21:01)
[2021-02-10] MEDS: Divalproex (12 HR) 250 MG TABLET PO SCH (08:31)
[2021-02-10] MEDS: Perphenazine 2 MG TABLET PO SCH (08:31)
[2021-02-10] MEDS: Aspirin Enteric Coated 81 MG Tablet PO SCH (08:31)
[2021-02-10] MEDS: Fluticasone Propionate Nasal 50 MCG/SPRAY BOTTLE NS SCH (08:31)
[2021-02-10] MEDS: Nicotine 2 MG GUM BC PRN ×2 (13:52→19:27)
[2021-02-10] MEDS: Divalproex (12 HR) 500 MG TABLET PO SCH (21:00)
[2021-02-10] MEDS: Saline Nasal Spray 44 ML BOTTLE NS SCH (21:01)
[2021-02-10] MEDS: Perphenazine 8 MG TABLET PO SCH (21:01)
[2021-02-11] MEDS: Gabapentin 300 MG CAPSULE PO SCH ×2 (08:38→20:47)
[2021-02-11] MEDS: Perphenazine 8 MG TABLET PO SCH ×2 (08:38→20:46)
[2021-02-11] MEDS: Fluticasone Propionate Nasal 50 MCG/SPRAY BOTTLE NS SCH (08:39)
[2021-02-11] MEDS: Aspirin Enteric Coated 81 MG Tablet PO SCH (08:39)
[2021-02-11] MEDS: Divalproex (12 HR) 250 MG TABLET PO SCH (08:39)
[2021-02-11] MEDS: Sennosides/Docusate Sodium TABLET PO SCH ×2 (08:40→20:47)
[2021-02-11] MEDS: Haloperidol Lactate 5 MG/ML VIAL IM PRN (09:37)
[2021-02-11] MEDS: Nicotine 2 MG GUM BC PRN (17:06)
[2021-02-11] MEDS: Saline Nasal Spray 44 ML BOTTLE NS SCH (20:46)
[2021-02-11] MEDS: Divalproex (12 HR) 500 MG TABLET PO SCH (20:47)
[2021-02-11] MEDS: QUEtiapine Fumarate 25 MG TABLET PO PRN (20:47)
[2021-02-12] MEDS: hydrOXYzine pamoate 25 MG CAPSULE PO PRN ×2 (05:37→21:10)
[2021-02-12] MEDS: Gabapentin 300 MG CAPSULE PO SCH ×2 (09:08→21:07)
[2021-02-12] MEDS: Sennosides/Docusate Sodium TABLET PO SCH ×2 (09:08→21:07)
[2021-02-12] MEDS: Fluticasone Propionate Nasal 50 MCG/SPRAY BOTTLE NS SCH (09:08)
[2021-02-12] MEDS: Perphenazine 8 MG TABLET PO SCH ×2 (09:08→21:07)
[2021-02-12] MEDS: Aspirin Enteric Coated 81 MG Tablet PO SCH (09:09)
[2021-02-12 12:50] LABS: Basophils # 0.1 K/mcL (0.0-0.2); Eosinophils # 0.3 K/mcL (0.0-0.6); Eosinophils % 3.7 %; Hematocrit 35.8 % (35.3-44.9); Hemoglobin 12.8 g/dL (11.5-15.4); Immature Granulocytes % 1.7 % (0-4); Lymphocytes # 2.3 K/mcL (0.6-4.6); Lymphocytes % 25.4 %; Mean Corpuscular HGB Conc 35.8 g/dL (31.6-35.5); Mean Corpuscular Hemoglobin 31.3 pg (28.0-33.3); Mean Corpuscular Volume 87.5 fL (83.0-100.0); Mean Platelet Volume 9.1 fL (9.4-12.4); Monocytes % 10.7 %; Neutrophils # 5.2 K/mcL (1.6-8.9); Platelet Count 333 K/mcL (140-400); Red Blood Count 4.09 M/mcL (3.82-4.97); Segmented Neutrophils % 57.5 %
[2021-02-12 13:10] LABS: Alanine Aminotransferase 13 Units/L (7-52); Albumin 3.7 g/dL (3.5-5.7); Albumin/Globulin Ratio 1.5 (1.1-2.2); Alkaline Phosphatase 65 Units/L (34-104); Aspartate Amino Transferase 12 Units/L (13-39); BUN/Creatinine Ratio 11 (6-26); Bilirubin,Total 0.2 mg/dL (0.3-1.0); Blood Urea Nitrogen 9 mg/dL (6-20); Calcium 9.1 mg/dL (8.6-10.3); Carbon Dioxide 28 mEq/L (23-29); Chloride 99 mEq/L (98-107); Globulin 2.4 g/dL (2.4-3.5); Glucose 117 mg/dL (70-105); Osmolality,Calculated 278 (280-300); Potassium 4.2 mEq/L (3.5-5.1); Sodium 134 mEq/L (136-145); Total Protein 6.1 g/dL (6.4-8.9); Valproate 46 mcg/mL (50-100); eGFR For African Americans > 60 (> 60); eGFR For Non-African Americans > 60 (> 60)
[2021-02-12] MEDS: Divalproex (12 HR) 250 MG TABLET PO SCH (15:41)
[2021-02-12] MEDS: Nicotine 2 MG GUM BC PRN ×2 (17:09→19:18)
[2021-02-12] MEDS: Saline Nasal Spray 44 ML BOTTLE NS SCH (21:06)
[2021-02-12] MEDS: Divalproex (12 HR) 500 MG TABLET PO SCH (21:07)
[2021-02-12] MEDS: QUEtiapine Fumarate 25 MG TABLET PO PRN (21:10)
[2021-02-12] MEDS: *HR* LORazepam 1 MG TABLET PO PRN (22:22)
[2021-02-12] MEDS: haloperidoL 5 MG TABLET PO PRN (22:22)
[2021-02-13] MEDS: Fluticasone Propionate Nasal 50 MCG/SPRAY BOTTLE NS SCH (08:30)
[2021-02-13] MEDS: hydrOXYzine pamoate 25 MG CAPSULE PO PRN ×2 (08:40→18:35)
[2021-02-13] MEDS: Sennosides/Docusate Sodium TABLET PO SCH ×2 (08:40→20:30)
[2021-02-13] MEDS: Nicotine 2 MG GUM BC PRN ×3 (08:40→22:28)
[2021-02-13] MEDS: Gabapentin 300 MG CAPSULE PO SCH ×2 (08:40→20:30)
[2021-02-13] MEDS: Aspirin Enteric Coated 81 MG Tablet PO SCH (08:40)
[2021-02-13] MEDS: Perphenazine 8 MG TABLET PO SCH ×2 (08:40→20:30)
[2021-02-13] MEDS: Divalproex (12 HR) 250 MG TABLET PO SCH (08:40)
[2021-02-13] MEDS: Saline Nasal Spray 44 ML BOTTLE NS SCH (20:29)
[2021-02-13] MEDS: Divalproex (12 HR) 500 MG TABLET PO SCH (20:30)
[2021-02-13] MEDS: QUEtiapine Fumarate 25 MG TABLET PO PRN (20:31)
[2021-02-14] MEDS: hydrOXYzine pamoate 25 MG CAPSULE PO PRN ×3 (03:17→20:38)
[2021-02-14] MEDS: Nicotine 2 MG GUM BC PRN ×2 (07:20→19:42)
[2021-02-14] MEDS: Perphenazine 8 MG TABLET PO SCH ×2 (08:29→20:38)
[2021-02-14] MEDS: Aspirin Enteric Coated 81 MG Tablet PO SCH (08:29)
[2021-02-14] MEDS: Sennosides/Docusate Sodium TABLET PO SCH ×2 (08:30→20:38)
[2021-02-14] MEDS: Divalproex (12 HR) 250 MG TABLET PO SCH (08:30)
[2021-02-14] MEDS: Fluticasone Propionate Nasal 50 MCG/SPRAY BOTTLE NS SCH (08:30)
[2021-02-14] MEDS: Gabapentin 300 MG CAPSULE PO SCH ×2 (08:30→20:38)
[2021-02-14] MEDS: *HR* LORazepam 1 MG TABLET PO PRN (17:23)
[2021-02-14] MEDS: Saline Nasal Spray 44 ML BOTTLE NS SCH (20:34)
[2021-02-14] MEDS: QUEtiapine Fumarate 25 MG TABLET PO PRN ×2 (20:38→22:28)
[2021-02-14] MEDS: Acetaminophen 325 MG TABLET PO PRN (20:38)
[2021-02-14] MEDS: Divalproex (12 HR) 500 MG TABLET PO SCH (20:38)
[2021-02-15] MEDS: hydrOXYzine pamoate 25 MG CAPSULE PO PRN ×3 (06:30→20:58)
[2021-02-15] MEDS: Nicotine 2 MG GUM BC PRN ×3 (06:31→23:37)
[2021-02-15] MEDS: Fluticasone Propionate Nasal 50 MCG/SPRAY BOTTLE NS SCH (08:24)
[2021-02-15] MEDS: Gabapentin 300 MG CAPSULE PO SCH ×2 (08:24→20:31)
[2021-02-15] MEDS: Perphenazine 8 MG TABLET PO SCH ×2 (08:25→20:31)
[2021-02-15] MEDS: Aspirin Enteric Coated 81 MG Tablet PO SCH (08:25)
[2021-02-15] MEDS: Sennosides/Docusate Sodium TABLET PO SCH ×2 (08:25→20:30)
[2021-02-15] MEDS: Divalproex (12 HR) 250 MG TABLET PO SCH (08:25)
[2021-02-15] MEDS: Mag Hydrox/Al Hydrox/Simeth 30 ML UDC PO PRN ×2 (09:14→19:59)
[2021-02-15] MEDS: Acetaminophen 325 MG TABLET PO PRN (18:56)
[2021-02-15] MEDS: Saline Nasal Spray 44 ML BOTTLE NS SCH (18:57)
[2021-02-15] MEDS: Divalproex (12 HR) 500 MG TABLET PO SCH (20:31)
[2021-02-15] MEDS: clonazePAM 1 MG TABLET PO SCH (20:31)
[2021-02-15] MEDS: QUEtiapine Fumarate 25 MG TABLET PO PRN (20:58)
[2021-02-15] MEDS: Ziprasidone 20 MG CAPSULE PO PRN (23:31)
[2021-02-15] MEDS: *HR* LORazepam 1 MG TABLET PO PRN (23:31)
[2021-02-16] MEDS: Sennosides/Docusate Sodium TABLET PO SCH ×2 (08:13→21:22)
[2021-02-16] MEDS: Divalproex (12 HR) 250 MG TABLET PO SCH (08:13)
[2021-02-16] MEDS: Perphenazine 8 MG TABLET PO SCH ×2 (08:13→21:22)
[2021-02-16] MEDS: Gabapentin 300 MG CAPSULE PO SCH ×2 (08:13→21:22)
[2021-02-16] MEDS: Aspirin Enteric Coated 81 MG Tablet PO SCH (08:13)
[2021-02-16] MEDS: Fluticasone Propionate Nasal 50 MCG/SPRAY BOTTLE NS SCH (09:43)
[2021-02-16] MEDS: Nicotine 2 MG GUM BC PRN ×2 (18:10→23:00)
[2021-02-16] MEDS: hydrOXYzine pamoate 25 MG CAPSULE PO PRN (19:14)
[2021-02-16] MEDS: Ondansetron ODT 4 MG TAB.RAPDIS SL PRN (19:47)
[2021-02-16] MEDS: Saline Nasal Spray 44 ML BOTTLE NS SCH (21:21)
[2021-02-16] MEDS: QUEtiapine Fumarate 25 MG TABLET PO PRN (21:21)
[2021-02-16] MEDS: Divalproex (12 HR) 500 MG TABLET PO SCH (21:22)
[2021-02-16] MEDS: clonazePAM 1 MG TABLET PO SCH (21:22)
[2021-02-17] MEDS: Acetaminophen 325 MG TABLET PO PRN ×2 (01:42→17:03)
[2021-02-17] MEDS: Nicotine 2 MG GUM BC PRN ×2 (04:06→21:06)
[2021-02-17] MEDS: Perphenazine 8 MG TABLET PO SCH ×2 (08:46→21:06)
[2021-02-17] MEDS: Divalproex (12 HR) 250 MG TABLET PO SCH (08:46)
[2021-02-17] MEDS: Fluticasone Propionate Nasal 50 MCG/SPRAY BOTTLE NS SCH (08:47)
[2021-02-17] MEDS: Gabapentin 300 MG CAPSULE PO SCH ×2 (08:47→21:06)
[2021-02-17] MEDS: Aspirin Enteric Coated 81 MG Tablet PO SCH (08:47)
[2021-02-17] MEDS: Sennosides/Docusate Sodium TABLET PO SCH ×2 (08:47→21:06)
[2021-02-17] MEDS: hydrOXYzine pamoate 25 MG CAPSULE PO PRN ×2 (12:08→21:06)
[2021-02-17] MEDS: QUEtiapine Fumarate 25 MG TABLET PO PRN (21:06)
[2021-02-17] MEDS: clonazePAM 1 MG TABLET PO SCH (21:06)
[2021-02-17] MEDS: Divalproex (12 HR) 500 MG TABLET PO SCH (21:06)
[2021-02-17] MEDS: Saline Nasal Spray 44 ML BOTTLE NS SCH (21:08)
[2021-02-17] MEDS: Mag Hydrox/Al Hydrox/Simeth 30 ML UDC PO PRN (22:45)
[2021-02-18] MEDS: Acetaminophen 325 MG TABLET PO PRN ×2 (02:22→16:37)
[2021-02-18] MEDS: Aspirin Enteric Coated 81 MG Tablet PO SCH (08:50)
[2021-02-18] MEDS: Gabapentin 300 MG CAPSULE PO SCH ×2 (08:50→20:22)
[2021-02-18] MEDS: Perphenazine 8 MG TABLET PO SCH ×2 (08:51→20:23)
[2021-02-18] MEDS: Fluticasone Propionate Nasal 50 MCG/SPRAY BOTTLE NS SCH (08:51)
[2021-02-18] MEDS: Sennosides/Docusate Sodium TABLET PO SCH ×2 (08:51→20:23)
[2021-02-18] MEDS: Divalproex (12 HR) 250 MG TABLET PO SCH (08:51)
[2021-02-18] MEDS: hydrOXYzine pamoate 25 MG CAPSULE PO PRN ×2 (12:00→20:23)
[2021-02-18] MEDS: Nicotine 2 MG GUM BC PRN (19:50)
[2021-02-18] MEDS: clonazePAM 1 MG TABLET PO SCH (20:22)
[2021-02-18] MEDS: Divalproex (12 HR) 500 MG TABLET PO SCH (20:22)
[2021-02-18] MEDS: Saline Nasal Spray 44 ML BOTTLE NS SCH (20:22)
[2021-02-18] MEDS: QUEtiapine Fumarate 25 MG TABLET PO PRN (20:23)
[2021-02-18] MEDS: Ziprasidone 20 MG CAPSULE PO PRN (21:58)
[2021-02-19] MEDS: Nicotine 2 MG GUM BC PRN ×5 (04:14→20:42)
[2021-02-19] MEDS: Gabapentin 300 MG CAPSULE PO SCH ×2 (09:17→20:42)
[2021-02-19] MEDS: Divalproex (12 HR) 250 MG TABLET PO SCH (09:17)
[2021-02-19] MEDS: Sennosides/Docusate Sodium TABLET PO SCH ×2 (09:17→20:42)
[2021-02-19] MEDS: Aspirin Enteric Coated 81 MG Tablet PO SCH (09:18)
[2021-02-19] MEDS: Perphenazine 8 MG TABLET PO SCH ×2 (09:19→20:42)
[2021-02-19] MEDS: Fluticasone Propionate Nasal 50 MCG/SPRAY BOTTLE NS SCH (09:22)
[2021-02-19] MEDS: Ziprasidone 20 MG CAPSULE PO PRN ×3 (09:26→21:41)
[2021-02-19] MEDS: hydrOXYzine pamoate 25 MG CAPSULE PO PRN (14:16)
[2021-02-19] MEDS: Divalproex (12 HR) 500 MG TABLET PO SCH (20:42)
[2021-02-19] MEDS: clonazePAM 1 MG TABLET PO SCH (20:42)
[2021-02-19] MEDS: QUEtiapine Fumarate 25 MG TABLET PO PRN (20:42)
[2021-02-19] MEDS: Saline Nasal Spray 44 ML BOTTLE NS SCH (20:43)
[2021-02-19] MEDS: Acetaminophen 325 MG TABLET PO PRN (22:35)
[2021-02-20] MEDS: hydrOXYzine pamoate 25 MG CAPSULE PO PRN (04:36)
[2021-02-20] MEDS: Ziprasidone 20 MG CAPSULE PO PRN (08:41)
[2021-02-20] MEDS: Gabapentin 300 MG CAPSULE PO SCH ×2 (08:41→20:15)
[2021-02-20] MEDS: Aspirin Enteric Coated 81 MG Tablet PO SCH (08:41)
[2021-02-20] MEDS: Divalproex (12 HR) 250 MG TABLET PO SCH (08:41)
[2021-02-20] MEDS: Perphenazine 8 MG TABLET PO SCH ×2 (08:41→20:15)
[2021-02-20] MEDS: Sennosides/Docusate Sodium TABLET PO SCH ×2 (08:41→20:15)
[2021-02-20] MEDS: Fluticasone Propionate Nasal 50 MCG/SPRAY BOTTLE NS SCH (08:50)
[2021-02-20] MEDS: Mag Hydrox/Al Hydrox/Simeth 30 ML UDC PO PRN (13:19)
[2021-02-20] MEDS: Acetaminophen 325 MG TABLET PO PRN (16:19)
[2021-02-20] MEDS: Nicotine 2 MG GUM BC PRN ×2 (18:04→20:31)
[2021-02-20] MEDS: Ziprasidone 20 MG CAPSULE PO SCH (20:15)
[2021-02-20] MEDS: Divalproex (12 HR) 500 MG TABLET PO SCH (20:15)
[2021-02-20] MEDS: Saline Nasal Spray 44 ML BOTTLE NS SCH (20:15)
[2021-02-20] MEDS: clonazePAM 1 MG TABLET PO SCH (20:15)
[2021-02-21] MEDS: Fluticasone Propionate Nasal 50 MCG/SPRAY BOTTLE NS SCH (08:42)
[2021-02-21] MEDS: Aspirin Enteric Coated 81 MG Tablet PO SCH (08:42)
[2021-02-21] MEDS: Sennosides/Docusate Sodium TABLET PO SCH ×2 (08:42→20:31)
[2021-02-21] MEDS: Gabapentin 300 MG CAPSULE PO SCH ×2 (08:42→20:32)
[2021-02-21] MEDS: Divalproex (12 HR) 250 MG TABLET PO SCH (08:42)
[2021-02-21] MEDS: Perphenazine 8 MG TABLET PO SCH ×2 (08:43→20:32)
[2021-02-21] MEDS: Ziprasidone 20 MG CAPSULE PO SCH ×2 (08:43→20:31)
[2021-02-21 12:55] LABS: Bacteria,Urine Few per hpf (None-Few); Bilirubin,Urine Negative (Negative); Blood,Urine Trace (Negative); Clarity,Urine Clear (Clear); Color,Urine Colorless (Yellow); Glucose,Urine (UA) Normal (Normal); Ketones,Urine Negative (Negative); Leukocyte Esterase,Urine Negative (Negative); Nitrite,Urine Negative (Negative); PH,Urine 7.5 pH Units (5.0-8.0); Protein,Urine Trace mg/dL (Neg-Trace); RBC,Urine 0-3 per hpf (0-3); Specific Gravity,Urine 1.007 (1.010-1.025); Urobilinogen,Urine Normal (Normal)
[2021-02-21] MEDS: Acetaminophen 325 MG TABLET PO PRN (16:06)
[2021-02-21] MEDS: Ibuprofen 800 MG TABLET PO PRN (16:51)
[2021-02-21] MEDS: Nicotine 2 MG GUM BC PRN ×2 (18:35→21:20)
[2021-02-21 18:39] LABS: Basophils # 0.1 K/mcL (0.0-0.2); Basophils % 1.3 %; Eosinophils # 0.2 K/mcL (0.0-0.6); Eosinophils % 2.6 %; Hematocrit 35.2 % (35.3-44.9); Hemoglobin 12.1 g/dL (11.5-15.4); Immature Granulocytes % 1.1 % (0-4); Lymphocytes # 3.2 K/mcL (0.6-4.6); Mean Corpuscular HGB Conc 34.4 g/dL (31.6-35.5); Mean Corpuscular Hemoglobin 30.4 pg (28.0-33.3); Mean Corpuscular Volume 88.4 fL (83.0-100.0); Mean Platelet Volume 8.9 fL (9.4-12.4); Monocytes % 10.3 %; Neutrophils # 4.6 K/mcL (1.6-8.9); Platelet Count 297 K/mcL (140-400); Red Blood Count 3.98 M/mcL (3.82-4.97); Red Cell Distribution Width 12.3 % (11.5-14.5); Segmented Neutrophils % 49.7 %; White Blood Count 9.2 K/mcL (4.3-11.1)
[2021-02-21] MEDS: Mag Hydrox/Al Hydrox/Simeth 30 ML UDC PO PRN (19:14)
[2021-02-21 19:34] LABS: Alanine Aminotransferase 15 Units/L (7-52); Albumin 3.7 g/dL (3.5-5.7); Albumin/Globulin Ratio 1.7 (1.1-2.2); Alkaline Phosphatase 84 Units/L (34-104); Aspartate Amino Transferase 16 Units/L (13-39); BUN/Creatinine Ratio 13 (6-26); Bilirubin,Total 0.1 mg/dL (0.3-1.0); Blood Urea Nitrogen 11 mg/dL (6-20); Calcium 8.9 mg/dL (8.6-10.3); Carbon Dioxide 23 mEq/L (23-29); Chloride 99 mEq/L (98-107); Globulin 2.2 g/dL (2.4-3.5); Glucose 196 mg/dL (70-105); Osmolality,Calculated 281 (280-300); Potassium 3.8 mEq/L (3.5-5.1); Sodium 133 mEq/L (136-145); Total Protein 5.9 g/dL (6.4-8.9); eGFR For African Americans > 60 (> 60); eGFR For Non-African Americans > 60 (> 60)
[2021-02-21] MEDS: Saline Nasal Spray 44 ML BOTTLE NS SCH (20:31)
[2021-02-21] MEDS: Divalproex (12 HR) 500 MG TABLET PO SCH (20:32)
[2021-02-21] MEDS: clonazePAM 1 MG TABLET PO SCH (20:32)
[2021-02-21] MEDS: QUEtiapine Fumarate 25 MG TABLET PO PRN (22:30)
[2021-02-21] MEDS: hydrOXYzine pamoate 25 MG CAPSULE PO PRN (22:30)
[2021-02-22] MEDS: Fluticasone Propionate Nasal 50 MCG/SPRAY BOTTLE NS SCH (08:20)
[2021-02-22] MEDS: Perphenazine 8 MG TABLET PO SCH ×2 (08:21→20:28)
[2021-02-22] MEDS: Divalproex (12 HR) 250 MG TABLET PO SCH (08:21)
[2021-02-22] MEDS: Sennosides/Docusate Sodium TABLET PO SCH ×2 (08:21→20:28)
[2021-02-22] MEDS: Ziprasidone 20 MG CAPSULE PO SCH ×3 (08:21→20:28)
[2021-02-22] MEDS: Gabapentin 300 MG CAPSULE PO SCH ×2 (08:22→20:29)
[2021-02-22] MEDS: Aspirin Enteric Coated 81 MG Tablet PO SCH (08:22)
[2021-02-22] MEDS: hydrOXYzine pamoate 25 MG CAPSULE PO PRN ×2 (08:25→16:38)
[2021-02-22] MEDS: Nicotine 2 MG GUM BC PRN ×4 (08:25→22:14)
[2021-02-22] MEDS: Ibuprofen 800 MG TABLET PO PRN (16:37)
[2021-02-22] MEDS: Tiotropium 10 INH DOSE IH SCH (16:38)
[2021-02-22] MEDS: Divalproex (12 HR) 500 MG TABLET PO SCH (20:28)
[2021-02-22] MEDS: clonazePAM 1 MG TABLET PO SCH (20:29)
[2021-02-22] MEDS: Saline Nasal Spray 44 ML BOTTLE NS SCH (20:31)
[2021-02-22] MEDS: QUEtiapine Fumarate 25 MG TABLET PO PRN (22:14)
[2021-02-23] MEDS: Acetaminophen 325 MG TABLET PO PRN (05:38)
[2021-02-23] MEDS: Nicotine 2 MG GUM BC PRN ×3 (05:39→20:14)
[2021-02-23] MEDS: hydrOXYzine pamoate 25 MG CAPSULE PO PRN ×2 (06:50→15:54)
[2021-02-23] MEDS: Ziprasidone 20 MG CAPSULE PO SCH ×4 (07:59→20:08)
[2021-02-23] MEDS: Fluticasone Propionate Nasal 50 MCG/SPRAY BOTTLE NS SCH (07:59)
[2021-02-23] MEDS: Aspirin Enteric Coated 81 MG Tablet PO SCH (07:59)
[2021-02-23] MEDS: Gabapentin 300 MG CAPSULE PO SCH ×2 (08:00→20:08)
[2021-02-23] MEDS: Divalproex (12 HR) 250 MG TABLET PO SCH (08:00)
[2021-02-23] MEDS: Sennosides/Docusate Sodium TABLET PO SCH ×2 (08:00→20:08)
[2021-02-23] MEDS: Perphenazine 8 MG TABLET PO SCH ×2 (08:00→20:08)
[2021-02-23] MEDS: Ibuprofen 800 MG TABLET PO PRN ×2 (08:43→17:35)
[2021-02-23] MEDS: Tiotropium 10 INH DOSE IH SCH (10:15)
[2021-02-23] MEDS: Divalproex (12 HR) 500 MG TABLET PO SCH (20:08)
[2021-02-23] MEDS: clonazePAM 1 MG TABLET PO SCH (20:08)
[2021-02-23] MEDS: Saline Nasal Spray 44 ML BOTTLE NS SCH (20:10)
[2021-02-23] MEDS: Mag Hydrox/Al Hydrox/Simeth 30 ML UDC PO PRN (20:56)
[2021-02-24] MEDS: Nicotine 2 MG GUM BC PRN ×5 (03:50→20:21)
[2021-02-24] MEDS: Ibuprofen 800 MG TABLET PO PRN (04:26)
[2021-02-24] MEDS: Tiotropium 10 INH DOSE IH SCH (08:34)
[2021-02-24] MEDS: Fluticasone Propionate Nasal 50 MCG/SPRAY BOTTLE NS SCH (08:35)
[2021-02-24] MEDS: Aspirin Enteric Coated 81 MG Tablet PO SCH (08:35)
[2021-02-24] MEDS: Divalproex (12 HR) 250 MG TABLET PO SCH (08:36)
[2021-02-24] MEDS: Ziprasidone 20 MG CAPSULE PO SCH ×2 (08:36)
[2021-02-24] MEDS: Gabapentin 300 MG CAPSULE PO SCH ×2 (08:37→20:22)
[2021-02-24] MEDS: Perphenazine 8 MG TABLET PO SCH ×2 (08:37→20:22)
[2021-02-24] MEDS: Sennosides/Docusate Sodium TABLET PO SCH ×2 (08:37→20:22)
[2021-02-24] MEDS: hydrOXYzine pamoate 25 MG CAPSULE PO PRN ×3 (08:39→21:12)
[2021-02-24] MEDS: Saline Nasal Spray 44 ML BOTTLE NS SCH (20:22)
[2021-02-24] MEDS: Divalproex (12 HR) 500 MG TABLET PO SCH (20:22)
[2021-02-24] MEDS: Ziprasidone 80 MG CAPSULE PO SCH (20:22)
[2021-02-24] MEDS: clonazePAM 1 MG TABLET PO SCH (20:22)
[2021-02-24] MEDS: QUEtiapine Fumarate 25 MG TABLET PO PRN (21:12)
[2021-02-25] MEDS: hydrOXYzine pamoate 25 MG CAPSULE PO PRN ×2 (05:42→22:18)
[2021-02-25] MEDS: Nicotine 2 MG GUM BC PRN ×2 (05:42→20:18)
[2021-02-25] MEDS: Ibuprofen 800 MG TABLET PO PRN (06:22)
[2021-02-25] MEDS: Divalproex (12 HR) 250 MG TABLET PO SCH (08:20)
[2021-02-25] MEDS: Fluticasone Propionate Nasal 50 MCG/SPRAY BOTTLE NS SCH (08:20)
[2021-02-25] MEDS: Ziprasidone 80 MG CAPSULE PO SCH ×2 (08:20→20:17)
[2021-02-25] MEDS: Perphenazine 8 MG TABLET PO SCH ×2 (08:21→20:17)
[2021-02-25] MEDS: Aspirin Enteric Coated 81 MG Tablet PO SCH (08:21)
[2021-02-25] MEDS: Sennosides/Docusate Sodium TABLET PO SCH ×2 (08:21→20:17)
[2021-02-25] MEDS: Gabapentin 300 MG CAPSULE PO SCH ×2 (08:21→20:17)
[2021-02-25] MEDS: Tiotropium 10 INH DOSE IH SCH (10:54)
[2021-02-25 11:04] LABS: Basophils # 0.1 K/mcL (0.0-0.2); Eosinophils # 0.3 K/mcL (0.0-0.6); Eosinophils % 3.3 %; Hematocrit 35.1 % (35.3-44.9); Hemoglobin 12.1 g/dL (11.5-15.4); Lymphocytes # 2.7 K/mcL (0.6-4.6); Lymphocytes % 28.9 %; Mean Corpuscular HGB Conc 34.5 g/dL (31.6-35.5); Mean Corpuscular Hemoglobin 30.3 pg (28.0-33.3); Mean Corpuscular Volume 87.8 fL (83.0-100.0); Mean Platelet Volume 8.8 fL (9.4-12.4); Monocytes # 0.9 K/mcL (0.0-1.3); Monocytes % 9.9 %; Neutrophils # 5.2 K/mcL (1.6-8.9); Platelet Count 252 K/mcL (140-400); Red Cell Distribution Width 12.2 % (11.5-14.5); Segmented Neutrophils % 55.9 %; White Blood Count 9.2 K/mcL (4.3-11.1)
[2021-02-25 11:34] LABS: BUN/Creatinine Ratio 9 (6-26); Blood Urea Nitrogen 7 mg/dL (6-20); Calcium 8.6 mg/dL (8.6-10.3); Carbon Dioxide 25 mEq/L (23-29); Chloride 98 mEq/L (98-107); Glucose 149 mg/dL (70-105); Magnesium 1.7 mg/dL (1.6-2.6); Osmolality,Calculated 275 (280-300); Potassium 4.4 mEq/L (3.5-5.1); Sodium 132 mEq/L (136-145); eGFR For African Americans > 60 (> 60); eGFR For Non-African Americans > 60 (> 60)
[2021-02-25] MEDS: Furosemide 40 MG TABLET PO SCH (15:31)
[2021-02-25] MEDS: clonazePAM 1 MG TABLET PO SCH (20:17)
[2021-02-25] MEDS: Divalproex (12 HR) 500 MG TABLET PO SCH (20:17)
[2021-02-25] MEDS: Saline Nasal Spray 44 ML BOTTLE NS SCH (20:18)
[2021-02-25] MEDS: QUEtiapine Fumarate 25 MG TABLET PO PRN (22:18)
[2021-02-26] MEDS: Nicotine 2 MG GUM BC PRN ×5 (04:38→22:55)
[2021-02-26] MEDS: Ibuprofen 800 MG TABLET PO PRN (04:38)
[2021-02-26] MEDS: MOM Conc 10 ML UD.LIQ PO PRN (08:52)
[2021-02-26] MEDS: Aspirin Enteric Coated 81 MG Tablet PO SCH (08:54)
[2021-02-26] MEDS: Divalproex (12 HR) 250 MG TABLET PO SCH (08:54)
[2021-02-26] MEDS: Sennosides/Docusate Sodium TABLET PO SCH ×2 (08:54→21:00)
[2021-02-26] MEDS: Ziprasidone 80 MG CAPSULE PO SCH ×2 (08:55→21:00)
[2021-02-26] MEDS: hydrOXYzine pamoate 25 MG CAPSULE PO PRN ×2 (08:55→21:00)
[2021-02-26] MEDS: Furosemide 40 MG TABLET PO SCH (08:55)
[2021-02-26] MEDS: Gabapentin 300 MG CAPSULE PO SCH ×2 (08:55→21:00)
[2021-02-26] MEDS: Perphenazine 8 MG TABLET PO SCH ×2 (08:55→21:00)
[2021-02-26] MEDS: Fluticasone Propionate Nasal 50 MCG/SPRAY BOTTLE NS SCH (08:58)
[2021-02-26] MEDS: Tiotropium 10 INH DOSE IH SCH (11:32)
[2021-02-26] MEDS ORDERED: Perflutren Lipid Microsphere 1.3 ML in 0.9 % Sodium Chloride 8.7 ML IVP PRN (12:16)
[2021-02-26] MEDS: predniSONE 20 MG TABLET PO SCH (13:35)
[2021-02-26] MEDS: clonazePAM 1 MG TABLET PO SCH (21:00)
[2021-02-26] MEDS: QUEtiapine Fumarate 25 MG TABLET PO PRN (21:00)
[2021-02-26] MEDS: Divalproex (12 HR) 500 MG TABLET PO SCH (21:00)
[2021-02-26] MEDS: Saline Nasal Spray 44 ML BOTTLE NS SCH (21:02)
[2021-02-27] MEDS: Nicotine 2 MG GUM BC PRN ×4 (03:05→23:14)
[2021-02-27] MEDS: predniSONE 20 MG TABLET PO SCH (08:31)
[2021-02-27] MEDS: Divalproex (12 HR) 250 MG TABLET PO SCH (08:31)
[2021-02-27] MEDS: Ziprasidone 80 MG CAPSULE PO SCH ×2 (08:31→20:21)
[2021-02-27] MEDS: Sennosides/Docusate Sodium TABLET PO SCH ×2 (08:31→20:21)
[2021-02-27] MEDS: Tiotropium 10 INH DOSE IH SCH (08:31)
[2021-02-27] MEDS: Gabapentin 300 MG CAPSULE PO SCH ×2 (08:31→20:21)
[2021-02-27] MEDS: Furosemide 40 MG TABLET PO SCH (08:32)
[2021-02-27] MEDS: Aspirin Enteric Coated 81 MG Tablet PO SCH (08:32)
[2021-02-27] MEDS: Perphenazine 8 MG TABLET PO SCH ×2 (08:32→20:21)
[2021-02-27] MEDS: hydrOXYzine pamoate 25 MG CAPSULE PO PRN ×2 (08:36→22:09)
[2021-02-27] MEDS: Fluticasone Propionate Nasal 50 MCG/SPRAY BOTTLE NS SCH (08:41)
[2021-02-27] MEDS: clonazePAM 1 MG TABLET PO SCH (20:21)
[2021-02-27] MEDS: Saline Nasal Spray 44 ML BOTTLE NS SCH (20:21)
[2021-02-27] MEDS: Divalproex (12 HR) 500 MG TABLET PO SCH (20:21)
[2021-02-27] MEDS: QUEtiapine Fumarate 25 MG TABLET PO PRN (22:09)
[2021-02-28] MEDS: Nicotine 2 MG GUM BC PRN ×2 (04:27→19:10)
[2021-02-28] MEDS: hydrOXYzine pamoate 25 MG CAPSULE PO PRN ×3 (04:27→19:10)
[2021-02-28] MEDS: Aspirin Enteric Coated 81 MG Tablet PO SCH (08:15)
[2021-02-28] MEDS: Divalproex (12 HR) 250 MG TABLET PO SCH (08:15)
[2021-02-28] MEDS: Sennosides/Docusate Sodium TABLET PO SCH ×2 (08:15→21:02)
[2021-02-28] MEDS: Fluticasone Propionate Nasal 50 MCG/SPRAY BOTTLE NS SCH (08:15)
[2021-02-28] MEDS: Perphenazine 8 MG TABLET PO SCH ×2 (08:15→21:01)
[2021-02-28] MEDS: predniSONE 20 MG TABLET PO SCH (08:15)
[2021-02-28] MEDS: Gabapentin 300 MG CAPSULE PO SCH ×2 (08:15→21:01)
[2021-02-28] MEDS: Ziprasidone 80 MG CAPSULE PO SCH ×2 (08:15→21:02)
[2021-02-28 09:17] LABS: Hematocrit 37.4 % (35.3-44.9); Mean Corpuscular HGB Conc 34.8 g/dL (31.6-35.5); Mean Corpuscular Hemoglobin 30.6 pg (28.0-33.3); Mean Platelet Volume 9.1 fL (9.4-12.4); Platelet Count 285 K/mcL (140-400); Red Blood Count 4.25 M/mcL (3.82-4.97); Red Cell Distribution Width 12.2 % (11.5-14.5); White Blood Count 13.2 K/mcL (4.3-11.1)
[2021-02-28 09:45] LABS: BUN/Creatinine Ratio 13 (6-26); Blood Urea Nitrogen 12 mg/dL (6-20); Calcium 8.8 mg/dL (8.6-10.3); Carbon Dioxide 25 mEq/L (23-29); Chloride 91 mEq/L (98-107); Glucose 159 mg/dL (70-105); Osmolality,Calculated 267 (280-300); Potassium 3.7 mEq/L (3.5-5.1); Sodium 127 mEq/L (136-145); eGFR For African Americans > 60 (> 60); eGFR For Non-African Americans > 60 (> 60)
[2021-02-28] MEDS: Tiotropium 10 INH DOSE IH SCH (10:18)
[2021-02-28] MEDS: Budesonide/Formoterol 80/4.5 1 PUFF INH IH SCH ×2 (13:21→23:58)
[2021-02-28] MEDS: Divalproex (12 HR) 500 MG TABLET PO SCH (21:01)
[2021-02-28] MEDS: clonazePAM 1 MG TABLET PO SCH (21:01)
[2021-02-28] MEDS: Saline Nasal Spray 44 ML BOTTLE NS SCH (21:02)
[2021-02-28] MEDS: QUEtiapine Fumarate 25 MG TABLET PO PRN (21:02)
[2021-03-01] MEDS: hydrOXYzine pamoate 25 MG CAPSULE PO PRN ×2 (05:21→17:54)
[2021-03-01] MEDS: Nicotine 2 MG GUM BC PRN ×3 (05:22→19:11)
[2021-03-01] MEDS: Ziprasidone 80 MG CAPSULE PO SCH (09:22)
[2021-03-01] MEDS: Fluticasone Propionate Nasal 50 MCG/SPRAY BOTTLE NS SCH (09:35)
[2021-03-01] MEDS: Budesonide/Formoterol 80/4.5 1 PUFF INH IH SCH ×2 (09:36→20:51)
[2021-03-01] MEDS: Tiotropium 10 INH DOSE IH SCH (09:38)
[2021-03-01] MEDS: Divalproex (12 HR) 250 MG TABLET PO SCH (09:39)
[2021-03-01] MEDS: Aspirin Enteric Coated 81 MG Tablet PO SCH (09:39)
[2021-03-01] MEDS: Sennosides/Docusate Sodium TABLET PO SCH ×2 (09:39→20:17)
[2021-03-01] MEDS: Perphenazine 8 MG TABLET PO SCH ×2 (09:39→20:18)
[2021-03-01] MEDS: predniSONE 20 MG TABLET PO SCH (09:40)
[2021-03-01] MEDS: Gabapentin 300 MG CAPSULE PO SCH ×2 (09:40→20:17)
[2021-03-01 10:21] LABS: Influenza A PCR Negative (Negative); Influenza B PCR Negative (Negative); Resp. Syncytial Virus PCR Negative (Negative); SARS-CoV-2 by PCR (In House) Negative (Negative)
[2021-03-01] MEDS: Ipratropium/Albuterol Neb 3 ML IH SCH ×3 (16:36→20:48)
[2021-03-01] MEDS: Divalproex (12 HR) 500 MG TABLET PO SCH (20:17)
[2021-03-01] MEDS: clonazePAM 1 MG TABLET PO SCH (20:18)
[2021-03-01] MEDS: QUEtiapine Fumarate 25 MG TABLET PO PRN (20:18)
[2021-03-01] MEDS: Saline Nasal Spray 44 ML BOTTLE NS SCH (20:19)
[2021-03-02] MEDS: Ipratropium/Albuterol Neb 3 ML IH SCH ×6 (00:03→23:41)
[2021-03-02] MEDS: Nicotine 2 MG GUM BC PRN ×4 (03:11→23:52)
[2021-03-02] MEDS: Fluticasone Propionate Nasal 50 MCG/SPRAY BOTTLE NS SCH (08:20)
[2021-03-02] MEDS: Sennosides/Docusate Sodium TABLET PO SCH ×2 (08:20→20:26)
[2021-03-02] MEDS: Gabapentin 300 MG CAPSULE PO SCH ×2 (08:21→20:26)
[2021-03-02] MEDS: Divalproex (12 HR) 250 MG TABLET PO SCH (08:21)
[2021-03-02] MEDS: predniSONE 20 MG TABLET PO SCH (08:22)
[2021-03-02] MEDS: Perphenazine 8 MG TABLET PO SCH ×2 (08:22→20:26)
[2021-03-02] MEDS: Aspirin Enteric Coated 81 MG Tablet PO SCH (08:22)
[2021-03-02] MEDS: hydrOXYzine pamoate 25 MG CAPSULE PO PRN ×2 (08:25→14:42)
[2021-03-02] MEDS: Budesonide/Formoterol 80/4.5 1 PUFF INH IH SCH ×2 (08:40→23:42)
[2021-03-02] MEDS: Tiotropium 10 INH DOSE IH SCH (08:40)
[2021-03-02] MEDS: *HR* LORazepam 1 MG TABLET PO PRN ×2 (18:42→23:54)
[2021-03-02] MEDS: QUEtiapine Fumarate 100 MG TABLET PO SCH (20:26)
[2021-03-02] MEDS: Divalproex (12 HR) 500 MG TABLET PO SCH (20:26)
[2021-03-02] MEDS: Saline Nasal Spray 44 ML BOTTLE NS SCH (20:27)
[2021-03-03] MEDS: Ipratropium/Albuterol Neb 3 ML IH SCH ×7 (00:05→23:44)
[2021-03-03] MEDS: Nicotine 2 MG GUM BC PRN ×4 (05:07→20:58)
[2021-03-03] MEDS: Sennosides/Docusate Sodium TABLET PO SCH ×2 (08:31→20:58)
[2021-03-03] MEDS: Aspirin Enteric Coated 81 MG Tablet PO SCH (08:33)
[2021-03-03] MEDS: Perphenazine 8 MG TABLET PO SCH ×2 (08:33→20:58)
[2021-03-03] MEDS: Gabapentin 300 MG CAPSULE PO SCH ×2 (08:33→20:58)
[2021-03-03] MEDS: Divalproex (12 HR) 250 MG TABLET PO SCH (08:33)
[2021-03-03] MEDS: predniSONE 20 MG TABLET PO SCH (08:33)
[2021-03-03] MEDS: Budesonide/Formoterol 80/4.5 1 PUFF INH IH SCH ×2 (08:43→20:24)
[2021-03-03] MEDS: Tiotropium 10 INH DOSE IH SCH (08:43)
[2021-03-03] MEDS: Fluticasone Propionate Nasal 50 MCG/SPRAY BOTTLE NS SCH (08:49)
[2021-03-03] MEDS: Ibuprofen 800 MG TABLET PO PRN (09:15)
[2021-03-03] MEDS: *HR* LORazepam 1 MG TABLET PO PRN ×2 (12:38→21:01)
[2021-03-03] MEDS: Mag Hydrox/Al Hydrox/Simeth 30 ML UDC PO PRN (17:38)
[2021-03-03] MEDS: Saline Nasal Spray 44 ML BOTTLE NS SCH (20:57)
[2021-03-03] MEDS: Divalproex (12 HR) 500 MG TABLET PO SCH (20:58)
[2021-03-03] MEDS: QUEtiapine Fumarate 100 MG TABLET PO SCH (20:58)
[2021-03-04] MEDS: Ipratropium/Albuterol Neb 3 ML IH SCH ×6 (04:05→23:14)
[2021-03-04] MEDS: Nicotine 2 MG GUM BC PRN ×6 (05:08→20:28)
[2021-03-04] MEDS: Ibuprofen 800 MG TABLET PO PRN ×2 (05:08→20:25)
[2021-03-04] MEDS: *HR* LORazepam 1 MG TABLET PO PRN ×3 (05:09→20:24)
[2021-03-04] MEDS: Aspirin Enteric Coated 81 MG Tablet PO SCH (08:28)
[2021-03-04] MEDS: Fluticasone Propionate Nasal 50 MCG/SPRAY BOTTLE NS SCH (08:28)
[2021-03-04] MEDS: Sennosides/Docusate Sodium TABLET PO SCH ×2 (08:29→20:25)
[2021-03-04] MEDS: Perphenazine 8 MG TABLET PO SCH ×2 (08:29→20:24)
[2021-03-04] MEDS: Divalproex (12 HR) 250 MG TABLET PO SCH (08:29)
[2021-03-04] MEDS: Gabapentin 300 MG CAPSULE PO SCH ×2 (08:29→20:25)
[2021-03-04] MEDS: Tiotropium 10 INH DOSE IH SCH (08:45)
[2021-03-04] MEDS: Budesonide/Formoterol 80/4.5 1 PUFF INH IH SCH ×3 (08:45→21:20)
[2021-03-04] MEDS: Mag Hydrox/Al Hydrox/Simeth 30 ML UDC PO PRN (12:36)
[2021-03-04] MEDS: Neosporin OINT 15 GM TUBE TP PRN (16:13)
[2021-03-04] MEDS: Saline Nasal Spray 44 ML BOTTLE NS SCH (20:22)
[2021-03-04] MEDS: Divalproex (12 HR) 500 MG TABLET PO SCH (20:24)
[2021-03-04] MEDS: QUEtiapine Fumarate 100 MG TABLET PO SCH (20:25)
[2021-03-05] MEDS: Nicotine 2 MG GUM BC PRN ×7 (03:39→21:31)
[2021-03-05] MEDS: Ipratropium/Albuterol Neb 3 ML IH SCH ×6 (03:42→23:41)
[2021-03-05] MEDS: *HR* LORazepam 1 MG TABLET PO PRN ×4 (04:56→20:12)
[2021-03-05] MEDS: Neosporin OINT 15 GM TUBE TP PRN ×2 (07:22→19:13)
[2021-03-05] MEDS: Sennosides/Docusate Sodium TABLET PO SCH ×2 (07:28→20:12)
[2021-03-05] MEDS: Fluticasone Propionate Nasal 50 MCG/SPRAY BOTTLE NS SCH (07:28)
[2021-03-05] MEDS: Perphenazine 8 MG TABLET PO SCH ×2 (07:29→20:12)
[2021-03-05] MEDS: Divalproex (12 HR) 250 MG TABLET PO SCH (07:29)
[2021-03-05] MEDS: Gabapentin 300 MG CAPSULE PO SCH ×2 (07:29→20:12)
[2021-03-05] MEDS: Aspirin Enteric Coated 81 MG Tablet PO SCH (07:29)
[2021-03-05] MEDS: Budesonide/Formoterol 80/4.5 1 PUFF INH IH SCH ×2 (11:10→20:24)
[2021-03-05] MEDS: Tiotropium 10 INH DOSE IH SCH (11:11)
[2021-03-05] MEDS: Ibuprofen 800 MG TABLET PO PRN ×2 (14:08→21:31)
[2021-03-05] MEDS: Saline Nasal Spray 44 ML BOTTLE NS SCH (20:11)
[2021-03-05] MEDS: Divalproex (12 HR) 500 MG TABLET PO SCH (20:12)
[2021-03-05] MEDS: QUEtiapine Fumarate 100 MG TABLET PO SCH (20:12)
[2021-03-06] MEDS: Acetaminophen 325 MG TABLET PO PRN ×2 (03:23→13:19)
[2021-03-06] MEDS: Nicotine 2 MG GUM BC PRN ×6 (03:24→22:25)
[2021-03-06] MEDS: Ipratropium/Albuterol Neb 3 ML IH SCH ×2 (04:19→08:36)
[2021-03-06] MEDS: *HR* LORazepam 1 MG TABLET PO PRN ×3 (04:39→20:16)
[2021-03-06] MEDS: Fluticasone Propionate Nasal 50 MCG/SPRAY BOTTLE NS SCH (08:10)
[2021-03-06] MEDS: Divalproex (12 HR) 250 MG TABLET PO SCH (08:11)
[2021-03-06] MEDS: Sennosides/Docusate Sodium TABLET PO SCH ×2 (08:11→20:15)
[2021-03-06] MEDS: Perphenazine 8 MG TABLET PO SCH ×2 (08:12→20:15)
[2021-03-06] MEDS: Gabapentin 300 MG CAPSULE PO SCH ×2 (08:12→20:15)
[2021-03-06] MEDS: Aspirin Enteric Coated 81 MG Tablet PO SCH (08:12)
[2021-03-06] MEDS: Budesonide/Formoterol 80/4.5 1 PUFF INH IH SCH ×2 (08:37→22:22)
[2021-03-06] MEDS: Tiotropium 10 INH DOSE IH SCH (08:37)
[2021-03-06] MEDS: Ibuprofen 800 MG TABLET PO PRN (08:47)
[2021-03-06] MEDS: Mag Hydrox/Al Hydrox/Simeth 30 ML UDC PO PRN (09:36)
[2021-03-06] MEDS: Ipratropium 1 PUFF INHALER IH SCH ×3 (14:22→21:04)
[2021-03-06] MEDS: Ondansetron ODT 4 MG TAB.RAPDIS SL PRN (18:42)
[2021-03-06] MEDS: Divalproex (12 HR) 500 MG TABLET PO SCH (20:15)
[2021-03-06] MEDS: QUEtiapine Fumarate 100 MG TABLET PO SCH (20:15)
[2021-03-06] MEDS: Saline Nasal Spray 44 ML BOTTLE NS SCH (20:16)
[2021-03-07] MEDS: Ipratropium 1 PUFF INHALER IH SCH ×6 (00:58→20:01)
[2021-03-07] MEDS: Nicotine 2 MG GUM BC PRN ×4 (01:06→20:00)
[2021-03-07] MEDS: Sennosides/Docusate Sodium TABLET PO SCH ×2 (08:07→20:00)
[2021-03-07] MEDS: Aspirin Enteric Coated 81 MG Tablet PO SCH (08:08)
[2021-03-07] MEDS: Perphenazine 8 MG TABLET PO SCH ×2 (08:08→20:00)
[2021-03-07] MEDS: Gabapentin 300 MG CAPSULE PO SCH ×2 (08:08→19:59)
[2021-03-07] MEDS: Divalproex (12 HR) 250 MG TABLET PO SCH (08:08)
[2021-03-07] MEDS: Fluticasone Propionate Nasal 50 MCG/SPRAY BOTTLE NS SCH (08:11)
[2021-03-07] MEDS: *HR* LORazepam 1 MG TABLET PO PRN ×2 (08:14→19:59)
[2021-03-07] MEDS: Tiotropium 10 INH DOSE IH SCH (10:59)
[2021-03-07] MEDS: Budesonide/Formoterol 80/4.5 1 PUFF INH IH SCH (11:00)
[2021-03-07 14:17] LABS: Bilirubin,Urine Negative (Negative); Blood,Urine Small (Negative); Clarity,Urine Clear (Clear); Color,Urine Colorless (Yellow); Glucose,Urine (UA) Normal (Normal); Ketones,Urine Negative (Negative); Leukocyte Esterase,Urine Negative (Negative); Nitrite,Urine Negative (Negative); PH,Urine 6.5 pH Units (5.0-8.0); Protein,Urine Negative (Neg-Trace); RBC,Urine 0-3 per hpf (0-3); Specific Gravity,Urine 1.005 (1.010-1.025); Squamous Epithelial Cell,Urine Few per hpf (None-Few); Urobilinogen,Urine Normal (Normal)
[2021-03-07] MEDS: Ibuprofen 800 MG TABLET PO PRN (15:18)
[2021-03-07] MEDS: Acetaminophen 325 MG TABLET PO PRN (19:59)
[2021-03-07] MEDS: Divalproex (12 HR) 500 MG TABLET PO SCH (20:00)
[2021-03-07] MEDS: QUEtiapine Fumarate 100 MG TABLET PO SCH (20:00)
[2021-03-07] MEDS: Saline Nasal Spray 44 ML BOTTLE NS SCH (20:01)
[2021-03-07] MEDS: Neosporin OINT 15 GM TUBE TP PRN (20:01)
[2021-03-08] MEDS: Ipratropium 1 PUFF INHALER IH SCH ×6 (00:26→20:37)
[2021-03-08] MEDS: Nicotine 2 MG GUM BC PRN ×5 (00:37→20:35)
[2021-03-08] MEDS: Ibuprofen 800 MG TABLET PO PRN ×2 (00:59→08:17)
[2021-03-08] MEDS: Budesonide/Formoterol 80/4.5 1 PUFF INH IH SCH ×3 (01:04→22:02)
[2021-03-08] MEDS: *HR* LORazepam 1 MG TABLET PO PRN ×3 (07:02→19:29)
[2021-03-08] MEDS: Sennosides/Docusate Sodium TABLET PO SCH ×2 (08:16→20:35)
[2021-03-08] MEDS: Perphenazine 8 MG TABLET PO SCH ×2 (08:16→20:35)
[2021-03-08] MEDS: Aspirin Enteric Coated 81 MG Tablet PO SCH (08:16)
[2021-03-08] MEDS: Divalproex (12 HR) 250 MG TABLET PO SCH (08:18)
[2021-03-08] MEDS: Gabapentin 300 MG CAPSULE PO SCH ×2 (08:18→20:35)
[2021-03-08] MEDS: Fluticasone Propionate Nasal 50 MCG/SPRAY BOTTLE NS SCH (08:19)
[2021-03-08] MEDS: Tiotropium 10 INH DOSE IH SCH (09:08)
[2021-03-08 11:16] LABS: Basophils # 0.1 K/mcL (0.0-0.2); Basophils % 1.1 %; Eosinophils # 0.2 K/mcL (0.0-0.6); Eosinophils % 2.2 %; Hematocrit 33.7 % (35.3-44.9); Hemoglobin 11.9 g/dL (11.5-15.4); Immature Granulocytes % 4.4 % (0-4); Lymphocytes # 2.3 K/mcL (0.6-4.6); Lymphocytes % 24.2 %; Mean Corpuscular HGB Conc 35.3 g/dL (31.6-35.5); Mean Corpuscular Hemoglobin 30.9 pg (28.0-33.3); Mean Corpuscular Volume 87.5 fL (83.0-100.0); Mean Platelet Volume 8.7 fL (9.4-12.4); Monocytes # 0.9 K/mcL (0.0-1.3); Monocytes % 9.4 %; Neutrophils # 5.6 K/mcL (1.6-8.9); Platelet Count 302 K/mcL (140-400); Red Blood Count 3.85 M/mcL (3.82-4.97); Red Cell Distribution Width 12.1 % (11.5-14.5); Segmented Neutrophils % 58.7 %; White Blood Count 9.5 K/mcL (4.3-11.1)
[2021-03-08 11:34] LABS: Alanine Aminotransferase 16 Units/L (7-52); Albumin 3.6 g/dL (3.5-5.7); Albumin/Globulin Ratio 1.7 (1.1-2.2); Alkaline Phosphatase 63 Units/L (34-104); Aspartate Amino Transferase 18 Units/L (13-39); BUN/Creatinine Ratio 10 (6-26); Bilirubin,Total 0.2 mg/dL (0.3-1.0); Blood Urea Nitrogen 8 mg/dL (6-20); Calcium 8.6 mg/dL (8.6-10.3); Carbon Dioxide 25 mEq/L (23-29); Chloride 94 mEq/L (98-107); Globulin 2.1 g/dL (2.4-3.5); Glucose 208 mg/dL (70-105); Osmolality,Calculated 270 (280-300); Potassium 3.9 mEq/L (3.5-5.1); Sodium 128 mEq/L (136-145); Total Protein 5.7 g/dL (6.4-8.9); eGFR For African Americans > 60 (> 60); eGFR For Non-African Americans > 60 (> 60)
[2021-03-08] MEDS: Furosemide 20 MG TABLET PO SCH (13:45)
[2021-03-08] MEDS: polyethylene glycoL 3350 17 GM POWD.PACK PO PRN (14:13)
[2021-03-08] MEDS: Saline Nasal Spray 44 ML BOTTLE NS SCH (20:35)
[2021-03-08] MEDS: Divalproex (12 HR) 500 MG TABLET PO SCH (20:35)
[2021-03-08] MEDS: QUEtiapine Fumarate 100 MG TABLET PO SCH (20:35)
[2021-03-09] MEDS: Ipratropium 1 PUFF INHALER IH SCH ×6 (01:13→21:07)
[2021-03-09] MEDS: Nicotine 2 MG GUM BC PRN ×6 (05:18→22:10)
[2021-03-09] MEDS: *HR* LORazepam 1 MG TABLET PO PRN ×2 (06:04→13:04)
[2021-03-09] MEDS: Ibuprofen 800 MG TABLET PO PRN ×2 (07:46→16:04)
[2021-03-09] MEDS: Divalproex (12 HR) 250 MG TABLET PO SCH (08:35)
[2021-03-09] MEDS: Aspirin Enteric Coated 81 MG Tablet PO SCH (08:36)
[2021-03-09] MEDS: Sennosides/Docusate Sodium TABLET PO SCH ×2 (08:36→21:08)
[2021-03-09] MEDS: Perphenazine 8 MG TABLET PO SCH ×2 (08:36→21:09)
[2021-03-09] MEDS: Gabapentin 300 MG CAPSULE PO SCH ×2 (08:37→21:09)
[2021-03-09] MEDS: Furosemide 20 MG TABLET PO SCH (08:37)
[2021-03-09] MEDS: Budesonide/Formoterol 80/4.5 1 PUFF INH IH SCH ×2 (08:38→22:21)
[2021-03-09] MEDS: Tiotropium 10 INH DOSE IH SCH (10:00)
[2021-03-09 12:20] LABS: BUN/Creatinine Ratio 10 (6-26); Blood Urea Nitrogen 7 mg/dL (6-20); Calcium 8.6 mg/dL (8.6-10.3); Carbon Dioxide 29 mEq/L (23-29); Chloride 96 mEq/L (98-107); Glucose 101 mg/dL (70-105); Osmolality,Calculated 272 (280-300); Potassium 3.8 mEq/L (3.5-5.1); Sodium 132 mEq/L (136-145); eGFR For African Americans > 60 (> 60); eGFR For Non-African Americans > 60 (> 60)
[2021-03-09] MEDS: Fluticasone Propionate Nasal 50 MCG/SPRAY BOTTLE NS SCH (12:56)
[2021-03-09] MEDS: Acetaminophen 325 MG TABLET PO PRN (14:26)
[2021-03-09] MEDS: Divalproex (12 HR) 500 MG TABLET PO SCH (21:09)
[2021-03-09] MEDS: QUEtiapine Fumarate 100 MG TABLET PO SCH (22:10)
[2021-03-09] MEDS: Saline Nasal Spray 44 ML BOTTLE NS SCH (22:11)
[2021-03-10] MEDS: Ipratropium 1 PUFF INHALER IH SCH ×4 (01:00→11:48)
[2021-03-10] MEDS: Nicotine 2 MG GUM BC PRN ×4 (06:05→20:40)
[2021-03-10] MEDS: *HR* LORazepam 1 MG TABLET PO PRN ×3 (07:08→20:40)
[2021-03-10] MEDS: Sennosides/Docusate Sodium TABLET PO SCH ×2 (08:06→20:40)
[2021-03-10] MEDS: Ibuprofen 800 MG TABLET PO PRN ×2 (08:06→19:11)
[2021-03-10] MEDS: Divalproex (12 HR) 250 MG TABLET PO SCH (08:06)
[2021-03-10] MEDS: Fluticasone Propionate Nasal 50 MCG/SPRAY BOTTLE NS SCH (08:06)
[2021-03-10] MEDS: Perphenazine 8 MG TABLET PO SCH ×2 (08:06→20:39)
[2021-03-10] MEDS: Gabapentin 300 MG CAPSULE PO SCH ×2 (08:06→20:40)
[2021-03-10] MEDS: Aspirin Enteric Coated 81 MG Tablet PO SCH (08:07)
[2021-03-10] MEDS: Furosemide 20 MG TABLET PO SCH (08:07)
[2021-03-10] MEDS: Tiotropium 10 INH DOSE IH SCH (09:35)
[2021-03-10] MEDS: Budesonide/Formoterol 80/4.5 1 PUFF INH IH SCH ×2 (09:35→20:41)
[2021-03-10] MEDS: predniSONE 20 MG TABLET PO SCH (13:06)
[2021-03-10] MEDS: Acetaminophen 325 MG TABLET PO PRN ×2 (15:17→23:24)
[2021-03-10] MEDS ORDERED: Moderna Covid-19 Vaccine 100MCG/0.5mL IM ONE (16:49)
[2021-03-10] MEDS: QUEtiapine Fumarate 100 MG TABLET PO SCH (20:40)
[2021-03-10] MEDS: Divalproex (12 HR) 500 MG TABLET PO SCH (20:40)
[2021-03-10] MEDS: Saline Nasal Spray 44 ML BOTTLE NS SCH (20:41)
[2021-03-10] MEDS: Ipratropium/Albuterol Neb 3 ML IH SCH ×2 (21:07→21:25)
[2021-03-10] MEDS: QUEtiapine Fumarate 25 MG TABLET PO PRN (21:43)
[2021-03-10 21:45] LABS: ABG Base Excess 0 mEq/L (-2 to 3); ABG HCO3 24 mEq/L (21-27); ABG Oxygen Saturation 100 % (95-98); ABG PCO2 36 mmHg (35-45); ABG PH 7.43 pH Units (7.32-7.45); ABG PO2 182 mmHg (85-104); ABG TCO2 25 mEq/L (20-26)
[2021-03-11] MEDS: Nicotine 2 MG GUM BC PRN ×3 (04:25→18:12)
[2021-03-11] MEDS: Ipratropium/Albuterol Neb 3 ML IH SCH ×4 (05:53→21:45)
[2021-03-11 08:04] LABS: BUN/Creatinine Ratio 14 (6-26); Blood Urea Nitrogen 10 mg/dL (6-20); Calcium 9.3 mg/dL (8.6-10.3); Carbon Dioxide 25 mEq/L (23-29); Chloride 95 mEq/L (98-107); Glucose 120 mg/dL (70-105); Osmolality,Calculated 270 (280-300); Potassium 4.3 mEq/L (3.5-5.1); Sodium 130 mEq/L (136-145); eGFR For African Americans > 60 (> 60); eGFR For Non-African Americans > 60 (> 60)
[2021-03-11] MEDS: *HR* LORazepam 1 MG TABLET PO PRN ×3 (08:59→21:42)
[2021-03-11] MEDS: Aspirin Enteric Coated 81 MG Tablet PO SCH (09:00)
[2021-03-11] MEDS: Furosemide 20 MG TABLET PO SCH (09:00)
[2021-03-11] MEDS: Perphenazine 8 MG TABLET PO SCH ×2 (09:00→20:24)
[2021-03-11] MEDS: Sennosides/Docusate Sodium TABLET PO SCH ×2 (09:00→20:24)
[2021-03-11] MEDS: Divalproex (12 HR) 250 MG TABLET PO SCH (09:00)
[2021-03-11] MEDS: Fluticasone Propionate Nasal 50 MCG/SPRAY BOTTLE NS SCH (09:01)
[2021-03-11] MEDS: Gabapentin 300 MG CAPSULE PO SCH ×2 (09:01→20:24)
[2021-03-11] MEDS: predniSONE 20 MG TABLET PO SCH (09:01)
[2021-03-11] MEDS: Budesonide/Formoterol 80/4.5 1 PUFF INH IH SCH ×2 (09:05→20:25)
[2021-03-11] MEDS: Tiotropium 10 INH DOSE IH SCH (09:06)
[2021-03-11] MEDS: Saline Nasal Spray 44 ML BOTTLE NS SCH ×2 (14:10→19:22)
[2021-03-11] MEDS: Ibuprofen 800 MG TABLET PO PRN (17:23)
[2021-03-11] MEDS: QUEtiapine Fumarate 100 MG TABLET PO SCH (20:24)
[2021-03-11] MEDS: Divalproex (12 HR) 500 MG TABLET PO SCH (20:24)
[2021-03-11] MEDS: Acetaminophen 325 MG TABLET PO PRN (21:42)
[2021-03-11] MEDS: QUEtiapine Fumarate 25 MG TABLET PO PRN (21:42)
[2021-03-12] MEDS: Ipratropium/Albuterol Neb 3 ML IH SCH ×4 (03:14→22:35)
[2021-03-12] MEDS: Nicotine 2 MG GUM BC PRN ×5 (03:42→20:15)
[2021-03-12] MEDS: Ibuprofen 800 MG TABLET PO PRN (03:42)
[2021-03-12] MEDS: *HR* LORazepam 1 MG TABLET PO PRN ×3 (07:50→20:14)
[2021-03-12] MEDS: Tiotropium 10 INH DOSE IH SCH (08:42)
[2021-03-12] MEDS: Fluticasone Propionate Nasal 50 MCG/SPRAY BOTTLE NS SCH (08:42)
[2021-03-12] MEDS: Budesonide/Formoterol 80/4.5 1 PUFF INH IH SCH ×2 (08:43→22:35)
[2021-03-12] MEDS: Sennosides/Docusate Sodium TABLET PO SCH ×2 (08:44→20:14)
[2021-03-12] MEDS: Gabapentin 300 MG CAPSULE PO SCH ×2 (08:44→20:14)
[2021-03-12] MEDS: Divalproex (12 HR) 250 MG TABLET PO SCH (08:45)
[2021-03-12] MEDS: Aspirin Enteric Coated 81 MG Tablet PO SCH (08:45)
[2021-03-12] MEDS: Perphenazine 8 MG TABLET PO SCH ×2 (08:45→20:14)
[2021-03-12] MEDS: predniSONE 20 MG TABLET PO SCH (08:45)
[2021-03-12] MEDS: Saline Nasal Spray 44 ML BOTTLE NS SCH (20:11)
[2021-03-12] MEDS: Divalproex (12 HR) 500 MG TABLET PO SCH (20:14)
[2021-03-12] MEDS: QUEtiapine Fumarate 100 MG TABLET PO SCH (20:14)
[2021-03-12] MEDS: QUEtiapine Fumarate 25 MG TABLET PO PRN (22:48)
[2021-03-13] MEDS: Ipratropium/Albuterol Neb 3 ML IH SCH ×4 (05:09→23:13)
[2021-03-13] MEDS: *HR* LORazepam 1 MG TABLET PO PRN ×3 (06:28→20:25)
[2021-03-13] MEDS: Ibuprofen 800 MG TABLET PO PRN ×2 (06:28→15:16)
[2021-03-13] MEDS: Fluticasone Propionate Nasal 50 MCG/SPRAY BOTTLE NS SCH (08:25)
[2021-03-13] MEDS: Aspirin Enteric Coated 81 MG Tablet PO SCH (08:27)
[2021-03-13] MEDS: Furosemide 20 MG TABLET PO SCH (08:27)
[2021-03-13] MEDS: Sennosides/Docusate Sodium TABLET PO SCH ×2 (08:27→20:25)
[2021-03-13] MEDS: Perphenazine 8 MG TABLET PO SCH ×2 (08:27→20:25)
[2021-03-13] MEDS: Divalproex (12 HR) 250 MG TABLET PO SCH (08:28)
[2021-03-13] MEDS: Gabapentin 300 MG CAPSULE PO SCH ×2 (08:28→20:25)
[2021-03-13] MEDS: predniSONE 20 MG TABLET PO SCH (08:29)
[2021-03-13] MEDS: Budesonide/Formoterol 80/4.5 1 PUFF INH IH SCH ×2 (10:44→23:13)
[2021-03-13] MEDS: Tiotropium 10 INH DOSE IH SCH (10:47)
[2021-03-13] MEDS: Nicotine 2 MG GUM BC PRN ×2 (14:52→19:17)
[2021-03-13] MEDS: Mag Hydrox/Al Hydrox/Simeth 30 ML UDC PO PRN (19:47)
[2021-03-13] MEDS: Saline Nasal Spray 44 ML BOTTLE NS SCH (20:24)
[2021-03-13] MEDS: Divalproex (12 HR) 500 MG TABLET PO SCH (20:25)
[2021-03-13] MEDS: QUEtiapine Fumarate 100 MG TABLET PO SCH (20:25)
[2021-03-14] MEDS: Ipratropium/Albuterol Neb 3 ML IH SCH ×4 (04:05→21:34)
[2021-03-14] MEDS: Nicotine 2 MG GUM BC PRN ×3 (06:00→21:47)
[2021-03-14] MEDS: *HR* LORazepam 1 MG TABLET PO PRN ×3 (06:29→20:19)
[2021-03-14] MEDS: Ibuprofen 800 MG TABLET PO PRN ×2 (06:30→20:19)
[2021-03-14] MEDS: Sennosides/Docusate Sodium TABLET PO SCH ×2 (08:29→20:18)
[2021-03-14] MEDS: Gabapentin 300 MG CAPSULE PO SCH ×2 (08:29→20:19)
[2021-03-14] MEDS: Aspirin Enteric Coated 81 MG Tablet PO SCH (08:30)
[2021-03-14] MEDS: Furosemide 20 MG TABLET PO SCH (08:30)
[2021-03-14] MEDS: predniSONE 20 MG TABLET PO SCH (08:30)
[2021-03-14] MEDS: Perphenazine 8 MG TABLET PO SCH ×2 (08:30→20:19)
[2021-03-14] MEDS: Fluticasone Propionate Nasal 50 MCG/SPRAY BOTTLE NS SCH (08:31)
[2021-03-14] MEDS: Divalproex (12 HR) 250 MG TABLET PO SCH (08:31)
[2021-03-14] MEDS: Tiotropium 10 INH DOSE IH SCH (09:46)
[2021-03-14] MEDS: Budesonide/Formoterol 80/4.5 1 PUFF INH IH SCH ×2 (09:46→21:32)
[2021-03-14 11:22] LABS: Basophils # 0.2 K/mcL (0.0-0.2); Basophils % 1.1 %; Eosinophils # 0.3 K/mcL (0.0-0.6); Eosinophils % 1.6 %; Hematocrit 35.7 % (35.3-44.9); Hemoglobin 12.2 g/dL (11.5-15.4); Immature Granulocytes % 2.8 % (0-4); Lymphocytes # 4.4 K/mcL (0.6-4.6); Lymphocytes % 26.4 %; Mean Corpuscular HGB Conc 34.2 g/dL (31.6-35.5); Mean Corpuscular Hemoglobin 30.3 pg (28.0-33.3); Mean Corpuscular Volume 88.6 fL (83.0-100.0); Mean Platelet Volume 8.5 fL (9.4-12.4); Monocytes # 1.9 K/mcL (0.0-1.3); Monocytes % 11.6 %; Neutrophils # 9.3 K/mcL (1.6-8.9); Platelet Count 298 K/mcL (140-400); Red Blood Count 4.03 M/mcL (3.82-4.97); Segmented Neutrophils % 56.5 %
[2021-03-14 11:23] LABS: White Blood Count 16.5 K/mcL (4.3-11.1)
[2021-03-14 11:49] LABS: BUN/Creatinine Ratio 9 (6-26); Blood Urea Nitrogen 9 mg/dL (6-20); Calcium 8.8 mg/dL (8.6-10.3); Carbon Dioxide 26 mEq/L (23-29); Chloride 93 mEq/L (98-107); Glucose 99 mg/dL (70-105); Osmolality,Calculated 261 (280-300); Potassium 4.2 mEq/L (3.5-5.1); Sodium 126 mEq/L (136-145); eGFR For African Americans > 60 (> 60); eGFR For Non-African Americans > 60 (> 60)
[2021-03-14] MEDS: Saline Nasal Spray 44 ML BOTTLE NS SCH (20:17)
[2021-03-14] MEDS: QUEtiapine Fumarate 100 MG TABLET PO SCH (20:18)
[2021-03-14] MEDS: Divalproex (12 HR) 500 MG TABLET PO SCH (20:18)
[2021-03-15] MEDS: Ipratropium/Albuterol Neb 3 ML IH SCH ×4 (03:39→20:32)
[2021-03-15] MEDS: Nicotine 2 MG GUM BC PRN ×2 (03:54→18:35)
[2021-03-15] MEDS: Ibuprofen 800 MG TABLET PO PRN ×2 (04:27→22:18)
[2021-03-15] MEDS: Mag Hydrox/Al Hydrox/Simeth 30 ML UDC PO PRN ×2 (04:28→19:47)
[2021-03-15] MEDS: *HR* LORazepam 1 MG TABLET PO PRN ×3 (07:34→20:10)
[2021-03-15] MEDS: Divalproex (12 HR) 250 MG TABLET PO SCH (08:16)
[2021-03-15] MEDS: Gabapentin 300 MG CAPSULE PO SCH ×2 (08:16→20:11)
[2021-03-15] MEDS: Fluticasone Propionate Nasal 50 MCG/SPRAY BOTTLE NS SCH (08:16)
[2021-03-15] MEDS: Furosemide 20 MG TABLET PO SCH (08:17)
[2021-03-15] MEDS: Aspirin Enteric Coated 81 MG Tablet PO SCH (08:17)
[2021-03-15] MEDS: Sennosides/Docusate Sodium TABLET PO SCH ×2 (08:17→20:11)
[2021-03-15] MEDS: Perphenazine 8 MG TABLET PO SCH ×2 (08:41→20:11)
[2021-03-15] MEDS: Tiotropium 10 INH DOSE IH SCH (10:15)
[2021-03-15] MEDS: Budesonide/Formoterol 80/4.5 1 PUFF INH IH SCH ×2 (10:15→20:33)
[2021-03-15] MEDS: Divalproex (12 HR) 500 MG TABLET PO SCH (20:10)
[2021-03-15] MEDS: Saline Nasal Spray 44 ML BOTTLE NS SCH (20:10)
[2021-03-15] MEDS: QUEtiapine Fumarate 100 MG TABLET PO SCH (20:11)
[2021-03-15] MEDS: hydrOXYzine pamoate 25 MG CAPSULE PO PRN (21:40)
[2021-03-15] MEDS: QUEtiapine Fumarate 25 MG TABLET PO PRN (21:40)
[2021-03-16] MEDS: Nicotine 2 MG GUM BC PRN ×2 (07:32→16:31)
[2021-03-16] MEDS: Ibuprofen 800 MG TABLET PO PRN ×2 (07:33→15:56)
[2021-03-16] MEDS: *HR* LORazepam 1 MG TABLET PO PRN ×3 (07:36→20:38)
[2021-03-16] MEDS: Ipratropium/Albuterol Neb 3 ML IH SCH ×4 (07:50→21:37)
[2021-03-16] MEDS: Sennosides/Docusate Sodium TABLET PO SCH ×2 (08:20→20:34)
[2021-03-16] MEDS: Divalproex (12 HR) 250 MG TABLET PO SCH (08:22)
[2021-03-16] MEDS: Perphenazine 8 MG TABLET PO SCH ×2 (08:22→20:34)
[2021-03-16] MEDS: Gabapentin 300 MG CAPSULE PO SCH ×2 (08:22→20:34)
[2021-03-16] MEDS: Aspirin Enteric Coated 81 MG Tablet PO SCH (08:22)
[2021-03-16] MEDS: Fluticasone Propionate Nasal 50 MCG/SPRAY BOTTLE NS SCH (09:00)
[2021-03-16] MEDS: Tiotropium 10 INH DOSE IH SCH (11:18)
[2021-03-16] MEDS: Budesonide/Formoterol 80/4.5 1 PUFF INH IH SCH ×2 (11:19→20:34)
[2021-03-16] MEDS: QUEtiapine Fumarate 100 MG TABLET PO SCH (20:34)
[2021-03-16] MEDS: Divalproex (12 HR) 500 MG TABLET PO SCH (20:34)
[2021-03-16] MEDS: Saline Nasal Spray 44 ML BOTTLE NS SCH (20:34)
[2021-03-16] MEDS: Acetaminophen 325 MG TABLET PO PRN (21:18)
[2021-03-17] MEDS: Nicotine 2 MG GUM BC PRN ×5 (00:30→20:12)
[2021-03-17] MEDS: polyethylene glycoL 3350 17 GM POWD.PACK PO PRN (04:32)
[2021-03-17] MEDS: Ipratropium/Albuterol Neb 3 ML IH SCH ×4 (05:11→21:23)
[2021-03-17] MEDS: Gabapentin 300 MG CAPSULE PO SCH ×2 (09:21→20:08)
[2021-03-17] MEDS: Aspirin Enteric Coated 81 MG Tablet PO SCH (09:21)
[2021-03-17] MEDS: Divalproex (12 HR) 250 MG TABLET PO SCH (09:22)
[2021-03-17] MEDS: Sennosides/Docusate Sodium TABLET PO SCH ×2 (09:22→20:08)
[2021-03-17] MEDS: Perphenazine 8 MG TABLET PO SCH ×2 (09:23→20:08)
[2021-03-17] MEDS: *HR* LORazepam 1 MG TABLET PO PRN ×2 (09:24→15:54)
[2021-03-17] MEDS: Budesonide/Formoterol 80/4.5 1 PUFF INH IH SCH ×2 (09:25→20:47)
[2021-03-17] MEDS: Fluticasone Propionate Nasal 50 MCG/SPRAY BOTTLE NS SCH (09:25)
[2021-03-17] MEDS: Tiotropium 10 INH DOSE IH SCH (10:24)
[2021-03-17] MEDS: QUEtiapine Fumarate 100 MG TABLET PO SCH (20:08)
[2021-03-17] MEDS: Divalproex (12 HR) 500 MG TABLET PO SCH (20:08)
[2021-03-17] MEDS: Saline Nasal Spray 44 ML BOTTLE NS SCH (20:47)
[2021-03-17] MEDS: Ibuprofen 800 MG TABLET PO PRN (20:47)
[2021-03-18] MEDS: Nicotine 2 MG GUM BC PRN ×4 (02:01→22:05)
[2021-03-18] MEDS: Ipratropium/Albuterol Neb 3 ML IH SCH ×4 (03:53→21:41)
[2021-03-18] MEDS: Acetaminophen 325 MG TABLET PO PRN ×2 (04:58→10:55)
[2021-03-18] MEDS: *HR* LORazepam 1 MG TABLET PO PRN ×2 (07:10→15:55)
[2021-03-18] MEDS: Divalproex (12 HR) 250 MG TABLET PO SCH (08:42)
[2021-03-18] MEDS: Perphenazine 8 MG TABLET PO SCH ×2 (08:42→21:02)
[2021-03-18] MEDS: Sennosides/Docusate Sodium TABLET PO SCH ×2 (08:43→21:02)
[2021-03-18] MEDS: Gabapentin 300 MG CAPSULE PO SCH ×2 (08:43→21:02)
[2021-03-18] MEDS: Aspirin Enteric Coated 81 MG Tablet PO SCH (08:43)
[2021-03-18] MEDS: Ibuprofen 800 MG TABLET PO PRN (08:47)
[2021-03-18] MEDS: Fluticasone Propionate Nasal 50 MCG/SPRAY BOTTLE NS SCH (08:48)
[2021-03-18] MEDS: Tiotropium 10 INH DOSE IH SCH (08:49)
[2021-03-18] MEDS ORDERED: Tiotropium 10 INH DOSE IH ONE (09:57)
[2021-03-18] MEDS: Budesonide/Formoterol 80/4.5 1 PUFF INH IH SCH ×2 (10:35→21:41)
[2021-03-18] MEDS: QUEtiapine Fumarate 100 MG TABLET PO SCH (21:02)
[2021-03-18] MEDS: Divalproex (12 HR) 500 MG TABLET PO SCH (21:02)
[2021-03-18] MEDS: Saline Nasal Spray 44 ML BOTTLE NS SCH (21:03)
[2021-03-18] MEDS: Neosporin OINT 15 GM TUBE TP PRN (21:17)
[2021-03-19] MEDS: Nicotine 2 MG GUM BC PRN ×2 (02:02→21:26)
[2021-03-19] MEDS: Ibuprofen 800 MG TABLET PO PRN ×2 (02:02→15:01)
[2021-03-19] MEDS: Ipratropium/Albuterol Neb 3 ML IH SCH ×4 (06:15→20:27)
[2021-03-19] MEDS: *HR* LORazepam 1 MG TABLET PO PRN ×3 (07:22→20:17)
[2021-03-19] MEDS: Fluticasone Propionate Nasal 50 MCG/SPRAY BOTTLE NS SCH (08:05)
[2021-03-19] MEDS: Gabapentin 300 MG CAPSULE PO SCH ×2 (08:05→20:16)
[2021-03-19] MEDS: Sennosides/Docusate Sodium TABLET PO SCH ×2 (08:05→20:16)
[2021-03-19] MEDS: Perphenazine 8 MG TABLET PO SCH ×2 (08:05→20:16)
[2021-03-19] MEDS: Aspirin Enteric Coated 81 MG Tablet PO SCH (08:05)
[2021-03-19] MEDS: Divalproex (12 HR) 250 MG TABLET PO SCH (08:05)
[2021-03-19] MEDS: Budesonide/Formoterol 80/4.5 1 PUFF INH IH SCH ×2 (09:50→20:18)
[2021-03-19] MEDS: Tiotropium 10 INH DOSE IH SCH (09:51)
[2021-03-19] MEDS: Acetaminophen 325 MG TABLET PO PRN (20:13)
[2021-03-19] MEDS: Divalproex (12 HR) 500 MG TABLET PO SCH (20:15)
[2021-03-19] MEDS: QUEtiapine Fumarate 100 MG TABLET PO SCH (20:16)
[2021-03-19] MEDS: Saline Nasal Spray 44 ML BOTTLE NS SCH (20:18)
[2021-03-19] MEDS: hydrOXYzine pamoate 25 MG CAPSULE PO PRN (21:48)
[2021-03-19] MEDS: QUEtiapine Fumarate 25 MG TABLET PO PRN (21:48)
[2021-03-20] MEDS: Ibuprofen 800 MG TABLET PO PRN ×2 (02:42→15:44)
[2021-03-20] MEDS: Nicotine 2 MG GUM BC PRN ×4 (02:43→18:29)
[2021-03-20] MEDS: Acetaminophen 325 MG TABLET PO PRN (05:55)
[2021-03-20] MEDS: Ipratropium/Albuterol Neb 3 ML IH SCH ×5 (06:07→23:59)
[2021-03-20] MEDS: *HR* LORazepam 1 MG TABLET PO PRN ×3 (06:53→20:28)
[2021-03-20] MEDS: Sennosides/Docusate Sodium TABLET PO SCH ×2 (08:04→20:24)
[2021-03-20] MEDS: Divalproex (12 HR) 250 MG TABLET PO SCH (08:05)
[2021-03-20] MEDS: Aspirin Enteric Coated 81 MG Tablet PO SCH (08:05)
[2021-03-20] MEDS: Gabapentin 300 MG CAPSULE PO SCH ×2 (08:05→20:24)
[2021-03-20] MEDS: Fluticasone Propionate Nasal 50 MCG/SPRAY BOTTLE NS SCH (08:05)
[2021-03-20] MEDS: Perphenazine 8 MG TABLET PO SCH ×2 (08:05→20:24)
[2021-03-20] MEDS: Tiotropium 10 INH DOSE IH SCH (10:59)
[2021-03-20] MEDS: Budesonide/Formoterol 80/4.5 1 PUFF INH IH SCH ×2 (11:00→20:24)
[2021-03-20] MEDS: Divalproex (12 HR) 500 MG TABLET PO SCH (20:24)
[2021-03-20] MEDS: QUEtiapine Fumarate 100 MG TABLET PO SCH (20:24)
[2021-03-20] MEDS: Saline Nasal Spray 44 ML BOTTLE NS SCH (20:25)
[2021-03-21] MEDS: Nicotine 2 MG GUM BC PRN ×5 (03:37→20:59)
[2021-03-21] MEDS: Ipratropium/Albuterol Neb 3 ML IH SCH ×3 (04:04→19:10)
[2021-03-21] MEDS: Ibuprofen 800 MG TABLET PO PRN (07:17)
[2021-03-21] MEDS: *HR* LORazepam 1 MG TABLET PO PRN ×3 (07:18→20:59)
[2021-03-21] MEDS: Perphenazine 8 MG TABLET PO SCH ×2 (08:46→20:59)
[2021-03-21] MEDS: Gabapentin 300 MG CAPSULE PO SCH ×2 (08:46→20:59)
[2021-03-21] MEDS: Divalproex (12 HR) 250 MG TABLET PO SCH (08:47)
[2021-03-21] MEDS: Aspirin Enteric Coated 81 MG Tablet PO SCH (08:47)
[2021-03-21] MEDS: Tiotropium 10 INH DOSE IH SCH (08:47)
[2021-03-21] MEDS: Fluticasone Propionate Nasal 50 MCG/SPRAY BOTTLE NS SCH (08:47)
[2021-03-21] MEDS: Sennosides/Docusate Sodium TABLET PO SCH ×2 (08:47→20:59)
[2021-03-21] MEDS: Budesonide/Formoterol 80/4.5 1 PUFF INH IH SCH ×2 (08:48→23:16)
[2021-03-21] MEDS: QUEtiapine Fumarate 100 MG TABLET PO SCH (20:59)
[2021-03-21] MEDS: Acetaminophen 325 MG TABLET PO PRN (20:59)
[2021-03-21] MEDS: Divalproex (12 HR) 500 MG TABLET PO SCH (20:59)
[2021-03-21] MEDS: Saline Nasal Spray 44 ML BOTTLE NS SCH (21:00)
[2021-03-22] MEDS: hydrOXYzine pamoate 25 MG CAPSULE PO PRN ×2 (00:07→20:25)
[2021-03-22] MEDS: Ibuprofen 800 MG TABLET PO PRN ×2 (00:08→08:49)
[2021-03-22] MEDS: QUEtiapine Fumarate 25 MG TABLET PO PRN (00:08)
[2021-03-22] MEDS: Budesonide/Formoterol 80/4.5 1 PUFF INH IH SCH ×3 (00:09→21:35)
[2021-03-22] MEDS: Ipratropium/Albuterol Neb 3 ML IH SCH ×5 (04:04→21:35)
[2021-03-22] MEDS: Acetaminophen 325 MG TABLET PO PRN ×2 (05:41→16:22)
[2021-03-22] MEDS: Nicotine 2 MG GUM BC PRN ×3 (05:42→19:02)
[2021-03-22] MEDS: *HR* LORazepam 1 MG TABLET PO PRN ×3 (05:45→21:44)
[2021-03-22] MEDS: Aspirin Enteric Coated 81 MG Tablet PO SCH (08:48)
[2021-03-22] MEDS: Divalproex (12 HR) 250 MG TABLET PO SCH (08:49)
[2021-03-22] MEDS: Perphenazine 8 MG TABLET PO SCH ×2 (08:49→20:25)
[2021-03-22] MEDS: Gabapentin 300 MG CAPSULE PO SCH ×2 (08:49→20:25)
[2021-03-22] MEDS: Sennosides/Docusate Sodium TABLET PO SCH ×2 (08:49→20:25)
[2021-03-22] MEDS: Fluticasone Propionate Nasal 50 MCG/SPRAY BOTTLE NS SCH (08:50)
[2021-03-22] MEDS: Tiotropium 10 INH DOSE IH SCH (13:16)
[2021-03-22] MEDS: Divalproex (12 HR) 500 MG TABLET PO SCH (20:25)
[2021-03-22] MEDS: QUEtiapine Fumarate 100 MG TABLET PO SCH (20:25)
[2021-03-22] MEDS: Saline Nasal Spray 44 ML BOTTLE NS SCH (20:26)
[2021-03-23] MEDS: Nicotine 2 MG GUM BC PRN ×5 (02:27→20:56)
[2021-03-23] MEDS: Acetaminophen 325 MG TABLET PO PRN (04:20)
[2021-03-23] MEDS: Ipratropium/Albuterol Neb 3 ML IH SCH ×4 (04:20→22:00)
[2021-03-23] MEDS: Fluticasone Propionate Nasal 50 MCG/SPRAY BOTTLE NS SCH (07:47)
[2021-03-23] MEDS: Gabapentin 300 MG CAPSULE PO SCH ×2 (07:49→20:54)
[2021-03-23] MEDS: *HR* LORazepam 1 MG TABLET PO PRN ×3 (07:49→16:02)
[2021-03-23] MEDS: Divalproex (12 HR) 250 MG TABLET PO SCH (07:50)
[2021-03-23] MEDS: Perphenazine 8 MG TABLET PO SCH ×2 (07:50→20:54)
[2021-03-23] MEDS: Aspirin Enteric Coated 81 MG Tablet PO SCH (07:50)
[2021-03-23] MEDS: Sennosides/Docusate Sodium TABLET PO SCH ×2 (08:16→20:53)
[2021-03-23] MEDS: Tiotropium 10 INH DOSE IH SCH (12:10)
[2021-03-23] MEDS: Budesonide/Formoterol 80/4.5 1 PUFF INH IH SCH ×2 (12:11→20:53)
[2021-03-23] MEDS: Divalproex (12 HR) 500 MG TABLET PO SCH (20:53)
[2021-03-23] MEDS: Ibuprofen 800 MG TABLET PO PRN (20:53)
[2021-03-23] MEDS: Saline Nasal Spray 44 ML BOTTLE NS SCH (20:53)
[2021-03-23] MEDS: hydrOXYzine pamoate 25 MG CAPSULE PO PRN (20:53)
[2021-03-23] MEDS: QUEtiapine Fumarate 100 MG TABLET PO SCH (20:54)
[2021-03-23] MEDS: QUEtiapine Fumarate 25 MG TABLET PO PRN (23:00)
[2021-03-24] MEDS: hydrOXYzine pamoate 25 MG CAPSULE PO PRN (00:34)
[2021-03-24] MEDS: Ipratropium/Albuterol Neb 3 ML IH SCH ×4 (03:53→20:42)
[2021-03-24] MEDS: Nicotine 2 MG GUM BC PRN ×2 (05:28→20:40)
[2021-03-24] MEDS: Ibuprofen 800 MG TABLET PO PRN (06:36)
[2021-03-24] MEDS: Fluticasone Propionate Nasal 50 MCG/SPRAY BOTTLE NS SCH (09:00)
[2021-03-24] MEDS: Gabapentin 300 MG CAPSULE PO SCH ×2 (09:01→20:36)
[2021-03-24] MEDS: Aspirin Enteric Coated 81 MG Tablet PO SCH (09:01)
[2021-03-24] MEDS: Sennosides/Docusate Sodium TABLET PO SCH ×2 (09:01→20:36)
[2021-03-24] MEDS: Divalproex (12 HR) 250 MG TABLET PO SCH (09:01)
[2021-03-24] MEDS: Perphenazine 8 MG TABLET PO SCH ×2 (09:01→20:36)
[2021-03-24] MEDS: *HR* LORazepam 1 MG TABLET PO PRN ×3 (09:04→20:40)
[2021-03-24] MEDS: Tiotropium 10 INH DOSE IH SCH (12:30)
[2021-03-24] MEDS: Budesonide/Formoterol 80/4.5 1 PUFF INH IH SCH ×2 (12:31→20:35)
[2021-03-24] MEDS: Saline Nasal Spray 44 ML BOTTLE NS SCH (20:35)
[2021-03-24] MEDS: Divalproex (12 HR) 500 MG TABLET PO SCH (20:36)
[2021-03-24] MEDS: QUEtiapine Fumarate 100 MG TABLET PO SCH (20:36)
[2021-03-25] MEDS: Nicotine 2 MG GUM BC PRN ×7 (00:33→20:15)
[2021-03-25] MEDS: Ipratropium/Albuterol Neb 3 ML IH SCH ×4 (06:08→20:16)
[2021-03-25] MEDS: Fluticasone Propionate Nasal 50 MCG/SPRAY BOTTLE NS SCH (08:51)
[2021-03-25] MEDS: *HR* LORazepam 1 MG TABLET PO PRN ×2 (08:52→20:16)
[2021-03-25] MEDS: Perphenazine 8 MG TABLET PO SCH ×2 (08:52→20:15)
[2021-03-25] MEDS: Gabapentin 300 MG CAPSULE PO SCH ×2 (08:52→20:15)
[2021-03-25] MEDS: Sennosides/Docusate Sodium TABLET PO SCH ×2 (08:52→20:14)
[2021-03-25] MEDS: Aspirin Enteric Coated 81 MG Tablet PO SCH (08:53)
[2021-03-25] MEDS: Divalproex (12 HR) 250 MG TABLET PO SCH (08:53)
[2021-03-25] MEDS: Ibuprofen 800 MG TABLET PO PRN (08:54)
[2021-03-25] MEDS: Tiotropium 10 INH DOSE IH SCH (08:54)
[2021-03-25] MEDS: Budesonide/Formoterol 80/4.5 1 PUFF INH IH SCH ×2 (08:55→23:20)
[2021-03-25 16:03] LABS: Bilirubin,Urine Negative (Negative); Blood,Urine Small (Negative); Clarity,Urine Clear (Clear); Color,Urine Light-Yellow (Yellow); Glucose,Urine (UA) 500 mg/dL (Normal); Ketones,Urine Trace mg/dL (Negative); Leukocyte Esterase,Urine Negative (Negative); Nitrite,Urine Negative (Negative); Protein,Urine Negative (Neg-Trace); RBC,Urine 0-3 per hpf (0-3); Squamous Epithelial Cell,Urine Few per hpf (None-Few); Urobilinogen,Urine Normal (Normal); WBC,Urine 0-3 per hpf (0-3)
[2021-03-25] MEDS: Divalproex (12 HR) 500 MG TABLET PO SCH (20:15)
[2021-03-25] MEDS: QUEtiapine Fumarate 100 MG TABLET PO SCH (20:16)
[2021-03-25] MEDS: Mag Hydrox/Al Hydrox/Simeth 30 ML UDC PO PRN (23:19)
[2021-03-25] MEDS: Saline Nasal Spray 44 ML BOTTLE NS SCH (23:21)
[2021-03-26] MEDS: Ondansetron ODT 4 MG TAB.RAPDIS SL PRN (00:53)
[2021-03-26] MEDS: Ipratropium/Albuterol Neb 3 ML IH SCH ×5 (05:26→22:04)
[2021-03-26] MEDS: Nicotine 2 MG GUM BC PRN (05:46)
[2021-03-26] MEDS: hydrOXYzine pamoate 25 MG CAPSULE PO PRN ×2 (05:46→13:24)
[2021-03-26] MEDS: Ibuprofen 800 MG TABLET PO PRN ×2 (07:17→19:23)
[2021-03-26] MEDS: Fluticasone Propionate Nasal 50 MCG/SPRAY BOTTLE NS SCH (08:37)
[2021-03-26] MEDS: Sennosides/Docusate Sodium TABLET PO SCH ×2 (08:38→20:10)
[2021-03-26] MEDS: Aspirin Enteric Coated 81 MG Tablet PO SCH (08:38)
[2021-03-26] MEDS: Perphenazine 8 MG TABLET PO SCH ×2 (08:38→20:10)
[2021-03-26] MEDS: Gabapentin 300 MG CAPSULE PO SCH ×2 (08:39→20:10)
[2021-03-26] MEDS: Divalproex (12 HR) 250 MG TABLET PO SCH (08:39)
[2021-03-26] MEDS: Budesonide/Formoterol 80/4.5 1 PUFF INH IH SCH ×2 (08:40→22:04)
[2021-03-26] MEDS: Tiotropium 10 INH DOSE IH SCH (08:41)
[2021-03-26] MEDS: *HR* LORazepam 1 MG TABLET PO PRN ×3 (10:18→20:10)
[2021-03-26] MEDS: Divalproex (12 HR) 500 MG TABLET PO SCH (20:10)
[2021-03-26] MEDS: QUEtiapine Fumarate 100 MG TABLET PO SCH (20:10)
[2021-03-26] MEDS ORDERED: Haloperidol Lactate 5 MG/ML VIAL IM PRN (21:36)
[2021-03-27] MEDS: QUEtiapine Fumarate 25 MG TABLET PO PRN ×2 (00:44→23:38)
[2021-03-27] MEDS: hydrOXYzine pamoate 25 MG CAPSULE PO PRN (00:45)
[2021-03-27] MEDS: Ipratropium/Albuterol Neb 3 ML IH SCH ×4 (04:03→21:14)
[2021-03-27 04:24] LABS: Basophils # 0.1 K/mcL (0.0-0.2); Basophils % 0.8 %; Eosinophils # 0.2 K/mcL (0.0-0.6); Eosinophils % 2.8 %; Hematocrit 33.4 % (35.3-44.9); Hemoglobin 11.3 g/dL (11.5-15.4); Immature Granulocytes % 1.1 % (0-4); Lymphocytes # 2.6 K/mcL (0.6-4.6); Lymphocytes % 33.9 %; Mean Corpuscular HGB Conc 33.8 g/dL (31.6-35.5); Mean Corpuscular Hemoglobin 29.6 pg (28.0-33.3); Mean Corpuscular Volume 87.4 fL (83.0-100.0); Mean Platelet Volume 8.8 fL (9.4-12.4); Monocytes # 0.9 K/mcL (0.0-1.3); Monocytes % 12.1 %; Neutrophils # 3.7 K/mcL (1.6-8.9); Platelet Count 268 K/mcL (140-400); Red Blood Count 3.82 M/mcL (3.82-4.97); Red Cell Distribution Width 11.9 % (11.5-14.5); Segmented Neutrophils % 49.3 %; White Blood Count 7.5 K/mcL (4.3-11.1)
[2021-03-27 05:04] LABS: BUN/Creatinine Ratio 9 (6-26); Blood Urea Nitrogen 6 mg/dL (6-20); Calcium 8.7 mg/dL (8.6-10.3); Carbon Dioxide 27 mEq/L (23-29); Chloride 99 mEq/L (98-107); Chol/HDL Ratio 3.8 (0-4.9); Cholesterol 184 mg/dL (< 200); Glucose 116 mg/dL (70-105); HDL Cholesterol 48 mg/dL (40-59); LDL Cholesterol,Calculated 100 mg/dL (< 100); Osmolality,Calculated 261 (280-300); Potassium 3.8 mEq/L (3.5-5.1); Sodium 126 mEq/L (136-145); Triglycerides 180 mg/dL (< 150); eGFR For African Americans > 60 (> 60); eGFR For Non-African Americans > 60 (> 60)
[2021-03-27] MEDS: Ibuprofen 800 MG TABLET PO PRN ×2 (05:20→18:54)
[2021-03-27] MEDS: *HR* LORazepam 1 MG TABLET PO PRN ×2 (05:20→18:28)
[2021-03-27] MEDS: Nicotine 2 MG GUM BC PRN ×4 (05:20→22:22)
[2021-03-27] MEDS: Aspirin Enteric Coated 81 MG Tablet PO SCH (07:53)
[2021-03-27] MEDS: Sennosides/Docusate Sodium TABLET PO SCH ×2 (07:53→20:54)
[2021-03-27] MEDS: Perphenazine 8 MG TABLET PO SCH ×2 (07:53→20:54)
[2021-03-27] MEDS: Divalproex (12 HR) 250 MG TABLET PO SCH (07:54)
[2021-03-27] MEDS: Budesonide/Formoterol 80/4.5 1 PUFF INH IH SCH ×2 (09:01→20:53)
[2021-03-27] MEDS: Tiotropium 10 INH DOSE IH SCH (09:02)
[2021-03-27 09:51] LABS: Estimated Average Glucose 157 mg/dl; Hemoglobin A1C 7.1 %
[2021-03-27] MEDS: Saline Nasal Spray 44 ML BOTTLE NS PRN (16:20)
[2021-03-27] MEDS: Divalproex (12 HR) 500 MG TABLET PO SCH (20:54)
[2021-03-27] MEDS: QUEtiapine Fumarate 100 MG TABLET PO SCH (20:54)
[2021-03-28] MEDS: *HR* LORazepam 1 MG TABLET PO PRN ×3 (07:22→22:17)
[2021-03-28] MEDS: Nicotine 2 MG GUM BC PRN ×4 (07:22→22:17)
[2021-03-28] MEDS: Fluticasone Propionate Nasal 50 MCG/SPRAY BOTTLE NS PRN (07:25)
[2021-03-28] MEDS: Perphenazine 8 MG TABLET PO SCH ×2 (08:32→20:20)
[2021-03-28] MEDS: Divalproex (12 HR) 250 MG TABLET PO SCH (08:32)
[2021-03-28] MEDS: Sennosides/Docusate Sodium TABLET PO SCH ×2 (08:32→20:21)
[2021-03-28] MEDS: Ipratropium/Albuterol Neb 3 ML IH SCH ×4 (09:31→21:23)
[2021-03-28] MEDS: Tiotropium 10 INH DOSE IH SCH (10:43)
[2021-03-28] MEDS: Budesonide/Formoterol 80/4.5 1 PUFF INH IH SCH ×2 (10:43→20:19)
[2021-03-28] MEDS: Clotrimazole 1% CRM 15 GM TUBE TP SCH ×3 (12:39→20:19)
[2021-03-28] MEDS: Saline Nasal Spray 44 ML BOTTLE NS PRN (15:54)
[2021-03-28] MEDS: Ibuprofen 800 MG TABLET PO PRN (18:15)
[2021-03-28] MEDS: QUEtiapine Fumarate 100 MG TABLET PO SCH (20:21)
[2021-03-28] MEDS: hydrOXYzine pamoate 25 MG CAPSULE PO PRN (20:21)
[2021-03-28] MEDS: Divalproex (12 HR) 500 MG TABLET PO SCH (20:21)
[2021-03-28] MEDS: Gabapentin 300 MG CAPSULE PO SCH (20:53)
[2021-03-28] MEDS: QUEtiapine Fumarate 25 MG TABLET PO PRN (22:17)
[2021-03-29] MEDS: Ipratropium/Albuterol Neb 3 ML IH SCH ×4 (05:03→20:10)
[2021-03-29] MEDS: hydrOXYzine pamoate 25 MG CAPSULE PO PRN (06:09)
[2021-03-29] MEDS: Nicotine 2 MG GUM BC PRN ×3 (06:09→18:24)
[2021-03-29] MEDS: Ibuprofen 800 MG TABLET PO PRN ×2 (06:09→18:55)
[2021-03-29] MEDS: *HR* LORazepam 1 MG TABLET PO PRN ×3 (07:23→20:09)
[2021-03-29] MEDS: Gabapentin 300 MG CAPSULE PO SCH ×2 (08:08→20:09)
[2021-03-29] MEDS: Clotrimazole 1% CRM 15 GM TUBE TP SCH ×3 (08:08→20:12)
[2021-03-29] MEDS: Perphenazine 8 MG TABLET PO SCH ×2 (08:08→20:10)
[2021-03-29] MEDS: Sennosides/Docusate Sodium TABLET PO SCH ×2 (08:08→20:10)
[2021-03-29] MEDS: Divalproex (12 HR) 250 MG TABLET PO SCH (08:09)
[2021-03-29] MEDS: Tiotropium 10 INH DOSE IH SCH (09:14)
[2021-03-29] MEDS: Budesonide/Formoterol 80/4.5 1 PUFF INH IH SCH ×2 (09:14→20:09)
[2021-03-29] MEDS: Divalproex (12 HR) 500 MG TABLET PO SCH (20:10)
[2021-03-29] MEDS: QUEtiapine Fumarate 100 MG TABLET PO SCH (20:10)
[2021-03-29] MEDS: QUEtiapine Fumarate 25 MG TABLET PO PRN (21:07)
[2021-03-29] MEDS: Saline Nasal Spray 44 ML BOTTLE NS PRN (21:08)
[2021-03-30] MEDS: Nicotine 2 MG GUM BC PRN ×5 (02:44→20:38)
[2021-03-30] MEDS: Ipratropium/Albuterol Neb 3 ML IH SCH ×3 (04:57→16:17)
[2021-03-30] MEDS: hydrOXYzine pamoate 25 MG CAPSULE PO PRN ×2 (05:08→20:17)
[2021-03-30] MEDS: Perphenazine 8 MG TABLET PO SCH ×2 (08:30→20:17)
[2021-03-30] MEDS: Divalproex (12 HR) 250 MG TABLET PO SCH (08:30)
[2021-03-30] MEDS: Sennosides/Docusate Sodium TABLET PO SCH ×2 (08:30→20:16)
[2021-03-30] MEDS: Gabapentin 300 MG CAPSULE PO SCH ×2 (08:30→20:16)
[2021-03-30] MEDS: *HR* LORazepam 1 MG TABLET PO PRN ×2 (08:37→14:52)
[2021-03-30] MEDS: Tiotropium 10 INH DOSE IH SCH (08:50)
[2021-03-30] MEDS: Clotrimazole 1% CRM 15 GM TUBE TP SCH ×3 (08:50→20:20)
[2021-03-30] MEDS: Budesonide/Formoterol 80/4.5 1 PUFF INH IH SCH ×2 (08:50→20:15)
[2021-03-30] MEDS: Divalproex (12 HR) 500 MG TABLET PO SCH (20:17)
[2021-03-30] MEDS: QUEtiapine Fumarate 100 MG TABLET PO SCH (20:17)
[2021-03-30] MEDS: Ibuprofen 800 MG TABLET PO PRN (20:18)
[2021-03-31] MEDS: Ipratropium/Albuterol Neb 3 ML IH SCH ×4 (02:35→16:03)
[2021-03-31] MEDS: Ibuprofen 800 MG TABLET PO PRN ×2 (02:46→18:22)
[2021-03-31] MEDS: QUEtiapine Fumarate 25 MG TABLET PO PRN ×2 (02:47→22:44)
[2021-03-31] MEDS: Nicotine 2 MG GUM BC PRN ×3 (02:47→18:22)
[2021-03-31] MEDS: hydrOXYzine pamoate 25 MG CAPSULE PO PRN (02:47)
[2021-03-31] MEDS: *HR* LORazepam 1 MG TABLET PO PRN ×4 (07:17→22:44)
[2021-03-31] MEDS: Sennosides/Docusate Sodium TABLET PO SCH ×2 (08:34→20:41)
[2021-03-31] MEDS: Perphenazine 8 MG TABLET PO SCH ×2 (08:35→20:41)
[2021-03-31] MEDS: Gabapentin 300 MG CAPSULE PO SCH ×2 (08:35→20:41)
[2021-03-31] MEDS: Divalproex (12 HR) 250 MG TABLET PO SCH (08:35)
[2021-03-31] MEDS: Clotrimazole 1% CRM 15 GM TUBE TP SCH ×3 (08:59→20:44)
[2021-03-31] MEDS: Fluticasone Propionate Nasal 50 MCG/SPRAY BOTTLE NS PRN (09:56)
[2021-03-31] MEDS: Tiotropium 10 INH DOSE IH SCH (09:58)
[2021-03-31] MEDS: Budesonide/Formoterol 80/4.5 1 PUFF INH IH SCH ×2 (09:58→22:00)
[2021-03-31] MEDS: Ziprasidone 20 MG CAPSULE PO PRN (18:23)
[2021-03-31] MEDS: Saline Nasal Spray 44 ML BOTTLE NS PRN (18:34)
[2021-03-31] MEDS: Divalproex (12 HR) 500 MG TABLET PO SCH (20:41)
[2021-03-31] MEDS: QUEtiapine Fumarate 100 MG TABLET PO SCH (20:42)
[2021-03-31] MEDS: Neosporin OINT 15 GM TUBE TP PRN (20:45)
[2021-03-31] MEDS: Acetaminophen 325 MG TABLET PO PRN (22:44)
[2021-04-01] MEDS: Ipratropium/Albuterol Neb 3 ML IH SCH ×5 (01:15→22:15)
[2021-04-01] MEDS: *HR* LORazepam 1 MG TABLET PO PRN ×4 (05:53→20:42)
[2021-04-01] MEDS: Nicotine 2 MG GUM BC PRN ×3 (05:53→18:51)
[2021-04-01] MEDS: Ibuprofen 800 MG TABLET PO PRN ×2 (08:16→17:24)
[2021-04-01] MEDS: Perphenazine 8 MG TABLET PO SCH ×2 (08:17→20:36)
[2021-04-01] MEDS: Gabapentin 300 MG CAPSULE PO SCH ×2 (08:17→20:37)
[2021-04-01] MEDS: Sennosides/Docusate Sodium TABLET PO SCH ×2 (08:17→20:36)
[2021-04-01] MEDS: Divalproex (12 HR) 250 MG TABLET PO SCH (08:18)
[2021-04-01] MEDS: Clotrimazole 1% CRM 15 GM TUBE TP SCH ×3 (09:08→20:36)
[2021-04-01] MEDS: Fluticasone Propionate Nasal 50 MCG/SPRAY BOTTLE NS PRN (09:29)
[2021-04-01] MEDS: Tiotropium 10 INH DOSE IH SCH (09:30)
[2021-04-01] MEDS: Budesonide/Formoterol 80/4.5 1 PUFF INH IH SCH ×2 (09:31→20:35)
[2021-04-01] MEDS: Saline Nasal Spray 44 ML BOTTLE NS PRN (20:33)
[2021-04-01] MEDS: Divalproex (12 HR) 500 MG TABLET PO SCH (20:37)
[2021-04-01] MEDS: QUEtiapine Fumarate 100 MG TABLET PO SCH (20:37)
[2021-04-01] MEDS: Acetaminophen 325 MG TABLET PO PRN (20:42)
[2021-04-02] MEDS: QUEtiapine Fumarate 25 MG TABLET PO PRN ×2 (00:41→23:57)
[2021-04-02] MEDS: Nicotine 2 MG GUM BC PRN ×5 (00:42→20:41)
[2021-04-02] MEDS: hydrOXYzine pamoate 25 MG CAPSULE PO PRN (00:42)
[2021-04-02] MEDS: Ipratropium/Albuterol Neb 3 ML IH SCH ×4 (04:00→20:44)
[2021-04-02] MEDS: Acetaminophen 325 MG TABLET PO PRN (06:20)
[2021-04-02] MEDS: Sennosides/Docusate Sodium TABLET PO SCH (08:27)
[2021-04-02] MEDS: Divalproex (12 HR) 250 MG TABLET PO SCH (08:27)
[2021-04-02] MEDS: Gabapentin 300 MG CAPSULE PO SCH ×2 (08:27→20:38)
[2021-04-02] MEDS: Perphenazine 8 MG TABLET PO SCH ×2 (08:27→20:38)
[2021-04-02] MEDS: Tiotropium 10 INH DOSE IH SCH (08:28)
[2021-04-02] MEDS: Clotrimazole 1% CRM 15 GM TUBE TP SCH ×3 (08:28→20:39)
[2021-04-02] MEDS: Budesonide/Formoterol 80/4.5 1 PUFF INH IH SCH ×2 (08:29→20:39)
[2021-04-02] MEDS: *HR* LORazepam 1 MG TABLET PO PRN ×3 (08:42→23:57)
[2021-04-02] MEDS: QUEtiapine Fumarate 100 MG TABLET PO SCH (20:38)
[2021-04-02] MEDS: Divalproex (12 HR) 500 MG TABLET PO SCH (20:38)
[2021-04-02] MEDS: Saline Nasal Spray 44 ML BOTTLE NS PRN (21:22)
[2021-04-03] MEDS: Ipratropium/Albuterol Neb 3 ML IH SCH ×5 (03:58→21:04)
[2021-04-03] MEDS: Ibuprofen 800 MG TABLET PO PRN ×2 (04:35→17:37)
[2021-04-03] MEDS: Nicotine 2 MG GUM BC PRN ×4 (04:35→22:20)
[2021-04-03] MEDS: *HR* LORazepam 1 MG TABLET PO PRN ×3 (07:17→20:29)
[2021-04-03] MEDS: Gabapentin 300 MG CAPSULE PO SCH ×2 (07:59→20:28)
[2021-04-03] MEDS: Perphenazine 8 MG TABLET PO SCH ×2 (07:59→20:29)
[2021-04-03] MEDS: Divalproex (12 HR) 250 MG TABLET PO SCH (07:59)
[2021-04-03] MEDS: Acetaminophen 325 MG TABLET PO PRN (08:29)
[2021-04-03] MEDS: Tiotropium 10 INH DOSE IH SCH (09:03)
[2021-04-03] MEDS: Budesonide/Formoterol 80/4.5 1 PUFF INH IH SCH ×2 (09:03→21:05)
[2021-04-03] MEDS: Clotrimazole 1% CRM 15 GM TUBE TP SCH ×4 (11:51→20:26)
[2021-04-03] MEDS: QUEtiapine Fumarate 100 MG TABLET PO SCH (20:28)
[2021-04-03] MEDS: Divalproex (12 HR) 500 MG TABLET PO SCH (20:29)
[2021-04-03] MEDS: hydrOXYzine pamoate 25 MG CAPSULE PO PRN (22:20)
[2021-04-03] MEDS: QUEtiapine Fumarate 25 MG TABLET PO PRN (22:20)
[2021-04-04] MEDS: Ipratropium/Albuterol Neb 3 ML IH SCH ×4 (04:50→21:01)
[2021-04-04] MEDS: *HR* LORazepam 1 MG TABLET PO PRN ×3 (05:13→20:58)
[2021-04-04] MEDS: Nicotine 2 MG GUM BC PRN ×3 (07:08→20:58)
[2021-04-04] MEDS: Fluticasone Propionate Nasal 50 MCG/SPRAY BOTTLE NS PRN (08:44)
[2021-04-04] MEDS: Gabapentin 300 MG CAPSULE PO SCH ×2 (08:45→20:57)
[2021-04-04] MEDS: Perphenazine 8 MG TABLET PO SCH ×2 (08:45→20:58)
[2021-04-04] MEDS: Divalproex (12 HR) 250 MG TABLET PO SCH (08:45)
[2021-04-04] MEDS: Clotrimazole 1% CRM 15 GM TUBE TP SCH ×3 (10:02→21:02)
[2021-04-04] MEDS: Tiotropium 10 INH DOSE IH SCH (10:02)
[2021-04-04] MEDS: Budesonide/Formoterol 80/4.5 1 PUFF INH IH SCH ×2 (10:03→21:02)
[2021-04-04] MEDS: Divalproex (12 HR) 500 MG TABLET PO SCH (20:57)
[2021-04-04] MEDS: Saline Nasal Spray 44 ML BOTTLE NS PRN (20:57)
[2021-04-04] MEDS: QUEtiapine Fumarate 100 MG TABLET PO SCH (20:57)
[2021-04-05] MEDS: Ibuprofen 800 MG TABLET PO PRN ×2 (01:30→17:33)
[2021-04-05] MEDS: Ipratropium/Albuterol Neb 3 ML IH SCH ×4 (03:20→21:16)
[2021-04-05] MEDS: hydrOXYzine pamoate 25 MG CAPSULE PO PRN ×2 (03:20→18:04)
[2021-04-05] MEDS: *HR* LORazepam 1 MG TABLET PO PRN ×3 (05:31→18:26)
[2021-04-05] MEDS: Nicotine 2 MG GUM BC PRN ×4 (05:31→17:49)
[2021-04-05] MEDS: Fluticasone Propionate Nasal 50 MCG/SPRAY BOTTLE NS PRN (08:54)
[2021-04-05] MEDS: Gabapentin 300 MG CAPSULE PO SCH ×2 (08:56→20:48)
[2021-04-05] MEDS: Perphenazine 8 MG TABLET PO SCH ×2 (08:57→20:48)
[2021-04-05] MEDS: Divalproex (12 HR) 250 MG TABLET PO SCH (08:57)
[2021-04-05] MEDS: Clotrimazole 1% CRM 15 GM TUBE TP SCH ×3 (09:00→20:47)
[2021-04-05] MEDS: Budesonide/Formoterol 80/4.5 1 PUFF INH IH SCH ×2 (09:00→20:47)
[2021-04-05] MEDS: Tiotropium 10 INH DOSE IH SCH (09:01)
[2021-04-05] MEDS: Saline Nasal Spray 44 ML BOTTLE NS PRN (17:57)
[2021-04-05] MEDS: QUEtiapine Fumarate 100 MG TABLET PO SCH (20:48)
[2021-04-05] MEDS: Divalproex (12 HR) 500 MG TABLET PO SCH (20:48)
[2021-04-05] MEDS: Acetaminophen 325 MG TABLET PO PRN (20:49)
[2021-04-06] MEDS: Ipratropium/Albuterol Neb 3 ML IH SCH ×4 (04:02→20:58)
[2021-04-06] MEDS: hydrOXYzine pamoate 25 MG CAPSULE PO PRN ×2 (04:58→20:38)
[2021-04-06] MEDS: Nicotine 2 MG GUM BC PRN ×3 (05:51→17:43)
[2021-04-06] MEDS: *HR* LORazepam 1 MG TABLET PO PRN ×2 (07:36→17:45)
[2021-04-06] MEDS: Divalproex (12 HR) 250 MG TABLET PO SCH (08:47)
[2021-04-06] MEDS: Perphenazine 8 MG TABLET PO SCH ×2 (08:47→20:37)
[2021-04-06] MEDS: Clotrimazole 1% CRM 15 GM TUBE TP SCH ×3 (08:48→20:41)
[2021-04-06] MEDS: Gabapentin 300 MG CAPSULE PO SCH ×2 (08:48→20:38)
[2021-04-06] MEDS: Tiotropium 10 INH DOSE IH SCH (08:49)
[2021-04-06] MEDS: Budesonide/Formoterol 80/4.5 1 PUFF INH IH SCH ×2 (08:49→20:37)
[2021-04-06] MEDS: Fluticasone Propionate Nasal 50 MCG/SPRAY BOTTLE NS PRN (08:49)
[2021-04-06] MEDS: Acetaminophen 325 MG TABLET PO PRN (17:44)
[2021-04-06 18:03] LABS: Bilirubin,Urine Negative (Negative); Blood,Urine Moderate (Negative); Clarity,Urine Clear (Clear); Color,Urine Colorless (Yellow); Glucose,Urine (UA) 300 mg/dL (Normal); Ketones,Urine Negative (Negative); Leukocyte Esterase,Urine Negative (Negative); Mucus,Urine Few per lpf (None-Few); Nitrite,Urine Negative (Negative); Protein,Urine Negative (Neg-Trace); RBC,Urine 0-3 per hpf (0-3); Squamous Epithelial Cell,Urine Few per hpf (None-Few); Urobilinogen,Urine Normal (Normal); WBC,Urine 0-3 per hpf (0-3)
[2021-04-06 19:11] LABS: Influenza A PCR Negative (Negative); Influenza B PCR Negative (Negative); Resp. Syncytial Virus PCR Negative (Negative)
[2021-04-06 19:15] LABS: SARS-CoV-2 by PCR (In House) Negative (Negative)
[2021-04-06] MEDS: Divalproex (12 HR) 500 MG TABLET PO SCH (20:37)
[2021-04-06] MEDS: QUEtiapine Fumarate 100 MG TABLET PO SCH (20:37)
[2021-04-06] MEDS: Saline Nasal Spray 44 ML BOTTLE NS PRN (20:37)
[2021-04-06] MEDS: Ibuprofen 800 MG TABLET PO PRN (20:38)
[2021-04-07] MEDS: Ipratropium/Albuterol Neb 3 ML IH SCH ×4 (03:36→21:00)
[2021-04-07] MEDS: Nicotine 2 MG GUM BC PRN ×5 (03:36→20:56)
[2021-04-07] MEDS: hydrOXYzine pamoate 25 MG CAPSULE PO PRN (04:34)
[2021-04-07] MEDS: Perphenazine 8 MG TABLET PO SCH ×2 (08:47→20:57)
[2021-04-07] MEDS: *HR* LORazepam 1 MG TABLET PO PRN ×3 (08:49→20:57)
[2021-04-07] MEDS: Divalproex (12 HR) 250 MG TABLET PO SCH (08:49)
[2021-04-07] MEDS: Gabapentin 300 MG CAPSULE PO SCH ×2 (08:49→20:56)
[2021-04-07] MEDS: Tiotropium 10 INH DOSE IH SCH (15:18)
[2021-04-07] MEDS: Clotrimazole 1% CRM 15 GM TUBE TP SCH ×3 (16:37→20:59)
[2021-04-07] MEDS: Budesonide/Formoterol 80/4.5 1 PUFF INH IH SCH ×2 (16:39→20:57)
[2021-04-07] MEDS: Ibuprofen 800 MG TABLET PO PRN (18:44)
[2021-04-07] MEDS: Saline Nasal Spray 44 ML BOTTLE NS PRN (20:56)
[2021-04-07] MEDS: Divalproex (12 HR) 500 MG TABLET PO SCH (20:56)
[2021-04-07] MEDS: QUEtiapine Fumarate 100 MG TABLET PO SCH (20:56)
[2021-04-08] MEDS: Ipratropium/Albuterol Neb 3 ML IH SCH ×3 (05:46→16:45)
[2021-04-08] MEDS: Nicotine 2 MG GUM BC PRN ×3 (06:14→18:53)
[2021-04-08] MEDS: Acetaminophen 325 MG TABLET PO PRN (06:14)
[2021-04-08] MEDS: *HR* LORazepam 1 MG TABLET PO PRN ×2 (06:15→18:53)
[2021-04-08] MEDS: Tiotropium 10 INH DOSE IH SCH (09:09)
[2021-04-08] MEDS: Perphenazine 8 MG TABLET PO SCH ×2 (09:11→20:30)
[2021-04-08] MEDS: Gabapentin 300 MG CAPSULE PO SCH ×2 (09:12→20:30)
[2021-04-08] MEDS: Divalproex (12 HR) 250 MG TABLET PO SCH (09:12)
[2021-04-08] MEDS: Clotrimazole 1% CRM 15 GM TUBE TP SCH ×4 (09:13→20:29)
[2021-04-08] MEDS: Budesonide/Formoterol 80/4.5 1 PUFF INH IH SCH ×2 (10:26→20:29)
[2021-04-08] MEDS: Fluticasone Propionate Nasal 50 MCG/SPRAY BOTTLE NS SCH (10:27)
[2021-04-08] MEDS: hydrOXYzine pamoate 25 MG CAPSULE PO PRN (20:30)
[2021-04-08] MEDS: QUEtiapine Fumarate 100 MG TABLET PO SCH (20:30)
[2021-04-08] MEDS: Divalproex (12 HR) 500 MG TABLET PO SCH (20:30)
[2021-04-09] MEDS: Ipratropium/Albuterol Neb 3 ML IH SCH ×5 (00:17→22:22)
[2021-04-09] MEDS: Nicotine 2 MG GUM BC PRN ×5 (00:45→21:10)
[2021-04-09] MEDS: *HR* LORazepam 1 MG TABLET PO PRN ×4 (00:45→21:09)
[2021-04-09] MEDS: Ibuprofen 800 MG TABLET PO PRN ×2 (06:18→21:09)
[2021-04-09] MEDS: Fluticasone Propionate Nasal 50 MCG/SPRAY BOTTLE NS SCH (08:08)
[2021-04-09] MEDS: Clotrimazole 1% CRM 15 GM TUBE TP SCH ×3 (08:08→21:11)
[2021-04-09] MEDS: Divalproex (12 HR) 250 MG TABLET PO SCH (08:09)
[2021-04-09] MEDS: Perphenazine 8 MG TABLET PO SCH ×2 (08:09→21:07)
[2021-04-09] MEDS: Gabapentin 300 MG CAPSULE PO SCH ×2 (08:09→21:09)
[2021-04-09] MEDS: Budesonide/Formoterol 80/4.5 1 PUFF INH IH SCH ×3 (09:29→22:33)
[2021-04-09] MEDS: Tiotropium 10 INH DOSE IH SCH (09:30)
[2021-04-09] MEDS: hydrOXYzine pamoate 25 MG CAPSULE PO PRN (16:54)
[2021-04-09] MEDS: Acetaminophen 325 MG TABLET PO PRN (16:54)
[2021-04-09] MEDS: Saline Nasal Spray 44 ML BOTTLE NS PRN (18:29)
[2021-04-09] MEDS: QUEtiapine Fumarate 100 MG TABLET PO SCH (21:07)
[2021-04-09] MEDS: Divalproex (12 HR) 500 MG TABLET PO SCH (21:09)
[2021-04-10] MEDS: Nicotine 2 MG GUM BC PRN ×3 (01:38→20:35)
[2021-04-10] MEDS: Ipratropium/Albuterol Neb 3 ML IH SCH ×3 (03:19→15:44)
[2021-04-10] MEDS: *HR* LORazepam 1 MG TABLET PO PRN ×2 (03:19→16:04)
[2021-04-10] MEDS: Gabapentin 300 MG CAPSULE PO SCH ×2 (08:20→20:34)
[2021-04-10] MEDS: Fluticasone Propionate Nasal 50 MCG/SPRAY BOTTLE NS SCH (08:20)
[2021-04-10] MEDS: Perphenazine 8 MG TABLET PO SCH ×2 (08:20→20:34)
[2021-04-10] MEDS: Divalproex (12 HR) 250 MG TABLET PO SCH (08:20)
[2021-04-10] MEDS: Ibuprofen 800 MG TABLET PO PRN ×2 (08:22→20:35)
[2021-04-10] MEDS: Clotrimazole 1% CRM 15 GM TUBE TP SCH ×3 (08:24→20:36)
[2021-04-10] MEDS: Budesonide/Formoterol 80/4.5 1 PUFF INH IH SCH ×2 (13:36→20:36)
[2021-04-10] MEDS: Tiotropium 10 INH DOSE IH SCH (13:36)
[2021-04-10] MEDS: Acetaminophen 325 MG TABLET PO PRN (15:31)
[2021-04-10] MEDS: QUEtiapine Fumarate 100 MG TABLET PO SCH (20:34)
[2021-04-10] MEDS: Divalproex (12 HR) 500 MG TABLET PO SCH (20:34)
[2021-04-10] MEDS: hydrOXYzine pamoate 25 MG CAPSULE PO PRN (20:35)
[2021-04-10] MEDS: Saline Nasal Spray 44 ML BOTTLE NS PRN (20:36)
[2021-04-11] MEDS: Acetaminophen 325 MG TABLET PO PRN ×3 (00:40→20:20)
[2021-04-11] MEDS: Nicotine 2 MG GUM BC PRN ×5 (00:40→19:01)
[2021-04-11] MEDS: *HR* LORazepam 1 MG TABLET PO PRN ×3 (00:40→19:00)
[2021-04-11] MEDS: Ipratropium/Albuterol Neb 3 ML IH SCH ×4 (02:07→17:17)
[2021-04-11] MEDS: Ibuprofen 800 MG TABLET PO PRN ×2 (05:32→19:00)
[2021-04-11] MEDS: hydrOXYzine pamoate 25 MG CAPSULE PO PRN ×2 (05:32→20:16)
[2021-04-11] MEDS: Perphenazine 8 MG TABLET PO SCH ×2 (09:06→20:17)
[2021-04-11] MEDS: Gabapentin 300 MG CAPSULE PO SCH ×2 (09:07→20:17)
[2021-04-11] MEDS: Divalproex (12 HR) 250 MG TABLET PO SCH (09:07)
[2021-04-11] MEDS: Budesonide/Formoterol 80/4.5 1 PUFF INH IH SCH (09:08)
[2021-04-11] MEDS: Fluticasone Propionate Nasal 50 MCG/SPRAY BOTTLE NS SCH (09:08)
[2021-04-11] MEDS: Clotrimazole 1% CRM 15 GM TUBE TP SCH ×3 (09:09→20:18)
[2021-04-11] MEDS: Tiotropium 10 INH DOSE IH SCH (09:13)
[2021-04-11] MEDS: Mag Hydrox/Al Hydrox/Simeth 30 ML UDC PO PRN (09:16)
[2021-04-11] MEDS: Divalproex (12 HR) 500 MG TABLET PO SCH (20:16)
[2021-04-11] MEDS: QUEtiapine Fumarate 100 MG TABLET PO SCH (20:17)
[2021-04-11] MEDS: Saline Nasal Spray 44 ML BOTTLE NS PRN (20:19)
[2021-04-12] MEDS: Ipratropium/Albuterol Neb 3 ML IH SCH ×5 (00:10→21:04)
[2021-04-12] MEDS: *HR* LORazepam 1 MG TABLET PO PRN ×3 (01:01→16:50)
[2021-04-12] MEDS: Nicotine 2 MG GUM BC PRN ×4 (01:01→20:00)
[2021-04-12] MEDS: Budesonide/Formoterol 80/4.5 1 PUFF INH IH SCH ×3 (01:11→20:38)
[2021-04-12] MEDS: Saline Nasal Spray 44 ML BOTTLE NS PRN ×2 (01:12→20:38)
[2021-04-12] MEDS: Gabapentin 300 MG CAPSULE PO SCH ×2 (08:29→20:40)
[2021-04-12] MEDS: Divalproex (12 HR) 250 MG TABLET PO SCH (08:30)
[2021-04-12] MEDS: Perphenazine 8 MG TABLET PO SCH ×2 (08:30→20:40)
[2021-04-12] MEDS: Acetaminophen 325 MG TABLET PO PRN (08:31)
[2021-04-12] MEDS: Clotrimazole 1% CRM 15 GM TUBE TP SCH ×3 (08:33→20:38)
[2021-04-12] MEDS: Fluticasone Propionate Nasal 50 MCG/SPRAY BOTTLE NS SCH (08:33)
[2021-04-12] MEDS: Tiotropium 10 INH DOSE IH SCH (09:47)
[2021-04-12] MEDS: Ibuprofen 800 MG TABLET PO PRN (17:28)
[2021-04-12] MEDS: hydrOXYzine pamoate 25 MG CAPSULE PO PRN (20:39)
[2021-04-12] MEDS: Divalproex (12 HR) 500 MG TABLET PO SCH (20:40)
[2021-04-12] MEDS: Sennosides 8.6 MG TABLET PO SCH (20:40)
[2021-04-12] MEDS: QUEtiapine Fumarate 100 MG TABLET PO SCH (20:40)
[2021-04-13] MEDS: *HR* LORazepam 1 MG TABLET PO PRN ×3 (04:09→20:26)
[2021-04-13] MEDS: Ipratropium/Albuterol Neb 3 ML IH SCH ×4 (04:09→20:26)
[2021-04-13] MEDS: Saline Nasal Spray 44 ML BOTTLE NS PRN ×2 (06:02→10:57)
[2021-04-13] MEDS: Nicotine 2 MG GUM BC PRN ×2 (07:20→20:39)
[2021-04-13] MEDS: Divalproex (12 HR) 250 MG TABLET PO SCH (08:27)
[2021-04-13] MEDS: Gabapentin 300 MG CAPSULE PO SCH ×2 (08:27→20:26)
[2021-04-13] MEDS: Perphenazine 8 MG TABLET PO SCH ×2 (08:27→20:27)
[2021-04-13] MEDS: Sennosides 8.6 MG TABLET PO SCH (08:28)
[2021-04-13] MEDS: hydrOXYzine pamoate 25 MG CAPSULE PO PRN ×2 (08:32→21:52)
[2021-04-13] MEDS: Ibuprofen 800 MG TABLET PO PRN ×2 (09:20→20:27)
[2021-04-13] MEDS: Tiotropium 10 INH DOSE IH SCH (10:57)
[2021-04-13] MEDS: Clotrimazole 1% CRM 15 GM TUBE TP SCH ×3 (11:01→20:25)
[2021-04-13] MEDS: Fluticasone Propionate Nasal 50 MCG/SPRAY BOTTLE NS SCH (11:01)
[2021-04-13] MEDS: Budesonide/Formoterol 80/4.5 1 PUFF INH IH SCH ×2 (11:13→20:25)
[2021-04-13] MEDS: Divalproex (12 HR) 500 MG TABLET PO SCH (20:26)
[2021-04-13] MEDS: QUEtiapine Fumarate 100 MG TABLET PO SCH (20:27)
[2021-04-13] MEDS: QUEtiapine Fumarate 25 MG TABLET PO PRN (21:52)
[2021-04-14] MEDS: Nicotine 2 MG GUM BC PRN ×7 (00:55→21:14)
[2021-04-14] MEDS: Ipratropium/Albuterol Neb 3 ML IH SCH ×4 (04:48→20:24)
[2021-04-14] MEDS: *HR* LORazepam 1 MG TABLET PO PRN ×3 (05:54→21:14)
[2021-04-14] MEDS: Perphenazine 8 MG TABLET PO SCH ×2 (08:50→20:24)
[2021-04-14] MEDS: Gabapentin 300 MG CAPSULE PO SCH ×2 (08:50→20:25)
[2021-04-14] MEDS: Divalproex (12 HR) 250 MG TABLET PO SCH (08:50)
[2021-04-14] MEDS: hydrOXYzine pamoate 25 MG CAPSULE PO PRN ×2 (08:53→21:14)
[2021-04-14] MEDS: polyethylene glycoL 3350 17 GM POWD.PACK PO SCH (09:50)
[2021-04-14] MEDS: Clotrimazole 1% CRM 15 GM TUBE TP SCH ×3 (10:34→20:24)
[2021-04-14] MEDS: Fluticasone Propionate Nasal 50 MCG/SPRAY BOTTLE NS SCH (10:34)
[2021-04-14] MEDS: Budesonide/Formoterol 80/4.5 1 PUFF INH IH SCH ×2 (10:48→20:23)
[2021-04-14] MEDS: Ibuprofen 800 MG TABLET PO PRN (10:53)
[2021-04-14] MEDS: Tiotropium 10 INH DOSE IH SCH (10:56)
[2021-04-14] MEDS: Divalproex (12 HR) 500 MG TABLET PO SCH (20:24)
[2021-04-14] MEDS: QUEtiapine Fumarate 100 MG TABLET PO SCH (20:25)
[2021-04-14] MEDS: QUEtiapine Fumarate 25 MG TABLET PO PRN (21:14)
[2021-04-15] MEDS: Nicotine 2 MG GUM BC PRN ×5 (02:16→22:34)
[2021-04-15] MEDS: Ipratropium/Albuterol Neb 3 ML IH SCH ×4 (03:24→20:08)
[2021-04-15] MEDS: Ibuprofen 800 MG TABLET PO PRN ×2 (05:18→14:28)
[2021-04-15] MEDS: Fluticasone Propionate Nasal 50 MCG/SPRAY BOTTLE NS SCH (07:58)
[2021-04-15] MEDS: Clotrimazole 1% CRM 15 GM TUBE TP SCH ×3 (07:59→20:08)
[2021-04-15] MEDS: Divalproex (12 HR) 250 MG TABLET PO SCH (08:00)
[2021-04-15] MEDS: polyethylene glycoL 3350 17 GM POWD.PACK PO SCH (08:00)
[2021-04-15] MEDS: Perphenazine 8 MG TABLET PO SCH ×2 (08:00→20:09)
[2021-04-15] MEDS: Gabapentin 300 MG CAPSULE PO SCH ×2 (08:00→20:08)
[2021-04-15] MEDS: Budesonide/Formoterol 80/4.5 1 PUFF INH IH SCH ×2 (10:45→20:07)
[2021-04-15] MEDS: Tiotropium 10 INH DOSE IH SCH (10:46)
[2021-04-15] MEDS: *HR* LORazepam 1 MG TABLET PO PRN ×2 (14:28→20:08)
[2021-04-15] MEDS: Saline Nasal Spray 44 ML BOTTLE NS PRN (18:36)
[2021-04-15] MEDS: Divalproex (12 HR) 500 MG TABLET PO SCH (20:09)
[2021-04-15] MEDS: QUEtiapine Fumarate 100 MG TABLET PO SCH (20:09)
[2021-04-15] MEDS: hydrOXYzine pamoate 25 MG CAPSULE PO PRN (22:34)
[2021-04-15] MEDS: QUEtiapine Fumarate 25 MG TABLET PO PRN (22:34)
[2021-04-16] MEDS: Ipratropium/Albuterol Neb 3 ML IH SCH ×4 (04:14→20:10)
[2021-04-16] MEDS: Ibuprofen 800 MG TABLET PO PRN ×2 (05:33→19:00)
[2021-04-16] MEDS: *HR* LORazepam 1 MG TABLET PO PRN ×2 (05:33→16:28)
[2021-04-16] MEDS: Divalproex (12 HR) 250 MG TABLET PO SCH (08:35)
[2021-04-16] MEDS: Fluticasone Propionate Nasal 50 MCG/SPRAY BOTTLE NS SCH (08:35)
[2021-04-16] MEDS: polyethylene glycoL 3350 17 GM POWD.PACK PO SCH (08:35)
[2021-04-16] MEDS: Gabapentin 300 MG CAPSULE PO SCH ×2 (08:35→20:11)
[2021-04-16] MEDS: Perphenazine 8 MG TABLET PO SCH ×2 (08:35→20:11)
[2021-04-16] MEDS: Tiotropium 10 INH DOSE IH SCH (08:37)
[2021-04-16] MEDS: Clotrimazole 1% CRM 15 GM TUBE TP SCH ×3 (08:56→20:10)
[2021-04-16] MEDS: Budesonide/Formoterol 80/4.5 1 PUFF INH IH SCH ×2 (10:10→20:10)
[2021-04-16] MEDS: Nicotine 2 MG GUM BC PRN ×3 (12:32→19:00)
[2021-04-16] MEDS: hydrOXYzine pamoate 25 MG CAPSULE PO PRN (19:03)
[2021-04-16] MEDS: QUEtiapine Fumarate 100 MG TABLET PO SCH (20:11)
[2021-04-16] MEDS: Divalproex (12 HR) 500 MG TABLET PO SCH (20:11)
[2021-04-17] MEDS: QUEtiapine Fumarate 25 MG TABLET PO PRN (00:46)
[2021-04-17] MEDS: hydrOXYzine pamoate 25 MG CAPSULE PO PRN ×2 (00:46→06:43)
[2021-04-17] MEDS: Nicotine 2 MG GUM BC PRN ×5 (00:47→20:48)
[2021-04-17] MEDS: *HR* LORazepam 1 MG TABLET PO PRN ×3 (03:15→16:07)
[2021-04-17] MEDS: Ipratropium/Albuterol Neb 3 ML IH SCH ×4 (04:35→20:26)
[2021-04-17] MEDS: Ibuprofen 800 MG TABLET PO PRN ×2 (05:42→15:46)
[2021-04-17] MEDS: Mag Hydrox/Al Hydrox/Simeth 30 ML UDC PO PRN (06:43)
[2021-04-17] MEDS: Saline Nasal Spray 44 ML BOTTLE NS PRN (07:04)
[2021-04-17] MEDS: Clotrimazole 1% CRM 15 GM TUBE TP SCH ×3 (07:57→19:52)
[2021-04-17] MEDS: polyethylene glycoL 3350 17 GM POWD.PACK PO SCH (07:57)
[2021-04-17] MEDS: Gabapentin 300 MG CAPSULE PO SCH ×2 (07:58→19:53)
[2021-04-17] MEDS: Divalproex (12 HR) 250 MG TABLET PO SCH (07:58)
[2021-04-17] MEDS: Perphenazine 8 MG TABLET PO SCH ×2 (07:58→19:53)
[2021-04-17] MEDS: Fluticasone Propionate Nasal 50 MCG/SPRAY BOTTLE NS SCH (07:58)
[2021-04-17] MEDS: Tiotropium 10 INH DOSE IH SCH (09:51)
[2021-04-17] MEDS: Budesonide/Formoterol 80/4.5 1 PUFF INH IH SCH ×2 (09:55→20:26)
[2021-04-17] MEDS: Acetaminophen 325 MG TABLET PO PRN (19:52)
[2021-04-17] MEDS: QUEtiapine Fumarate 100 MG TABLET PO SCH (19:53)
[2021-04-17] MEDS: Divalproex (12 HR) 500 MG TABLET PO SCH (19:53)
[2021-04-18] MEDS: Nicotine 2 MG GUM BC PRN (04:11)
[2021-04-18] MEDS: Ipratropium/Albuterol Neb 3 ML IH SCH ×4 (04:11→20:46)
[2021-04-18] MEDS: polyethylene glycoL 3350 17 GM POWD.PACK PO SCH (08:03)
[2021-04-18] MEDS: Acetaminophen 325 MG TABLET PO PRN (08:05)
[2021-04-18] MEDS: *HR* LORazepam 1 MG TABLET PO PRN (08:06)
[2021-04-18] MEDS: Divalproex (12 HR) 250 MG TABLET PO SCH (08:06)
[2021-04-18] MEDS: Perphenazine 8 MG TABLET PO SCH ×2 (08:06→20:45)
[2021-04-18] MEDS: Gabapentin 300 MG CAPSULE PO SCH ×2 (08:07→20:46)
[2021-04-18] MEDS: Clotrimazole 1% CRM 15 GM TUBE TP SCH ×3 (10:31→20:47)
[2021-04-18] MEDS: Fluticasone Propionate Nasal 50 MCG/SPRAY BOTTLE NS SCH (10:31)
[2021-04-18] MEDS: Budesonide/Formoterol 80/4.5 1 PUFF INH IH SCH ×2 (11:04→20:53)
[2021-04-18] MEDS: Tiotropium 10 INH DOSE IH SCH (11:44)
[2021-04-18] MEDS: Magic Mouthwash 10 ML UD Cup PO SCH ×2 (11:45→17:17)
[2021-04-18] MEDS ORDERED: hydrOXYzine pamoate 25 MG CAPSULE PO SCH (15:00)
[2021-04-18] MEDS: Nicotine 2 MG GUM BC SCH ×2 (15:32→20:45)
[2021-04-18] MEDS: *HR* LORazepam 0.5 MG TABLET PO SCH ×2 (15:32→20:45)
[2021-04-18] MEDS: hydrOXYzine pamoate 25 MG CAPSULE PO SCH (20:45)
[2021-04-18] MEDS: QUEtiapine Fumarate 25 MG TABLET PO SCH (20:45)
[2021-04-18] MEDS: Divalproex (12 HR) 500 MG TABLET PO SCH (20:46)
[2021-04-18] MEDS: QUEtiapine Fumarate 100 MG TABLET PO SCH (20:46)
[2021-04-19] MEDS: Ipratropium/Albuterol Neb 3 ML IH SCH ×4 (04:16→21:02)
[2021-04-19] MEDS: hydrOXYzine pamoate 25 MG CAPSULE PO SCH ×3 (06:34→20:15)
[2021-04-19] MEDS: Fluticasone Propionate Nasal 50 MCG/SPRAY BOTTLE NS SCH (09:26)
[2021-04-19] MEDS: *HR* LORazepam 0.5 MG TABLET PO SCH ×3 (09:27→20:15)
[2021-04-19] MEDS: Perphenazine 8 MG TABLET PO SCH ×2 (09:27→20:14)
[2021-04-19] MEDS: polyethylene glycoL 3350 17 GM POWD.PACK PO SCH (09:28)
[2021-04-19] MEDS: Divalproex (12 HR) 250 MG TABLET PO SCH (09:28)
[2021-04-19] MEDS: Gabapentin 300 MG CAPSULE PO SCH ×2 (09:28→20:13)
[2021-04-19] MEDS: Tiotropium 10 INH DOSE IH SCH (09:29)
[2021-04-19] MEDS: Nicotine 2 MG GUM BC SCH ×3 (09:29→20:13)
[2021-04-19] MEDS: Clotrimazole 1% CRM 15 GM TUBE TP SCH ×3 (10:23→20:16)
[2021-04-19] MEDS: Magic Mouthwash 10 ML UD Cup PO SCH ×3 (10:43→16:52)
[2021-04-19] MEDS: Budesonide/Formoterol 80/4.5 1 PUFF INH IH SCH ×3 (10:48→20:16)
[2021-04-19] MEDS: Divalproex (12 HR) 500 MG TABLET PO SCH (20:14)
[2021-04-19] MEDS: QUEtiapine Fumarate 25 MG TABLET PO SCH (20:14)
[2021-04-19] MEDS: QUEtiapine Fumarate 100 MG TABLET PO SCH (20:15)
[2021-04-19] MEDS: Mag Hydrox/Al Hydrox/Simeth 30 ML UDC PO PRN (21:22)
[2021-04-20] MEDS: Ipratropium/Albuterol Neb 3 ML IH SCH ×4 (03:14→21:45)
[2021-04-20] MEDS: hydrOXYzine pamoate 25 MG CAPSULE PO SCH ×3 (07:52→19:12)
[2021-04-20] MEDS: Magic Mouthwash 10 ML UD Cup PO SCH ×3 (07:53→17:12)
[2021-04-20] MEDS: Nicotine 2 MG GUM BC SCH (09:08)
[2021-04-20] MEDS: *HR* LORazepam 0.5 MG TABLET PO SCH ×3 (09:08→21:46)
[2021-04-20] MEDS: polyethylene glycoL 3350 17 GM POWD.PACK PO SCH (09:08)
[2021-04-20] MEDS: Gabapentin 300 MG CAPSULE PO SCH ×2 (09:11→21:46)
[2021-04-20] MEDS: Divalproex (12 HR) 250 MG TABLET PO SCH (09:11)
[2021-04-20] MEDS: Fluticasone Propionate Nasal 50 MCG/SPRAY BOTTLE NS SCH (09:11)
[2021-04-20] MEDS: Perphenazine 8 MG TABLET PO SCH ×2 (09:13→21:46)
[2021-04-20] MEDS: Clotrimazole 1% CRM 15 GM TUBE TP SCH ×3 (09:31→21:52)
[2021-04-20] MEDS: Ibuprofen 800 MG TABLET PO PRN (10:18)
[2021-04-20] MEDS: Budesonide/Formoterol 80/4.5 1 PUFF INH IH SCH ×2 (11:30→21:46)
[2021-04-20] MEDS: Tiotropium 10 INH DOSE IH SCH (11:31)
[2021-04-20] MEDS: QUEtiapine Fumarate 25 MG TABLET PO SCH ×2 (14:47→21:46)
[2021-04-20] MEDS: Nicotine 2 MG GUM BC PRN ×2 (17:14→20:22)
[2021-04-20] MEDS: QUEtiapine Fumarate 100 MG TABLET PO SCH (21:46)
[2021-04-20] MEDS: Divalproex (12 HR) 500 MG TABLET PO SCH (21:46)
[2021-04-20] MEDS: Saline Nasal Spray 44 ML BOTTLE NS PRN (22:35)
[2021-04-21] MEDS: Nicotine 2 MG GUM BC PRN ×5 (01:00→20:45)
[2021-04-21] MEDS: Ibuprofen 800 MG TABLET PO PRN ×2 (05:48→15:06)
[2021-04-21] MEDS: Ipratropium/Albuterol Neb 3 ML IH SCH ×4 (05:51→22:00)
[2021-04-21 06:33] LABS: Basophils # 0.1 K/mcL (0.0-0.2); Basophils % 0.9 %; Eosinophils # 0.2 K/mcL (0.0-0.6); Eosinophils % 2.3 %; Hematocrit 36.4 % (35.3-44.9); Hemoglobin 12.8 g/dL (11.5-15.4); Immature Granulocytes % 1.1 % (0-4); Lymphocytes # 3.2 K/mcL (0.6-4.6); Lymphocytes % 35.4 %; Mean Corpuscular HGB Conc 35.2 g/dL (31.6-35.5); Mean Corpuscular Hemoglobin 30.5 pg (28.0-33.3); Mean Corpuscular Volume 86.9 fL (83.0-100.0); Mean Platelet Volume 8.6 fL (9.4-12.4); Monocytes # 0.9 K/mcL (0.0-1.3); Neutrophils # 4.6 K/mcL (1.6-8.9); Platelet Count 308 K/mcL (140-400); Red Blood Count 4.19 M/mcL (3.82-4.97); Red Cell Distribution Width 11.9 % (11.5-14.5); Segmented Neutrophils % 50.3 %
[2021-04-21] MEDS: hydrOXYzine pamoate 25 MG CAPSULE PO SCH ×3 (06:33→20:50)
[2021-04-21] MEDS: Magic Mouthwash 10 ML UD Cup PO SCH ×3 (06:33→17:13)
[2021-04-21 07:00] LABS: Alanine Aminotransferase 21 Units/L (7-52); Albumin 3.9 g/dL (3.5-5.7); Albumin/Globulin Ratio 1.4 (1.1-2.2); Alkaline Phosphatase 80 Units/L (34-104); Aspartate Amino Transferase 20 Units/L (13-39); BUN/Creatinine Ratio 10 (6-26); Bilirubin,Total 0.2 mg/dL (0.3-1.0); Blood Urea Nitrogen 8 mg/dL (6-20); Calcium 9.2 mg/dL (8.6-10.3); Carbon Dioxide 28 mEq/L (23-29); Chloride 97 mEq/L (98-107); Cholesterol 206 mg/dL (< 200); Globulin 2.7 g/dL (2.4-3.5); Glucose 122 mg/dL (70-105); HDL Cholesterol 52 mg/dL (40-59); LDL Cholesterol,Calculated 116 mg/dL (< 100); Osmolality,Calculated 278 (280-300); Potassium 4.1 mEq/L (3.5-5.1); Sodium 134 mEq/L (136-145); Total Protein 6.6 g/dL (6.4-8.9); Triglycerides 189 mg/dL (< 150); Valproate 50 mcg/mL (50-100); eGFR For African Americans > 60 (> 60); eGFR For Non-African Americans > 60 (> 60)
[2021-04-21] MEDS: *HR* LORazepam 0.5 MG TABLET PO SCH ×3 (08:36→20:37)
[2021-04-21] MEDS: QUEtiapine Fumarate 25 MG TABLET PO SCH ×3 (08:36→20:38)
[2021-04-21] MEDS: Gabapentin 300 MG CAPSULE PO SCH ×2 (08:36→20:39)
[2021-04-21] MEDS: Divalproex (12 HR) 250 MG TABLET PO SCH (08:36)
[2021-04-21] MEDS: Perphenazine 8 MG TABLET PO SCH ×2 (08:37→20:38)
[2021-04-21] MEDS: polyethylene glycoL 3350 17 GM POWD.PACK PO SCH (08:37)
[2021-04-21] MEDS: Budesonide/Formoterol 80/4.5 1 PUFF INH IH SCH ×2 (08:37→22:00)
[2021-04-21] MEDS: Tiotropium 10 INH DOSE IH SCH (08:40)
[2021-04-21] MEDS: Fluticasone Propionate Nasal 50 MCG/SPRAY BOTTLE NS SCH (08:42)
[2021-04-21] MEDS: Clotrimazole 1% CRM 15 GM TUBE TP SCH ×3 (08:43→20:39)
[2021-04-21 12:18] LABS: Estimated Average Glucose 169 mg/dl; Hemoglobin A1C 7.5 %
[2021-04-21] MEDS: Saline Nasal Spray 44 ML BOTTLE NS PRN (20:36)
[2021-04-21] MEDS: QUEtiapine Fumarate 100 MG TABLET PO SCH (20:38)
[2021-04-21] MEDS: Divalproex (12 HR) 500 MG TABLET PO SCH (20:39)
[2021-04-22] MEDS: Ipratropium/Albuterol Neb 3 ML IH SCH (06:08)
[2021-04-22] MEDS: hydrOXYzine pamoate 25 MG CAPSULE PO SCH ×3 (07:24→21:07)
[2021-04-22] MEDS: Magic Mouthwash 10 ML UD Cup PO SCH ×3 (07:26→18:39)
[2021-04-22] MEDS: Gabapentin 300 MG CAPSULE PO SCH ×2 (08:41→21:07)
[2021-04-22] MEDS: QUEtiapine Fumarate 25 MG TABLET PO SCH ×2 (08:41→21:06)
[2021-04-22] MEDS: *HR* LORazepam 0.5 MG TABLET PO SCH ×3 (08:41→21:07)
[2021-04-22] MEDS: Divalproex (12 HR) 250 MG TABLET PO SCH (08:42)
[2021-04-22] MEDS: Perphenazine 8 MG TABLET PO SCH ×2 (08:42→21:07)
[2021-04-22] MEDS: polyethylene glycoL 3350 17 GM POWD.PACK PO SCH (08:42)
[2021-04-22] MEDS: Fluticasone Propionate Nasal 50 MCG/SPRAY BOTTLE NS SCH (08:45)
[2021-04-22] MEDS: Tiotropium 10 INH DOSE IH SCH (08:46)
[2021-04-22] MEDS: Nicotine 2 MG GUM BC PRN ×3 (08:53→21:49)
[2021-04-22] MEDS: Ibuprofen 800 MG TABLET PO PRN ×2 (08:54→18:37)
[2021-04-22] MEDS: Acetaminophen 325 MG TABLET PO PRN (10:35)
[2021-04-22] MEDS: Ipratropium/Albuterol Neb 3 ML IH PRN ×2 (14:05→21:48)
[2021-04-22] MEDS: Clotrimazole 1% CRM 15 GM TUBE TP SCH ×3 (15:48→21:08)
[2021-04-22] MEDS: Budesonide/Formoterol 80/4.5 1 PUFF INH IH SCH ×2 (15:49→22:23)
[2021-04-22] MEDS: QUEtiapine Fumarate 100 MG TABLET PO SCH ×2 (16:43→21:07)
[2021-04-22 17:57] LABS: Bacteria,Urine Few per hpf (None-Few); Bilirubin,Urine Negative (Negative); Blood,Urine Small (Negative); Clarity,Urine Clear (Clear); Color,Urine Light-Yellow (Yellow); Glucose,Urine (UA) Normal (Normal); Ketones,Urine Negative (Negative); Leukocyte Esterase,Urine Negative (Negative); Nitrite,Urine Negative (Negative); Protein,Urine Negative (Neg-Trace); Squamous Epithelial Cell,Urine Few per hpf (None-Few); Urobilinogen,Urine Normal (Normal); WBC,Urine 0-3 per hpf (0-3)
[2021-04-22] MEDS: Mag Hydrox/Al Hydrox/Simeth 30 ML UDC PO PRN (18:26)
[2021-04-22] MEDS: Divalproex (12 HR) 500 MG TABLET PO SCH (21:07)
[2021-04-22] MEDS: Saline Nasal Spray 44 ML BOTTLE NS PRN (21:09)
[2021-04-23] MEDS: Nicotine 2 MG GUM BC PRN ×5 (01:24→21:22)
[2021-04-23] MEDS: Ibuprofen 800 MG TABLET PO PRN ×2 (05:39→14:44)
[2021-04-23] MEDS: hydrOXYzine pamoate 25 MG CAPSULE PO SCH ×3 (06:05→18:39)
[2021-04-23] MEDS: Magic Mouthwash 10 ML UD Cup PO SCH ×3 (09:02→17:28)
[2021-04-23] MEDS: polyethylene glycoL 3350 17 GM POWD.PACK PO SCH (09:02)
[2021-04-23] MEDS: Gabapentin 300 MG CAPSULE PO SCH ×2 (09:03→21:15)
[2021-04-23] MEDS: Perphenazine 8 MG TABLET PO SCH ×2 (09:03→21:13)
[2021-04-23] MEDS: *HR* LORazepam 0.5 MG TABLET PO SCH ×3 (09:03→21:17)
[2021-04-23] MEDS: Divalproex (12 HR) 250 MG TABLET PO SCH (09:04)
[2021-04-23] MEDS: Budesonide/Formoterol 80/4.5 1 PUFF INH IH SCH ×2 (09:13→22:18)
[2021-04-23] MEDS: Fluticasone Propionate Nasal 50 MCG/SPRAY BOTTLE NS SCH (09:18)
[2021-04-23] MEDS: Tiotropium 10 INH DOSE IH SCH (09:18)
[2021-04-23] MEDS: Clotrimazole 1% CRM 15 GM TUBE TP SCH ×3 (09:19→18:39)
[2021-04-23] MEDS ORDERED: MOM Conc 10 ML UD.LIQ PO ONE (10:04)
[2021-04-23] MEDS ORDERED: MOM Conc 10 ML UD.LIQ PO PRN (10:04)
[2021-04-23] MEDS: Ipratropium/Albuterol Neb 3 ML IH PRN (10:25)
[2021-04-23 11:25] LABS: Basophils # 0.1 K/mcL (0.0-0.2); Eosinophils # 0.3 K/mcL (0.0-0.6); Eosinophils % 2.5 %; Hematocrit 33.7 % (35.3-44.9); Hemoglobin 12.1 g/dL (11.5-15.4); Immature Granulocytes % 1.5 % (0-4); Lymphocytes # 3.6 K/mcL (0.6-4.6); Lymphocytes % 36.1 %; Mean Corpuscular HGB Conc 35.9 g/dL (31.6-35.5); Mean Corpuscular Hemoglobin 30.9 pg (28.0-33.3); Mean Platelet Volume 8.8 fL (9.4-12.4); Monocytes # 1.1 K/mcL (0.0-1.3); Monocytes % 10.8 %; Neutrophils # 4.7 K/mcL (1.6-8.9); Platelet Count 292 K/mcL (140-400); Red Blood Count 3.92 M/mcL (3.82-4.97); Red Cell Distribution Width 11.9 % (11.5-14.5); Segmented Neutrophils % 48.1 %; White Blood Count 9.9 K/mcL (4.3-11.1)
[2021-04-23 11:44] LABS: BUN/Creatinine Ratio 7 (6-26); Blood Urea Nitrogen 7 mg/dL (6-20); Carbon Dioxide 24 mEq/L (23-29); Chloride 92 mEq/L (98-107); Glucose 158 mg/dL (70-105); Osmolality,Calculated 261 (280-300); Potassium 4.1 mEq/L (3.5-5.1); Sodium 125 mEq/L (136-145); eGFR For African Americans > 60 (> 60); eGFR For Non-African Americans 54 (> 60)
[2021-04-23] MEDS: Acetaminophen 325 MG TABLET PO PRN (12:00)
[2021-04-23] MEDS: Aspirin 81 MG TAB.CHEW PO SCH (12:00)
[2021-04-23] MEDS: QUEtiapine Fumarate 100 MG TABLET PO SCH ×2 (17:28→21:14)
[2021-04-23] MEDS: *HR* Metformin 500 MG TABLET PO SCH (17:28)
[2021-04-23] MEDS: Divalproex (12 HR) 500 MG TABLET PO SCH (21:15)
[2021-04-23] MEDS: QUEtiapine Fumarate 25 MG TABLET PO SCH (21:16)
[2021-04-24] MEDS: Ibuprofen 800 MG TABLET PO PRN ×2 (00:59→21:18)
[2021-04-24] MEDS: Nicotine 2 MG GUM BC PRN ×5 (01:07→22:22)
[2021-04-24] MEDS: Acetaminophen 325 MG TABLET PO PRN (03:28)
[2021-04-24] MEDS: hydrOXYzine pamoate 25 MG CAPSULE PO SCH ×3 (06:24→18:36)
[2021-04-24] MEDS: polyethylene glycoL 3350 17 GM POWD.PACK PO SCH (08:33)
[2021-04-24] MEDS: Perphenazine 8 MG TABLET PO SCH ×2 (08:34→21:20)
[2021-04-24] MEDS: *HR* Metformin 500 MG TABLET PO SCH ×2 (08:34→15:58)
[2021-04-24] MEDS: *HR* LORazepam 0.5 MG TABLET PO SCH ×3 (08:34→21:19)
[2021-04-24] MEDS: Aspirin 81 MG TAB.CHEW PO SCH (08:34)
[2021-04-24] MEDS: Divalproex (12 HR) 250 MG TABLET PO SCH (08:34)
[2021-04-24] MEDS: Magic Mouthwash 10 ML UD Cup PO SCH ×3 (08:34→15:58)
[2021-04-24] MEDS: Gabapentin 300 MG CAPSULE PO SCH ×2 (08:34→21:18)
[2021-04-24] MEDS: Fluticasone Propionate Nasal 50 MCG/SPRAY BOTTLE NS SCH (08:50)
[2021-04-24] MEDS: Clotrimazole 1% CRM 15 GM TUBE TP SCH ×3 (08:52→21:17)
[2021-04-24] MEDS: Tiotropium 10 INH DOSE IH SCH (09:09)
[2021-04-24] MEDS: Budesonide/Formoterol 80/4.5 1 PUFF INH IH SCH ×2 (09:09→22:00)
[2021-04-24 12:00] LABS: BUN/Creatinine Ratio 11 (6-26); Blood Urea Nitrogen 11 mg/dL (6-20); Calcium 8.8 mg/dL (8.6-10.3); Carbon Dioxide 28 mEq/L (23-29); Chloride 95 mEq/L (98-107); Glucose 153 mg/dL (70-105); Osmolality,Calculated 270 (280-300); Sodium 129 mEq/L (136-145); eGFR For African Americans > 60 (> 60); eGFR For Non-African Americans 59 (> 60)
[2021-04-24] MEDS: QUEtiapine Fumarate 100 MG TABLET PO SCH ×2 (15:59→21:17)
[2021-04-24] MEDS: Saline Nasal Spray 44 ML BOTTLE NS PRN (21:15)
[2021-04-24] MEDS: QUEtiapine Fumarate 25 MG TABLET PO SCH (21:17)
[2021-04-24] MEDS: Divalproex (12 HR) 500 MG TABLET PO SCH (21:19)
[2021-04-25] MEDS: Nicotine 2 MG GUM BC PRN ×3 (03:27→21:26)
[2021-04-25] MEDS: Ibuprofen 800 MG TABLET PO PRN (04:55)
[2021-04-25] MEDS: hydrOXYzine pamoate 25 MG CAPSULE PO SCH ×3 (07:03→21:20)
[2021-04-25] MEDS: Clotrimazole 1% CRM 15 GM TUBE TP SCH ×3 (08:30→21:26)
[2021-04-25] MEDS: polyethylene glycoL 3350 17 GM POWD.PACK PO SCH (08:30)
[2021-04-25] MEDS: Fluticasone Propionate Nasal 50 MCG/SPRAY BOTTLE NS SCH (08:30)
[2021-04-25] MEDS: Gabapentin 300 MG CAPSULE PO SCH ×2 (08:31→21:17)
[2021-04-25] MEDS: *HR* Metformin 500 MG TABLET PO SCH ×2 (08:31→16:09)
[2021-04-25] MEDS: Perphenazine 8 MG TABLET PO SCH ×2 (08:31→21:17)
[2021-04-25] MEDS: Aspirin 81 MG TAB.CHEW PO SCH (08:31)
[2021-04-25] MEDS: Magic Mouthwash 10 ML UD Cup PO SCH ×3 (08:31→15:06)
[2021-04-25] MEDS: Divalproex (12 HR) 250 MG TABLET PO SCH (08:31)
[2021-04-25] MEDS: *HR* LORazepam 0.5 MG TABLET PO SCH ×3 (08:32→21:17)
[2021-04-25] MEDS: Budesonide/Formoterol 80/4.5 1 PUFF INH IH SCH ×2 (10:59→22:19)
[2021-04-25] MEDS: Tiotropium 10 INH DOSE IH SCH (10:59)
[2021-04-25] MEDS: Ipratropium/Albuterol Neb 3 ML IH PRN (12:17)
[2021-04-25] MEDS: QUEtiapine Fumarate 100 MG TABLET PO SCH ×2 (16:10→21:16)
[2021-04-25] MEDS: QUEtiapine Fumarate 25 MG TABLET PO SCH (21:16)
[2021-04-25] MEDS: Divalproex (12 HR) 500 MG TABLET PO SCH (21:17)
[2021-04-26] MEDS: Nicotine 2 MG GUM BC PRN ×3 (04:15→21:55)
[2021-04-26] MEDS: Ibuprofen 800 MG TABLET PO PRN ×3 (04:15→20:24)
[2021-04-26] MEDS: Ipratropium/Albuterol Neb 3 ML IH PRN (06:09)
[2021-04-26] MEDS: hydrOXYzine pamoate 25 MG CAPSULE PO SCH ×3 (07:16→17:48)
[2021-04-26] MEDS: Acetaminophen 325 MG TABLET PO PRN ×2 (07:22→10:54)
[2021-04-26] MEDS: Fluticasone Propionate Nasal 50 MCG/SPRAY BOTTLE NS SCH (08:35)
[2021-04-26] MEDS: polyethylene glycoL 3350 17 GM POWD.PACK PO SCH (08:36)
[2021-04-26] MEDS: Clotrimazole 1% CRM 15 GM TUBE TP SCH ×3 (08:36→20:53)
[2021-04-26] MEDS: *HR* LORazepam 0.5 MG TABLET PO SCH ×3 (08:37→20:24)
[2021-04-26] MEDS: Aspirin 81 MG TAB.CHEW PO SCH (08:37)
[2021-04-26] MEDS: Perphenazine 8 MG TABLET PO SCH ×2 (08:37→20:25)
[2021-04-26] MEDS: Divalproex (12 HR) 250 MG TABLET PO SCH (08:37)
[2021-04-26] MEDS: *HR* Metformin 500 MG TABLET PO SCH ×2 (08:37→16:42)
[2021-04-26] MEDS: Gabapentin 300 MG CAPSULE PO SCH ×2 (08:37→20:26)
[2021-04-26] MEDS: Magic Mouthwash 10 ML UD Cup PO SCH ×3 (08:43→16:43)
[2021-04-26] MEDS: Budesonide/Formoterol 80/4.5 1 PUFF INH IH SCH ×2 (10:55→20:55)
[2021-04-26] MEDS: Tiotropium 10 INH DOSE IH SCH (10:55)
[2021-04-26] MEDS: QUEtiapine Fumarate 100 MG TABLET PO SCH ×2 (16:43→20:24)
[2021-04-26] MEDS: Divalproex (12 HR) 500 MG TABLET PO SCH (20:25)
[2021-04-26] MEDS: QUEtiapine Fumarate 25 MG TABLET PO SCH (20:26)
[2021-04-26] MEDS: Neosporin OINT 15 GM TUBE TP PRN (20:52)
[2021-04-27] MEDS: Nicotine 2 MG GUM BC PRN ×4 (03:31→21:04)
[2021-04-27] MEDS: Ipratropium/Albuterol Neb 3 ML IH PRN ×2 (05:22→21:03)
[2021-04-27] MEDS: hydrOXYzine pamoate 25 MG CAPSULE PO SCH ×2 (07:21→16:04)
[2021-04-27] MEDS: Aspirin 81 MG TAB.CHEW PO SCH (08:30)
[2021-04-27] MEDS: Gabapentin 300 MG CAPSULE PO SCH ×2 (08:30→20:44)
[2021-04-27] MEDS: Divalproex (12 HR) 250 MG TABLET PO SCH (08:30)
[2021-04-27] MEDS: Magic Mouthwash 10 ML UD Cup PO SCH ×3 (08:30→17:39)
[2021-04-27] MEDS: Perphenazine 8 MG TABLET PO SCH ×2 (08:32→20:45)
[2021-04-27] MEDS: *HR* LORazepam 0.5 MG TABLET PO SCH ×3 (08:32→20:42)
[2021-04-27] MEDS: *HR* Metformin 500 MG TABLET PO SCH ×2 (08:32→17:38)
[2021-04-27] MEDS: polyethylene glycoL 3350 17 GM POWD.PACK PO SCH (08:33)
[2021-04-27] MEDS: Fluticasone Propionate Nasal 50 MCG/SPRAY BOTTLE NS SCH (08:33)
[2021-04-27] MEDS: Ibuprofen 800 MG TABLET PO PRN ×2 (09:20→21:40)
[2021-04-27] MEDS: Tiotropium 10 INH DOSE IH SCH (15:52)
[2021-04-27] MEDS: Budesonide/Formoterol 80/4.5 1 PUFF INH IH SCH ×2 (15:52→22:00)
[2021-04-27] MEDS: Clotrimazole 1% CRM 15 GM TUBE TP SCH ×2 (15:52→21:40)
[2021-04-27] MEDS: QUEtiapine Fumarate 100 MG TABLET PO SCH ×2 (17:38→20:43)
[2021-04-27] MEDS: QUEtiapine Fumarate 25 MG TABLET PO SCH (20:43)
[2021-04-27] MEDS: Acetaminophen 325 MG TABLET PO PRN (20:45)
[2021-04-27] MEDS: Divalproex (12 HR) 500 MG TABLET PO SCH (20:45)
[2021-04-27] MEDS: Saline Nasal Spray 44 ML BOTTLE NS PRN (20:45)
[2021-04-28] MEDS: hydrOXYzine pamoate 25 MG CAPSULE PO SCH ×4 (01:44→18:22)
[2021-04-28] MEDS: Nicotine 2 MG GUM BC PRN ×4 (01:59→21:47)
[2021-04-28] MEDS: Budesonide/Formoterol 80/4.5 1 PUFF INH IH SCH ×3 (01:59→21:49)
[2021-04-28] MEDS: Magic Mouthwash 10 ML UD Cup PO SCH ×3 (06:40→16:15)
[2021-04-28] MEDS: Ipratropium/Albuterol Neb 3 ML IH PRN (06:41)
[2021-04-28] MEDS: Ibuprofen 800 MG TABLET PO PRN ×2 (06:41→17:47)
[2021-04-28] MEDS: *HR* Metformin 500 MG TABLET PO SCH ×2 (08:45→16:16)
[2021-04-28] MEDS: polyethylene glycoL 3350 17 GM POWD.PACK PO SCH (08:45)
[2021-04-28] MEDS: *HR* LORazepam 0.5 MG TABLET PO SCH ×3 (08:46→21:45)
[2021-04-28] MEDS: Divalproex (12 HR) 250 MG TABLET PO SCH (08:46)
[2021-04-28] MEDS: Perphenazine 8 MG TABLET PO SCH ×2 (08:46→21:45)
[2021-04-28] MEDS: Gabapentin 300 MG CAPSULE PO SCH ×2 (08:46→21:46)
[2021-04-28] MEDS: Aspirin 81 MG TAB.CHEW PO SCH (08:47)
[2021-04-28] MEDS: Fluticasone Propionate Nasal 50 MCG/SPRAY BOTTLE NS SCH (08:48)
[2021-04-28] MEDS: Tiotropium 10 INH DOSE IH SCH (08:49)
[2021-04-28] MEDS: Clotrimazole 1% CRM 15 GM TUBE TP SCH ×3 (08:55→21:49)
[2021-04-28] MEDS: Acetaminophen 325 MG TABLET PO PRN (08:56)
[2021-04-28] MEDS: QUEtiapine Fumarate 100 MG TABLET PO SCH ×2 (16:16→21:46)
[2021-04-28] MEDS: QUEtiapine Fumarate 25 MG TABLET PO SCH (21:45)
[2021-04-28] MEDS: Divalproex (12 HR) 500 MG TABLET PO SCH (21:47)
[2021-04-28] MEDS: Saline Nasal Spray 44 ML BOTTLE NS PRN (21:48)
[2021-04-29] MEDS: Ipratropium/Albuterol Neb 3 ML IH PRN (05:42)
[2021-04-29] MEDS: Magic Mouthwash 10 ML UD Cup PO SCH ×3 (06:43→16:37)
[2021-04-29] MEDS: Saline Nasal Spray 44 ML BOTTLE NS PRN (06:43)
[2021-04-29] MEDS: hydrOXYzine pamoate 25 MG CAPSULE PO SCH ×3 (06:45→21:19)
[2021-04-29] MEDS: Nicotine 2 MG GUM BC PRN ×2 (06:46→21:20)
[2021-04-29] MEDS: Ibuprofen 800 MG TABLET PO PRN ×2 (06:48→21:20)
[2021-04-29] MEDS: *HR* Metformin 500 MG TABLET PO SCH ×2 (08:45→16:37)
[2021-04-29] MEDS: Gabapentin 300 MG CAPSULE PO SCH ×2 (08:45→21:17)
[2021-04-29] MEDS: Divalproex (12 HR) 250 MG TABLET PO SCH (08:45)
[2021-04-29] MEDS: Perphenazine 8 MG TABLET PO SCH ×2 (08:45→21:19)
[2021-04-29] MEDS: *HR* LORazepam 0.5 MG TABLET PO SCH ×3 (08:46→21:19)
[2021-04-29] MEDS: Aspirin 81 MG TAB.CHEW PO SCH (08:46)
[2021-04-29] MEDS: polyethylene glycoL 3350 17 GM POWD.PACK PO SCH (08:48)
[2021-04-29] MEDS: Tiotropium 10 INH DOSE IH SCH (08:49)
[2021-04-29] MEDS: Fluticasone Propionate Nasal 50 MCG/SPRAY BOTTLE NS SCH (08:49)
[2021-04-29] MEDS: Clotrimazole 1% CRM 15 GM TUBE TP SCH ×3 (08:50→21:25)
[2021-04-29] MEDS: Neosporin OINT 15 GM TUBE TP PRN (08:51)
[2021-04-29] MEDS: Budesonide/Formoterol 80/4.5 1 PUFF INH IH SCH ×2 (08:54→21:24)
[2021-04-29] MEDS: QUEtiapine Fumarate 100 MG TABLET PO SCH ×2 (16:36→21:18)
[2021-04-29] MEDS: Divalproex (12 HR) 500 MG TABLET PO SCH (21:18)
[2021-04-29] MEDS: QUEtiapine Fumarate 25 MG TABLET PO SCH (21:19)
[2021-04-30] MEDS: polyethylene glycoL 3350 17 GM POWD.PACK PO SCH (08:04)
[2021-04-30] MEDS: Fluticasone Propionate Nasal 50 MCG/SPRAY BOTTLE NS SCH (08:05)
[2021-04-30] MEDS: Tiotropium 10 INH DOSE IH SCH (08:05)
[2021-04-30] MEDS: Divalproex (12 HR) 250 MG TABLET PO SCH (08:05)
[2021-04-30] MEDS: Magic Mouthwash 10 ML UD Cup PO SCH ×3 (08:05→17:21)
[2021-04-30] MEDS: Gabapentin 300 MG CAPSULE PO SCH ×2 (08:05→22:18)
[2021-04-30] MEDS: Perphenazine 8 MG TABLET PO SCH ×2 (08:06→22:18)
[2021-04-30] MEDS: Aspirin 81 MG TAB.CHEW PO SCH (08:06)
[2021-04-30] MEDS: *HR* Metformin 500 MG TABLET PO SCH ×2 (08:06→17:21)
[2021-04-30] MEDS: *HR* LORazepam 0.5 MG TABLET PO SCH ×3 (08:06→22:09)
[2021-04-30] MEDS: hydrOXYzine pamoate 25 MG CAPSULE PO SCH ×3 (08:09→18:00)
[2021-04-30] MEDS: Clotrimazole 1% CRM 15 GM TUBE TP SCH ×3 (08:50→22:07)
[2021-04-30] MEDS: Budesonide/Formoterol 80/4.5 1 PUFF INH IH SCH ×2 (08:51→22:06)
[2021-04-30] MEDS: Nicotine 2 MG GUM BC PRN ×4 (10:20→22:09)
[2021-04-30] MEDS: haloperidoL 5 MG TABLET PO PRN (12:39)
[2021-04-30] MEDS: Ibuprofen 800 MG TABLET PO PRN (14:32)
[2021-04-30] MEDS: QUEtiapine Fumarate 100 MG TABLET PO SCH ×3 (17:21→22:18)
[2021-04-30] MEDS: QUEtiapine Fumarate 25 MG TABLET PO SCH (22:09)
[2021-04-30] MEDS: Divalproex (12 HR) 500 MG TABLET PO SCH (22:18)
[2021-05-01] MEDS: Ipratropium/Albuterol Neb 3 ML IH PRN (05:30)
[2021-05-01] MEDS: QUEtiapine Fumarate 100 MG TABLET PO SCH ×3 (06:59→20:58)
[2021-05-01] MEDS: Magic Mouthwash 10 ML UD Cup PO SCH (07:22)
[2021-05-01] MEDS: Nicotine 2 MG GUM BC PRN ×3 (07:22→22:40)
[2021-05-01] MEDS: Ibuprofen 800 MG TABLET PO PRN (07:22)
[2021-05-01] MEDS: hydrOXYzine pamoate 25 MG CAPSULE PO SCH ×3 (07:23→20:56)
[2021-05-01] MEDS: *HR* Metformin 500 MG TABLET PO SCH ×2 (09:41→17:36)
[2021-05-01] MEDS: Divalproex (12 HR) 250 MG TABLET PO SCH (09:41)
[2021-05-01] MEDS: Gabapentin 300 MG CAPSULE PO SCH ×2 (09:41→20:58)
[2021-05-01] MEDS: Aspirin 81 MG TAB.CHEW PO SCH (09:41)
[2021-05-01] MEDS: polyethylene glycoL 3350 17 GM POWD.PACK PO SCH (09:42)
[2021-05-01] MEDS: Perphenazine 8 MG TABLET PO SCH ×2 (09:42→20:58)
[2021-05-01] MEDS: *HR* LORazepam 0.5 MG TABLET PO SCH ×3 (09:42→20:57)
[2021-05-01] MEDS: Fluticasone Propionate Nasal 50 MCG/SPRAY BOTTLE NS SCH (09:43)
[2021-05-01] MEDS: Clotrimazole 1% CRM 15 GM TUBE TP SCH ×4 (09:44→21:05)
[2021-05-01] MEDS: Tiotropium 10 INH DOSE IH SCH (09:44)
[2021-05-01] MEDS: Budesonide/Formoterol 80/4.5 1 PUFF INH IH SCH ×2 (09:45→21:00)
[2021-05-01] MEDS: QUEtiapine Fumarate 25 MG TABLET PO SCH (20:56)
[2021-05-01] MEDS: Divalproex (12 HR) 500 MG TABLET PO SCH (20:58)
[2021-05-01] MEDS: Saline Nasal Spray 44 ML BOTTLE NS PRN (20:59)
[2021-05-02] MEDS: Nicotine 2 MG GUM BC PRN ×3 (04:49→20:43)
[2021-05-02] MEDS: hydrOXYzine pamoate 25 MG CAPSULE PO SCH ×3 (07:33→20:42)
[2021-05-02] MEDS: *HR* Metformin 500 MG TABLET PO SCH ×2 (07:33→16:22)
[2021-05-02] MEDS: polyethylene glycoL 3350 17 GM POWD.PACK PO SCH (09:32)
[2021-05-02] MEDS: Aspirin 81 MG TAB.CHEW PO SCH (09:33)
[2021-05-02] MEDS: Divalproex (12 HR) 250 MG TABLET PO SCH (09:34)
[2021-05-02] MEDS: Gabapentin 300 MG CAPSULE PO SCH ×2 (09:34→20:43)
[2021-05-02] MEDS: *HR* LORazepam 0.5 MG TABLET PO SCH ×3 (09:37→20:43)
[2021-05-02] MEDS: Perphenazine 8 MG TABLET PO SCH ×2 (09:37→20:43)
[2021-05-02] MEDS: Budesonide/Formoterol 80/4.5 1 PUFF INH IH SCH (09:37)
[2021-05-02] MEDS: Tiotropium 10 INH DOSE IH SCH (09:38)
[2021-05-02] MEDS: Clotrimazole 1% CRM 15 GM TUBE TP SCH ×2 (09:39→16:18)
[2021-05-02] MEDS: Fluticasone Propionate Nasal 50 MCG/SPRAY BOTTLE NS SCH (09:39)
[2021-05-02] MEDS: haloperidoL 5 MG TABLET PO PRN (09:42)
[2021-05-02] MEDS ORDERED: *HR* LORazepam 0.5 MG TABLET PO PRN (09:45)
[2021-05-02] MEDS ORDERED: *HR* LORazepam 2 MG/ML VIAL IM PRN (09:45)
[2021-05-02] MEDS: QUEtiapine Fumarate 100 MG TABLET PO SCH ×2 (16:22→20:44)
[2021-05-02] MEDS: Ibuprofen 800 MG TABLET PO PRN (20:43)
[2021-05-02] MEDS: Divalproex (12 HR) 500 MG TABLET PO SCH (20:43)
[2021-05-02] MEDS: QUEtiapine Fumarate 25 MG TABLET PO SCH (20:44)
[2021-05-02] MEDS: Saline Nasal Spray 44 ML BOTTLE NS PRN (20:45)
[2021-05-03] MEDS: Clotrimazole 1% CRM 15 GM TUBE TP SCH ×4 (01:11→20:54)
[2021-05-03] MEDS: Budesonide/Formoterol 80/4.5 1 PUFF INH IH SCH ×3 (01:11→21:14)
[2021-05-03] MEDS: Ipratropium/Albuterol Neb 3 ML IH PRN ×2 (07:14→14:54)
[2021-05-03] MEDS: Nicotine 2 MG GUM BC PRN ×4 (07:14→20:54)
[2021-05-03] MEDS: hydrOXYzine pamoate 25 MG CAPSULE PO SCH ×3 (07:14→20:53)
[2021-05-03] MEDS: Fluticasone Propionate Nasal 50 MCG/SPRAY BOTTLE NS SCH (09:01)
[2021-05-03] MEDS: Tiotropium 10 INH DOSE IH SCH (09:02)
[2021-05-03] MEDS: polyethylene glycoL 3350 17 GM POWD.PACK PO SCH (09:03)
[2021-05-03] MEDS: Perphenazine 8 MG TABLET PO SCH ×2 (09:05→20:52)
[2021-05-03] MEDS: Gabapentin 300 MG CAPSULE PO SCH ×2 (09:05→20:54)
[2021-05-03] MEDS: Aspirin 81 MG TAB.CHEW PO SCH (09:05)
[2021-05-03] MEDS: *HR* Metformin 500 MG TABLET PO SCH ×2 (09:06→16:10)
[2021-05-03] MEDS: Divalproex (12 HR) 250 MG TABLET PO SCH (09:06)
[2021-05-03] MEDS: *HR* LORazepam 0.5 MG TABLET PO SCH ×3 (09:07→20:53)
[2021-05-03] MEDS: Ibuprofen 800 MG TABLET PO PRN (09:48)
[2021-05-03 15:10] LABS: Bilirubin,Urine Negative (Negative); Blood,Urine Small (Negative); Clarity,Urine Clear (Clear); Color,Urine Light-Yellow (Yellow); Glucose,Urine (UA) Normal (Normal); Ketones,Urine Negative (Negative); Leukocyte Esterase,Urine Negative (Negative); Nitrite,Urine Negative (Negative); Protein,Urine Negative (Neg-Trace); Specific Gravity,Urine 1.012 (1.010-1.025); Squamous Epithelial Cell,Urine Few per hpf (None-Few); Urobilinogen,Urine Normal (Normal); WBC,Urine 0-3 per hpf (0-3)
[2021-05-03] MEDS: QUEtiapine Fumarate 100 MG TABLET PO SCH ×2 (16:10→20:53)
[2021-05-03] MEDS: QUEtiapine Fumarate 25 MG TABLET PO SCH (20:52)
[2021-05-03] MEDS: Divalproex (12 HR) 500 MG TABLET PO SCH (20:52)
[2021-05-04] MEDS: Ibuprofen 800 MG TABLET PO PRN (00:29)
[2021-05-04] MEDS: Nicotine 2 MG GUM BC PRN ×5 (00:29→20:33)
[2021-05-04] MEDS: Ipratropium/Albuterol Neb 3 ML IH PRN ×2 (00:29→16:15)
[2021-05-04] MEDS: *HR* LORazepam 1 MG TABLET PO PRN (02:52)
[2021-05-04] MEDS: hydrOXYzine pamoate 25 MG CAPSULE PO SCH ×3 (07:22→20:30)
[2021-05-04] MEDS: Perphenazine 8 MG TABLET PO SCH ×2 (08:31→20:31)
[2021-05-04] MEDS: Acetaminophen 325 MG TABLET PO PRN (08:31)
[2021-05-04] MEDS: polyethylene glycoL 3350 17 GM POWD.PACK PO SCH (08:31)
[2021-05-04] MEDS: Divalproex (12 HR) 250 MG TABLET PO SCH (08:32)
[2021-05-04] MEDS: Gabapentin 300 MG CAPSULE PO SCH ×2 (08:32→20:31)
[2021-05-04] MEDS: Aspirin 81 MG TAB.CHEW PO SCH (08:32)
[2021-05-04] MEDS: *HR* Metformin 500 MG TABLET PO SCH ×2 (08:32→16:14)
[2021-05-04] MEDS: *HR* LORazepam 0.5 MG TABLET PO SCH ×3 (08:32→20:31)
[2021-05-04] MEDS: Fluticasone Propionate Nasal 50 MCG/SPRAY BOTTLE NS SCH (08:33)
[2021-05-04] MEDS: Tiotropium 10 INH DOSE IH SCH (08:34)
[2021-05-04] MEDS: Budesonide/Formoterol 80/4.5 1 PUFF INH IH SCH ×2 (08:34→20:33)
[2021-05-04] MEDS: Clotrimazole 1% CRM 15 GM TUBE TP SCH ×4 (08:35→20:33)
[2021-05-04 11:03] LABS: Basophils # 0.1 K/mcL (0.0-0.2); Basophils % 1.2 %; Eosinophils # 0.2 K/mcL (0.0-0.6); Eosinophils % 2.4 %; Hematocrit 33.3 % (35.3-44.9); Hemoglobin 11.8 g/dL (11.5-15.4); Immature Granulocytes % 1.7 % (0-4); Lymphocytes # 2.6 K/mcL (0.6-4.6); Lymphocytes % 29.4 %; Mean Corpuscular HGB Conc 35.4 g/dL (31.6-35.5); Mean Corpuscular Hemoglobin 30.3 pg (28.0-33.3); Mean Corpuscular Volume 85.6 fL (83.0-100.0); Mean Platelet Volume 8.4 fL (9.4-12.4); Monocytes # 1.1 K/mcL (0.0-1.3); Monocytes % 12.6 %; Neutrophils # 4.7 K/mcL (1.6-8.9); Platelet Count 326 K/mcL (140-400); Red Blood Count 3.89 M/mcL (3.82-4.97); Red Cell Distribution Width 11.8 % (11.5-14.5); Segmented Neutrophils % 52.7 %; White Blood Count 8.8 K/mcL (4.3-11.1)
[2021-05-04 11:24] LABS: Alanine Aminotransferase 33 Units/L (7-52); Albumin 3.9 g/dL (3.5-5.7); Albumin/Globulin Ratio 1.7 (1.1-2.2); Alkaline Phosphatase 68 Units/L (34-104); Aspartate Amino Transferase 24 Units/L (13-39); BUN/Creatinine Ratio 11 (6-26); Bilirubin,Total 0.2 mg/dL (0.3-1.0); Blood Urea Nitrogen 9 mg/dL (6-20); Calcium 9.2 mg/dL (8.6-10.3); Carbon Dioxide 27 mEq/L (23-29); Chloride 94 mEq/L (98-107); Globulin 2.3 g/dL (2.4-3.5); Glucose 122 mg/dL (70-105); Osmolality,Calculated 266 (280-300); Potassium 3.9 mEq/L (3.5-5.1); Sodium 128 mEq/L (136-145); Total Protein 6.2 g/dL (6.4-8.9); eGFR For African Americans > 60 (> 60); eGFR For Non-African Americans > 60 (> 60)
[2021-05-04] MEDS: QUEtiapine Fumarate 100 MG TABLET PO SCH ×2 (16:13→20:31)
[2021-05-04] MEDS: Divalproex (12 HR) 500 MG TABLET PO SCH (20:30)
[2021-05-04] MEDS: QUEtiapine Fumarate 25 MG TABLET PO SCH (20:31)
[2021-05-04] MEDS: Loratadine 10 MG TABLET PO SCH (20:35)
[2021-05-05] MEDS: Nicotine 2 MG GUM BC PRN ×4 (01:56→21:13)
[2021-05-05] MEDS: Ipratropium/Albuterol Neb 3 ML IH PRN (03:19)
[2021-05-05] MEDS: *HR* LORazepam 1 MG TABLET PO PRN (04:13)
[2021-05-05] MEDS: Fluticasone Propionate Nasal 50 MCG/SPRAY BOTTLE NS SCH (08:45)
[2021-05-05] MEDS: polyethylene glycoL 3350 17 GM POWD.PACK PO SCH (08:47)
[2021-05-05] MEDS: Tiotropium 10 INH DOSE IH SCH (08:47)
[2021-05-05] MEDS: Gabapentin 300 MG CAPSULE PO SCH ×2 (08:47→21:10)
[2021-05-05] MEDS: Perphenazine 8 MG TABLET PO SCH ×2 (08:47→21:09)
[2021-05-05] MEDS: Divalproex (12 HR) 250 MG TABLET PO SCH (08:47)
[2021-05-05] MEDS: Aspirin 81 MG TAB.CHEW PO SCH (08:48)
[2021-05-05] MEDS: Loratadine 10 MG TABLET PO SCH (08:48)
[2021-05-05] MEDS: *HR* LORazepam 0.5 MG TABLET PO SCH ×3 (08:50→21:08)
[2021-05-05] MEDS: *HR* Metformin 500 MG TABLET PO SCH ×2 (08:50→17:02)
[2021-05-05] MEDS: hydrOXYzine pamoate 25 MG CAPSULE PO SCH ×3 (08:52→18:33)
[2021-05-05] MEDS: Ibuprofen 800 MG TABLET PO PRN ×2 (08:52→17:03)
[2021-05-05] MEDS: Clotrimazole 1% CRM 15 GM TUBE TP SCH ×4 (10:16→21:12)
[2021-05-05] MEDS: Budesonide/Formoterol 80/4.5 1 PUFF INH IH SCH ×2 (13:20→21:07)
[2021-05-05] MEDS: QUEtiapine Fumarate 100 MG TABLET PO SCH ×2 (17:02→21:09)
[2021-05-05] MEDS: Mag Hydrox/Al Hydrox/Simeth 30 ML UDC PO PRN (18:03)
[2021-05-05] MEDS: QUEtiapine Fumarate 25 MG TABLET PO SCH (21:11)
[2021-05-05] MEDS: Divalproex (12 HR) 500 MG TABLET PO SCH (21:11)
[2021-05-06] MEDS: Ipratropium/Albuterol Neb 3 ML IH PRN ×2 (04:29→16:36)
[2021-05-06] MEDS: Nicotine 2 MG GUM BC PRN ×4 (04:30→21:11)
[2021-05-06] MEDS: hydrOXYzine pamoate 25 MG CAPSULE PO SCH ×3 (06:24→17:37)
[2021-05-06] MEDS: Clotrimazole 1% CRM 15 GM TUBE TP SCH ×3 (08:37→20:29)
[2021-05-06] MEDS: Fluticasone Propionate Nasal 50 MCG/SPRAY BOTTLE NS SCH (08:37)
[2021-05-06] MEDS: Budesonide/Formoterol 80/4.5 1 PUFF INH IH SCH ×2 (08:37→20:29)
[2021-05-06] MEDS: Divalproex (12 HR) 250 MG TABLET PO SCH (08:38)
[2021-05-06] MEDS: *HR* LORazepam 0.5 MG TABLET PO SCH ×3 (08:38→20:20)
[2021-05-06] MEDS: Gabapentin 300 MG CAPSULE PO SCH ×2 (08:38→20:20)
[2021-05-06] MEDS: Perphenazine 8 MG TABLET PO SCH ×2 (08:38→20:19)
[2021-05-06] MEDS: Loratadine 10 MG TABLET PO SCH (08:38)
[2021-05-06] MEDS: Aspirin 81 MG TAB.CHEW PO SCH (08:38)
[2021-05-06] MEDS: *HR* Metformin 500 MG TABLET PO SCH ×2 (08:39→15:41)
[2021-05-06] MEDS: polyethylene glycoL 3350 17 GM POWD.PACK PO SCH (08:47)
[2021-05-06] MEDS: Tiotropium 10 INH DOSE IH SCH (08:48)
[2021-05-06] MEDS: Ibuprofen 800 MG TABLET PO PRN ×2 (09:35→16:37)
[2021-05-06] MEDS: QUEtiapine Fumarate 100 MG TABLET PO SCH ×2 (15:41→20:19)
[2021-05-06] MEDS: Mag Hydrox/Al Hydrox/Simeth 30 ML UDC PO PRN ×2 (17:28→21:41)
[2021-05-06] MEDS: Acetaminophen 325 MG TABLET PO PRN (17:51)
[2021-05-06] MEDS: Divalproex (12 HR) 500 MG TABLET PO SCH (20:18)
[2021-05-06] MEDS: QUEtiapine Fumarate 25 MG TABLET PO SCH (20:20)
[2021-05-07] MEDS: Nicotine 2 MG GUM BC PRN ×4 (03:35→18:48)
[2021-05-07] MEDS: Ipratropium/Albuterol Neb 3 ML IH PRN ×2 (03:36→16:59)
[2021-05-07] MEDS: Ibuprofen 800 MG TABLET PO PRN (05:25)
[2021-05-07] MEDS: hydrOXYzine pamoate 25 MG CAPSULE PO SCH ×3 (06:48→17:50)
[2021-05-07] MEDS: Tiotropium 10 INH DOSE IH SCH (08:07)
[2021-05-07] MEDS: Clotrimazole 1% CRM 15 GM TUBE TP SCH ×3 (08:07→20:23)
[2021-05-07] MEDS: polyethylene glycoL 3350 17 GM POWD.PACK PO SCH (08:07)
[2021-05-07] MEDS: Gabapentin 300 MG CAPSULE PO SCH ×2 (08:08→20:19)
[2021-05-07] MEDS: Fluticasone Propionate Nasal 50 MCG/SPRAY BOTTLE NS SCH (08:08)
[2021-05-07] MEDS: Divalproex (12 HR) 250 MG TABLET PO SCH (08:09)
[2021-05-07] MEDS: Perphenazine 8 MG TABLET PO SCH ×2 (08:09→20:18)
[2021-05-07] MEDS: Aspirin 81 MG TAB.CHEW PO SCH (08:09)
[2021-05-07] MEDS: Loratadine 10 MG TABLET PO SCH (08:09)
[2021-05-07] MEDS: *HR* Metformin 500 MG TABLET PO SCH ×2 (08:09→15:04)
[2021-05-07] MEDS: *HR* LORazepam 0.5 MG TABLET PO SCH ×3 (08:09→20:18)
[2021-05-07] MEDS: Budesonide/Formoterol 80/4.5 1 PUFF INH IH SCH ×2 (09:02→20:19)
[2021-05-07] MEDS: QUEtiapine Fumarate 100 MG TABLET PO SCH ×2 (15:04→20:19)
[2021-05-07] MEDS: Mag Hydrox/Al Hydrox/Simeth 30 ML UDC PO PRN (20:17)
[2021-05-07] MEDS: Divalproex (12 HR) 500 MG TABLET PO SCH (20:19)
[2021-05-07] MEDS: QUEtiapine Fumarate 25 MG TABLET PO SCH (20:19)
[2021-05-08] MEDS: Nicotine 2 MG GUM BC PRN ×6 (00:49→21:49)
[2021-05-08] MEDS: hydrOXYzine pamoate 25 MG CAPSULE PO SCH ×3 (06:33→18:29)
[2021-05-08] MEDS: Gabapentin 300 MG CAPSULE PO SCH ×2 (08:03→20:30)
[2021-05-08] MEDS: *HR* Metformin 500 MG TABLET PO SCH ×2 (08:03→16:43)
[2021-05-08] MEDS: *HR* LORazepam 0.5 MG TABLET PO SCH ×3 (08:04→20:31)
[2021-05-08] MEDS: Fluticasone Propionate Nasal 50 MCG/SPRAY BOTTLE NS SCH (08:04)
[2021-05-08] MEDS: Divalproex (12 HR) 250 MG TABLET PO SCH (08:04)
[2021-05-08] MEDS: Perphenazine 8 MG TABLET PO SCH ×2 (08:04→20:31)
[2021-05-08] MEDS: Loratadine 10 MG TABLET PO SCH (08:04)
[2021-05-08] MEDS: Aspirin 81 MG TAB.CHEW PO SCH (08:04)
[2021-05-08] MEDS: Tiotropium 10 INH DOSE IH SCH (08:04)
[2021-05-08] MEDS: polyethylene glycoL 3350 17 GM POWD.PACK PO SCH (08:04)
[2021-05-08] MEDS: Clotrimazole 1% CRM 15 GM TUBE TP SCH ×3 (08:11→20:32)
[2021-05-08] MEDS: Budesonide/Formoterol 80/4.5 1 PUFF INH IH SCH ×2 (08:19→20:32)
[2021-05-08] MEDS: Ibuprofen 800 MG TABLET PO PRN ×2 (10:11→19:02)
[2021-05-08] MEDS: QUEtiapine Fumarate 100 MG TABLET PO SCH ×2 (16:43→20:31)
[2021-05-08] MEDS: QUEtiapine Fumarate 25 MG TABLET PO SCH (20:30)
[2021-05-08] MEDS: Divalproex (12 HR) 500 MG TABLET PO SCH (20:31)
[2021-05-09] MEDS: Nicotine 2 MG GUM BC PRN ×5 (03:20→23:35)
[2021-05-09] MEDS: Ibuprofen 800 MG TABLET PO PRN ×2 (03:21→19:06)
[2021-05-09] MEDS: hydrOXYzine pamoate 25 MG CAPSULE PO SCH ×3 (06:40→18:16)
[2021-05-09] MEDS: Tiotropium 10 INH DOSE IH SCH (08:46)
[2021-05-09] MEDS: Fluticasone Propionate Nasal 50 MCG/SPRAY BOTTLE NS SCH (08:46)
[2021-05-09] MEDS: Clotrimazole 1% CRM 15 GM TUBE TP SCH ×3 (08:47→20:44)
[2021-05-09] MEDS: *HR* Metformin 500 MG TABLET PO SCH ×2 (08:47→15:51)
[2021-05-09] MEDS: Budesonide/Formoterol 80/4.5 1 PUFF INH IH SCH ×2 (08:47→20:44)
[2021-05-09] MEDS: Gabapentin 300 MG CAPSULE PO SCH ×2 (08:47→20:41)
[2021-05-09] MEDS: Perphenazine 8 MG TABLET PO SCH ×2 (08:48→20:41)
[2021-05-09] MEDS: *HR* LORazepam 0.5 MG TABLET PO SCH ×3 (08:48→20:40)
[2021-05-09] MEDS: Loratadine 10 MG TABLET PO SCH (08:48)
[2021-05-09] MEDS: Divalproex (12 HR) 250 MG TABLET PO SCH (08:48)
[2021-05-09] MEDS: polyethylene glycoL 3350 17 GM POWD.PACK PO SCH ×2 (09:10→12:49)
[2021-05-09] MEDS: Aspirin 81 MG TAB.CHEW PO SCH (09:12)
[2021-05-09] MEDS: Acetaminophen 325 MG TABLET PO PRN ×2 (12:03→20:42)
[2021-05-09] MEDS: QUEtiapine Fumarate 100 MG TABLET PO SCH ×2 (15:52→20:42)
[2021-05-09] MEDS: QUEtiapine Fumarate 25 MG TABLET PO SCH (20:41)
[2021-05-09] MEDS: Divalproex (12 HR) 500 MG TABLET PO SCH (20:41)
[2021-05-09] MEDS: Benzonatate 100 MG CAPSULE PO PRN (20:42)
[2021-05-10] MEDS: Ibuprofen 800 MG TABLET PO PRN ×2 (07:18→16:22)
[2021-05-10] MEDS: Nicotine 2 MG GUM BC PRN ×2 (07:19→20:22)
[2021-05-10] MEDS: hydrOXYzine pamoate 25 MG CAPSULE PO SCH ×3 (07:19→18:30)
[2021-05-10] MEDS: Fluticasone Propionate Nasal 50 MCG/SPRAY BOTTLE NS SCH (08:25)
[2021-05-10] MEDS: Budesonide/Formoterol 80/4.5 1 PUFF INH IH SCH ×2 (08:26→20:21)
[2021-05-10] MEDS: *HR* LORazepam 0.5 MG TABLET PO SCH ×3 (08:27→20:22)
[2021-05-10] MEDS: Aspirin 81 MG TAB.CHEW PO SCH (08:27)
[2021-05-10] MEDS: Divalproex (12 HR) 250 MG TABLET PO SCH (08:27)
[2021-05-10] MEDS: Gabapentin 300 MG CAPSULE PO SCH ×2 (08:27→20:22)
[2021-05-10] MEDS: *HR* Metformin 500 MG TABLET PO SCH ×2 (08:27→16:17)
[2021-05-10] MEDS: Perphenazine 8 MG TABLET PO SCH ×2 (08:27→20:23)
[2021-05-10] MEDS: Loratadine 10 MG TABLET PO SCH (08:27)
[2021-05-10] MEDS: Clotrimazole 1% CRM 15 GM TUBE TP SCH ×3 (08:47→20:23)
[2021-05-10] MEDS: polyethylene glycoL 3350 17 GM POWD.PACK PO SCH (08:48)
[2021-05-10] MEDS: Tiotropium 10 INH DOSE IH SCH (10:13)
[2021-05-10] MEDS: QUEtiapine Fumarate 100 MG TABLET PO SCH ×2 (16:17→20:22)
[2021-05-10] MEDS: Acetaminophen 325 MG TABLET PO PRN (18:56)
[2021-05-10] MEDS: QUEtiapine Fumarate 25 MG TABLET PO SCH (20:22)
[2021-05-10] MEDS: Divalproex (12 HR) 500 MG TABLET PO SCH (20:23)
[2021-05-10] MEDS: Benzonatate 100 MG CAPSULE PO PRN (21:02)
[2021-05-11] MEDS: Nicotine 2 MG GUM BC PRN ×3 (02:52→18:05)
[2021-05-11] MEDS: Ibuprofen 800 MG TABLET PO PRN ×2 (02:54→18:03)
[2021-05-11] MEDS: hydrOXYzine pamoate 25 MG CAPSULE PO SCH ×3 (06:05→19:21)
[2021-05-11] MEDS: Clotrimazole 1% CRM 15 GM TUBE TP SCH ×4 (08:14→20:21)
[2021-05-11] MEDS: Loratadine 10 MG TABLET PO SCH (08:15)
[2021-05-11] MEDS: *HR* LORazepam 0.5 MG TABLET PO SCH ×3 (08:16→20:20)
[2021-05-11] MEDS: Divalproex (12 HR) 250 MG TABLET PO SCH (08:17)
[2021-05-11] MEDS: Aspirin 81 MG TAB.CHEW PO SCH (08:17)
[2021-05-11] MEDS: *HR* Metformin 500 MG TABLET PO SCH ×2 (08:17→17:48)
[2021-05-11] MEDS: Perphenazine 8 MG TABLET PO SCH ×2 (08:18→20:20)
[2021-05-11] MEDS: Gabapentin 300 MG CAPSULE PO SCH ×2 (08:18→20:20)
[2021-05-11] MEDS: polyethylene glycoL 3350 17 GM POWD.PACK PO SCH (08:19)
[2021-05-11] MEDS: Fluticasone Propionate Nasal 50 MCG/SPRAY BOTTLE NS SCH (08:20)
[2021-05-11] MEDS: Benzonatate 100 MG CAPSULE PO PRN ×2 (08:20→20:20)
[2021-05-11] MEDS: Tiotropium 10 INH DOSE IH SCH (08:20)
[2021-05-11] MEDS: Budesonide/Formoterol 80/4.5 1 PUFF INH IH SCH ×2 (08:20→20:22)
[2021-05-11] MEDS: QUEtiapine Fumarate 100 MG TABLET PO SCH ×2 (17:48→20:20)
[2021-05-11] MEDS: haloperidoL 5 MG TABLET PO PRN (18:05)
[2021-05-11] MEDS: Divalproex (12 HR) 500 MG TABLET PO SCH (20:20)
[2021-05-11] MEDS: Acetaminophen 325 MG TABLET PO PRN (20:20)
[2021-05-11] MEDS: QUEtiapine Fumarate 25 MG TABLET PO SCH (20:21)
[2021-05-12] MEDS: Nicotine 2 MG GUM BC PRN ×5 (02:06→21:04)
[2021-05-12] MEDS: Ipratropium/Albuterol Neb 3 ML IH PRN (02:06)
[2021-05-12] MEDS: Ibuprofen 800 MG TABLET PO PRN ×2 (02:06→15:58)
[2021-05-12] MEDS: *HR* LORazepam 0.5 MG TABLET PO SCH ×3 (08:34→21:04)
[2021-05-12] MEDS: Divalproex (12 HR) 250 MG TABLET PO SCH (08:35)
[2021-05-12] MEDS: Aspirin 81 MG TAB.CHEW PO SCH (08:35)
[2021-05-12] MEDS: polyethylene glycoL 3350 17 GM POWD.PACK PO SCH (08:35)
[2021-05-12] MEDS: Perphenazine 8 MG TABLET PO SCH ×2 (08:35→21:04)
[2021-05-12] MEDS: Gabapentin 300 MG CAPSULE PO SCH ×2 (08:35→21:04)
[2021-05-12] MEDS: *HR* Metformin 500 MG TABLET PO SCH ×2 (08:35→17:28)
[2021-05-12] MEDS: Loratadine 10 MG TABLET PO SCH (08:35)
[2021-05-12] MEDS: Fluticasone Propionate Nasal 50 MCG/SPRAY BOTTLE NS SCH (08:37)
[2021-05-12] MEDS: hydrOXYzine pamoate 25 MG CAPSULE PO SCH ×3 (08:37→21:10)
[2021-05-12] MEDS: Clotrimazole 1% CRM 15 GM TUBE TP SCH ×3 (08:38→21:17)
[2021-05-12] MEDS: Tiotropium 10 INH DOSE IH SCH (08:38)
[2021-05-12] MEDS: Budesonide/Formoterol 80/4.5 1 PUFF INH IH SCH ×2 (08:40→21:08)
[2021-05-12 15:20] LABS: Bilirubin,Urine Negative (Negative); Blood,Urine Trace (Negative); Clarity,Urine Clear (Clear); Color,Urine Colorless (Yellow); Glucose,Urine (UA) Normal (Normal); Ketones,Urine Negative (Negative); Leukocyte Esterase,Urine Negative (Negative); Nitrite,Urine Negative (Negative); Protein,Urine Negative (Neg-Trace); RBC,Urine 0-3 per hpf (0-3); Specific Gravity,Urine 1.006 (1.010-1.025); Urobilinogen,Urine Normal (Normal); WBC,Urine 0-3 per hpf (0-3)
[2021-05-12] MEDS: QUEtiapine Fumarate 100 MG TABLET PO SCH ×2 (17:28→21:07)
[2021-05-12] MEDS: QUEtiapine Fumarate 25 MG TABLET PO SCH (21:04)
[2021-05-12] MEDS: Divalproex (12 HR) 500 MG TABLET PO SCH (21:04)
[2021-05-12] MEDS: Benzonatate 100 MG CAPSULE PO PRN (21:12)
[2021-05-12] MEDS: Saline Nasal Spray 44 ML BOTTLE NS PRN (21:16)
[2021-05-13] MEDS: Ibuprofen 800 MG TABLET PO PRN ×2 (03:31→15:10)
[2021-05-13] MEDS: Ipratropium/Albuterol Neb 3 ML IH PRN (03:32)
[2021-05-13] MEDS: Nicotine 2 MG GUM BC PRN ×5 (03:40→18:59)
[2021-05-13] MEDS: hydrOXYzine pamoate 25 MG CAPSULE PO SCH ×3 (06:32→18:59)
[2021-05-13] MEDS: Acetaminophen 325 MG TABLET PO PRN (06:33)
[2021-05-13] MEDS: Aspirin 81 MG TAB.CHEW PO SCH (09:02)
[2021-05-13] MEDS: Loratadine 10 MG TABLET PO SCH (09:02)
[2021-05-13] MEDS: *HR* Metformin 500 MG TABLET PO SCH ×2 (09:02→16:00)
[2021-05-13] MEDS: Perphenazine 8 MG TABLET PO SCH ×2 (09:04→20:22)
[2021-05-13] MEDS: Gabapentin 300 MG CAPSULE PO SCH ×2 (09:04→20:23)
[2021-05-13] MEDS: *HR* LORazepam 0.5 MG TABLET PO SCH ×3 (09:04→20:23)
[2021-05-13] MEDS: Divalproex (12 HR) 500 MG TABLET PO SCH ×2 (09:04→20:22)
[2021-05-13] MEDS: polyethylene glycoL 3350 17 GM POWD.PACK PO SCH (09:05)
[2021-05-13] MEDS: Clotrimazole 1% CRM 15 GM TUBE TP SCH ×3 (09:05→20:22)
[2021-05-13] MEDS: Fluticasone Propionate Nasal 50 MCG/SPRAY BOTTLE NS SCH (09:10)
[2021-05-13] MEDS: Tiotropium 10 INH DOSE IH SCH (09:11)
[2021-05-13] MEDS: Budesonide/Formoterol 80/4.5 1 PUFF INH IH SCH ×2 (09:11→20:21)
[2021-05-13] MEDS: QUEtiapine Fumarate 100 MG TABLET PO SCH ×2 (16:01→20:23)
[2021-05-13] MEDS: QUEtiapine Fumarate 25 MG TABLET PO SCH (20:22)
[2021-05-14] MEDS: Nicotine 2 MG GUM BC PRN ×5 (03:25→23:58)
[2021-05-14] MEDS: Ibuprofen 800 MG TABLET PO PRN ×2 (03:25→23:58)
[2021-05-14] MEDS: Benzonatate 100 MG CAPSULE PO PRN ×2 (03:25→20:07)
[2021-05-14] MEDS: hydrOXYzine pamoate 25 MG CAPSULE PO SCH ×3 (06:31→20:07)
[2021-05-14] MEDS: polyethylene glycoL 3350 17 GM POWD.PACK PO SCH (10:27)
[2021-05-14] MEDS: *HR* Metformin 500 MG TABLET PO SCH ×2 (10:28→17:18)
[2021-05-14] MEDS: *HR* LORazepam 0.5 MG TABLET PO SCH ×3 (10:28→20:07)
[2021-05-14] MEDS: Divalproex (12 HR) 500 MG TABLET PO SCH ×2 (10:28→20:08)
[2021-05-14] MEDS: Loratadine 10 MG TABLET PO SCH (10:29)
[2021-05-14] MEDS: Gabapentin 300 MG CAPSULE PO SCH ×2 (10:29→20:08)
[2021-05-14] MEDS: Perphenazine 8 MG TABLET PO SCH ×2 (10:29→20:08)
[2021-05-14] MEDS: Aspirin 81 MG TAB.CHEW PO SCH (10:29)
[2021-05-14] MEDS: Fluticasone Propionate Nasal 50 MCG/SPRAY BOTTLE NS SCH (10:30)
[2021-05-14] MEDS: Tiotropium 10 INH DOSE IH SCH (10:31)
[2021-05-14] MEDS: Clotrimazole 1% CRM 15 GM TUBE TP SCH ×3 (10:37→20:08)
[2021-05-14] MEDS: Budesonide/Formoterol 80/4.5 1 PUFF INH IH SCH ×2 (10:37→20:11)
[2021-05-14] MEDS: QUEtiapine Fumarate 100 MG TABLET PO SCH ×2 (17:18→20:08)
[2021-05-14] MEDS: QUEtiapine Fumarate 25 MG TABLET PO SCH (20:08)
[2021-05-15] MEDS: hydrOXYzine pamoate 25 MG CAPSULE PO SCH ×3 (06:55→18:18)
[2021-05-15] MEDS: Nicotine 2 MG GUM BC PRN ×4 (07:32→18:20)
[2021-05-15] MEDS: Perphenazine 8 MG TABLET PO SCH ×2 (09:07→20:34)
[2021-05-15] MEDS: Aspirin 81 MG TAB.CHEW PO SCH (09:07)
[2021-05-15] MEDS: *HR* LORazepam 0.5 MG TABLET PO SCH ×3 (09:07→20:35)
[2021-05-15] MEDS: Loratadine 10 MG TABLET PO SCH (09:07)
[2021-05-15] MEDS: Divalproex (12 HR) 500 MG TABLET PO SCH ×2 (09:08→20:34)
[2021-05-15] MEDS: Gabapentin 300 MG CAPSULE PO SCH ×2 (09:08→20:34)
[2021-05-15] MEDS: *HR* Metformin 500 MG TABLET PO SCH ×2 (09:08→17:12)
[2021-05-15] MEDS: polyethylene glycoL 3350 17 GM POWD.PACK PO SCH (09:12)
[2021-05-15] MEDS: Fluticasone Propionate Nasal 50 MCG/SPRAY BOTTLE NS SCH (09:12)
[2021-05-15] MEDS: Clotrimazole 1% CRM 15 GM TUBE TP SCH ×4 (09:12→23:45)
[2021-05-15] MEDS: Tiotropium 10 INH DOSE IH SCH (09:19)
[2021-05-15] MEDS: Budesonide/Formoterol 80/4.5 1 PUFF INH IH SCH ×2 (09:20→21:13)
[2021-05-15] MEDS: Magic Mouthwash 10 ML UD Cup PO PRN (10:10)
[2021-05-15] MEDS: Ibuprofen 800 MG TABLET PO PRN (14:50)
[2021-05-15] MEDS: QUEtiapine Fumarate 100 MG TABLET PO SCH ×2 (17:12→20:35)
[2021-05-15] MEDS: QUEtiapine Fumarate 25 MG TABLET PO SCH (20:34)
[2021-05-15] MEDS: Ipratropium/Albuterol Neb 3 ML IH PRN (21:03)
[2021-05-16] MEDS: Acetaminophen 325 MG TABLET PO PRN (00:59)
[2021-05-16] MEDS: Nicotine 2 MG GUM BC PRN ×5 (00:59→21:14)
[2021-05-16] MEDS: Ipratropium/Albuterol Neb 3 ML IH PRN ×2 (05:25→21:49)
[2021-05-16] MEDS: Ibuprofen 800 MG TABLET PO PRN ×3 (05:34→21:26)
[2021-05-16] MEDS: hydrOXYzine pamoate 25 MG CAPSULE PO SCH ×3 (09:15→18:11)
[2021-05-16] MEDS: polyethylene glycoL 3350 17 GM POWD.PACK PO SCH (09:15)
[2021-05-16] MEDS: Perphenazine 8 MG TABLET PO SCH ×2 (09:16→21:14)
[2021-05-16] MEDS: Divalproex (12 HR) 500 MG TABLET PO SCH ×2 (09:16→21:13)
[2021-05-16] MEDS: *HR* Metformin 500 MG TABLET PO SCH ×2 (09:16→16:18)
[2021-05-16] MEDS: Gabapentin 300 MG CAPSULE PO SCH ×2 (09:16→21:13)
[2021-05-16] MEDS: Aspirin 81 MG TAB.CHEW PO SCH (09:16)
[2021-05-16] MEDS: Loratadine 10 MG TABLET PO SCH (09:16)
[2021-05-16] MEDS: Fluticasone Propionate Nasal 50 MCG/SPRAY BOTTLE NS SCH (09:16)
[2021-05-16] MEDS: *HR* LORazepam 0.5 MG TABLET PO SCH ×3 (09:16→21:13)
[2021-05-16] MEDS: Tiotropium 10 INH DOSE IH SCH (09:17)
[2021-05-16] MEDS: Budesonide/Formoterol 80/4.5 1 PUFF INH IH SCH ×2 (09:17→21:29)
[2021-05-16] MEDS: Clotrimazole 1% CRM 15 GM TUBE TP SCH ×3 (09:21→21:12)
[2021-05-16] MEDS: QUEtiapine Fumarate 100 MG TABLET PO SCH ×2 (16:18→21:14)
[2021-05-16] MEDS: QUEtiapine Fumarate 25 MG TABLET PO SCH (21:13)
[2021-05-17] MEDS: hydrOXYzine pamoate 25 MG CAPSULE PO SCH ×3 (07:08→18:16)
[2021-05-17] MEDS: Fluticasone Propionate Nasal 50 MCG/SPRAY BOTTLE NS SCH (09:03)
[2021-05-17] MEDS: Magic Mouthwash 10 ML UD Cup PO PRN ×2 (09:03→21:36)
[2021-05-17] MEDS: Tiotropium 10 INH DOSE IH SCH (09:03)
[2021-05-17] MEDS: Clotrimazole 1% CRM 15 GM TUBE TP SCH ×3 (09:04→21:19)
[2021-05-17] MEDS: polyethylene glycoL 3350 17 GM POWD.PACK PO SCH (09:04)
[2021-05-17] MEDS: *HR* LORazepam 0.5 MG TABLET PO SCH ×3 (09:05→21:18)
[2021-05-17] MEDS: Loratadine 10 MG TABLET PO SCH (09:05)
[2021-05-17] MEDS: Aspirin 81 MG TAB.CHEW PO SCH (09:05)
[2021-05-17] MEDS: Divalproex (12 HR) 500 MG TABLET PO SCH ×2 (09:05→21:18)
[2021-05-17] MEDS: Gabapentin 300 MG CAPSULE PO SCH ×2 (09:05→21:18)
[2021-05-17] MEDS: *HR* Metformin 500 MG TABLET PO SCH ×2 (09:06→15:40)
[2021-05-17] MEDS: Perphenazine 8 MG TABLET PO SCH ×2 (09:06→21:19)
[2021-05-17] MEDS: Budesonide/Formoterol 80/4.5 1 PUFF INH IH SCH ×2 (09:10→21:37)
[2021-05-17] MEDS: Ibuprofen 800 MG TABLET PO PRN (10:47)
[2021-05-17] MEDS: Nicotine 2 MG GUM BC PRN ×3 (10:48→20:09)
[2021-05-17] MEDS: QUEtiapine Fumarate 100 MG TABLET PO SCH ×2 (15:41→21:18)
[2021-05-17 16:29] LABS: Adenovirus Not Detected (Not Detect); Bordetella Pertussis Not Detected (Not Detect); Chlamydophila pneumoniae Not Detected (Not Detect); Coronavirus 229E Not Detected (Not Detect); Coronavirus HKU1 Not Detected (Not Detect); Coronavirus NL63 Not Detected (Not Detect); Coronavirus OC43 Not Detected (Not Detect); Human Metapneumovirus Not Detected (Not Detect); Human Rhinovirus/Enterovirus Not Detected (Not Detect); Influenza A Subtype 2009 H1 Not Detected (Not Detect); Influenza B Not Detected (Not Detect); Mycoplasma pneumoniae Not Detected (Not Detect); Parainfluenza Virus 1 Not Detected (Not Detect); Parainfluenza Virus 2 Not Detected (Not Detect); Parainfluenza Virus 3 Not Detected (Not Detect); Parainfluenza Virus 4 Not Detected (Not Detect); Respiratory Syncytial Virus Not Detected (Not Detect); SARS-CoV-2 Not Detected (Not Detect)
[2021-05-17] MEDS: Ipratropium/Albuterol Neb 3 ML IH PRN (18:16)
[2021-05-17 20:34] LABS: Creatinine,Urine 34 mg/dL; Microalbumin,Urine < 7 mg/L; Protein/Creatinine Ratio,Urine 0.12 mg/mg (0.00-0.20); Sodium, Urine 57.9 mEq/L
[2021-05-17] MEDS: QUEtiapine Fumarate 25 MG TABLET PO SCH (21:19)
[2021-05-18] MEDS: Ibuprofen 800 MG TABLET PO PRN (06:16)
[2021-05-18] MEDS: Nicotine 2 MG GUM BC PRN ×2 (06:16→13:23)
[2021-05-18] MEDS: hydrOXYzine pamoate 25 MG CAPSULE PO SCH ×2 (06:16→13:23)
[2021-05-18] MEDS: *HR* Metformin 500 MG TABLET PO SCH (08:11)
[2021-05-18] MEDS: Loratadine 10 MG TABLET PO SCH (08:11)
[2021-05-18] MEDS: Gabapentin 300 MG CAPSULE PO SCH (08:11)
[2021-05-18] MEDS: Divalproex (12 HR) 500 MG TABLET PO SCH (08:12)
[2021-05-18] MEDS: Perphenazine 8 MG TABLET PO SCH (08:12)
[2021-05-18] MEDS: Aspirin 81 MG TAB.CHEW PO SCH (08:12)
[2021-05-18] MEDS: *HR* LORazepam 0.5 MG TABLET PO SCH (08:12)
[2021-05-18] MEDS: Fluticasone Propionate Nasal 50 MCG/SPRAY BOTTLE NS SCH (08:13)
[2021-05-18] MEDS: polyethylene glycoL 3350 17 GM POWD.PACK PO SCH (08:14)
[2021-05-18] MEDS: Tiotropium 10 INH DOSE IH SCH (08:14)
[2021-05-18] MEDS: Clotrimazole 1% CRM 15 GM TUBE TP SCH (08:14)
[2021-05-18] MEDS: Budesonide/Formoterol 80/4.5 1 PUFF INH IH SCH (08:15)
[2021-05-18] MEDS: Acetaminophen 325 MG TABLET PO PRN (09:10)
[2021-05-18] MEDS ORDERED: *HR* LORazepam 1 MG TABLET PO ONE (09:29)
[2021-05-18 10:01] VITALS: BP 137/82; PULSE 92; TEMP 98.1; O2SAT 94
[2021-05-18] MEDS: Ipratropium/Albuterol Neb 3 ML IH PRN (12:14)
== END 2021-05-18 14:30 | disposition home or self-care (01) | DRG 750 ==
LOC: EMEROOARM 13:55 → 1ANU 13:55 → SUATTDRO 21:24 → 1ANU 02-03 19:19
PROVIDERS: ADMIT Psychiatry & Neurology Psychiatry; ATTEND Psychiatry & Neurology Forensic Psychiatry